=== PATIENT | female | born 1935 | race Caucasian/White ===

== ENCOUNTER 2020-09-24 10:02 | Outpatient (REF) | payer MEDICARE, SELFPAY ==
[2020-09-24 11:24] LABS: Hematocrit 33.5 % (37-47); Hemoglobin 11.5 g/dl (12.0-16.0); Mean Corpuscular HGB Conc 34.3 g/dl (31.0-35.0); Mean Corpuscular Volume 96.3 fL (80-98); Mean Platelet Volume 8.5 fL (9.4-12.3); Platelet Count 190 X10*3/uL (160-400); Red Blood Count 3.48 X10*6/uL (4.20-5.50); Red Cell Distribution Width 12.3 % (11.0-16.0); White Blood Count 7.8 X10*3/uL (4.8-10.8)
[2020-09-24 11:44] LABS: Alanine Aminotransferase 12 U/L (0-31); Albumin Level 4.5 g/dL (3.5-5.0); Alkaline Phosphatase 36 U/L (39-117); Anion Gap 14 (12-20); Aspartate Amino Transferase 18 U/L (5-31); Bilirubin Total 0.5 mg/dL (0.0-1.0); Blood Urea Nitrogen 32 mg/dL (9-16); Calcium 9.2 mg/dL (8.4-10.2); Carbon Dioxide 25 mmol/L (22-29); Chloride 98 mmol/L (96-108); Estimated Glomerular Filt Rate 53; Glucose Random 85 mg/dL (60-115); Iron 112 mcg/dL (30-160); Percent Iron Saturation 46 % (15-50); Potassium 3.7 mmol/L (3.3-5.1); Sodium 133 mmol/L (135-145); Total Iron Binding Capacity 245 mcg/dL (228-428); Total Protein 7.1 g/dL (6.5-8.0); Unsaturated Iron Binding 133 ug/dL
== END 2020-09-24 10:03 | disposition home or self-care (01) ==
LOC: HO.HMGCLDS 10:02
PROVIDERS: PCP Internal Medicine; Visit Provider Internal Medicine
DX: D64.9 Anemia, unspecified (principal); I10 Essential (primary) hypertension; M81.0 Age-related osteoporosis without current pathological fracture; Z86.39 Personal history of other endocrine, nutritional and metabolic disease
CPT/HCPCS: 36415; 80053; 83540; 85027

== ENCOUNTER 2020-12-14 09:10 | Outpatient (REF) | payer MEDICARE, SELFPAY ==
--- NOTE | ~2020-12-14 | MM_ITS ---
EXAMINATION: MM SCREENING DIGITAL BREAST TOMOSYNTHESIS, BILATERAL CLINICAL INFORMATION: Screening. Asymptomatic. Prior history benign excisional biopsies, left. Family history breast cancer, sister. The lifetime risk of breast cancer based on the Tyrer-Cuzick Model is 2%. COMPARISON: Mammography: 09/08/2016, 08/05/2015 TECHNIQUE: Digital breast tomosynthesis is performed in both the craniocaudal and mediolateral oblique views along with computer-aided detection (CAD). Synthesized 2D images are generated from the tomosynthesis. FINDINGS: There are scattered areas of fibroglandular density (ACR BI-RADS breast composition Category b). Breast tissue composition borders on heterogeneously dense. Parenchymal pattern is similar to prior studies. There is no developing density or interval mass or architectural abnormality. Bilateral vascular and punctate calcifications are again seen. There are no significant changes from prior studies. MM/MM tomosynthesis screening BI IMPRESSION: No significant changes from prior exams. ASSESSMENT: BI-RADS 2: Benign RECOMMENDATION: Routine annual mammography screening. This patient's information was entered into a reminder system with a target due date for their next mammogram.
--- NOTE | ~2020-12-14 | MM_ITS ---
EXAMINATION: BONE DENSITOMETRY CLINICAL INDICATION: Osteoporosis. COMPARISON: Previous BD dated 08/05/2015 and baseline BD dated 12/17/2007. TECHNIQUE: Using a [employer] DXA System (software version: 13.1) manufactured by [employer], dual-energy x-ray absorptiometry was performed of the lumbar spine and left hip. The images are of good technical quality. Summary results are attached. FINDINGS: AP SPINE L1-L4: Current: BMD 0.680 g/cm2, Z-score -1.5, T-score -4.2, osteoporosis, 10.7% increase from previous, 11.6% decrease from baseline (<5% change is not significant). Prior: BMD 0.614 g/cm2. Baseline: BMD 0.769 g/cm2. LEFT FEMUR, NECK: Current: BMD 0.663 g/cm2, Z-score 0.1, T-score -2.7, osteoporosis. Prior: BMD 0.687 g/cm2. Baseline: BMD 0.750 g/cm2. LEFT FEMUR, TOTAL: Current: BMD 0.618 g/cm2, Z-score -0.3, T-score -3.1, osteoporosis, 7.8% decrease from previous, 15.1% decrease from baseline (<5% change is not significant). Prior: BMD 0.670 g/cm2. Baseline: BMD 0.728 g/cm2. IDENTIFIED RISK FACTORS: Early menopause, height loss, history of fracture (adult), hysterectomy, bilateral oophorectomy, low calcium intake, osteoporosis, secondary osteoporosis. HISTORY OF FRACTURE: Femur/hip, humerus/shoulder, pelvis. MEDICATIONS: Calcium, vitamin D, Prolia. MM/XR DEXA axial skeleton IMPRESSION: 1. DIAGNOSIS: Severe osteoporosis based on the lowest T-score value of -4.2 in the lumbar spine and history of fractures of the femur/hip, pelvis, humerus/shoulder applying World Health Organization criteria. 2. 10-YEAR FRACTURE RISK PREDICTION, FRAX: Major osteoporotic fracture (clinical spine, forearm, hip or shoulder) 23.2%. Hip fracture 8.7%. 3. Treatment Recommendations: NOF guidelines recommend consideration for treatment in postmenopausal women and men age 50 and older presenting with the following: -A hip or vertebral (clinical or morphometric) fracture. -T-score less than or equal to -2.5 at the femoral neck or spine after appropriate evaluation to exclude secondary causes. -Low bone mass at the hip or spine and a 10-year fracture probability by FRAX of greater than or equal to 3% for hip fracture or greater than or equal to 20% for major osteoporotic fracture based on the [place] adapted WHO algorithm. 4. Other Recommendations: All treatment decisions require clinical judgment and consideration of individual patient factors, including patient preferences, comorbidities, previous drug use, risk factors not captured in the FRAX model (e.g. frailty, falls, vitamin D deficiency, increased bone turnover, interval significant decline in bone density) and possible under or overestimation of fracture risk by FRAX. Additional medical evaluation for secondary cause of low bone mineral density may be appropriate. FUTURE SCAN RECOMMENDATION: People with diagnosed cases of osteoporosis or at high risk for fracture should have regular bone mineral density tests. For patients eligible for Medicare, routine testing is allowed once every 2 years. The testing frequency can be increased to one year for patients who have rapidly progressing disease, those who are receiving or discontinuing medical therapy to restore bone mass, or have additional risk factors.
== END 2020-12-14 09:11 | disposition home or self-care (01) ==
LOC: HO.MAMMO 09:10
PROVIDERS: PCP Internal Medicine; Visit Provider Internal Medicine
DX: Z12.31 Encounter for screening mammogram for malignant neoplasm of breast (principal); M81.0 Age-related osteoporosis without current pathological fracture; E58 Dietary calcium deficiency; Z78.0 Asymptomatic menopausal state; Z90.710 Acquired absence of both cervix and uterus; Z90.722 Acquired absence of ovaries, bilateral
CPT/HCPCS: 77063; 77067; 77080

== ENCOUNTER 2021-01-15 13:28 | Emergency (ER) | payer MEDICARE, SELFPAY ==
--- NOTE | ~2021-01-15 | XR_ITS ---
EXAMINATION: XR HIP, LEFT CLINICAL INFORMATION: Left hip pain status post trauma. COMPARISON: None TECHNIQUE: Two views of the left hip. FINDINGS: Mild left hip degenerative joint changes are seen. There is no acute fracture or dislocation. Enthesopathy is noted as well. The soft tissues are unremarkable. XR/XR hip LT w PEL1V IMPRESSION: Mild degenerative changes. No acute fracture.
--- NOTE | ~2021-01-15 | XR_ITS ---
EXAMINATION: XR SHOULDER, LEFT CLINICAL INFORMATION: Left shoulder pain status post trauma. COMPARISON: 05/25/2017 left shoulder arthrogram images. Chest radiographs dated 12/11/2014. TECHNIQUE: AP external rotation, Grashey, scapular Y, and axillary views of the left shoulder. FINDINGS: The patient is status post left shoulder arthroplasty showing good anatomic alignment with no evidence for hardware malfunction. There is no acute fracture or dislocation. The soft tissues are unremarkable. Incidental coarse calcifications overlying the right hilum likely secondary to old granulomatous disease without significant change. XR/XR shoulder LT min 2V IMPRESSION: No hardware abnormality. No acute fracture.
--- NOTE | 2021-01-15 13:46 | ED_ITS ---
HPI - Fall General Chief Complaint: Fall Stated Complaint: FALL ON STEP, R HIP PAIN Time Seen by Provider: 01/15/21 13:35 Source: patient and EMS Mode of arrival: EMS Limitations: no limitations History of Present Illness HPI Narrative: 85-year-old female with a past medical history of hypertension, SIADH, anemia, osteoporosus here with complaints of left buttocks/hip pain status post fall. Patient tells me she was on a 2nd step when she lost her balance landing on her left hip. Denies hitting her head or loss of consciousness. She also struck her left shoulder. complaint: fall Related Data Home Medications Medication Instructions Recorded Confirmed atenolol 25 mg tablet 25 mg PO DAILY 09/24/20 12/24/20 cholecalciferol (vitamin D3) 50 50 mcg PO DAILY 09/24/20 12/24/20 mcg (2,000 unit) capsule clindamycin HCl 300 mg capsule 300 mg PO TID 09/24/20 12/24/20 flu vac qv 2019(18yr up)rc(PF) ml IM 09/24/20 12/24/20 potassium chloride 20 mEq/15 mL 20 meq PO DAILY 11/23/20 12/24/20 oral liquid Previous Rx's Medication Instructions Recorded denosumab 60 mg/mL subcutaneous 60 mg SUBCUT [id number] #1 ml 12/24/20 syringe lorazepam 0.5 mg tablet 0.5 mg PO DAILY PRN #8 tab 12/24/20 nitrofurantoin 100 mg PO Q12H 7 Days #14 cap 12/24/20 monohydrate/macrocrystals 100 mg capsule ascorbic acid (vitamin C) 500 mg 500 mg PO BID #180 tab 01/14/21 tablet ferrous sulfate 325 mg (65 mg 325 mg PO BID #180 tab 01/14/21 iron) tablet acetaminophen 1,000 mg PO Q6H PRN #20 cap 01/15/21 diazepam [Valium] 2 mg PO BID PRN #5 tab 01/15/21 lidocaine [Lidoderm] 1 patch TOPICAL DAILY #15 ea 01/15/21 Allergies Allergy/AdvReac Type Severity Reaction Status Date / Time meperidine [From Demerol] Allergy Severe ANAPHYLAXIS Verified 12/24/20 09:11 Penicillins Allergy Severe HIVES Verified 12/24/20 09:11 Sulfa (Sulfonamide Allergy Mild HIVES Verified 12/24/20 09:11 Antibiotics) [Sulfa (Sulfonamides)] amoxicillin Allergy Unknown hives Verified 12/24/20 09:11 CHOCOLATE Allergy Unknown HIVES Verified 12/24/20 09:11 peanut [PEANUT] Allergy Unknown HIVES Verified 12/24/20 09:11 penicillin G Allergy Unknown Unknown Verified 12/24/20 09:11 penicillin V Allergy Unknown Unknown Verified 12/24/20 09:11 codeine [Codeine] AdvReac Mild NAUSEA/VOMI Verified 12/24/20 09:11 TING pravastatin AdvReac Unknown body aches Verified 12/24/20 09:11 Review of Systems Review of Systems: Yes all other systems are reviewed and are negative Constitutional: Constitutional: Reports no additional constitutional complaints, Denies body ache(s), Denies chills, Denies fever(s), Denies headache(s) and Denies weakness Eyes: Eyes: Reports no additional eye complaints and Denies change in vision ENT: Reports system reviewed and no additional complaints, except as documented, Denies dizziness, Denies headache(s), Denies nasal congestion, Denies nasal discharge and Denies neck pain Cardiovascular: Cardiovascular: Reports no additional cardiovascular c omplaints, Denies chest pain, Denies leg edema and Denies dyspnea Respiratory: Respiratory: Reports no additional respiratory complaints, Denies cough and Denies dyspnea Gastrointestinal: Gastrointestinal: Reports no additional gastrointestinal complaints, Denies abdominal pain, Denies diarrhea, Denies nausea and Denies vomiting Genitourinary: Genitourinary: Reports no additional female genitourinary complaints and Denies urinary incontinence Musculoskeletal: Musculoskeletal: Reports no additional musculoskeletal complaints, Denies back pain, Reports arthralgias, Denies joint swelling, Reports limited range of motion, Denies neck pain, Denies numbness and Denies tingling Integumentary/Breasts: Skin/Breast: Reports system reviewed and no additional complaints, except as docu and Denies rash Neurologic: Reports system reviewed and no additional complaints, except as documented, Denies Abnormal speech present, Denies dizziness, Denies headac he(s), Denies numbness, Denies tingling and Denies weakness PMFSH Past Medical History Attestation statement: The following information was validated with the patient. Source: old records reviewed and nursing notes reviewed Medical History Chronic anemia History of SIADH HTN (hypertension) Osteoporosis Surgical History History of appendectomy History of cataract History of colonoscopy History of fundoplication History of hysterectomy History of left shoulder replacement History of open reduction and internal fixation (ORIF) procedure Family History Family History Father History of CVA (cerebrovascular accident) Stroke Mother CVD (cardiovascular disease) History of heart attack Son No problems noted. Social History Social History Alcohol intake: never Smoking Status: Never smoker Advance Directives: No Advance Directives Information Provided: Yes Physical Exam Vital Signs: Vital Signs: Last Vital Signs Temp 98.1 F 01/15/21 13:53 Pulse 64 01/15/21 13:53 Resp 18 01/15/21 13:53 BP 142/68 H 01/15/21 13:53 Pulse Ox 98 01/15/21 13:53 Body Mass Index 18.5 Const: General: cooperative, healthy appearing, comfortable and no acute distress Orientation/consciousness: patient oriented x3 Limitations: no limitations HENMT: Head: Yes normal to inspection Ears: hearing grossly normal bilaterally General nose exam: Normal external nose present Face and sinus: Yes normal facial exam Mouth: Normal oral and palatal mucosa present Throat: Yes posterior oropharynx normal Eyes: General: appearance normal, both eyes and all related structures Pupils: Equal, round and reactive pupils present Neck: Neck: Yes normal visual inspection Chest: Chest palpation & inspection: normal inspection of the chest Resp: Effort & Inspection: normal respiratory effort Auscultation: clear to auscultation bilaterally Cardio: Rate: regular rate Rhythm: regular rhythm Peripheral pulses: Peripheral pulses 2+ throughout GI: Inspection: Yes normal to inspection Palpation (GI): Soft to palpation and nontender Auscultation: normal bowel sounds Back/Spine/Pelvis: Thoracic/Lumbar Spine: thoracic and lumbar spine normal to inspection Skin: General skin exam: no rashes or lesions noted Neuro: General: patient oriented x3, no focal motor deficits and normal sensation to monofilament Cranial nerves: Yes Equal, round and reactive pupils present Cognition (Neuro): normal cognition Speech: No Abnormal speech present Gait exam (Neuro): Normal gait present Motor exam (neuro): 5/5 motor strength present throughout Extrem: Other: Left buttocks and left lateral hip pain. Pain with abduction and adduction. No obvious shortening or deformity or rotation Pain to the posterior left shoulder with pain with abduction. No obvious deformity. General: Yes normal to inspection Course Course Course Narrative: 85 yo female here with left hip/buttocks pain/left shoulder pain s/p mechanical fall. No head injury or LOC. Will need x-rays, labs. 1520-X-rays are negative. Patient able to walk around the room although with some discomfort. She is here with her they tell me that they are comfortable going home. She does not feel like she needs any services or placement in a short-term rehab. She was given Tylenol, Lidoderm patch and a dose of Valium here with improvement of pain. Likely contusion. Reviewed worrisome signs and symptoms and when to return to the emergency department. Comfortable discharge home. MDM - Fall Differential Diagnosis Differential diagnosis: Likely dislocation and fracture Medical Records Attestation: I reviewed the patient's medical records. Lab Data Attestation: I reviewed the patient's lab results. Result diagrams: 01/15/21 14:04 01/15/21 14:04 Labs: Lab Results 01/15/21 01/15/21 01/15/21 Range/Units 14:04 14:04 14:04 WBC 6.8 (4.8-10.8) X10*3/uL RBC 3.21 L (4.20-5.50) X10*6/uL Hgb 10.6 L (12.0-16.0) g/dl Hct 30.2 L (37-47) % MCV 94.1 (80-98) fL MCH 33.0 (27.0-33.0) pg MCHC 35.1 H (31.0-35.0) g/dl RDW 12.3 (11.0-16.0) % Plt Count 154 L (160-400) X10*3/uL MPV 8.3 L (9.4-12.3) fL Immature Gran % (Auto) 0.4 (0.0-0.4) % Neut % (Auto) 77.7 H (45-73) % Lymph % (Auto) 13.2 L (20-40) % [place] % (Auto) 7.7 (2-11) % Eos % (Auto) 0.6 (0-4) % Baso % (Auto) 0.4 (0-2) % Lymph # (Auto) 0.9 L (1.2-4.9) X10*3/uL [place] # (Auto) 0.5 (0.1-1.2) X10*3/uL Eos # (Auto) 0.0 (0.0-0.4) X10*3/uL Baso # (Auto) 0.0 (0.0-0.2) X10*3/uL Abs Immat Gran (auto) 0.03 (0.00-0.03) X10*3/uL Absolute Neuts (auto) 5.2 (2.0-8.3) X10*3/uL Absolute Nucleated RBC 0.000 (0.0-0.012) X10*3/uL Nucleated RBC % (auto) 0.0 (0.0-0.2) /100WBC Hold Blue Top SEE NOTE Sodium 132 L (135-145) mmol/L Potassium 4.1 (3.3-5.1) mmol/L Chloride 100 (96-108) mmol/L Carbon Dioxide 22 (22-29) mmol/L Anion Gap 14 (12-20) BUN 30 H (9-16) mg/dL Creatinine 0.91 (0.5-1.4) mg/dL Estim Creat Clear Calc 31.3 Estimated GFR 59 Random Glucose 106 (60-115) mg/dL Calcium 9.3 (8.4-10.2) mg/dL Imaging Data left hip/pelvis fracture: Attestation: I personally reviewed and interpreted this imaging study as follows: Radiologist's impression: EXAMINATION: XR HIP, LEFT CLINICAL INFORMATION: Left hip pain status post trauma. COMPARISON: None TECHNIQUE: Two views of the left hip. FINDINGS: Mild left hip degenerative joint changes are seen. There is no acute fracture or dislocation. Enthesopathy is noted as well. The soft tissues are unremarkable. XR/XR hip LT w PEL1V IMPRESSION: Mild degenerative changes. No acute fracture. shoulder xray: Attestation: I personally reviewed and interpreted this imaging study as follows: Radiologist's impression: EXAMINATION: XR SHOULDER, LEFT CLINICAL INFORMATION: Left shoulder pain status post trauma. COMPARISON: 05/25/2017 left shoulder arthrogram images. Chest radiographs dated 12/11/2014. TECHNIQUE: AP external rotation, Grashey, scapular Y, and axillary views of the left shoulder. FINDINGS: The patient is status post left shoulder arthroplasty showing good anatomic alignment with no evidence for hardware malfunction. There is no acute fracture or dislocation. The soft tissues are unremarkable. Incidental coarse calcifications overlying the right hilum likely secondary to old granulomatous disease without significant change. XR/XR shoulder LT min 2V IMPRESSION: No hardware abnormality. No acute fracture. Discharge Plan Discharge Clinical Impression: Contusion of hip, left Qualifiers: Encounter type: initial encounter Qualified Code(s): S70.02XA - Contusion of left hip, initial encounter Contusion of left shoulder Qualifiers: Encounter type: initial encounter Qualified Code(s): S40.012A - Contusion of left shoulder, initial encounter Patient Disposition: Home, Self-Care Instructions: Contusion in Adults (ED) Additional Instructions: Ice, elevation, rest Prescriptions: New diazepam [Valium] 2 mg tablet 2 mg PO BID PRN (Reason: muscle spasm) Qty: 5 RF: 0 lidocaine [Lidoderm] 5 % adhesive patch,medicated 1 patch topical DAILY Qty: 15 RF: 0 acetaminophen 500 mg capsule 1,000 mg PO Q6H PRN (Reason: pain) Qty: 20 RF: 0 No Action ascorbic acid (vitamin C) 500 mg tablet 500 mg PO BID Qty: 180 RF: 3 ferrous sulfate 325 mg (65 mg iron) tablet 325 mg PO BID Qty: 180 RF: 3 potassium chloride 20 mEq/15 mL liquid 20 meq PO DAILY RF: 0 clindamycin HCl 300 mg capsule 300 mg PO TID RF: 0 atenolol 25 mg tablet 25 mg PO DAILY RF: 0 Flublok Quad 1182-1799 (PF) 180 mcg (45 mcg x 4)/0.5 mL syringe IM RF: 0 cholecalciferol (vitamin D3) 50 mcg (2,000 unit) capsule 50 mcg PO DAILY RF: 0 Prolia 60 mg/mL syringe 60 mg subcut [id number] Qty: 1 RF: 1 nitrofurantoin monohyd/m-cryst [Macrobid] 100 mg capsule 100 mg PO Q12H 7 Days Qty: 14 RF: 0 lorazepam 0.5 mg tablet 0.5 mg PO DAILY PRN (Reason: anxiety) Qty: 8 RF: 0 Referrals: Clarice Ziegler MD [Primary Care Provider] - 2 days
[2021-01-15 13:51] VITALS: BP 135/72
[2021-01-15 13:53] VITALS: BP 142/68; PULSE 64; RESP 18; TEMP 36.7; O2SAT 98; BMI 18.5
[2021-01-15 14:13] LABS: MANUAL DIFF FLAG NO
[2021-01-15 14:15] LABS: Basophils Percent Auto 0.4 % (0-2); Eosinophils Percent Auto 0.6 % (0-4); Hematocrit 30.2 % (37-47); Hemoglobin 10.6 g/dl (12.0-16.0); Imm Gran Abs Auto 0.03 X10*3/uL (0.00-0.03); Imm Gran Pct Auto 0.4 % (0.0-0.4); Lymphocytes Absolute Auto 0.9 X10*3/uL (1.2-4.9); Lymphocytes Percent Auto 13.2 % (20-40); Mean Corpuscular HGB Conc 35.1 g/dl (31.0-35.0); Mean Corpuscular Volume 94.1 fL (80-98); Mean Platelet Volume 8.3 fL (9.4-12.3); Monocytes Absolute Auto 0.5 X10*3/uL (0.1-1.2); Monocytes Percent Auto 7.7 % (2-11); Neutrophils Absolute Auto 5.2 X10*3/uL (2.0-8.3); Neutrophils Percent Auto 77.7 % (45-73); Platelet Count 154 X10*3/uL (160-400); Red Blood Count 3.21 X10*6/uL (4.20-5.50); Red Cell Distribution Width 12.3 % (11.0-16.0); White Blood Count 6.8 X10*3/uL (4.8-10.8)
[2021-01-15 14:34] LABS: Anion Gap 14 (12-20); Blood Urea Nitrogen 30 mg/dL (9-16); Calcium 9.3 mg/dL (8.4-10.2); Carbon Dioxide 22 mmol/L (22-29); Chloride 100 mmol/L (96-108); Creatinine Clr Calc Pharmacy 31.3; Estimated Glomerular Filt Rate 59; Glucose Random 106 mg/dL (60-115); Potassium 4.1 mmol/L (3.3-5.1); Sodium 132 mmol/L (135-145)
[2021-01-15] MEDS: diazePAM 2 MG TABLET PO (15:57)
[2021-01-15] MEDS: Acetaminophen 325 MG TABLET 975 MG PO (15:57)
[2021-01-15] MEDS: Lidocaine 4 % Patch ADH..PATCH 1 PATCH TRANSDERMA (15:58)
--- NOTE | 2021-01-15 16:10 | PC.NURSE ---
Pt medicated for pain and given prescriptions for home. She is able to ambulate with steady gait.
== END 2021-01-15 16:10 | disposition home or self-care (01) ==
PROVIDERS: Nurse Practitioner Family; Emergency Provider Emergency Medicine; PCP Internal Medicine
DX: S40.012A Contusion of left shoulder, initial encounter (principal); S70.02XA Contusion of left hip, initial encounter; W10.8XXA Fall (on) (from) other stairs and steps, initial encounter; Y93.89 Activity, other specified; Y92.22 Religious institution as the place of occurrence of the external cause; Y99.9 Unspecified external cause status; I10 Essential (primary) hypertension
CPT/HCPCS: 36415; 73030; 73502; 80048; 85025; 99283; 99284

== ENCOUNTER 2021-06-16 11:05 | Outpatient (REF) | payer MEDICARE, SELFPAY ==
[2021-06-16 14:03] LABS: Hematocrit 33.1 % (37-47); Hemoglobin 11.3 g/dl (12.0-16.0); Mean Corpuscular HGB Conc 34.1 g/dl (31.0-35.0); Mean Corpuscular Hemoglobin 32.8 pg (27.0-33.0); Mean Corpuscular Volume 95.9 fL (80-98); Mean Platelet Volume 8.5 fL (9.4-12.3); Platelet Count 178 X10*3/uL (160-400); Red Blood Count 3.45 X10*6/uL (4.20-5.50); Red Cell Distribution Width 13.2 % (11.0-16.0); White Blood Count 6.4 X10*3/uL (4.8-10.8)
[2021-06-16 14:26] LABS: Alanine Aminotransferase 11 U/L (0-31); Albumin Level 4.3 g/dL (3.5-5.0); Alkaline Phosphatase 34 U/L (39-117); Anion Gap 12 (12-20); Aspartate Amino Transferase 19 U/L (5-31); Bilirubin Total 0.4 mg/dL (0.0-1.0); Blood Urea Nitrogen 24 mg/dL (9-16); Calcium 9.2 mg/dL (8.4-10.2); Carbon Dioxide 25 mmol/L (22-29); Chloride 101 mmol/L (96-108); Estimated Glomerular Filt Rate 45; Glucose Fasting 92 mg/dL (60-99); Iron 72 mcg/dL (30-160); Percent Iron Saturation 31 % (15-50); Potassium 4.2 mmol/L (3.3-5.1); Sodium 134 mmol/L (135-145); Total Iron Binding Capacity 235 mcg/dL (228-428); Total Protein 6.9 g/dL (6.5-8.0); Unsaturated Iron Binding 163 ug/dL
[2021-06-16 14:40] LABS: TSH reflex Free T4 1.55 uIU/mL (0.32-4.0); Vitamin D 25-OH Total 58.7 ng/mL (>30)
== END 2021-06-16 11:06 | disposition home or self-care (01) ==
LOC: HO.HMGCLDS 11:05
PROVIDERS: PCP Internal Medicine; Visit Provider Internal Medicine
DX: I10 Essential (primary) hypertension (principal); M81.0 Age-related osteoporosis without current pathological fracture; D64.9 Anemia, unspecified; Z68.39 Body mass index [BMI] 39.0-39.9, adult
CPT/HCPCS: 36415; 80053; 82306; 83540; 84443; 85027

== ENCOUNTER 2021-12-15 13:20 | Outpatient (REF) | payer MEDICARE, SELFPAY ==
[2021-12-15 14:08] LABS: COVID-19 Test Positive (Negative)
== END 2021-12-15 13:21 | disposition home or self-care (01) ==
LOC: HO.LAB 13:20
PROVIDERS: Visit Provider Internal Medicine
DX: Z20.822 Contact with and (suspected) exposure to COVID-19 (principal)
CPT/HCPCS: 87635; C9803

== ENCOUNTER 2022-01-11 10:51 | Outpatient (REF) | payer MEDICARE, SELFPAY ==
[2022-01-11 13:56] LABS: Hematocrit 34.8 % (37.0-47.0); Hemoglobin 11.8 g/dl (12.0-16.0); Mean Corpuscular HGB Conc 33.9 g/dl (31.0-35.0); Mean Corpuscular Hemoglobin 32.5 pg (27.0-33.0); Mean Corpuscular Volume 95.9 fL (80.0-98.0); Mean Platelet Volume 9.1 fL (9.4-12.3); Platelet Count 191 X10*3/uL (160-400); Red Blood Count 3.63 X10*6/uL (4.20-5.50); Red Cell Distribution Width 13.2 % (11.0-16.0); White Blood Count 7.7 X10*3/uL (4.8-10.8)
[2022-01-11 14:04] LABS: Alanine Aminotransferase 17 U/L (0-31); Albumin Level 4.2 g/dL (3.5-5.0); Alkaline Phosphatase 34 U/L (39-117); Anion Gap 12 (12-20); Aspartate Amino Transferase 19 U/L (5-31); Bilirubin Total 0.4 mg/dL (0.0-1.0); Blood Urea Nitrogen 25 mg/dL (9-16); Calcium 9.4 mg/dL (8.4-10.2); Carbon Dioxide 24 mmol/L (22-29); Chloride 106 mmol/L (96-108); Cholesterol 174 mg/dL; Estimated Glomerular Filt Rate 51; Glucose Fasting 86 mg/dL (60-99); HDL Cholesterol 61 mg/dL; LDL Cholesterol Calculated 101 mg/dl; Potassium 3.9 mmol/L (3.3-5.1); Sodium 138 mmol/L (135-145); Total Protein 6.9 g/dL (6.5-8.0); Triglycerides 64 mg/dL
[2022-01-11 14:29] LABS: Vitamin D 25-OH Total 53.2 ng/mL (>30)
== END 2022-01-11 10:52 | disposition home or self-care (01) ==
LOC: HO.HMGCLDS 10:51
PROVIDERS: Visit Provider Internal Medicine
DX: D64.9 Anemia, unspecified (principal); E55.9 Vitamin D deficiency, unspecified; I10 Essential (primary) hypertension; Z86.39 Personal history of other endocrine, nutritional and metabolic disease
CPT/HCPCS: 36415; 80053; 80061; 82306; 85027

== ENCOUNTER 2022-06-27 10:30 | Outpatient (REF) | payer MEDICARE, SELFPAY ==
[2022-06-27 12:22] LABS: Alanine Aminotransferase 12 U/L (0-31); Albumin Level 4.6 g/dL (3.5-5.0); Alkaline Phosphatase 37 U/L (39-117); Anion Gap 16 (12-20); Aspartate Amino Transferase 20 U/L (5-31); Bilirubin Total 0.3 mg/dL (0.0-1.0); Blood Urea Nitrogen 31 mg/dL (9-16); Calcium 9.5 mg/dL (8.4-10.2); Carbon Dioxide 24 mmol/L (22-29); Chloride 100 mmol/L (96-108); Estimated Glomerular Filt Rate 44; Glucose Fasting 86 mg/dL (60-99); Potassium 4.2 mmol/L (3.3-5.1); Sodium 136 mmol/L (135-145); Total Protein 7.2 g/dL (6.5-8.0)
== END 2022-06-27 10:31 | disposition home or self-care (01) ==
LOC: HO.HMGCLDS 10:30
PROVIDERS: PCP Internal Medicine; Visit Provider Internal Medicine
DX: D64.9 Anemia, unspecified (principal); I10 Essential (primary) hypertension
CPT/HCPCS: 36415; 80053

== ENCOUNTER 2022-12-19 08:19 | Outpatient (REF) | payer MEDICARE, SELFPAY ==
--- NOTE | ~2022-12-19 | MM_ITS ---
EXAMINATION: BONE DENSITOMETRY CLINICAL INDICATION: Age-related osteoporosis without current pathological fracture. COMPARISON: Previous BD dated 12/14/2020 and baseline BD dated 12/17/2007. TECHNIQUE: Using a [employer] DXA System (software version: 13.1) manufactured by [employer], dual-energy x-ray absorptiometry was performed of the lumbar spine and left hip. The images are of good technical quality. Summary results are attached. FINDINGS: AP SPINE L1-L4: Current: BMD 0.740 g/cm2, Z-score -1.0, T-score -3.7, osteoporosis, 8.8% increase from previous, 3.8% decrease from baseline (<5% change is not significant). Prior: BMD 0.680 g/cm2. Baseline: BMD 0.769 g/cm2. LEFT FEMUR, NECK: Current: BMD 0.578 g/cm2, Z-score -0.4, T-score -3.3, osteoporosis. Prior: BMD 0.663 g/cm2. Baseline: BMD 0.750 g/cm2. LEFT FEMUR, TOTAL: Current: BMD 0.506 g/cm2, Z-score -1.1, T-score -4.0, osteoporosis, 18.1% decrease from previous, 30.5% decrease from baseline (<5% change is not significant). Prior: BMD 0.618 g/cm2. Baseline: BMD 0.728 g/cm2. IDENTIFIED RISK FACTORS: History of adult fracture. Osteoporosis. Menopause. Left oophorectomy. Hysterectomy. HISTORY OF FRACTURE: Femur/hip. MEDICATIONS: Calcium supplement and/or multivitamin. Vitamin D. Prolia. MM/XR DEXA axial skeleton IMPRESSION: 1. DIAGNOSIS: Osteoporosis based on the lowest T-score value of -4.0 in the total femur applying World Health Organization criteria. 2. 10-YEAR FRACTURE RISK PREDICTION, FRAX: According to the guidelines, FRAX calculation should only be performed on patients in the osteopenia bone density category.?Therefore, FRAX was not performed on this patient.? 3. Treatment Recommendations: NOF guidelines recommend consideration for treatment in postmenopausal women and men age 50 and older presenting with the following: -A hip or vertebral (clinical or morphometric) fracture. -T-score less than or equal to -2.5 at the femoral neck or spine after appropriate evaluation to exclude secondary causes. -Low bone mass at the hip or spine and a 10-year fracture probability by FRAX of greater than or equal to 3% for hip fracture or greater than or equal to 20% for major osteoporotic fracture based on the [place] adapted WHO algorithm. 4. Other Recommendations: All treatment decisions require clinical judgment and consideration of individual patient factors, including patient preferences, comorbidities, previous drug use, risk factors not captured in the FRAX model (e.g. frailty, falls, vitamin D deficiency, increased bone turnover, interval significant decline in bone density) and possible under or overestimation of fracture risk by FRAX. Additional medical evaluation for secondary cause of low bone mineral density may be appropriate. FUTURE SCAN RECOMMENDATION: People with diagnosed cases of osteoporosis or at high risk for fracture should have regular bone mineral density tests. For patients eligible for Medicare, routine testing is allowed once every 2 years. The testing frequency can be increased to one year for patients who have rapidly progressing disease, those who are receiving or discontinuing medical therapy to restore bone mass, or have additional risk factors.
== END 2022-12-19 08:20 | disposition home or self-care (01) ==
LOC: HO.MAMMO 08:19
PROVIDERS: PCP Internal Medicine; Visit Provider Internal Medicine
DX: Z13.820 Encounter for screening for osteoporosis (principal); M81.0 Age-related osteoporosis without current pathological fracture; Z78.0 Asymptomatic menopausal state
CPT/HCPCS: 77080

== ENCOUNTER 2022-12-28 11:33 | Outpatient (REF) | payer MEDICARE, SELFPAY ==
[2022-12-28 14:10] LABS: MANUAL DIFF FLAG NO
[2022-12-28 14:23] LABS: Basophils Absolute Auto 0.1 X10*3/uL (0.0-0.2); Basophils Percent Auto 0.8 % (0-2); Eosinophils Absolute Auto 0.3 X10*3/uL (0.0-0.4); Eosinophils Percent Auto 4.3 % (0-4); Hematocrit 35.1 % (37.0-47.0); Hemoglobin 11.6 g/dl (12.0-16.0); Imm Gran Abs Auto 0.01 X10*3/uL (0.00-0.03); Imm Gran Pct Auto 0.2 % (0.0-0.4); Lymphocytes Absolute Auto 1.8 X10*3/uL (1.2-4.9); Lymphocytes Percent Auto 30.6 % (20-40); Mean Platelet Volume 8.8 fL (9.4-12.3); Monocytes Absolute Auto 0.6 X10*3/uL (0.1-1.2); Monocytes Percent Auto 10.6 % (2-11); Neutrophils Absolute Auto 3.2 x10*3/uL (2.0-8.3); Neutrophils Percent Auto 53.5 % (45-73); Platelet Count 194 X10*3/uL (160-400); Red Blood Count 3.62 X10*6/uL (4.20-5.50); Red Cell Distribution Width 12.8 % (11.0-16.0)
[2022-12-28 15:34] LABS: Alanine Aminotransferase 13 U/L (0-31); Albumin Level 4.4 g/dL (3.5-5.0); Alkaline Phosphatase 37 U/L (39-117); Anion Gap 12 (12-20); Aspartate Amino Transferase 19 U/L (5-31); Bilirubin Total 0.5 mg/dL (0.0-1.0); Blood Urea Nitrogen 34 mg/dL (9-16); Calcium 9.6 mg/dL (8.4-10.2); Carbon Dioxide 24 mmol/L (22-29); Chloride 107 mmol/L (96-108); Estimated Glomerular Filt Rate 49; Glucose Fasting 82 mg/dL (60-99); Iron 133 mcg/dL (30-160); Percent Iron Saturation 60 % (15-50); Potassium 4.7 mmol/L (3.3-5.1); Sodium 138 mmol/L (135-145); Total Iron Binding Capacity 221 mcg/dL (228-428); Unsaturated Iron Binding 88 ug/dL
[2022-12-28 15:38] LABS: TSH reflex Free T4 2.44 uIU/mL (0.32-4.0); Vitamin D 25-OH Total 59.7 ng/mL (>30)
== END 2022-12-28 11:34 | disposition home or self-care (01) ==
LOC: HO.HMGCLDS 11:33
PROVIDERS: PCP Internal Medicine; Visit Provider Internal Medicine
DX: I12.9 Hypertensive chronic kidney disease with stage 1 through stage 4 chronic kidney disease, or unspecified chronic kidney disease (principal); N18.30 Chronic kidney disease, stage 3 unspecified; D64.9 Anemia, unspecified; E55.9 Vitamin D deficiency, unspecified
CPT/HCPCS: 36415; 80053; 82306; 83540; 84443; 85025

== ENCOUNTER 2023-05-03 11:42 | Outpatient (AMB) | payer MEDICARE, SELFPAY ==
[2023-05-03 11:44] VITALS: BP 118/66; PULSE 58; O2SAT 97; BMI 18.0
--- NOTE | 2023-05-03 11:44 | MHC.PC.OV ---
Vital Signs 05/03/23 11:44 Height 5 ft Weight 92 lb BMI 18.0 BP 118/66 Blood Pressure Location Lt brachial Position Sitting Pulse 58 Pulse Source Pulse Oximeter Pulse Oximetry (%) 97 Oxygen Delivery Method Room Air Intake Visit Reasons: 4m follow up Intake Note: Pt is here today for 4 months follow up visit. Allergies meperidine [From Demerol] Allergy (Severe, Verified 05/03/23 11:51) ANAPHYLAXIS Penicillins Allergy (Severe, Verified 05/03/23 11:51) HIVES Sulfa (Sulfonamide Antibiotics) [Sulfa (Sulfonamides)] Allergy (Mild, Verified 05/03/23 11:51) HIVES amoxicillin Allergy (Unknown, Verified 05/03/23 11:51) hives CHOCOLATE Allergy (Unknown, Verified 05/03/23 11:51) HIVES peanut [PEANUT] Allergy (Unknown, Verified 05/03/23 11:51) HIVES penicillin G Allergy (Unknown, Verified 05/03/23 11:51) trouble breathing rash penicillin V Allergy (Unknown, Verified 05/03/23 11:51) trouble breathing rash codeine [Codeine] Adverse Reaction (Mild, Verified 05/03/23 11:51) NAUSEA/VOMITING pravastatin Adverse Reaction (Unknown, Verified 05/03/23 11:51) body aches Medication List - Last Reconciled 05/03/23 by Clarice Ziegler MD acetaminophen 1,000 mg (2 x 500 mg) PO Q6H PRN alendronate 70 mg PO QWEEK ascorbic acid (vitamin C) 500 mg PO BID atenolol 25 mg PO DAILY cholecalciferol (vitamin D3) 50 mcg PO DAILY clindamycin HCl 300 mg PO TID denosumab (Prolia) 60 mg subcut [id number] ferrous sulfate 325 mg PO BID flu vac qv 2019(18yr up)rc(PF) mL IM lidocaine 5% (Lidoderm) 1 patch topical DAILY lidocaine 5% 1 patch topical DAILY lorazepam 0.5 mg PO DAILY PRN Tobacco use date assessed: 01/01/23 Fall risk assessment: No Falls in past year Last assessed Fall Risk: 01/01/23 Dental Screening Dental Screen Date: 05/03/23 Did you have a dental visit in the last 12 months?: Yes Did you have a dental problem in the last 6 months where you did not have access to dental care?: No Was dental information given to patient?: Patient has dentist HPI 4m follow up HPI Details Patient presents for the follow-up. Her was diagnosed with pancreatic cancer and undergoing chemotherapy. Patient has been upset and concerned. Patient reports having episodes of palpitations and squeezing sensation on the left chest lasting a few minutes at the time not related to physical activity. Patient denies shortness of breath or pleurisy. She denies change in appetite or sleep pattern. [facility] Medical History (Updated 05/03/23 @ 13:31 by Clarice Ziegler MD) CKD (chronic kidney disease) stage 3, GFR 30-59 ml/min Vitamin D deficiency Chronic anemia History of SIADH Osteoporosis HTN (hypertension) Surgical History History of left shoulder replacement History of hysterectomy History of fundoplication History of cataract History of colonoscopy History of open reduction and internal fixation (ORIF) procedure History of appendectomy Family History Father History of CVA (cerebrovascular accident) Stroke Mother CVD (cardiovascular disease) History of heart attack Son No problems noted. Sister Substance use disorder Social History Housing: House Alcohol intake: never Patient Tobacco Use Status: Never used Tobacco e-Cigarette/Vaping Use: Never Used Current occupational status: retired Cognitive needs: No Hearing needs: No Vision needs: Yes Questionnaire Thrive Questionnaire Date Thrive assessed: 01/01/23 VÍCTOR-7 AMB Questionnaire VÍCTOR-7 Date VÍCTOR - 7 assessed: 01/01/23 Source: Developed by Drs. Jamari Villagran, Iraida Slade, Raul Montesinos and colleagues, with an educational benedicto from [employer]. Review of Systems Const All systems reviewed & are unremarkable except as noted in HPI and below Reports no additional complaints Eyes Reports no additional complaints ENT Reports no additional complaints Card Reports no additional complaints Resp Reports no additional complaints GI Reports no additional complaints Reports no additional complaints Physical exam (Primary Care) Vital Signs: Last Vital Signs Pulse 58 05/03/23 11:44 BP 118/66 05/03/23 11:44 Pulse Ox 97 05/03/23 11:44 Oxygen Delivery Method Room Air 05/03/23 11:44 BMI result Body Mass Index 18.0 Tobacco/Smoking Status: Tobacco use Status Tobacco use date assessed 01/01/23 05/03/23 11:44 Patient Tobacco Use Status Never used Tobacco 05/03/23 11:44 e-Cigarette/Vaping Use Never Used 05/03/23 11:44 Thrive Assessment: Date of Thrive Assessment Date Thrive assessed 01/01/23 05/03/23 11:44 Const General: no acute distress HENMT Mouth: Normal oral and palatal mucosa present Neck Neck: Yes supple Resp Effort & Inspection: normal respiratory effort Auscultation: clear to auscultation bilaterally Cardio Rhythm: regular rhythm Heart sounds: S1 normal heart sound present and S2 normal heart sound present GI Inspection: Yes normal to inspection Palpation (GI): Soft to palpation Assessment and Plan Assessment & Plan (1) Palpitations: Code(s): R00.2 - Palpitations Plan: EKG showed normal sinus rhythm LVH, obtain 3 day Holter (2) Osteoporosis: Comment: Prolia since 2017, DEXA 11/2020 T score L spine -4.2, L femur -3.1, DEXA 11/16 L femur -4.0, Fosamax started 12/2022 Code(s): M81.0 - Age-related osteoporosis without current pathological fracture Plan: Continue Fosamax and vitamin-D (3) CKD (chronic kidney disease) stage 3, GFR 30-59 ml/min: Code(s): N18.30 - Chronic kidney disease, stage 3 unspecified Plan: Monitor renal function avoid NSAIDs (4) Chronic anemia: Comment: Normal iron studies Code(s): D64.9 - Anemia, unspecified Plan: Monitor CBC decreased iron supplement to every other day (5) HTN (hypertension): Code(s): I10 - Essential (primary) hypertension Plan: Continue atenolol (6) Anxiety: Code(s): F41.9 - Anxiety disorder, unspecified Plan: Start 12.5 mg of sertraline, follow-up in 3 months with a fasting labs before Orders: Orders ECG 3 day holter monitor Today R00.2 - Palpitations Comprehensive [place]. Panel Fast 3 Months D64.9 - Anemia, unspecified, I10 - Essential (primary) hypertension, M81.0 - Age-related osteoporosis without current pathological fracture, N18.30 - Chronic kidney disease, stage 3 unspecified Complete Blood Count Auto Diff 3 Months D64.9 - Anemia, unspecified, I10 - Essential (primary) hypertension, M81.0 - Age-related osteoporosis without current pathological fracture, N18.30 - Chronic kidney disease, stage 3 unspecified Vitamin D 25-OH Total 3 Months D64.9 - Anemia, unspecified, I10 - Essential (primary) hypertension, M81.0 - Age-related osteoporosis without current pathological fracture, N18.30 - Chronic kidney disease, stage 3 unspecified IRON PROFILE 3 Months D64.9 - Anemia, unspecified, I10 - Essential (primary) hypertension, M81.0 - Age-related osteoporosis without current pathological fracture, N18.30 - Chronic kidney disease, stage 3 unspecified TSH reflex Free T4 3 Months D64.9 - Anemia, unspecified, I10 - Essential (primary) hypertension, M81.0 - Age-related osteoporosis without current pathological fracture, N18.30 - Chronic kidney disease, stage 3 unspecified Medications: New sertraline (Zoloft) 12.5 mg (1/2 x 25 mg) PO DAILY 90 tabs 0RF Changed From ferrous sulfate 325 mg PO BID 180 tabs 3RF D64.9 - Anemia, unspecified To ferrous sulfate 325 mg PO Q OTHER DAY 45 tabs 3RF D64.9 - Anemia, unspecified Discontinued denosumab (Prolia) Discontinued Reason: Doctor's Order 60 mg subcut [id number] 1 mL 1RF Coding Level of Care Code Est Pt Level 4 (51871) Diagnoses Palpitations R00.2 Osteoporosis M81.0 CKD (chronic kidney disease) stage 3, GFR 30-59 ml/min N18.30 Chronic anemia D64.9 HTN (hypertension) I10 Anxiety F41.9
== END 2023-05-03 13:32 | disposition home or self-care (01) ==
PROVIDERS: Visit Provider Internal Medicine
DX: R00.2 Palpitations (principal); I12.9 Hypertensive chronic kidney disease with stage 1 through stage 4 chronic kidney disease, or unspecified chronic kidney disease; N18.30 Chronic kidney disease, stage 3 unspecified; F41.9 Anxiety disorder, unspecified; M81.0 Age-related osteoporosis without current pathological fracture; D64.9 Anemia, unspecified
CPT/HCPCS: 99214

== ENCOUNTER → 2023-05-10 13:08 | Outpatient (REF) | payer MEDICARE, SELFPAY ==
--- NOTE | 2023-05-10 13:27 | HM_ITS ---
* Total monitoring time 3 days. * Underlying rhythm is sinus. Average ventricular rate 60/Min. Range 49 to 83/Min. About 53% the time, rate less than 60/Min. * Occasional supraventricular ectopy. Low burden. * Rare ventricular ectopy. * No significant pauses or AV blocks. * No relevant events in patient diary. MTDD
== END ==
LOC: HO.CARD 13:08
PROVIDERS: PCP Internal Medicine; Visit Provider Internal Medicine
DX: R00.2 Palpitations (principal)
CPT/HCPCS: 93242

== ENCOUNTER → 2023-05-10 13:27 | Outpatient (BNV) | payer MEDICARE, SELFPAY | PROVIDERS: PCP Internal Medicine; Visit Provider Internal Medicine | DX: I47.1 Supraventricular tachycardia (principal) | CPT/HCPCS: 93244 ==

== ENCOUNTER 2023-08-07 10:28 | Outpatient (REF) | payer MEDICARE, SELFPAY ==
[2023-08-07 13:44] LABS: MANUAL DIFF FLAG NO
[2023-08-07 13:52] LABS: Basophils Absolute Auto 0.1 X10*3/uL (0.0-0.2); Basophils Percent Auto 0.9 % (0-2); Eosinophils Absolute Auto 0.3 X10*3/uL (0.0-0.4); Eosinophils Percent Auto 4.8 % (0-4); Hematocrit 33.4 % (37.0-47.0); Hemoglobin 10.9 g/dl (12.0-16.0); Imm Gran Abs Auto 0.02 X10*3/uL (0.00-0.03); Imm Gran Pct Auto 0.3 % (0.0-0.4); Lymphocytes Absolute Auto 2.2 X10*3/uL (1.2-4.9); Lymphocytes Percent Auto 31.7 % (20-40); Mean Corpuscular HGB Conc 32.6 g/dl (31.0-35.0); Mean Corpuscular Hemoglobin 31.5 pg (27.0-33.0); Mean Corpuscular Volume 96.5 fL (80.0-98.0); Mean Platelet Volume 9.2 fL (9.4-12.3); Monocytes Absolute Auto 0.9 X10*3/uL (0.1-1.2); Monocytes Percent Auto 13.2 % (2-11); Neutrophils Absolute Auto 3.4 x10*3/uL (2.0-8.3); Neutrophils Percent Auto 49.1 % (45-73); Platelet Count 218 X10*3/uL (160-400); Red Blood Count 3.46 X10*6/uL (4.20-5.50); Red Cell Distribution Width 13.5 % (11.0-16.0); White Blood Count 6.8 X10*3/uL (4.8-10.8)
[2023-08-07 14:27] LABS: Alanine Aminotransferase 11 U/L (0-31); Albumin Level 4.5 g/dL (3.5-5.0); Alkaline Phosphatase 65 U/L (39-117); Anion Gap 14 (12-20); Aspartate Amino Transferase 20 U/L (5-31); Bilirubin Total 0.4 mg/dL (0.0-1.0); Blood Urea Nitrogen 37 mg/dL (9-16); Calcium 10.4 mg/dL (8.4-10.2); Carbon Dioxide 23 mmol/L (22-29); Chloride 106 mmol/L (96-108); Estimated Glomerular Filt Rate 55; Glucose Fasting 90 mg/dL (60-99); Iron 123 mcg/dL (30-160); Percent Iron Saturation 57 % (15-50); Potassium 3.9 mmol/L (3.3-5.1); Sodium 139 mmol/L (135-145); Total Iron Binding Capacity 217 mcg/dL (228-428); Total Protein 7.7 g/dL (6.5-8.0); Unsaturated Iron Binding 94 ug/dL
[2023-08-07 14:45] LABS: TSH reflex Free T4 1.78 uIU/mL (0.32-4.0); Vitamin D 25-OH Total 86.5 ng/mL (>30)
== END 2023-08-07 10:29 | disposition home or self-care (01) ==
LOC: HO.HMGCLDS 10:28
PROVIDERS: PCP Internal Medicine; Visit Provider Internal Medicine
DX: I12.9 Hypertensive chronic kidney disease with stage 1 through stage 4 chronic kidney disease, or unspecified chronic kidney disease (principal); N18.30 Chronic kidney disease, stage 3 unspecified; D64.9 Anemia, unspecified; M81.0 Age-related osteoporosis without current pathological fracture
CPT/HCPCS: 36415; 80053; 82306; 83540; 84443; 85025

== ENCOUNTER 2023-08-07 12:30 | Outpatient (AMB) | payer MEDICARE, SELFPAY ==
[2023-08-07 12:39] VITALS: BP 118/68; PULSE 65; O2SAT 96; BMI 18.2
--- NOTE | 2023-08-07 12:39 | A.OFFPC_ITS ---
Vital Signs 08/07/23 12:39 Height 5 ft Weight 93 lb BMI 18.2 BP 118/68 Blood Pressure Location Rt brachial Position Sitting Pulse 65 Pulse Source Pulse Oximeter Pulse Oximetry (%) 96 Oxygen Delivery Method Room Air Intake Visit Reasons: 3 month fu Allergies meperidine [From Demerol] Allergy (Severe, Verified 08/07/23 12:39) ANAPHYLAXIS Penicillins Allergy (Severe, Verified 08/07/23 12:39) HIVES Sulfa (Sulfonamide Antibiotics) [Sulfa (Sulfonamides)] Allergy (Mild, Verified 08/07/23 12:39) HIVES amoxicillin Allergy (Unknown, Verified 08/07/23 12:39) hives CHOCOLATE Allergy (Unknown, Verified 08/07/23 12:39) HIVES peanut [PEANUT] Allergy (Unknown, Verified 08/07/23 12:39) HIVES penicillin G Allergy (Unknown, Verified 08/07/23 12:39) trouble breathing rash penicillin V Allergy (Unknown, Verified 08/07/23 12:39) trouble breathing rash codeine [Codeine] Adverse Reaction (Mild, Verified 08/07/23 12:39) NAUSEA/VOMITING pravastatin Adverse Reaction (Unknown, Verified 08/07/23 12:39) body aches Medication List - Last Reconciled 08/07/23 by Clarice Ziegler MD acetaminophen 1,000 mg (2 x 500 mg) PO Q6H PRN alendronate 70 mg PO QWEEK ascorbic acid (vitamin C) 500 mg PO BID atenolol 25 mg PO DAILY cholecalciferol (vitamin D3) 50 mcg PO DAILY clindamycin HCl 300 mg PO TID ferrous sulfate 325 mg PO Q OTHER DAY flu vac qv 2019(18yr up)rc(PF) mL IM lidocaine 5% (Lidoderm) 1 patch topical DAILY lidocaine 5% 1 patch topical DAILY lorazepam 0.5 mg PO DAILY PRN sertraline (Zoloft) 25 mg PO DAILY Tobacco use date assessed: 01/01/23 HPI 3 month fu HPI Details Pt presents for f/u HTN, anemia, osteoporosis. Pt has been under lot of stress feeling anxious and upset about patient's progression of metastatic pancreatic cancer. She denies suicidal ideation or change in the appetite. [facility] Medical History (Updated 05/03/23 @ 13:31 by Clarice Ziegler MD) CKD (chronic kidney disease) stage 3, GFR 30-59 ml/min Vitamin D deficiency Chronic anemia History of SIADH Osteoporosis HTN (hypertension) Surgical History History of left shoulder replacement History of hysterectomy History of fundoplication History of cataract History of colonoscopy History of open reduction and internal fixation (ORIF) procedure History of appendectomy Family History Father History of CVA (cerebrovascular accident) Stroke Mother CVD (cardiovascular disease) History of heart attack Son No problems noted. Sister Substance use disorder Social History Housing: House Alcohol intake: never Patient Tobacco Use Status: Never used Tobacco e-Cigarette/Vaping Use: Never Used Current occupational status: retired Cognitive needs: No Hearing needs: No Vision needs: Yes Questionnaire Thrive Questionnaire Date Thrive assessed: 01/01/23 VÍCTOR-7 AMB Questionnaire VÍCTOR-7 Date VÍCTOR - 7 assessed: 01/01/23 Source: Developed by Drs. Jamari Villagran, Iraida Slade, Raul Montesinos and colleagues, with an educational benedicto from [employer] Review of Systems Const All systems reviewed & are unremarkable except as noted in HPI and below Reports no additional complaints Eyes Reports no additional complaints ENT Reports no additional complaints Card Reports no additional complaints Resp Reports no additional complaints GI Reports no additional complaints Reports no additional complaints Physical exam (Primary Care) Vital Signs: Last Vital Signs Pulse 65 08/07/23 12:39 BP 118/68 08/07/23 12:39 Pulse Ox 96 08/07/23 12:39 Oxygen Delivery Method Room Air 08/07/23 12:39 BMI result Body Mass Index 18.2 Tobacco/Smoking Status: Tobacco use Status Tobacco use date assessed 01/01/23 08/07/23 12:41 Patient Tobacco Use Status Never used Tobacco 08/07/23 12:41 e-Cigarette/Vaping Use Never Used 08/07/23 12:41 Thrive Assessment: Date of Thrive Assessment Date Thrive assessed 01/01/23 08/07/23 12:41 Const General: no acute distress HENMT Head: Yes normal to inspection Eyes General: appearance normal, both eyes and all related structures Resp Effort & Inspection: normal respiratory effort Auscultation: clear to auscultation bilaterally Cardio Rhythm: regular rhythm Heart sounds: S1 normal heart sound present and S2 normal heart sound present GI Palpation (GI): Soft to palpation Percussion: Yes normal to percussion Auscultation: normal bowel sounds Assessment and Plan Assessment & Plan (1) Anxiety: Code(s): F41.9 - Anxiety disorder, unspecified Plan: INCREASE ZOLOFT TO 25 MG (2) CKD (chronic kidney disease) stage 3, GFR 30-59 ml/min: Code(s): N18.30 - Chronic kidney disease, stage 3 unspecified Plan: Monitor renal function (3) HTN (hypertension): Code(s): I10 - Essential (primary) hypertension Plan: Continue atenolol (4) Chronic anemia: Comment: Normal iron studies Code(s): D64.9 - Anemia, unspecified Plan: Monitor CBC follow-up in 1 month Medications: Changed From sertraline (Zoloft) 12.5 mg (1/2 x 25 mg) PO DAILY 90 tabs 0RF To sertraline (Zoloft) 25 mg PO DAILY 90 tabs 0RF Coding Level of Care Code Est Pt Level 4 (41819) Diagnoses Anxiety F41.9 CKD (chronic kidney disease) stage 3, GFR 30-59 ml/min N18.30 HTN (hypertension) I10 Chronic anemia D64.9
== END 2023-08-07 14:00 | disposition home or self-care (01) ==
PROVIDERS: PCP Internal Medicine; Visit Provider Internal Medicine
DX: I12.9 Hypertensive chronic kidney disease with stage 1 through stage 4 chronic kidney disease, or unspecified chronic kidney disease (principal); F41.9 Anxiety disorder, unspecified; N18.30 Chronic kidney disease, stage 3 unspecified; D64.9 Anemia, unspecified
CPT/HCPCS: 99214

== ENCOUNTER 2023-09-12 12:38 | Outpatient (AMB) | payer MEDICARE, SELFPAY ==
[2023-09-12 12:41] VITALS: BP 122/68; PULSE 61; O2SAT 99; BMI 18.6
--- NOTE | 2023-09-12 12:41 | A.OFFPC_ITS ---
Vital Signs 09/12/23 12:41 Height 5 ft Weight 95 lb BMI 18.6 BP 122/68 Blood Pressure Location Lt brachial Position Sitting Pulse 61 Pulse Source Pulse Oximeter Pulse Oximetry (%) 99 Oxygen Delivery Method Room Air Intake Visit Reasons: one month fu Intake Note: Pt is here today for a 1 month follow up visit. Pt would like to discuss her depression medication. Allergies meperidine [From Demerol] Allergy (Severe, Verified 09/12/23 12:48) ANAPHYLAXIS Penicillins Allergy (Severe, Verified 09/12/23 12:48) HIVES Sulfa (Sulfonamide Antibiotics) [Sulfa (Sulfonamides)] Allergy (Mild, Verified 09/12/23 12:48) HIVES amoxicillin Allergy (Unknown, Verified 09/12/23 12:48) hives CHOCOLATE Allergy (Unknown, Verified 09/12/23 12:48) HIVES peanut [PEANUT] Allergy (Unknown, Verified 09/12/23 12:48) HIVES penicillin G Allergy (Unknown, Verified 09/12/23 12:48) trouble breathing rash penicillin V Allergy (Unknown, Verified 09/12/23 12:48) trouble breathing rash codeine [Codeine] Adverse Reaction (Mild, Verified 09/12/23 12:48) NAUSEA/VOMITING pravastatin Adverse Reaction (Unknown, Verified 09/12/23 12:48) body aches Medication List - Last Reconciled 09/12/23 by Clarice Ziegler MD acetaminophen 1,000 mg (2 x 500 mg) PO Q6H PRN alendronate 70 mg PO QWEEK ascorbic acid (vitamin C) 500 mg PO BID atenolol 25 mg PO DAILY cholecalciferol (vitamin D3) 50 mcg PO DAILY clindamycin HCl 300 mg PO TID ferrous sulfate 325 mg PO Q OTHER DAY flu vac qv 2019(18yr up)rc(PF) mL IM lidocaine 5% (Lidoderm) 1 patch topical DAILY lidocaine 5% 1 patch topical DAILY lorazepam 0.5 mg PO DAILY PRN sertraline (Zoloft) 25 mg PO DAILY Tobacco use date assessed: 01/01/23 HPI one month fu HPI Details Patient presents for the follow-up. Patient feels better on 25 mg of sertraline. She has been taking lorazepam occasionally for insomnia. Hyper tension is stable on atenolol [facility] Medical History (Updated 05/03/23 @ 13:31 by Clarice Ziegler MD) CKD (chronic kidney disease) stage 3, GFR 30-59 ml/min Vitamin D deficiency Chronic anemia History of SIADH Osteoporosis HTN (hypertension) Surgical History History of left shoulder replacement History of hysterectomy History of fundoplication History of cataract History of colonoscopy History of open reduction and internal fixation (ORIF) procedure History of appendectomy Family History Father History of CVA (cerebrovascular accident) Stroke Mother CVD (cardiovascular disease) History of heart attack Son No problems noted. Sister Substance use disorder Social History Housing: House Alcohol intake: never Patient Tobacco Use Status: Never used Tobacco e-Cigarette/Vaping Use: Never Used Current occupational status: retired Cognitive needs: No Hearing needs: No Vision needs: Yes Questionnaire PHQ-9 Over the last 2 weeks, how often have you been bothered by any of the following problems? 1. Little interest or pleasure in doing things: several days 2. Feeling down, depressed, or hopeless: several days 3. Trouble falling or staying asleep, or sleeping too much: several days 4. Feeling tired or having little energy: several days 5. Poor appetite or overeating: not at all 6. Feeling bad about yourself - or that you are a failure or have let yourself or your family down: not at all 7. Trouble concentrating on things, such as reading the newspaper or watching television: not at all 8. Moving or speaking so slowly that other people could have noticed. Or the opposite - being so fidgety or restless that you have been moving around a lot more than usual: not at all 9. Thoughts that you would be better off or of hurting yourself in some way: not at all Total score: 4 Depression Screening Interpretation: Negative Depression Screening Done: Yes Source: Developed by Drs. Jamari Villagran, Iraida Slade, Raul Montesinos and colleagues, with an educational benedicto from [employer]. Thrive Questionnaire Date Thrive assessed: 09/12/23 I am a: Patient What is your living situation today?: I have a steady place to live Within the past 12 months, did the food you bought not last and you didn't have the money to get more?: Never true Within the past 12 months, did you worry whether your food would run out before you got money to buy more?: Never true Do you have trouble paying for medicines?: No Do you have trouble getting transportation to medical appointments?: No Do you have trouble paying your heating and electricity bill?: No Do you have trouble taking care of your child, family member or friend?: No Do you have trouble with day-to-day activities such as bathing, preparing meals, shopping, managing finances, etc.?: No Are you currently unemployed and looking for a job?: No Are you interested in more education?: No Please select the resources that you would like help with: None VÍCTOR-7 AMB Questionnaire VÍCTOR-7 Date VÍCTOR - 7 assessed: 09/12/23 Feeling nervous, anxious, or on edge: 0 = Not at all Not being able to stop or control worryin = Not at all Worrying too much about different things: 1 = Several days Trouble relaxin = Not at all Being so restless that it is hard to sit still: 0 = Not at all Becoming easily annoyed or irritable: 0 = Not at all Feeling afraid as if something awful might happen: 0 = Not at all Total VÍCTOR-7 score (0-4 normal; 5-9 mild; 10-14 moderate; 15-21 severe): 1 Source: Developed by Drs. Jamari Villagran, Iraida Slade, Raul Montesinos and colleagues, with an educational benedicto from [employer]. Review of Systems Const All systems reviewed & are unremarkable except as noted in HPI and below Reports no additional complaints Eyes Reports no additional complaints ENT Reports no additional complaints Card Reports no additional complaints GI Reports no additional complaints Reports no additional complaints Physical exam (Primary Care) Vital Signs: Last Vital Signs Pulse 61 09/12/23 12:41 BP 122/68 09/12/23 12:41 Pulse Ox 99 09/12/23 12:41 Oxygen Delivery Method Room Air 09/12/23 12:41 BMI result Body Mass Index 18.6 Tobacco/Smoking Status: Tobacco use Status Tobacco use date assessed 01/01/23 09/12/23 12:43 Patient Tobacco Use Status Never used Tobacco 09/12/23 12:43 e-Cigarette/Vaping Use Never Used 09/12/23 12:43 PHQ-9: PHQ-9 Score PHQ-9: Total score 4 09/12/23 13:07 Depression Screening Interpretation: Negative Thrive Assessment: Date of Thrive Assessment Date Thrive assessed 09/12/23 09/12/23 13:07 Const General: no acute distress Eyes General: appearance normal, both eyes and all related structures Resp Effort & Inspection: normal respiratory effort Auscultation: clear to auscultation bilaterally Cardio Rhythm: regular rhythm Heart sounds: S1 normal heart sound present and S2 normal heart sound present Assessment and Plan Assessment & Plan (1) Anxiety: Code(s): F41.9 - Anxiety disorder, unspecified Plan: Continue Zoloft and lorazepam as needed (2) CKD (chronic kidney disease) stage 3, GFR 30-59 ml/min: Code(s): N18.30 - Chronic kidney disease, stage 3 unspecified (3) HTN (hypertension): Code(s): I10 - Essential (primary) hypertension Plan: Continue atenolol Medications: New miscellaneous medical supply lifeline 1 ea miscellaneous .qd 1 ea 0RF Refilled sertraline (Zoloft) 25 mg PO DAILY 90 tabs 0RF lorazepam 0.5 mg PO DAILY PRN 30 tabs 1RF anxiety Coding Level of Care Code Est Pt Level 3 (71770) Diagnoses Anxiety F41.9 CKD (chronic kidney disease) stage 3, GFR 30-59 ml/min N18.30 HTN (hypertension) I10
== END 2023-09-12 13:45 | disposition home or self-care (01) ==
LOC: HO.HMGC 12:38
PROVIDERS: PCP Internal Medicine; Visit Provider Internal Medicine
DX: I12.9 Hypertensive chronic kidney disease with stage 1 through stage 4 chronic kidney disease, or unspecified chronic kidney disease (principal); F41.9 Anxiety disorder, unspecified; N18.30 Chronic kidney disease, stage 3 unspecified
CPT/HCPCS: 99213

== ENCOUNTER 2023-10-05 12:01 | Outpatient (AMB) | payer MEDICARE, SELFPAY ==
[2023-10-05 12:02] VITALS: BP 116/60; PULSE 65; O2SAT 99; BMI 18.0
--- NOTE | 2023-10-05 12:02 | A.OFFPC_ITS ---
Vital Signs 10/05/23 12:02 Height 5 ft Weight 92 lb 6 oz BMI 18.0 BP 116/60 Blood Pressure Location Lt brachial Position Sitting Pulse 65 Pulse Source Pulse Oximeter Pulse Oximetry (%) 99 Oxygen Delivery Method Room Air Intake Visit Reasons: swelling in her feet and ankles Intake Note: Pt is here today for a sick visit. Pt c/o swelling in her Allergies meperidine [From Demerol] Allergy (Severe, Verified 10/05/23 12:09) ANAPHYLAXIS Penicillins Allergy (Severe, Verified 10/05/23 12:09) HIVES Sulfa (Sulfonamide Antibiotics) [Sulfa (Sulfonamides)] Allergy (Mild, Verified 10/05/23 12:09) HIVES amoxicillin Allergy (Unknown, Verified 10/05/23 12:09) hives CHOCOLATE Allergy (Unknown, Verified 10/05/23 12:09) HIVES peanut [PEANUT] Allergy (Unknown, Verified 10/05/23 12:09) HIVES penicillin G Allergy (Unknown, Verified 10/05/23 12:09) trouble breathing rash penicillin V Allergy (Unknown, Verified 10/05/23 12:09) trouble breathing rash codeine [Codeine] Adverse Reaction (Mild, Verified 10/05/23 12:09) NAUSEA/VOMITING pravastatin Adverse Reaction (Unknown, Verified 10/05/23 12:09) body aches Medication List - Last Reconciled 10/05/23 by Clarice Ziegler MD acetaminophen 1,000 mg (2 x 500 mg) PO Q6H PRN alendronate 70 mg PO QWEEK ascorbic acid (vitamin C) 500 mg PO BID atenolol 25 mg PO DAILY cholecalciferol (vitamin D3) 50 mcg PO DAILY clindamycin HCl 300 mg PO TID ferrous sulfate 325 mg PO Q OTHER DAY flu vac qv 2019(18yr up)rc(PF) mL IM furosemide (Lasix) 20 mg PO DAILY lidocaine 5% (Lidoderm) 1 patch topical DAILY lidocaine 5% 1 patch topical DAILY lorazepam 0.5 mg PO DAILY PRN miscellaneous medical supply 1 ea miscellaneous .qd sertraline (Zoloft) 25 mg PO DAILY Tobacco use date assessed: 10/05/23 Fall risk assessment: 1 Fall in past year Last assessed Fall Risk: 10/05/23 Dental Screening Dental Screen Date: 10/05/23 Did you have a dental visit in the last 12 months?: Yes Did you have a dental problem in the last 6 months where you did not have access to dental care?: No Was dental information given to patient?: Patient has dentist HPI swelling in her feet and ankles HPI Details Patient complains of bilateral ankle swelling left more than right for the last few weeks. Patient recently. She dropped a bag of frozen vegetables on the left ankle last month and developed some pain and swelling since then. Patient is able to walk without difficulty. She denies chest pain shortness for breath PND or orthopnea.Sheb Has been taking atenolol for hypertension PFS Medical History CKD (chronic kidney disease) stage 3, GFR 30-59 ml/min Vitamin D deficiency Chronic anemia History of SIADH Osteoporosis HTN (hypertension) Surgical History History of left shoulder replacement History of hysterectomy History of fundoplication History of cataract History of colonoscopy History of open reduction and internal fixation (ORIF) procedure History of appendectomy Family History Father History of CVA (cerebrovascular accident) Stroke Mother CVD (cardiovascular disease) History of heart attack Son No problems noted. Sister Substance use disorder Social History Housing: House Alcohol intake: never Patient Tobacco Use Status: Never used Tobacco e-Cigarette/Vaping Use: Never Used Current occupational status: retired Cognitive needs: No Hearing needs: No Vision needs: Yes Questionnaire Thrive Questionnaire Date Thrive assessed: 09/12/23 AUDIT C Alcohol Use Questionnaire (AUDIT-C) 1. How often do you have a drink containing alcohol?: Never 3. How often do you have six or more drinks on one occasion?: Never Total Score: 0 VÍCTOR-7 AMB Questionnaire VÍCTOR-7 Date VÍCTOR - 7 assessed: 09/12/23 Source: Developed by Drs. Jamari Villagran, Iraida Slade, Raul Montesinos and colleagues, with an educational benedicto from [employer]. Review of Systems Const All systems reviewed & are unremarkable except as noted in HPI and below Reports no additional complaints Eyes Reports no additional complaints ENT Reports no additional complaints Card Reports no additional complaints Resp Reports no additional complaints GI Reports no additional complaints Reports no additional complaints Physical exam (Primary Care) Vital Signs: Last Vital Signs Pulse 65 10/05/23 12:02 BP 116/60 10/05/23 12:02 Pulse Ox 99 10/05/23 12:02 Oxygen Delivery Method Room Air 10/05/23 12:02 BMI result Body Mass Index 18.0 Tobacco/Smoking Status: Tobacco use Status Tobacco use date assessed 10/05/23 10/05/23 12:11 Patient Tobacco Use Status Never used Tobacco 10/05/23 12:11 e-Cigarette/Vaping Use Never Used 10/05/23 12:02 Thrive Assessment: Date of Thrive Assessment Date Thrive assessed 09/12/23 10/05/23 12:02 Const General: no acute distress Neck Neck: Yes supple Resp Effort & Inspection: normal respiratory effort Auscultation: clear to auscultation bilaterally Cardio Rhythm: regular rhythm Heart sounds: S1 normal heart sound present and S2 normal heart sound present GI Inspection: Yes normal to inspection Palpation (GI): Soft to palpation Extrem Other: There is 3+ pitting edema in left ankle 2+ right ankle, there is a slightly decreased range of motion of both ankles, there is no warmth but there is slight tenderness in the left ankle Assessment and Plan Assessment & Plan (1) HTN (hypertension): Code(s): I10 - Essential (primary) hypertension Plan: Continue atenolol (2) Anxiety: Code(s): F41.9 - Anxiety disorder, unspecified Plan: Continue sertraline (3) CKD (chronic kidney disease) stage 3, GFR 30-59 ml/min: Code(s): N18.30 - Chronic kidney disease, stage 3 unspecified (4) Edema: Code(s): R60.9 - Edema, unspecified Plan: Obtain an x-ray of the left ankle ,basic labs including renal function and BNP, furosemide 20 mg daily for 1 week and compression knee highs are recommended. Patient was advised to elevate lower extremities when sitting for prolonged time Orders: Orders XR ankle LT 2V Today F41.9 - Anxiety disorder, unspecified, I10 - Essential (primary) hypertension, N18.30 - Chronic kidney disease, stage 3 unspecified Comprehensive Met. Panel Today I10 - Essential (primary) hypertension, N18.30 - Chronic kidney disease, stage 3 unspecified B Type Natriuretic Peptide Today I10 - Essential (primary) hypertension, N18.30 - Chronic kidney disease, stage 3 unspecified Complete Blood Count Auto Diff Today I10 - Essential (primary) hypertension, N18.30 - Chronic kidney disease, stage 3 unspecified Medications: New furosemide (Lasix) 20 mg PO DAILY 20 tabs 0RF Coding Level of Care Code Est Pt Level 4 (36452) Diagnoses HTN (hypertension) I10 Anxiety F41.9 CKD (chronic kidney disease) stage 3, GFR 30-59 ml/min N18.30 Edema R60.9
== END 2023-10-05 13:21 | disposition home or self-care (01) ==
LOC: HO.HMGC 12:01
PROVIDERS: PCP Internal Medicine; Visit Provider Internal Medicine
DX: I12.9 Hypertensive chronic kidney disease with stage 1 through stage 4 chronic kidney disease, or unspecified chronic kidney disease (principal); F41.9 Anxiety disorder, unspecified; N18.30 Chronic kidney disease, stage 3 unspecified; R60.9 Edema, unspecified
CPT/HCPCS: 99214

== ENCOUNTER 2023-10-05 13:02 | Outpatient (REF) | payer MEDICARE, SELFPAY ==
--- NOTE | ~2023-10-05 | XR_ITS ---
EXAMINATION: XR ANKLE, LEFT CLINICAL INFORMATION: Pain in left ankle COMPARISON: 05/15/2016 TECHNIQUE: AP, lateral, and mortise views of the left ankle. FINDINGS: There is diffuse osteopenia of. Particular bones of left ankle with significant soft tissue edema but no evidence of fractures. Ankle mortise is maintained. Vascular calcifications present in the soft tissues. XR/XR ankle LT 2V IMPRESSION: No fracture seen. Osteopenia and edema
[2023-10-05 16:09] LABS: MANUAL DIFF FLAG NO
[2023-10-05 16:14] LABS: Basophils Absolute Auto 0.1 X10*3/uL (0.0-0.2); Basophils Percent Auto 0.9 % (0-2); Eosinophils Absolute Auto 0.2 X10*3/uL (0.0-0.4); Eosinophils Percent Auto 2.8 % (0-4); Hematocrit 30.9 % (37.0-47.0); Hemoglobin 10.7 g/dl (12.0-16.0); Imm Gran Abs Auto 0.02 X10*3/uL (0.00-0.03); Imm Gran Pct Auto 0.3 % (0.0-0.4); Lymphocytes Absolute Auto 1.8 X10*3/uL (1.2-4.9); Lymphocytes Percent Auto 27.9 % (20-40); Mean Corpuscular HGB Conc 34.6 g/dl (31.0-35.0); Mean Corpuscular Hemoglobin 31.6 pg (27.0-33.0); Mean Corpuscular Volume 91.2 fL (80.0-98.0); Mean Platelet Volume 8.9 fL (9.4-12.3); Monocytes Absolute Auto 0.9 X10*3/uL (0.1-1.2); Monocytes Percent Auto 13.4 % (2-11); Neutrophils Absolute Auto 3.6 x10*3/uL (2.0-8.3); Neutrophils Percent Auto 54.7 % (45-73); Platelet Count 238 X10*3/uL (160-400); Red Blood Count 3.39 X10*6/uL (4.20-5.50); Red Cell Distribution Width 12.9 % (11.0-16.0); White Blood Count 6.5 X10*3/uL (4.8-10.8)
[2023-10-05 16:33] LABS: Alanine Aminotransferase 15 U/L (0-31); Albumin Level 4.2 g/dL (3.5-5.0); Alkaline Phosphatase 65 U/L (39-117); Anion Gap 13 (12-20); Aspartate Amino Transferase 20 U/L (5-31); Bilirubin Total 0.3 mg/dL (0.0-1.0); Blood Urea Nitrogen 20 mg/dL (9-16); Calcium 9.5 mg/dL (8.4-10.2); Carbon Dioxide 25 mmol/L (22-29); Chloride 92 mmol/L (96-108); Estimated Glomerular Filt Rate > 60; Glucose Random 86 mg/dL (60-115); Potassium 3.8 mmol/L (3.3-5.1); Sodium 126 mmol/L (135-145); Total Protein 7.1 g/dL (6.5-8.0)
[2023-10-05 17:23] LABS: B Type Natriuretic Peptide 408 pg/mL (<100)
== END 2023-10-05 13:03 | disposition home or self-care (01) ==
LOC: HO.HMGCX 13:02
PROVIDERS: PCP Internal Medicine; Visit Provider Internal Medicine
DX: I12.9 Hypertensive chronic kidney disease with stage 1 through stage 4 chronic kidney disease, or unspecified chronic kidney disease (principal); F41.9 Anxiety disorder, unspecified; N18.30 Chronic kidney disease, stage 3 unspecified; M25.572 Pain in left ankle and joints of left foot
CPT/HCPCS: 36415; 73600; 80053; 83880; 85025

== ENCOUNTER 2023-10-10 10:48 | Outpatient (REF) | payer MEDICARE, SELFPAY ==
[2023-10-10 13:40] LABS: Anion Gap 13 (12-20); Blood Urea Nitrogen 27 mg/dL (9-16); Carbon Dioxide 26 mmol/L (22-29); Chloride 95 mmol/L (96-108); Estimated Glomerular Filt Rate 49; Glucose Random 81 mg/dL (60-115); Sodium 131 mmol/L (135-145)
== END 2023-10-10 10:49 | disposition home or self-care (01) ==
LOC: HO.HMGCLDS 10:48
PROVIDERS: PCP Internal Medicine; Visit Provider Internal Medicine
DX: E87.1 Hypo-osmolality and hyponatremia (principal)
CPT/HCPCS: 36415; 80048

== ENCOUNTER 2023-10-15 12:21 | Outpatient (REF) | payer MEDICARE, SELFPAY ==
[2023-10-15 14:25] LABS: Anion Gap 11 (12-20); Blood Urea Nitrogen 30 mg/dL (9-16); Calcium 9.5 mg/dL (8.4-10.2); Carbon Dioxide 25 mmol/L (22-29); Chloride 97 mmol/L (96-108); Estimated Glomerular Filt Rate 51; Glucose Random 82 mg/dL (60-115); Potassium 4.2 mmol/L (3.3-5.1); Sodium 129 mmol/L (135-145)
== END 2023-10-15 12:22 | disposition home or self-care (01) ==
LOC: HO.HMGCLDS 12:21
PROVIDERS: PCP Internal Medicine; Visit Provider Internal Medicine
DX: E87.1 Hypo-osmolality and hyponatremia (principal)
CPT/HCPCS: 36415; 80048

== ENCOUNTER 2023-10-17 12:40 | Outpatient (AMB) | payer MEDICARE, SELFPAY ==
--- NOTE | 2023-10-17 12:30 | A.OFFPC_ITS ---
Vital Signs 10/17/23 12:45 Height 5 ft Weight 93 lb 2 oz BMI 18.2 BP 126/64 Blood Pressure Location Rt brachial Position Sitting Pulse 65 Pulse Source Pulse Oximeter Pulse Oximetry (%) 97 Oxygen Delivery Method Room Air Intake Visit Reasons: Follow up on labs Intake Note: Pt is here today for a follow up visit after labs. Allergies meperidine [From Demerol] Allergy (Severe, Verified 10/17/23 12:31) ANAPHYLAXIS Penicillins Allergy (Severe, Verified 10/17/23 12:31) HIVES Sulfa (Sulfonamide Antibiotics) [Sulfa (Sulfonamides)] Allergy (Mild, Verified 10/17/23 12:31) HIVES amoxicillin Allergy (Unknown, Verified 10/17/23 12:31) hives CHOCOLATE Allergy (Unknown, Verified 10/17/23 12:31) HIVES peanut [PEANUT] Allergy (Unknown, Verified 10/17/23 12:31) HIVES penicillin G Allergy (Unknown, Verified 10/17/23 12:31) trouble breathing rash penicillin V Allergy (Unknown, Verified 10/17/23 12:31) trouble breathing rash codeine [Codeine] Adverse Reaction (Mild, Verified 10/17/23 12:31) NAUSEA/VOMITING pravastatin Adverse Reaction (Unknown, Verified 10/17/23 12:31) body aches Medication List - Last Reconciled 10/17/23 by Clarice Ziegler MD acetaminophen 1,000 mg (2 x 500 mg) PO Q6H PRN alendronate 70 mg PO QWEEK ascorbic acid (vitamin C) 500 mg PO BID atenolol 25 mg PO DAILY cholecalciferol (vitamin D3) 50 mcg PO DAILY bruce.stocking,knee,reg,smal 10-20 mmHg, with zippers ferrous sulfate 325 mg PO Q OTHER DAY flu vac qv 2019(18yr up)rc(PF) mL IM furosemide (Lasix) 20 mg PO DAILY lidocaine 5% (Lidoderm) 1 patch topical DAILY lidocaine 5% 1 patch topical DAILY lorazepam 0.5 mg PO DAILY PRN miscellaneous medical supply 1 ea miscellaneous .qd nitrofurantoin monohyd/m-cryst 100 mg (Macrobid) 100 mg PO Q12H 7 days potassium chloride ER 20 mEq PO DAILY sertraline (Zoloft) 25 mg PO DAILY Tobacco use date assessed: 10/05/23 HPI Follow up on labs HPI Details Pt presents for f/u HTN, chronic anemia, stable on Iron, lower extremities improved with the Lasix and elevation. Patient has been restricting fluid intake for hyponatremia. She denies chest pain shortness for breath palpitations. She is living to [facility] next week to stay with her son for 1 month. [facility] Medical History CKD (chronic kidney disease) stage 3, GFR 30-59 ml/min Vitamin D deficiency Chronic anemia History of SIADH Osteoporosis HTN (hypertension) Surgical History History of left shoulder replacement History of hysterectomy History of fundoplication History of cataract History of colonoscopy History of open reduction and internal fixation (ORIF) procedure History of appendectomy Family History Father History of CVA (cerebrovascular accident) Stroke Mother CVD (cardiovascular disease) History of heart attack Son No problems noted. Sister Substance use disorder Social History Housing: House Alcohol intake: never Patient Tobacco Use Status: Never used Tobacco e-Cigarette/Vaping Use: Never Used Current occupational status: retired Cognitive needs: No Hearing needs: No Vision needs: Yes Questionnaire Thrive Questionnaire Date Thrive assessed: 09/12/23 VÍCTOR-7 AMB Questionnaire VÍCTOR-7 Date VÍCTOR - 7 assessed: 09/12/23 Source: Developed by Drs. Jamari Villagran, Iraida Slade, Raul Montesinos and colleagues, with an educational benedicto from [employer]. Review of Systems Const All systems reviewed & are unremarkable except as noted in HPI and below Reports no additional complaints Eyes Reports no additional complaints ENT Reports no additional complaints Card Reports no additional complaints Resp Reports no additional complaints GI Reports no additional complaints Reports no additional complaints Physical exam (Primary Care) Vital Signs: Last Vital Signs Pulse 65 10/17/23 12:45 BP 126/64 10/17/23 12:45 Pulse Ox 97 10/17/23 12:45 Oxygen Delivery Method Room Air 10/17/23 12:45 BMI result Body Mass Index 18.2 Tobacco/Smoking Status: Tobacco use Status Tobacco use date assessed 10/05/23 10/17/23 12:32 Patient Tobacco Use Status Never used Tobacco 10/17/23 12:32 e-Cigarette/Vaping Use Never Used 10/17/23 12:32 Thrive Assessment: Date of Thrive Assessment Date Thrive assessed 09/12/23 10/17/23 12:32 Const General: no acute distress HENMT Head: Yes normal to inspection Face and sinus: Yes normal facial exam Neck Neck: Yes no lymphadenopathy and Yes supple Resp Effort & Inspection: normal respiratory effort Auscultation: clear to auscultation bilaterally Cardio Rhythm: regular rhythm Heart sounds: S1 normal heart sound present and S2 normal heart sound present GI Inspection: Yes normal to inspection Palpation (GI): Soft to palpation Percussion: Yes normal to percussion Auscultation: normal bowel sounds Extrem Other: 1+ pitting edema of lower extremities left more than right Assessment and Plan Assessment & Plan (1) Hyponatremia: Comment: SIADH Code(s): E87.1 - Hypo-osmolality and hyponatremia Plan: Continue fluid restriction and patient was advised to decrease Zoloft to 12.5 mg. she used to take it before her illness without effect on sodium level. she is leaving next week for [facility] and will have basic metabolic panel checked in 2 weeks to monitor sodium level (2) Edema: Code(s): R60.9 - Edema, unspecified Plan: Patient was advised to wear compression knee-highs, she will change furosemide to every other day with potassium supplement when in [facility] (3) CKD (chronic kidney disease) stage 3, GFR 30-59 ml/min: Code(s): N18.30 - Chronic kidney disease, stage 3 unspecified Plan: Monitor renal function avoid nephrotoxins (4) HTN (hypertension): Code(s): I10 - Essential (primary) hypertension Plan: Continue atenolol (5) Chronic anemia: Comment: Normal iron studies Code(s): D64.9 - Anemia, unspecified Plan: Monitor CBC and iron Orders: Orders PT Evaluation and Treatment Today R29.898 - Other symptoms and signs involving the musculoskeletal system Basic Metabolic Panel 10/25/23 E87.1 - Hypo-osmolality and hyponatremia Medications: New nitrofurantoin monohyd/m-cryst 100 mg (Macrobid) must administer with a meal/food 100 mg PO Q12H 7 days 14 caps 0RF bruce.stocking,knee,reg,smal 10-20 mmHg, with zippers 2 ea 0RF Refilled furosemide (Lasix) 20 mg PO DAILY 90 tabs 0RF potassium chloride ER take with Lasix 20 mEq PO DAILY 90 tabs 0RF Coding Level of Care Code Est Pt Level 4 (07193) Diagnoses Hyponatremia E87.1 Edema R60.9 CKD (chronic kidney disease) stage 3, GFR 30-59 ml/min N18.30 HTN (hypertension) I10 Chronic anemia D64.9
[2023-10-17 12:45] VITALS: BP 126/64; PULSE 65; O2SAT 97; BMI 18.2
== END 2023-10-17 14:16 | disposition home or self-care (01) ==
PROVIDERS: PCP Internal Medicine; Visit Provider Internal Medicine
DX: I12.9 Hypertensive chronic kidney disease with stage 1 through stage 4 chronic kidney disease, or unspecified chronic kidney disease (principal); N18.30 Chronic kidney disease, stage 3 unspecified; E87.1 Hypo-osmolality and hyponatremia; R60.9 Edema, unspecified; D64.9 Anemia, unspecified
CPT/HCPCS: 99214

== ENCOUNTER 2024-02-25 10:55 | Outpatient (REF) | payer MEDICARE, SELFPAY ==
[2024-02-25 13:42] LABS: MANUAL DIFF FLAG NO
[2024-02-25 13:50] LABS: Basophils Absolute Auto 0.1 X10*3/uL (0.0-0.2); Basophils Percent Auto 1.3 % (0-2); Eosinophils Absolute Auto 0.2 X10*3/uL (0.0-0.4); Eosinophils Percent Auto 2.6 % (0-4); Hematocrit 32.3 % (37.0-47.0); Hemoglobin 10.8 g/dl (12.0-16.0); Imm Gran Abs Auto 0.02 X10*3/uL (0.00-0.03); Imm Gran Pct Auto 0.3 % (0.0-0.4); Lymphocytes Absolute Auto 1.9 X10*3/uL (1.2-4.9); Lymphocytes Percent Auto 30.8 % (20-40); Mean Corpuscular HGB Conc 33.4 g/dl (31.0-35.0); Mean Corpuscular Hemoglobin 32.1 pg (27.0-33.0); Mean Corpuscular Volume 96.1 fL (80.0-98.0); Mean Platelet Volume 8.8 fL (9.4-12.3); Monocytes Absolute Auto 0.8 X10*3/uL (0.1-1.2); Monocytes Percent Auto 12.4 % (2-11); Neutrophils Absolute Auto 3.3 x10*3/uL (2.0-8.3); Neutrophils Percent Auto 52.6 % (45-73); Platelet Count 231 X10*3/uL (160-400); Red Blood Count 3.36 X10*6/uL (4.20-5.50); Red Cell Distribution Width 12.9 % (11.0-16.0); White Blood Count 6.2 X10*3/uL (4.8-10.8)
[2024-02-25 14:22] LABS: Anion Gap 14 (12-20); Blood Urea Nitrogen 38 mg/dL (9-16); Calcium 10.8 mg/dL (8.4-10.2); Carbon Dioxide 24 mmol/L (22-29); Chloride 101 mmol/L (96-108); Estimated Glomerular Filt Rate 46; Glucose Random 88 mg/dL (60-115); Potassium 4.2 mmol/L (3.3-5.1); Sodium 135 mmol/L (135-145)
== END 2024-02-25 10:56 | disposition home or self-care (01) ==
LOC: HO.HMGCLDS 10:55
PROVIDERS: PCP Internal Medicine; Visit Provider Internal Medicine
DX: E87.1 Hypo-osmolality and hyponatremia (principal); D64.9 Anemia, unspecified
CPT/HCPCS: 36415; 80048; 85025

== ENCOUNTER 2024-02-26 13:07 | Outpatient (AMB) | payer MEDICARE, SELFPAY ==
[2024-02-26 13:08] VITALS: BP 116/68; PULSE 66; O2SAT 98; BMI 18.2
--- NOTE | 2024-02-26 13:09 | AM.OFFVISMDC ---
Intake Vital Signs 02/26/24 13:08 Height 5 ft Intake Visit Reasons: AWV Allergies meperidine [From Demerol] Allergy (Severe, Verified 02/26/24 13:14) ANAPHYLAXIS Penicillins Allergy (Severe, Verified 02/26/24 13:14) HIVES Sulfa (Sulfonamide Antibiotics) [Sulfa (Sulfonamides)] Allergy (Mild, Verified 02/26/24 13:14) HIVES amoxicillin Allergy (Unknown, Verified 02/26/24 13:14) hives CHOCOLATE Allergy (Unknown, Verified 02/26/24 13:14) HIVES peanut [PEANUT] Allergy (Unknown, Verified 02/26/24 13:14) HIVES penicillin G Allergy (Unknown, Verified 02/26/24 13:14) trouble breathing rash penicillin V Allergy (Unknown, Verified 02/26/24 13:14) trouble breathing rash codeine [Codeine] Adverse Reaction (Mild, Verified 02/26/24 13:14) NAUSEA/VOMITING pravastatin Adverse Reaction (Unknown, Verified 02/26/24 13:14) body aches PFSH Medical History CKD (chronic kidney disease) stage 3, GFR 30-59 ml/min Vitamin D deficiency Chronic anemia History of SIADH Osteoporosis HTN (hypertension) Surgical History History of left shoulder replacement History of hysterectomy History of fundoplication History of cataract History of colonoscopy History of open reduction and internal fixation (ORIF) procedure History of appendectomy Family History Father History of CVA (cerebrovascular accident) Stroke Mother CVD (cardiovascular disease) History of heart attack Son No problems noted. Sister Substance use disorder Social History Housing: House Alcohol intake: never Patient Tobacco Use Status: Never used Tobacco e-Cigarette/Vaping Use: Never Used Current occupational status: retired Cognitive needs: No Hearing needs: No Vision needs: Yes Coding
--- NOTE | 2024-02-26 13:17 | A.OFFPC_ITS ---
Vital Signs 02/26/24 13:08 Height 5 ft Weight 93 lb BMI 18.2 BP 116/68 Blood Pressure Location Rt brachial Position Sitting Pulse 66 Pulse Source Pulse Oximeter Pulse Oximetry (%) 98 Oxygen Delivery Method Room Air Intake Visit Reasons: Follow up Intake Note: Pt is here today for a follow up visit on HTN. Allergies meperidine [From Demerol] Allergy (Severe, Verified 02/26/24 13:14) ANAPHYLAXIS Penicillins Allergy (Severe, Verified 02/26/24 13:14) HIVES Sulfa (Sulfonamide Antibiotics) [Sulfa (Sulfonamides)] Allergy (Mild, Verified 02/26/24 13:14) HIVES amoxicillin Allergy (Unknown, Verified 02/26/24 13:14) hives CHOCOLATE Allergy (Unknown, Verified 02/26/24 13:14) HIVES peanut [PEANUT] Allergy (Unknown, Verified 02/26/24 13:14) HIVES penicillin G Allergy (Unknown, Verified 02/26/24 13:14) trouble breathing rash penicillin V Allergy (Unknown, Verified 02/26/24 13:14) trouble breathing rash codeine [Codeine] Adverse Reaction (Mild, Verified 02/26/24 13:14) NAUSEA/VOMITING pravastatin Adverse Reaction (Unknown, Verified 02/26/24 13:14) body aches Medication List - Last Reconciled 02/26/24 by Clarice Ziegler MD acetaminophen 1,000 mg (2 x 500 mg) PO Q6H PRN alendronate 70 mg PO QWEEK ascorbic acid (vitamin C) 500 mg PO BID atenolol 25 mg PO DAILY cholecalciferol (vitamin D3) 50 mcg PO DAILY bruce.stocking,knee,reg,smal 10-20 mmHg, with zippers ferrous sulfate 325 mg PO Q OTHER DAY flu vac qv 2019(18yr up)rc(PF) mL IM furosemide (Lasix) 20 mg PO Q OTHER DAY lorazepam 0.5 mg PO DAILY PRN miscellaneous medical supply 1 ea miscellaneous .qd potassium chloride ER 20 mEq PO DAILY Tobacco use date assessed: 02/26/24 Fall risk assessment: No Falls in past year Last assessed Fall Risk: 02/26/24 Dental Screening Dental Screen Date: 10/05/23 HPI Follow up HPI Details Pt presents for HTN, hyponatremia, chronic lower extremities edema controlled with Lasix QOD. Pt returned from [facility]. She c/o grieving her who last year. Characteristics of symptom or complaint , [facility] Medical History CKD (chronic kidney disease) stage 3, GFR 30-59 ml/min Vitamin D deficiency Chronic anemia History of SIADH Osteoporosis HTN (hypertension) Surgical History History of left shoulder replacement History of hysterectomy History of fundoplication History of cataract History of colonoscopy History of open reduction and internal fixation (ORIF) procedure History of appendectomy Family History Father History of CVA (cerebrovascular accident) Stroke Mother CVD (cardiovascular disease) History of heart attack Son No problems noted. Sister Substance use disorder Social History Housing: House Alcohol intake: never Patient Tobacco Use Status: Never used Tobacco e-Cigarette/Vaping Use: Never Used service: No Current occupational status: retired Cognitive needs: No Hearing needs: No Vision needs: Yes Questionnaire Thrive Questionnaire Date Thrive assessed: 09/12/23 VÍCTOR-7 AMB Questionnaire VÍCTOR-7 Date VÍCTOR - 7 assessed: 09/12/23 Source: Developed by Drs. Jamari Villagran, Iraida Slade, Raul Montesinos and colleagues, with an educational benedicto from [employer]. Review of Systems Const All systems reviewed & are unremarkable except as noted in HPI and below ENT Reports no additional complaints Card Reports no additional complaints Resp Reports no additional complaints GI Reports no additional complaints Reports no additional complaints Physical exam (Primary Care) Vital Signs: Last Vital Signs Pulse 66 02/26/24 13:08 BP 116/68 02/26/24 13:08 Pulse Ox 98 02/26/24 13:08 Oxygen Delivery Method Room Air 02/26/24 13:08 BMI result Body Mass Index 18.2 Tobacco/Smoking Status: Tobacco use Status Tobacco use date assessed 02/26/24 02/26/24 13:23 Patient Tobacco Use Status Never used Tobacco 02/26/24 13:23 e-Cigarette/Vaping Use Never Used 02/26/24 13:17 Thrive Assessment: Date of Thrive Assessment Date Thrive assessed 09/12/23 02/26/24 13:17 Const General: no acute distress HENMT Head: Yes normal to inspection Eyes General: appearance normal, both eyes and all related structures Neck Neck: Yes supple Resp Effort & Inspection: normal respiratory effort Auscultation: clear to auscultation bilaterally Cardio Rhythm: regular rhythm Heart sounds: S1 normal heart sound present and S2 normal heart sound present GI Inspection: Yes normal to inspection Palpation (GI): Soft to palpation Assessment and Plan Assessment & Plan (1) Balance disorder: Code(s): R26.89 - Other abnormalities of gait and mobility Plan: refer for PT (2) CKD (chronic kidney disease) stage 3, GFR 30-59 ml/min: Code(s): N18.30 - Chronic kidney disease, stage 3 unspecified Plan: monitor renal function and avoid nephrotoxins (3) Vitamin D deficiency: Code(s): E55.9 - Vitamin D deficiency, unspecified Plan: cont vit D (4) HTN (hypertension): Code(s): I10 - Essential (primary) hypertension Plan: cont Atenolol (5) Osteoporosis: Comment: Prolia since 2017, DEXA 11/2020 T score L spine -4.2, L femur -3.1, DEXA 11/16 L femur -4.0, Fosamax started 12/2022 Code(s): M81.0 - Age-related osteoporosis without current pathological fracture Plan: cont Fosamax and vit D Orders: Orders PT Evaluation and Treatment Today R26.89 - Other abnormalities of gait and mobility, R29.898 - Other symptoms and signs involving the musculoskeletal system Comprehensive Met. Panel 3 Months E55.9 - Vitamin D deficiency, unspecified, E87.1 - Hypo-osmolality and hyponatremia, I10 - Essential (primary) hypertension, M81.0 - Age-related osteoporosis without current pathological fracture, N18.30 - Chronic kidney disease, stage 3 unspecified IRON PROFILE 3 Months E55.9 - Vitamin D deficiency, unspecified, E87.1 - Hypo- osmolality and hyponatremia, I10 - Essential (primary) hypertension, M81.0 - Age-related osteoporosis without current pathological fracture, N18.30 - Chronic kidney disease, stage 3 unspecified Complete Blood Count Auto Diff 3 Months E55.9 - Vitamin D deficiency, unspecified, E87.1 - Hypo-osmolality and hyponatremia, I10 - Essential (primary) hypertension, M81.0 - Age-related osteoporosis without current pathological fracture, N18.30 - Chronic kidney disease, stage 3 unspecified Vitamin B12 and Folate 3 Months E55.9 - Vitamin D deficiency, unspecified, E87.1 - Hypo-osmolality and hyponatremia, I10 - Essential (primary) hypertension, M81.0 - Age-related osteoporosis without current pathological fracture, N18.30 - Chronic kidney disease, stage 3 unspecified Vitamin D 25-OH Total 3 Months E55.9 - Vitamin D deficiency, unspecified, E87.1 - Hypo-osmolality and hyponatremia, I10 - Essential (primary) hypertension, M81.0 - Age-related osteoporosis without current pathological fracture, N18.30 - Chronic kidney disease, stage 3 unspecified Medications: New Myrbetriq ER (mirabegron) 25 mg PO DAILY 30 tabs 1RF NS furosemide (Lasix) 20 mg PO Q OTHER DAY 45 tabs 3RF estradiol 0.01%(0.1mg/gram) 0.25 appful vaginal 3XW 42.5 grams 2RF Changed From ascorbic acid (vitamin C) 500 mg PO BID 180 tabs 3RF M81.0 - Age-related osteoporosis without current pathological fracture To ascorbic acid (vitamin C) every other day 500 mg PO BID M81.0 - Age-related osteoporosis without current pathological fracture Refilled atenolol 25 mg PO DAILY 90 tabs 3RF potassium chloride ER take with Lasix 20 mEq PO DAILY 45 tabs 3RF ferrous sulfate 325 mg PO Q OTHER DAY 45 tabs 3RF D64.9 - Anemia, unspecified alendronate 70 mg PO QWEEK 12 tabs 3RF Coding Level of Care Code Est Pt Level 4 (69777) Diagnoses Balance disorder R26.89 CKD (chronic kidney disease) stage 3, GFR 30-59 ml/min N18.30 Vitamin D deficiency E55.9 HTN (hypertension) I10 Osteoporosis M81.0
== END 2024-02-26 14:35 | disposition home or self-care (01) ==
PROVIDERS: PCP Internal Medicine; Visit Provider Internal Medicine
DX: I12.9 Hypertensive chronic kidney disease with stage 1 through stage 4 chronic kidney disease, or unspecified chronic kidney disease (principal); N18.30 Chronic kidney disease, stage 3 unspecified; R26.89 Other abnormalities of gait and mobility; E55.9 Vitamin D deficiency, unspecified; M81.0 Age-related osteoporosis without current pathological fracture
CPT/HCPCS: 99214

== ENCOUNTER 2024-02-27 18:31 | Emergency (ER) | payer MEDICARE, SELFPAY ==
--- NOTE | ~2024-02-27 | CT_ITS ---
EXAMINATION: CT HEAD WITHOUT CONTRAST CLINICAL INFORMATION: Dizziness. Headache. COMPARISON: CT head from 02/09/2019. TECHNIQUE: Contiguous axial imaging was performed from the skull base to vertex without intravenous administration of contrast. This CT examination was performed using dose optimization techniques as appropriate, variously including the following: *Automated exposure control. *Adjustment of mA and/or kV according to patient size (this includes techniques or standardized protocols for targeted exams where dose is matched to indication/reason for exam; i.e. extremities or head). *Use of iterative reconstruction technique. DLP: 634 mGy-cm FINDINGS: There is no evidence of acute intracranial hemorrhage or edematous territorial infarction. Roach-white matter differentiation is preserved. Scattered and partially confluent hypoattenuation in the periventricular and deep white matter are consistent with moderate microangiopathy. Proportional prominence of the ventricles and sulcal spaces without evidence of obstructive hydrocephalus. No abnormal mass effect or midline shift. No extra-axial fluid collections. Calcific atherosclerotic disease of the intracranial internal carotid and vertebral arteries. No hyperdense vessel sign. No acute soft tissue or osseous abnormalities. Mild mucosal thickening of the paranasal sinuses. The mastoid air cells and middle ear cavities are clear. Advanced degenerative arthropathy of the temporomandibular joints. Bilateral lens extractions. CT/CT head/brain wo IV con IMPRESSION: 1. No evidence of acute intracranial hemorrhage or edematous territorial infarction. 2. Moderate underlying microangiopathy and generalized cerebral volume loss.
--- NOTE | ~2024-02-27 | CT_ITS ---
EXAMINATION: CT ANGIOGRAM HEAD CT ANGIOGRAM NECK CLINICAL INFORMATION: dizziness COMPARISON: CT head 02/27/2024 TECHNIQUE: Test bolus sequences followed by intravenous administration 85 mL of Omnipaque 350. Helical imaging was performed in the axial plane from the aortic arch to the skull vertex. Delayed postcontrast imaging of the head was also performed. The data was processed at the ultrasound technologist's workstation for generation of MIP sequences. Angled MIPs and volume rendered reformatted images were also generated at an offline 3D workstation. Stenoses are assessed in accordance with Chu et al. Quantification of Carotid Stenosis on CT Angiography. AJR 2006. 27(1):13-19. [address] CT examination was performed using dose optimization techniques as appropriate, variously including the following: *Automated exposure control *Adjustment of mA and/or kV according to patient size (this includes techniques or standardized protocols for targeted exams where dose is matched to indication/reason for exam; i.e. extremities or head) *Use of iterative reconstruction technique DLP: 1388.93 mGy-cm FINDINGS: CT HEAD: Mild generalized parenchymal volume loss. Patchy periventricular and deep white matter hypoattenuation is nonspecific but most suggestive of mild chronic microangiopathy. No territorial loss of garvey-white differentiation. As on recent head CT, previously visualized hyperdensity in the anterior left frontal lobe with surrounding vasogenic edema has since resolved. Enhancing extra-axial lesion along the left petrous face measuring 11 mm appears stable to slightly increased in size since 02/09/2019, when it measured 9 mm. No significant mass effect along the subjacent cerebellum. No acute intracranial hemorrhage or extra-axial fluid collection. The orbits are grossly normal. Mild mucosal disease with aerated debris in the sphenoid sinuses. No mastoid effusion. Severe bilateral TMJ osteoarthrosis with chronic osseous remodeling and flattening of the articular surfaces and intra-articular ossified loose bodies. CTA HEAD: No hemodynamically significant stenosis or occlusion in the anterior or posterior circulation. There are mild stenoses along the bilateral M1 MCAs and right P2 KILN TESTER. Calcific plaque along the bilateral carotid siphons without associated luminal narrowing. No aneurysms and no high flow vascular malformations. Timing of the contrast bolus allows assessment of the major dural venous sinuses, which all opacify normally CTA NECK: Classic 3 vessel branching pattern of the aortic arch. Mild partially calcified atherosclerotic disease of the aortic arch and great vessel origins. Origins of the great vessels are widely patent. The common carotid arteries are widely patent. Moderate calcific plaque at the carotid bifurcations without associated stenosis. Beaded luminal irregularity of the mid to distal cervical internal carotid arteries compatible with fibromuscular dysplasia. 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 The right vertebral artery is dominant. The vertebral artery ostia are widely patent. Both vertebral arteries are widely patent throughout their extracranial cervical course. CT NECK: Partially herniated sublingual glands and the submandibular spaces via mylohyoid boutonniere defects. Right thyroid nodules measuring up to 8 mm, below size criteria for imaging follow-up. Streak artifact from versus left shoulder arthroplasty. Advanced right glenohumeral joint osteoarthrosis with bone on bone and joint space narrowing and extensive chondrocalcinosis about the right glenohumeral and acromioclavicular joints. Decompressed joint fluid and ossified loose body into the right bicipital tendon sheath. High riding right humeral head abutting the undersurface of the right acromium related to full-thickness superior rotator cuff tear with related fatty atrophy of the right supraspinatus and infraspinatus musculature. Diffuse osseous demineralization. Cervical spondylosis. CT/CT angio head neck IMPRESSION: 1. No acute intracranial findings. 2. 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 No significant mass effect along the subjacent cerebellum. 3. Severe bilateral TMJ osteoarthrosis 4. No acute arterial occlusion or hemodynamically significant stenosis within the head or neck. 5. 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 6. Advanced right glenohumeral joint osteoarthrosis with associated chondrocalcinosis, full-thickness superior rotator cuff tear, and fatty atrophy of the right supraspinatus and infraspinatus muscles. Impression [address] Mullins at 12:55 AM on 02/28/2024 and it was ascertained that the content and urgency of the report was understood at the time of direct communication.
[2024-02-27 18:35] VITALS: BP 184/76; PULSE 65; RESP 16; TEMP 36.2; O2SAT 97; BMI 17.5
--- NOTE | 2024-02-27 18:37 | ECG_ITS ---
Test Reason : DIZZINESS Blood Pressure : / mmHG Vent. Rate : 060 BPM Atrial Rate : 060 BPM P-R Int : 162 ms QRS Dur : 090 ms QT Int : 430 ms P-R-T Axes : 049 037 053 degrees QTc Int : 430 ms Normal sinus rhythm Minimal voltage criteria for LVH, may be normal variant ( Sokolow-Mcgee ) Abnormal ECG When compared with ECG of 04-SEP-2017 15:41, No significant changes seen Referred By: Bryon Gutierrez Electronically Signed By:JIA CHEN
--- NOTE | 2024-02-27 18:44 | ED.DIZZY ---
HPI - Dizziness General Chief Complaint: Dizziness Stated Complaint: dizziness,headache, blurred vision Time Seen by Provider: 02/27/24 22:13 Source: patient Mode of arrival: ambulatory Limitations: no limitations History of Present Illness ED Provider: Dr. Savanna Mullins HPI Narrative: Patient comes to the emergency room complaining of dizziness. Patient describes it as room spinning. Patient states that she noticed that she had a sensation of the room spinning before she went to bed. Patient went to sleep hoping that she would wake up asymptomatic. However, patient had the sensation of room spinning the whole day. Patient states that she almost fell but did not fall, did not lose consciousness. Patient states that this has happened before when she went to [id number]. Patient was diagnosed with vertigo, patient was given a prescription of meclizine but she never picked it up because she thought that this would never reoccurred. Related Data Home Medications ?Medication ?Instructions ?Recorded ?Confirmed cholecalciferol (vitamin D3) 50 50 mcg PO DAILY 09/24/20 02/26/24 mcg (2,000 unit) capsule flu vac qv 2019(18yr up)rc(PF) 180 ml IM 09/24/20 02/26/24 mcg(45 mcgx4)/0.5 mL IM syringe ascorbic acid (vitamin C) 500 mg 500 mg PO BID 02/26/24 02/26/24 tablet Previous Rx's ?Medication ?Instructions ?Recorded acetaminophen 500 mg capsule 1,000 mg (2 x 500 mg) PO Q6H PRN 01/15/21 pain #20 caps lorazepam 0.5 mg tablet 0.5 mg PO DAILY PRN anxiety #30 09/12/23 tabs miscellaneous medical supply 1 ea miscellaneous .qd #1 ea 09/12/23 bruce.stocking,knee,reg,smal #2 ea 10/17/23 Myrbetriq 25 mg tablet,extended 25 mg PO DAILY #30 tabs 02/26/24 release (mirabegron) alendronate 70 mg tablet 70 mg PO QWEEK #12 tabs 02/26/24 atenolol 25 mg tablet 25 mg PO DAILY #90 tabs 02/26/24 estradiol 0.01% (0.1 mg/gram) 0.25 appful vaginal 3XW #42.5 grams 02/26/24 vaginal cream ferrous sulfate 325 mg (65 mg 325 mg PO Q OTHER DAY #45 tabs 02/26/24 iron) tablet furosemide 20 mg tablet (Lasix) 20 mg PO Q OTHER DAY #45 tabs 02/26/24 potassium chloride 20 mEq 20 meq PO DAILY #45 tabs 02/26/24 tablet,extended release(part/cryst) aspirin 325 mg tablet 325 mg PO DAILY #90 tabs 02/28/24 diazepam 2 mg tablet 1 mg (1/2 x 2 mg) PO BID PRN 02/28/24 dizziness or vertigo #5 tabs meclizine 25 mg tablet 25 mg PO QID PRN dizziness #20 tabs 02/28/24 Allergies Allergy/AdvReac Type Severity Reaction Status Date / Time meperidine [From Demerol] Allergy Severe ANAPHYLAXIS Verified 02/27/24 18:38 Penicillins Allergy Severe HIVES Verified 02/27/24 18:38 Sulfa (Sulfonamide Allergy Mild HIVES Verified 02/27/24 18:38 Antibiotics) [Sulfa (Sulfonamides)] amoxicillin Allergy Unknown hives Verified 02/27/24 18:38 CHOCOLATE Allergy Unknown HIVES Verified 02/27/24 18:38 peanut [PEANUT] Allergy Unknown HIVES Verified 02/27/24 18:38 penicillin G Allergy Unknown trouble Verified 02/27/24 18:38 breathing rash penicillin V Allergy Unknown trouble Verified 02/27/24 18:38 breathing rash codeine [Codeine] AdvReac Mild NAUSEA/VOMI Verified 02/27/24 18:38 TING pravastatin AdvReac Unknown body aches Verified 02/27/24 18:38 Review of Systems Review of Systems: Constitutional : No Weight loss, No Fever, No Chills, No Night Sweats, No Fatigue, No Malaise ENT/Mouth : No Hearing loss, No Ear Pain, No Nasal Congestion, No Sinus Pain, No Hoarseness, No sore throat, No Rhinorrhea, No Swallowing Difficulty Eyes: No Eye Pain, No Swelling, No Redness, No Foreign Body, No Discharge, No Vision Changes Cardiovascular : No Chest Pain, No SOB, No Dyspnea on Exertion, No Orthopnea, No Edema, No Palpitations Respiratory : No Cough, No Sputum, No Wheezing, No Smoke Exposure, No Dyspnea Gastrointestinal : No Nausea, No Vomiting, No Diarrhea, No Constipation, No abdominal Pain, No Hematochezia, No Melena Genitourinary : no irregular bleeding, No Dysuria, No Urinary Frequency, No Hematuria, No Urinary Incontinence, No Urgency, No Flank Pain, No Urinary Flow Changes, No Hesitancy Musculoskeletal : No joint pain, No Myalgias, No Joint Swelling Skin : No Skin Lesions, No rash Neuro : No Weakness, No Numbness, No Paresthesias, No Loss of Consciousness, complaining of dizziness described as room spinning, no headache Psych : No Anxiety/Panic, No Depression, No SI/HI/AH/VH, No Social Issues, Heme/Lymph: No Bruising, No Bleeding,No Lymphadenopathy Endocrine : No Polyuria, No Polydipsia, No Temperature Intolerance [facility] Past Medical History Medical History CKD (chronic kidney disease) stage 3, GFR 30-59 ml/min Vitamin D deficiency Chronic anemia History of SIADH Osteoporosis HTN (hypertension) Surgical History History of left shoulder replacement History of hysterectomy History of fundoplication History of cataract History of colonoscopy History of open reduction and internal fixation (ORIF) procedure History of appendectomy Family History Family History Father History of CVA (cerebrovascular accident) Stroke Mother CVD (cardiovascular disease) History of heart attack Son No problems noted. Sister Substance use disorder Social History Social History Housing: House Alcohol intake: never Patient Tobacco Use Status: Never used Tobacco Smoked in Last 30 Days: No e-Cigarette/Vaping Use: Never Used Use of substances other than those prescribed or required for medical reasons: No Advance Directives: Yes Advance Directives on File: Yes Advance Directives Date on File: 03/28/23 service: No Current occupational status: retired Cognitive needs: No Hearing needs: No Vision needs: Yes Physical Exam Vital Signs: Vital Signs: Last Vital Signs Temp 97.8 F 02/28/24 00:23 Pulse 60 02/28/24 00:23 Resp 13 02/28/24 00:23 BP 150/73 H 02/28/24 00:23 Pulse Ox 99 02/28/24 00:23 O2 Del Method Room Air 02/28/24 00:23 BMI result Body Mass Index 17.5 Const: Other: Appearance: Alert. Oriented X3. No acute distress. Eyes: Pupils equal, round and reactive to light. ENT: Pharynx normal. Neck: Normal inspection. Neck supple. No lymph nodes noted. No crepitus CVS: Normal heart rate and rhythm. Pulses normal. Normal S1 and S2 Respiratory: No respiratory distress. Breath sounds normal. No Wheezing. No rales Abdomen: Soft and nontender. No rigidity. No distention. Skin: Skin warm and dry. Normal skin color. Normal skin turgor. Patient has an old ecchymosis in the forehead Extremities: No lower extremity edema. No Lacerations. No Rash Neuro: Oriented X 3. No motor deficit. No sensory deficit. Moving all extremities. No slurred speech. CN 2 through 12 grossly intact Psych: calm, cooperative, normal affect Course Course Course Narrative: This is an RME done by LIZBETH Gutierrez: Additional HPI, ROS, PE not included below will be deferred to primary provider. 88 yo f presents w/ head fullness, dizziness, blurred vision Medications Administered Discontinued Medications Generic Name Dose Route Start Last Admin Trade Name Freq PRN Reason Stop Dose Admin Diazepam 1 mg 02/27/24 22:29 02/27/24 23:20 Diazepam 2 Mg Tablet PO 02/27/24 22:30 1 mg ONCE ONE Administration Iohexol 80 ml 02/27/24 23:57 02/27/24 23:57 Iohexol 350 Mg/Ml 100 Ml Infus..Btl IV 02/27/24 23:58 80 ml ONCE ONE Administration Meclizine HCl 50 mg 02/27/24 22:29 02/27/24 23:20 Meclizine Hcl 25 Mg Tablet PO 02/27/24 22:30 50 mg ONCE ONE Administration Medical Decision Making Medical Decision Making [facility] Narrative: -my interpretation of labs: Hematology and chemistry at baseline, no acute abnormality, urine analysis negative for UTI -my interpretation of CT scan: No intracranial bleed. -I discussed the CTA with Dr. 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 Calderon. This is likely an incidental finding, unlikely to be the source of patient's dizziness. At this time, no further intervention other than aspirin daily. Patient will follow-up with her primary care physician and we will give her the phone number of Dr. Calderon for outpatient follow-up -patient was ambulated around the emergency room with her cane. Patient states that she feels completely back to baseline, has no dizziness at all. Denies any headache or any symptoms. Patient states that she feels well to go back home. -patient instructed to start taking aspirin daily, agrees with plan. Differential Diagnosis Differential Diagnoses: The differential diagnosis associated with the presentation includes (Vertigo, BPPV, CVA, intracranial bleed) Admission/Observation Consideration of admission/observation: Escalation of care including admission/observation considered (Given patient's symptoms and history of fall, observation was considered) Lab Data MDM Lab Attestation statement: I reviewed the patient's lab results. 02/27/24 18:54 02/27/24 18:54 Labs: Lab Results 02/27/24 02/27/24 Range/Units 18:54 20:16 WBC 7.1 (4.8-10.8) X10*3/uL RBC 3.45 L (4.20-5.50) X10*6/uL Hgb 11.3 L (12.0-16.0) g/dl Hct 33.2 L (37.0-47.0) % MCV 96.2 (80.0-98.0) fL MCH 32.8 (27.0-33.0) pg MCHC 34.0 (31.0-35.0) g/dl RDW 12.9 (11.0-16.0) % Plt Count 212 (160-400) X10*3/uL MPV 8.4 L (9.4-12.3) fL Immature Gran % (Auto) 0.3 (0.0-0.4) % Neut % (Auto) 53.7 (45-73) % Lymph % (Auto) 32.7 (20-40) % Page % (Auto) 9.7 (2-11) % Eos % (Auto) 2.5 (0-4) % Baso % (Auto) 1.1 (0-2) % Lymph # (Auto) 2.3 (1.2-4.9) X10*3/uL Page # (Auto) 0.7 (0.1-1.2) X10*3/uL Eos # (Auto) 0.2 (0.0-0.4) X10*3/uL Baso # (Auto) 0.1 (0.0-0.2) X10*3/uL Abs Immat Gran (auto) 0.02 (0.00-0.03) X10*3/uL Absolute Neuts (auto) 3.8 (2.0-8.3) x10*3/uL Absolute Nucleated RBC 0.000 (0.0-0.012) X10*3/uL Nucleated RBC % (auto) 0.0 (0.0-0.2) /100WBC PT 11.8 (11.1-13.3) SEC INR 1.0 (0.9-1.1) Sodium 135 (135-145) mmol/L Potassium 4.1 (3.3-5.1) mmol/L Chloride 102 (96-108) mmol/L Carbon Dioxide 24 (22-29) mmol/L Anion Gap 13 (12-20) BUN 44 H (9-16) mg/dL Creatinine 0.94 (0.5-1.4) mg/dL Estim Creat Clear Calc 28.0 Estimated GFR 56 Random Glucose 93 (60-115) mg/dL Calcium 10.1 D (8.4-10.2) mg/dL Magnesium 1.8 (1.6-2.6) mg/dL Total Bilirubin 0.4 (0.0-1.0) mg/dL AST 19 (5-31) U/L ALT 14 (0-31) U/L Alkaline Phosphatase 59 (39-117) U/L Troponin I High Sens 4.6 (<3.5-17.0) ng/L Total Protein 7.3 (6.5-8.0) g/dL Albumin 4.3 (3.5-5.0) g/dL Urine Color Yellow Urine Appearance Clear Urine pH 7.0 (5.0-9.0) Ur Specific [place] 1.010 (1.005-1.025) Urine Protein Trace (Neg-Trace) mg/dL Urine Glucose (UA) Negative (Negative) mg/dL Urine Ketones Negative (Negative) mg/dL Urine Blood Negative (Negative) Urine Nitrite Negative (Negative) Ur Leukocyte Esterase Trace H (Negative) Urine RBC 0-2 (0-2) /HPF Urine WBC 0-5 (0-5) /HPF Ur Squamous Epith Cells 0-2 (0-2) /HPF Urine Bacteria None Seen (None Seen) Hyaline Casts 0-2 (0-2) /LPF Independent Interpretation I performed an independent interpretation of an: CT Scan Radiology Impression Discussion of test interpretation with radiology: I have reviewed the radiologist's reading. Radiologist Impression: CT HEAD: Mild generalized parenchymal volume loss. Patchy periventricular and deep white matter hypoattenuation is nonspecific but most suggestive of mild chronic microangiopathy. No territorial loss of garvey-white differentiation. As on recent head CT, previously visualized hyperdensity in the anterior left frontal lobe with surrounding vasogenic edema has since resolved. Enhancing extra-axial lesion along the left petrous face measuring 11 mm appears stable to slightly increased in size since 02/09/2019, when it measured 9 mm. No significant mass effect along the subjacent cerebellum. No acute intracranial hemorrhage or extra-axial fluid collection. The orbits are grossly normal. Mild mucosal disease with aerated debris in the sphenoid sinuses. No mastoid effusion. Severe bilateral TMJ osteoarthrosis with chronic osseous remodeling and flattening of the articular surfaces and intra-articular ossified loose bodies. CTA HEAD: No hemodynamically significant stenosis or occlusion in the anterior or posterior circulation. There are mild stenoses along the bilateral M1 MCAs and right P2 [employer] FELLOW. Calcific plaque along the bilateral carotid siphons without associated luminal narrowing. No aneurysms and no high flow vascular malformations. Timing of the contrast bolus allows assessment of the major dural venous sinuses, which all opacify normally CTA NECK: Classic 3 vessel branching pattern of the aortic arch. Mild partially calcified atherosclerotic disease of the aortic arch and great vessel origins. Origins of the great vessels are widely patent. The common carotid arteries are widely patent. Moderate calcific plaque at the carotid bifurcations without associated stenosis. Beaded luminal irregularity of the mid to distal cervical internal carotid arteries compatible with fibromuscular dysplasia. 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 The right vertebral artery is dominant. The vertebral artery ostia are widely patent. Both vertebral arteries are widely patent throughout their extracranial cervical course. CT NECK: Partially herniated sublingual glands and the submandibular spaces via mylohyoid boutonniere defects. Right thyroid nodules measuring up to 8 mm, below size criteria for imaging follow-up. Streak artifact from versus left shoulder arthroplasty. Advanced right glenohumeral joint osteoarthrosis with bone on bone and joint space narrowing and extensive chondrocalcinosis about the right glenohumeral and acromioclavicular joints. Decompressed joint fluid and ossified loose body into the right bicipital tendon sheath. High riding right humeral head abutting the undersurface of the right acromium related to full-thickness superior rotator cuff tear with related fatty atrophy of the right supraspinatus and infraspinatus musculature. Diffuse osseous demineralization. Cervical spondylosis. CT/CT angio head neck IMPRESSION: 1. No acute intracranial findings. 2. 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 No significant mass effect along the subjacent cerebellum. 3. Severe bilateral TMJ osteoarthrosis 4. No acute arterial occlusion or hemodynamically significant stenosis within the head or neck. 5. 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 6. Advanced right glenohumeral joint osteoarthrosis with associated chondrocalcinosis, full-thickness superior rotator cuff tear, and fatty atrophy of the right supraspinatus and infraspinatus muscles. Independent Historian Clinical information obtained from an independent historian. History obtained from or confirmed by: Other (Done) Critical Care Time Critical Care Time Total Critical Care Time: 35 Attestation: I have personally provided critical care time. Time includes review of lab data, radiology results, discussion with consultants, and monitoring for potential decompensation. Intervention performed as documented. Discharge Plan Discharge Clinical Impression: Benign paroxysmal positional vertigo, Pseudoaneurysm of carotid artery Patient Disposition: Home, Self-Care Instructions: Vertigo (ED) Additional Instructions: Please follow-up with your primary care physician tomorrow. If you have any worsening or new symptoms, please return to the emergency room or call 911 Prescriptions: New aspirin 325 mg tablet 325 mg PO DAILY Qty: 90 1RF meclizine 25 mg tablet 25 mg PO QID PRN (Reason: dizziness) Qty: 20 0RF diazepam 2 mg tablet 1 mg PO BID PRN (Reason: dizziness or vertigo) Qty: 5 0RF No Action acetaminophen 500 mg capsule 1,000 mg PO Q6H PRN (Reason: pain) Qty: 20 0RF Flublok Quad (PF) 180 mcg (45 mcg x 4)/0.5 mL syringe IM cholecalciferol (vitamin D3) 50 mcg (2,000 unit) capsule 50 mcg PO DAILY lorazepam 0.5 mg tablet 0.5 mg PO DAILY PRN (Reason: anxiety) Qty: 30 1RF miscellaneous medical supply Misc 1 ea miscellaneous .qd Qty: 1 0RF Rx Instructions: lifeline ascorbic acid (vitamin C) 500 mg tablet 500 mg PO BID Rx Instructions: every other day atenolol 25 mg tablet 25 mg PO DAILY Qty: 90 3RF ferrous sulfate 325 mg (65 mg iron) tablet 325 mg PO Q OTHER DAY Qty: 45 3RF furosemide [Lasix] 20 mg tablet 20 mg PO Q OTHER DAY Qty: 45 3RF potassium chloride 20 mEq tablet,ER particles/crystals 20 meq PO DAILY Qty: 45 3RF Rx Instructions: take with Lasix alendronate 70 mg tablet 70 mg PO QWEEK Qty: 12 3RF estradiol 0.01 % (0.1 mg/gram) cream 0.25 appful vaginal 3XW Qty: 42.5 2RF mirabegron [Myrbetriq] 25 mg tablet extended release 24 hr 25 mg PO DAILY Qty: 30 1RF (DME) bruce.stocking,knee,reg,smal Misc See Rx Instructions .Route Qty: 2 0RF Rx Instructions: 10-20 mmHg, with zippers Referrals: Ramez Calderon MD [Physician] - 03/10/24 Print Language: Filipino
[2024-02-27 18:59] LABS: MANUAL DIFF FLAG NO
[2024-02-27 19:15] LABS: Basophils Absolute Auto 0.1 X10*3/uL (0.0-0.2); Basophils Percent Auto 1.1 % (0-2); Eosinophils Absolute Auto 0.2 X10*3/uL (0.0-0.4); Eosinophils Percent Auto 2.5 % (0-4); Hematocrit 33.2 % (37.0-47.0); Hemoglobin 11.3 g/dl (12.0-16.0); Imm Gran Abs Auto 0.02 X10*3/uL (0.00-0.03); Imm Gran Pct Auto 0.3 % (0.0-0.4); Lymphocytes Absolute Auto 2.3 X10*3/uL (1.2-4.9); Lymphocytes Percent Auto 32.7 % (20-40); Mean Corpuscular Hemoglobin 32.8 pg (27.0-33.0); Mean Corpuscular Volume 96.2 fL (80.0-98.0); Mean Platelet Volume 8.4 fL (9.4-12.3); Monocytes Absolute Auto 0.7 X10*3/uL (0.1-1.2); Monocytes Percent Auto 9.7 % (2-11); Neutrophils Absolute Auto 3.8 x10*3/uL (2.0-8.3); Neutrophils Percent Auto 53.7 % (45-73); Platelet Count 212 X10*3/uL (160-400); Red Blood Count 3.45 X10*6/uL (4.20-5.50); Red Cell Distribution Width 12.9 % (11.0-16.0); White Blood Count 7.1 X10*3/uL (4.8-10.8)
[2024-02-27 19:17] LABS: Prothrombin Time 11.8 SEC (11.1-13.3)
[2024-02-27 20:08] LABS: Alanine Aminotransferase 14 U/L (0-31); Albumin Level 4.3 g/dL (3.5-5.0); Alkaline Phosphatase 59 U/L (39-117); Anion Gap 13 (12-20); Aspartate Amino Transferase 19 U/L (5-31); Bilirubin Total 0.4 mg/dL (0.0-1.0); Blood Urea Nitrogen 44 mg/dL (9-16); Calcium 10.1 mg/dL (8.4-10.2); Carbon Dioxide 24 mmol/L (22-29); Chloride 102 mmol/L (96-108); Estimated Glomerular Filt Rate 56; Glucose Random 93 mg/dL (60-115); Magnesium 1.8 mg/dL (1.6-2.6); Potassium 4.1 mmol/L (3.3-5.1); Sodium 135 mmol/L (135-145); Total Protein 7.3 g/dL (6.5-8.0)
[2024-02-27 20:14] VITALS: BP 186/68; PULSE 56; RESP 16; TEMP 36.7; O2SAT 100
[2024-02-27 20:15] LABS: Troponin-I High Sensitivity 4.6 ng/L (<3.5-17.0)
[2024-02-27 20:25] LABS: Appearance Urine Clear; Color Urine Yellow; Glucose Urine UA Negative (Negative); Leukocyte Esterase Urine Trace (Negative); Nitrite Urine Negative (Negative); UMIC TRIGGER UACC YES; Urine Blood Negative (Negative); Urine Ketones Negative (Negative); Urine Protein Trace mg/dL (Neg-Trace)
[2024-02-27 20:39] LABS: Bacteria Urine None Seen (None Seen); Hyaline Casts Urine 0-2 /LPF (0-2); RBC Urine 0-2 /HPF (0-2); Squamous Epithelial Cell Urine 0-2 /HPF (0-2); WBC Urine 0-5 /HPF (0-5)
[2024-02-27 21:12] VITALS: BP 154/75; PULSE 55
[2024-02-27 21:13] VITALS: BP 171/68; PULSE 58
[2024-02-27 21:14] VITALS: BP 185/74; PULSE 57
[2024-02-27 22:32] VITALS: BP 178/71; PULSE 59; RESP 14; TEMP 36.7; O2SAT 100
[2024-02-27] MEDS: diazePAM 2 MG TABLET 1 MG PO (23:20)
[2024-02-27] MEDS: Meclizine HCl 25 MG TABLET 50 MG PO (23:20)
[2024-02-27] MEDS: iohexoL 350 MG/ML 100 ML INFUS..BTL 80 ML IV (23:57)
[2024-02-28 00:23] VITALS: BP 150/73; PULSE 60; RESP 13; TEMP 36.6; O2SAT 99
[2024-02-28 02:22] VITALS: BP 150/73; PULSE 60; RESP 13; TEMP 36.6; O2SAT 99
== END 2024-02-28 02:22 | disposition home or self-care (01) ==
PROVIDERS: Physician Assistant; Emergency Provider Emergency Medicine; PCP Internal Medicine
DX: H81.10 Benign paroxysmal vertigo, unspecified ear (principal); I72.0 Aneurysm of carotid artery; I12.9 Hypertensive chronic kidney disease with stage 1 through stage 4 chronic kidney disease, or unspecified chronic kidney disease; N18.30 Chronic kidney disease, stage 3 unspecified; Z79.899 Other long term (current) drug therapy
CPT/HCPCS: 36415; 70450; 70496; 70498; 80053; 81001; 83735; 84484; 85025; 85610; 93005; 99285; Q9967

== ENCOUNTER → 2024-02-27 18:37 | Outpatient (BNV) | payer MEDICARE, SELFPAY | PROVIDERS: Emergency Provider Emergency Medicine; PCP Internal Medicine; Visit Provider Internal Medicine | DX: R94.31 Abnormal electrocardiogram [ECG] [EKG] (principal) | CPT/HCPCS: 93010 ==

== ENCOUNTER 2024-03-05 10:36 | Outpatient (AMB) | payer MEDICARE, SELFPAY ==
[2024-03-05 10:44] VITALS: BP 116/68; PULSE 58; O2SAT 100; BMI 18.0
--- NOTE | 2024-03-05 10:44 | A.OFFPC_ITS ---
Vital Signs 03/05/24 10:44 Height 5 ft Weight 92 lb 6 oz BMI 18.0 BP 116/68 Blood Pressure Location Rt brachial Position Sitting Pulse 58 Pulse Source Pulse Oximeter Pulse Oximetry (%) 100 Oxygen Delivery Method Room Air Intake Visit Reasons: ER follow up Intake Note: Pt is here today for ER follow up visit. Allergies meperidine [From Demerol] Allergy (Severe, Verified 03/05/24 10:45) ANAPHYLAXIS Penicillins Allergy (Severe, Verified 03/05/24 10:45) HIVES Sulfa (Sulfonamide Antibiotics) [Sulfa (Sulfonamides)] Allergy (Mild, Verified 03/05/24 10:45) HIVES amoxicillin Allergy (Unknown, Verified 03/05/24 10:45) hives CHOCOLATE Allergy (Unknown, Verified 03/05/24 10:45) HIVES peanut [PEANUT] Allergy (Unknown, Verified 03/05/24 10:45) HIVES penicillin G Allergy (Unknown, Verified 03/05/24 10:45) trouble breathing rash penicillin V Allergy (Unknown, Verified 03/05/24 10:45) trouble breathing rash codeine [Codeine] Adverse Reaction (Mild, Verified 03/05/24 10:45) NAUSEA/VOMITING pravastatin Adverse Reaction (Unknown, Verified 03/05/24 10:45) body aches Tobacco use date assessed: 02/26/24 Dental Screening Dental Screen Date: 10/05/23 HPI ER follow up HPI Details Pt presents for f/u ER visit for acute vertigo. The workup including brain CT cardiac workup were negative. Patient improved with meclizine. She denies any recurrent positional vertigo. She is referred to physical therapy to improve her balance. Patient has been using a cane to walk and fall proof her house. Hypertension is controlled on atenolol. [facility] Medical History CKD (chronic kidney disease) stage 3, GFR 30-59 ml/min Vitamin D deficiency Chronic anemia History of SIADH Osteoporosis HTN (hypertension) Surgical History History of left shoulder replacement History of hysterectomy History of fundoplication History of cataract History of colonoscopy History of open reduction and internal fixation (ORIF) procedure History of appendectomy Family History Father History of CVA (cerebrovascular accident) Stroke Mother CVD (cardiovascular disease) History of heart attack Son No problems noted. Sister Substance use disorder Social History Housing: House Alcohol intake: never Patient Tobacco Use Status: Never used Tobacco e-Cigarette/Vaping Use: Never Used Advance Directives Date on File: 03/28/23 service: No Current occupational status: retired Cognitive needs: No Hearing needs: No Vision needs: Yes Questionnaire Thrive Questionnaire Date Thrive assessed: 09/12/23 VÍCTOR-7 AMB Questionnaire VÍCTOR-7 Date VÍCTOR - 7 assessed: 09/12/23 Source: Developed by Drs. Jamari Villagran, Iraida lSade, Raul Montesinos and colleagues, with an educational benedicto from [employer]. Review of Systems Const All systems reviewed & are unremarkable except as noted in HPI and below Eyes Reports no additional complaints ENT Reports no additional complaints Card Reports no additional complaints Resp Reports no additional complaints GI Reports no additional complaints Reports no additional complaints Physical exam (Primary Care) Vital Signs: Last Vital Signs Pulse 58 03/05/24 10:44 BP 116/68 03/05/24 10:44 Pulse Ox 100 03/05/24 10:44 Oxygen Delivery Method Room Air 03/05/24 10:44 BMI result Body Mass Index 18.0 Tobacco/Smoking Status: Tobacco use Status Tobacco use date assessed 02/26/24 03/05/24 10:44 Patient Tobacco Use Status Never used Tobacco 03/05/24 10:44 e-Cigarette/Vaping Use Never Used 03/05/24 10:44 Thrive Assessment: Date of Thrive Assessment Date Thrive assessed 09/12/23 03/05/24 10:44 Const General: no acute distress HENMT Head: Yes normal to inspection Face and sinus: Yes normal facial exam Throat: Yes posterior oropharynx normal Neck Neck: Yes supple Resp Effort & Inspection: normal respiratory effort Auscultation: clear to auscultation bilaterally Cardio Rhythm: regular rhythm Heart sounds: S1 normal heart sound present and S2 normal heart sound present GI Inspection: Yes normal to inspection Palpation (GI): Soft to palpation Percussion: Yes normal to percussion Neuro Cranial nerves: Yes CN's II-XII intact bilaterally Gait exam (Neuro): Normal gait present Motor exam (neuro): 5/5 motor strength present throughout Romberg Test: Negative Assessment and Plan Assessment & Plan (1) Vertigo: Code(s): R42 - Dizziness and giddiness Plan: Continue meclizine p.r.n. patient will start physical therapy to improve her balance (2) CKD (chronic kidney disease) stage 3, GFR 30-59 ml/min: Code(s): N18.30 - Chronic kidney disease, stage 3 unspecified Plan: Avoid nephrotoxins monitor renal function (3) HTN (hypertension): Code(s): I10 - Essential (primary) hypertension Plan: Continue atenolol Coding Level of Care Code Est Pt Level 4 (27326) Diagnoses Vertigo R42 CKD (chronic kidney disease) stage 3, GFR 30-59 ml/min N18.30 HTN (hypertension) I10
== END 2024-03-05 13:06 | disposition home or self-care (01) ==
PROVIDERS: PCP Internal Medicine; Visit Provider Internal Medicine
DX: I12.9 Hypertensive chronic kidney disease with stage 1 through stage 4 chronic kidney disease, or unspecified chronic kidney disease (principal); R42 Dizziness and giddiness; N18.30 Chronic kidney disease, stage 3 unspecified
CPT/HCPCS: 99214

== ENCOUNTER 2024-03-12 11:19 | Outpatient (AMB) | payer MEDICARE, SELFPAY ==
[2024-03-12 11:42] VITALS: BP 118/70; PULSE 74; TEMP 36.4; O2SAT 96; BMI 18.0
--- NOTE | 2024-03-12 11:42 | MHC.OFFWIV ---
Intake Vital Signs 03/12/24 11:42 Height 5 ft Weight 92 lb BMI 18.0 BP 118/70 Blood Pressure Location Lt brachial Position Sitting Pulse 74 Pulse Source Pulse Oximeter Temp 97.6 F Temp Source Oral Pulse Oximetry (%) 96 Oxygen Delivery Method Room Air Intake Visit Reasons: EP wax removal Intake Note: pt here c/o bilateral impacted cerumen Patient Tobacco Use Status: Never used Tobacco Allergies meperidine [From Demerol] Allergy (Severe, Verified 03/12/24 11:51) ANAPHYLAXIS Penicillins Allergy (Severe, Verified 03/12/24 11:51) HIVES Sulfa (Sulfonamide Antibiotics) [Sulfa (Sulfonamides)] Allergy (Mild, Verified 03/12/24 11:51) HIVES amoxicillin Allergy (Unknown, Verified 03/12/24 11:51) hives CHOCOLATE Allergy (Unknown, Verified 03/12/24 11:51) HIVES peanut [PEANUT] Allergy (Unknown, Verified 03/12/24 11:51) HIVES penicillin G Allergy (Unknown, Verified 03/12/24 11:51) trouble breathing rash penicillin V Allergy (Unknown, Verified 03/12/24 11:51) trouble breathing rash codeine [Codeine] Adverse Reaction (Mild, Verified 03/12/24 11:51) NAUSEA/VOMITING pravastatin Adverse Reaction (Unknown, Verified 03/12/24 11:51) body aches Do you need a note to return to daycare/school/sports/work: No HPI HPI Comments History of Present Illness Details Patient is an 88-year-old female here with what she says is blocked ears with cerumen. She states she saw her PCP last week she was told that she had a wax blocking both of her ear canals which they were unable to flush at the time. She was told to go home and use Debrox drops in both ears which she has been doing twice a day each day since. She is hoping that we are able to flush them out for her today. [facility] Medical History CKD (chronic kidney disease) stage 3, GFR 30-59 ml/min Vitamin D deficiency Chronic anemia History of SIADH Osteoporosis HTN (hypertension) Surgical History History of left shoulder replacement History of hysterectomy History of fundoplication History of cataract History of colonoscopy History of open reduction and internal fixation (ORIF) procedure History of appendectomy Family History Father History of CVA (cerebrovascular accident) Stroke Mother CVD (cardiovascular disease) History of heart attack Son No problems noted. Sister Substance use disorder Social History Housing: House Alcohol intake: never Patient Tobacco Use Status: Never used Tobacco e-Cigarette/Vaping Use: Never Used Advance Directives Date on File: 03/28/23 service: No Current occupational status: retired Cognitive needs: No Hearing needs: No Vision needs: Yes Review of Systems Const All systems reviewed & are unremarkable except as noted in HPI and below Physical Exam Vital Signs: Last Vital Signs Temp 97.6 F 03/12/24 11:42 Pulse 74 03/12/24 11:42 BP 118/70 03/12/24 11:42 Pulse Ox 96 03/12/24 11:42 Oxygen Delivery Method Room Air 03/12/24 11:42 BMI result Body Mass Index 18.0 Const General: cooperative, healthy appearing, comfortable and no acute distress Orientation/consciousness: patient oriented x3 HEENT Head: Yes normal to inspection Ears: mastoids normal, Abnormal EAC present cerumen impaction and unable to visualize TM (cerumen blockage) General nose exam: Normal external nose present Face and sinus: Yes normal facial exam Resp Effort & Inspection: normal respiratory effort and able to speak in complete sentences Neuro General: patient oriented x3 Office Procedures Cerumen Removal Details: Right side was unable to irrigated, needed to be scooped out using otoscope with curette, right-sided ear canal clear, code 32805 ofr this ear From which ear canal was the cerumen removed: bilateral Removal: irrigation Notes: patient tolerated procedure well, no complications and ear canal clear 33835-[id number] Irrigation/Lavage Assessment & Plan Assessment & Plan (1) Bilateral impacted cerumen: Code(s): H61.23 - Impacted cerumen, bilateral Plan: Ear lavage on left ear and scoop out from right ear successful, ear canals clear. Plan See above Coding Level of Care Code Est Pt Level 4 (41739) Diagnoses Bilateral impacted cerumen H61.23 CPT Codes Office Procedure - CPT: 30051-Zgw Irrigation/Lavage ([id number])
== END 2024-03-12 12:51 | disposition home or self-care (01) ==
PROVIDERS: PCP Internal Medicine; Visit Provider Physician Assistant
DX: H61.23 Impacted cerumen, bilateral (principal)
CPT/HCPCS: 69210; 99212

== ENCOUNTER 2024-04-16 11:31 | Outpatient (AMB) | payer MEDICARE, SELFPAY ==
[2024-04-16 12:03] VITALS: BP 120/66; PULSE 61; O2SAT 98; BMI 18.2
--- NOTE | 2024-04-16 12:03 | A.OFFPC_ITS ---
Vital Signs 04/16/24 12:03 Height 5 ft Weight 93 lb BMI 18.2 BP 120/66 Blood Pressure Location Lt brachial Position Sitting Pulse 61 Pulse Source Pulse Oximeter Pulse Oximetry (%) 98 Oxygen Delivery Method Room Air Intake Visit Reasons: Bladder infection Intake Note: Pt is here today for a sick visit. Pt c/o frequent urination and burning and pain when urinating since yesterday afternoon. Allergies meperidine [From Demerol] Allergy (Severe, Verified 04/16/24 12:21) ANAPHYLAXIS Penicillins Allergy (Severe, Verified 04/16/24 12:21) HIVES Sulfa (Sulfonamide Antibiotics) [Sulfa (Sulfonamides)] Allergy (Mild, Verified 04/16/24 12:21) HIVES amoxicillin Allergy (Unknown, Verified 04/16/24 12:21) hives CHOCOLATE Allergy (Unknown, Verified 04/16/24 12:21) HIVES peanut [PEANUT] Allergy (Unknown, Verified 04/16/24 12:21) HIVES penicillin G Allergy (Unknown, Verified 04/16/24 12:21) trouble breathing rash penicillin V Allergy (Unknown, Verified 04/16/24 12:21) trouble breathing rash codeine [Codeine] Adverse Reaction (Mild, Verified 04/16/24 12:21) NAUSEA/VOMITING pravastatin Adverse Reaction (Unknown, Verified 04/16/24 12:21) body aches Medication List - Last Reconciled 04/16/24 by Clarice Ziegler MD acetaminophen 1,000 mg (2 x 500 mg) PO Q6H PRN alendronate 70 mg PO QWEEK ascorbic acid (vitamin C) 500 mg PO BID aspirin 325 mg PO DAILY atenolol 25 mg PO DAILY cholecalciferol (vitamin D3) 50 mcg PO DAILY clindamycin HCl 300 mg PO BID bruce.stocking,knee,reg,smal 10-20 mmHg, with zippers diazepam 2 mg PO DAILY estradiol 0.01%(0.1mg/gram) 0.25 appful vaginal 3XW ferrous sulfate 325 mg PO Q OTHER DAY flu vac qv 2019(18yr up)rc(PF) mL IM furosemide (Lasix) 20 mg PO Q OTHER DAY lorazepam 0.5 mg PO DAILY PRN meclizine 25 mg PO QID PRN miscellaneous medical supply 1 ea miscellaneous .qd Myrbetriq ER (mirabegron) 25 mg PO DAILY NS potassium chloride ER 20 mEq PO DAILY Tobacco use date assessed: 02/26/24 Dental Screening Dental Screen Date: 10/05/23 HPI Bladder infection HPI Details Patient complains of 2 days of increased urinary frequency and dysuria. She denies nausea vomiting fever chills or back pain PFSH Medical History CKD (chronic kidney disease) stage 3, GFR 30-59 ml/min Vitamin D deficiency Chronic anemia History of SIADH Osteoporosis HTN (hypertension) Surgical History History of left shoulder replacement History of hysterectomy History of fundoplication History of cataract History of colonoscopy History of open reduction and internal fixation (ORIF) procedure History of appendectomy Family History Father History of CVA (cerebrovascular accident) Stroke Mother CVD (cardiovascular disease) History of heart attack Son No problems noted. Sister Substance use disorder Social History Housing: House Alcohol intake: never Patient Tobacco Use Status: Never used Tobacco e-Cigarette/Vaping Use: Never Used Advance Directives Date on File: 03/28/23 service: No Current occupational status: retired Cognitive needs: No Hearing needs: No Vision needs: Yes Questionnaire Thrive Questionnaire Date Thrive assessed: 09/12/23 VÍCTOR-7 AMB Questionnaire VÍCTOR-7 Date VÍCTOR - 7 assessed: 09/12/23 Source: Developed by Drs. Jamari Villagran, Iraida Slade, Raul Montesinos and colleagues, with an educational benedicto from [employer]. Review of Systems Const All systems reviewed & are unremarkable except as noted in HPI and below Card Reports no additional complaints Resp Reports no additional complaints GI Reports no additional complaints Physical exam (Primary Care) Vital Signs: Last Vital Signs Pulse 61 04/16/24 12:03 BP 120/66 04/16/24 12:03 Pulse Ox 98 04/16/24 12:03 Oxygen Delivery Method Room Air 04/16/24 12:03 BMI result Body Mass Index 18.2 Tobacco/Smoking Status: Tobacco use Status Tobacco use date assessed 02/26/24 04/16/24 12:03 Patient Tobacco Use Status Never used Tobacco 04/16/24 12:03 e-Cigarette/Vaping Use Never Used 04/16/24 12:03 Thrive Assessment: Date of Thrive Assessment Date Thrive assessed 09/12/23 04/16/24 12:03 Const General: no acute distress Resp Effort & Inspection: normal respiratory effort Auscultation: clear to auscultation bilaterally Cardio Rhythm: regular rhythm Heart sounds: S1 normal heart sound present and S2 normal heart sound present GI Palpation (GI): Soft to palpation Percussion: Yes normal to percussion Auscultation: normal bowel sounds General: Yes no CVA tenderness Back/Spine/Pelvis Back: no CVA tenderness Results AMB Urinalysis, Automated UA Leukoctes 70 Patricia/uL Last Edit by RAJAN Ariza on 04/16/24 12:37 1+ Shante Johnson 04/16/24 12:37 UA Nitrite Positive Last Edit by Shante Johnson [facility] on 04/16/24 12:37 UA Urobilinogen 1 mg/dL Last Edit by DANII Ariza on 04/16/24 12:37 UA Protein 0 mg/dL Last Edit by Shante Johnson [facility] on 04/16/24 12:37 UA pH 5.5 Last Edit by Shante Johnson [facility] on 04/16/24 12:37 UA Blood 10 Jean-Claude/uL Last Edit by Shante Johnson [facility] on 04/16/24 12:37 UA Specific [place] 1.010 Last Edit by DANII Ariza on 04/16/24 12 :37 UA Ketone Negative Last Edit by DANII Ariza on 04/16/24 12:37 UA Bilirubin 0 mg/dL Last Edit by Shante Johnson Attila on 04/16/24 12:37 UA Glucose 0 mg/dL Last Edit by Shante Johnson [facility] on 04/16/24 12:37 Results Reviewed Results Reviewed: Laboratory Last Values Urine pH (Auto) 5.5 04/16/24 12:36 Specific [place] (Auto) 1.010 04/16/24 12:36 Urine Protein (Auto) 0 mg/dL 04/16/24 12:36 Glucose (UA)(Auto) 0 mg/dL 04/16/24 12:36 Urine Ketones (Auto) Negative 04/16/24 12:36 Urine Blood (Auto) 10 Jean-Claude/uL 04/16/24 12:36 Urine Nitrite (Auto) Positive 04/16/24 12:36 Urine Bilirubin (Auto) 0 mg/dL 04/16/24 12:36 Urine Urobilinogen (Auto) 1 mg/dL 04/16/24 12:36 Leukocyte Esterase (Auto) 70 Patricia/uL 04/16/24 12:36 Assessment and Plan Assessment & Plan (1) UTI (urinary tract infection): Code(s): N39.0 - Urinary tract infection, site not specified Plan: Macrobid as prescribed and supportive care discussed with the patient Orders: Orders AMB Urinalysis Automated Today Z13.9 - Encounter for screening, unspecified Medications: New nitrofurantoin monohyd/m-cryst 100 mg (Macrobid) must administer with a meal/food 100 mg PO Q12H 14 caps 0RF 7 days Refilled furosemide (Lasix) 20 mg PO Q OTHER DAY 45 tabs 3RF Coding Level of Care Code Est Pt Level 3 (48436) Diagnoses UTI (urinary tract infection) N39.0
== END 2024-04-16 13:56 | disposition home or self-care (01) ==
PROVIDERS: PCP Internal Medicine; Visit Provider Internal Medicine
DX: Z13.9 Encounter for screening, unspecified (principal); N39.0 Urinary tract infection, site not specified
CPT/HCPCS: 81003; 99213

== ENCOUNTER 2024-05-30 13:16 | Outpatient (REF) | payer MEDICARE, SELFPAY ==
[2024-05-30 15:58] LABS: MANUAL DIFF FLAG NO
[2024-05-30 16:18] LABS: Basophils Absolute Auto 0.1 X10*3/uL (0.0-0.2); Basophils Percent Auto 1.2 % (0-2); Eosinophils Absolute Auto 0.4 X10*3/uL (0.0-0.4); Eosinophils Percent Auto 5.2 % (0-4); Hematocrit 32.7 % (37.0-47.0); Hemoglobin 10.7 g/dl (12.0-16.0); Imm Gran Abs Auto 0.02 X10*3/uL (0.00-0.03); Imm Gran Pct Auto 0.3 % (0.0-0.4); Lymphocytes Absolute Auto 2.2 X10*3/uL (1.2-4.9); Lymphocytes Percent Auto 30.3 % (20-40); Mean Corpuscular HGB Conc 32.7 g/dl (31.0-35.0); Mean Corpuscular Hemoglobin 31.9 pg (27.0-33.0); Mean Corpuscular Volume 97.6 fL (80.0-98.0); Monocytes Absolute Auto 0.9 X10*3/uL (0.1-1.2); Monocytes Percent Auto 12.3 % (2-11); Neutrophils Absolute Auto 3.7 x10*3/uL (2.0-8.3); Neutrophils Percent Auto 50.7 % (45-73); Platelet Count 194 X10*3/uL (160-400); Red Blood Count 3.35 X10*6/uL (4.20-5.50); Red Cell Distribution Width 13.2 % (11.0-16.0); White Blood Count 7.3 X10*3/uL (4.8-10.8)
[2024-05-30 17:52] LABS: Alanine Aminotransferase 16 U/L (0-31); Albumin Level 4.2 g/dL (3.5-5.0); Alkaline Phosphatase 61 U/L (39-117); Anion Gap 11 (12-20); Aspartate Amino Transferase 20 U/L (5-31); Bilirubin Total 0.2 mg/dL (0.0-1.0); Blood Urea Nitrogen 46 mg/dL (9-16); Calcium 9.5 mg/dL (8.4-10.2); Carbon Dioxide 24 mmol/L (22-29); Chloride 103 mmol/L (96-108); Estimated Glomerular Filt Rate 33; Glucose Random 126 mg/dL (60-115); Iron 67 mcg/dL (30-160); Percent Iron Saturation 32 % (15-50); Potassium 4.4 mmol/L (3.3-5.1); Sodium 134 mmol/L (135-145); Total Iron Binding Capacity 207 mcg/dL (228-428); Total Protein 7.6 g/dL (6.5-8.0); Unsaturated Iron Binding 140 ug/dL
[2024-05-30 18:01] LABS: Vitamin D 25-OH Total 75.5 ng/mL (>30)
[2024-05-30 18:03] LABS: Folate > 20.0 ng/mL (> or = 4.0); Vitamin B12 1546 pg/mL (200-900)
== END 2024-05-30 13:17 | disposition home or self-care (01) ==
LOC: HO.HMGCLDS 13:16
PROVIDERS: PCP Internal Medicine; Visit Provider Internal Medicine
DX: I12.9 Hypertensive chronic kidney disease with stage 1 through stage 4 chronic kidney disease, or unspecified chronic kidney disease (principal); E87.1 Hypo-osmolality and hyponatremia; N18.30 Chronic kidney disease, stage 3 unspecified; E55.9 Vitamin D deficiency, unspecified; M81.0 Age-related osteoporosis without current pathological fracture
CPT/HCPCS: 36415; 80053; 82306; 82607; 82746; 83540; 85025

== ENCOUNTER 2024-06-03 12:08 | Outpatient (AMB) | payer MEDICARE, SELFPAY ==
[2024-06-03 12:11] VITALS: BP 102/70; PULSE 59; O2SAT 100; BMI 18.2
--- NOTE | 2024-06-03 12:11 | MHC.PC.OV ---
Vital Signs 06/03/24 12:11 Height 5 ft Weight 93 lb BMI 18.2 BP 102/70 Blood Pressure Location Lt brachial Position Sitting Pulse 59 Pulse Source Pulse Oximeter Pulse Oximetry (%) 100 Oxygen Delivery Method Room Air Intake Visit Reasons: 3 month follow up Intake Note: Pt is here today for her 3 mo. f/u Allergies meperidine [From Demerol] Allergy (Severe, Verified 06/03/24 12:12) ANAPHYLAXIS Penicillins Allergy (Severe, Verified 06/03/24 12:12) HIVES Sulfa (Sulfonamide Antibiotics) [Sulfa (Sulfonamides)] Allergy (Mild, Verified 06/03/24 12:12) HIVES amoxicillin Allergy (Unknown, Verified 06/03/24 12:12) hives CHOCOLATE Allergy (Unknown, Verified 06/03/24 12:12) HIVES peanut [PEANUT] Allergy (Unknown, Verified 06/03/24 12:12) HIVES penicillin G Allergy (Unknown, Verified 06/03/24 12:12) trouble breathing rash penicillin V Allergy (Unknown, Verified 06/03/24 12:12) trouble breathing rash codeine [Codeine] Adverse Reaction (Mild, Verified 06/03/24 12:12) NAUSEA/VOMITING pravastatin Adverse Reaction (Unknown, Verified 06/03/24 12:12) body aches Medication List - Last Reconciled 06/03/24 by Clarice Ziegler MD acetaminophen 1,000 mg (2 x 500 mg) PO Q6H PRN alendronate 70 mg PO QWEEK ascorbic acid (vitamin C) 500 mg PO BID aspirin 325 mg PO DAILY atenolol 25 mg PO DAILY cholecalciferol (vitamin D3) 50 mcg PO DAILY bruce.stocking,knee,reg,smal 10-20 mmHg, with zippers diazepam 2 mg PO DAILY estradiol 0.01%(0.1mg/gram) 0.25 appful vaginal 3XW ferrous sulfate 325 mg PO Q OTHER DAY furosemide (Lasix) 20 mg PO Q OTHER DAY lorazepam 0.5 mg PO DAILY PRN meclizine 25 mg PO QID PRN miscellaneous medical supply 1 ea miscellaneous .qd potassium chloride ER 20 mEq PO DAILY Tobacco use date assessed: 06/03/24 Fall risk assessment: No Falls in past year Last assessed Fall Risk: 06/03/24 Dental Screening Dental Screen Date: 06/03/24 Did you have a dental visit in the last 12 months?: Yes Did you have a dental problem in the last 6 months where you did not have access to dental care?: Yes Was dental information given to patient?: Patient has dentist HPI 3 month follow up HPI Details Pt presents for f/u HTN, CKD 3, osteoporosis. Patient follows up with a counselor for grieving and is doing better. She is planning to visit her son in [facility] for Thanksgiving [facility] Medical History CKD (chronic kidney disease) stage 3, GFR 30-59 ml/min Vitamin D deficiency Chronic anemia History of SIADH Osteoporosis HTN (hypertension) Surgical History History of left shoulder replacement History of hysterectomy History of fundoplication History of cataract History of colonoscopy History of open reduction and internal fixation (ORIF) procedure History of appendectomy Family History Father History of CVA (cerebrovascular accident) Stroke Mother CVD (cardiovascular disease) History of heart attack Son No problems noted. Sister Substance use disorder Social History Housing: House Alcohol intake: never Patient Tobacco Use Status: Never used Tobacco e-Cigarette/Vaping Use: Never Used Advance Directives Date on File: 03/28/23 service: No Current occupational status: retired Cognitive needs: No Hearing needs: No Vision needs: Yes Questionnaire PHQ-9 Over the last 2 weeks, how often have you been bothered by any of the following problems? 1. Little interest or pleasure in doing things: not at all 2. Feeling down, depressed, or hopeless: not at all 3. Trouble falling or staying asleep, or sleeping too much: not at all 4. Feeling tired or having little energy: not at all 5. Poor appetite or overeating: not at all 6. Feeling bad about yourself - or that you are a failure or have let yourself or your family down: not at all 7. Trouble concentrating on things, such as reading the newspaper or watching television: not at all 8. Moving or speaking so slowly that other people could have noticed. Or the opposite - being so fidgety or restless that you have been moving around a lot more than usual: not at all 9. Thoughts that you would be better off or of hurting yourself in some way: not at all Total score: 0 Depression Screening Interpretation: Negative Depression Screening Done: Yes 35404 - PHQ-9 Billing: Yes Source: Developed by Drs. Jamari Villagran, Iraida Slade, Raul Montesinos and colleagues, with an educational benedicto from [employer]. Thrive Questionnaire Date Thrive assessed: 09/12/23 I am a: Patient What is your living situation today?: I have a steady place to live Within the past 12 months, did the food you bought not last and you didn't have the money to get more?: Often true Within the past 12 months, did you worry whether your food would run out before you got money to buy more?: Never true Do you have trouble paying for medicines?: No Do you have trouble getting transportation to medical appointments?: No Do you have trouble paying your heating and electricity bill?: No Do you have trouble taking care of your child, family member or friend?: No Do you have trouble with day-to-day activities such as bathing, preparing meals, shopping, managing finances, etc.?: No Are you interested in more education?: No Please select the resources that you would like help with: Transportation Currently or been in a relationship where the following occur: No concerns reported THRIVE Score: 1 AUDIT C Alcohol Use Questionnaire (AUDIT-C) 1. How often do you have a drink containing alcohol?: Never Total Score: 0 VÍCTOR-7 AMB Questionnaire VÍCTOR-7 Date VÍCTOR - 7 assessed: 09/12/23 Feeling nervous, anxious, or on edge: 0 = Not at all Not being able to stop or control worryin = Not at all Worrying too much about different things: 1 = Several days Trouble relaxin = Not at all Being so restless that it is hard to sit still: 0 = Not at all Becoming easily annoyed or irritable: 0 = Not at all Feeling afraid as if something awful might happen: 0 = Not at all Total VÍCTOR-7 score (0-4 normal; 5-9 mild; 10-14 moderate; 15-21 severe): 1 Source: Developed by Drs. Jamari Villagran, Iraida Slade, Raul Montesinos and colleagues, with an educational benedicto from [employer]. Review of Systems Const All systems reviewed & are unremarkable except as noted in HPI and below Eyes Reports no additional complaints Card Reports no additional complaints Resp Reports no additional complaints GI Reports no additional complaints Physical exam (Primary Care) Vital Signs: Last Vital Signs Pulse 59 06/03/24 12:11 BP 102/70 06/03/24 12:11 Pulse Ox 100 06/03/24 12:11 Oxygen Delivery Method Room Air 06/03/24 12:11 BMI result Body Mass Index 18.2 Tobacco/Smoking Status: Tobacco use Status Tobacco use date assessed 06/03/24 06/03/24 12:13 Patient Tobacco Use Status Never used Tobacco 06/03/24 12:13 e-Cigarette/Vaping Use Never Used 06/03/24 12:13 PHQ-9: PHQ-9 Score PHQ-9: Total score 0 06/03/24 12:13 Depression Screening Interpretation: Negative Thrive Assessment: Date of Thrive Assessment Date Thrive assessed 09/12/23 06/03/24 12:13 Currently or been in a relationship where the following occur: No concerns reported Const General: no acute distress Resp Effort & Inspection: normal respiratory effort Auscultation: clear to auscultation bilaterally Cardio Rhythm: regular rhythm Heart sounds: S1 normal heart sound present, S2 normal heart sound present and Murmur heart sound present systolic III/ GI Inspection: Yes normal to inspection Palpation (GI): Soft to palpation Percussion: Yes normal to percussion Auscultation: normal bowel sounds Coding Level of Care Code Est Pt Level 4 (55417) Diagnoses HTN (hypertension) I10 CKD (chronic kidney disease) stage 3, GFR 30-59 ml/min N18.30 Hyponatremia E87.1 Chronic anemia D64.9 Assessment & Plan Assessment & Plan (1) HTN (hypertension): Code(s): I10 - Essential (primary) hypertension Category: Medical Plan: Continue atenolol (2) CKD (chronic kidney disease) stage 3, GFR 30-59 ml/min: Code(s): N18.30 - Chronic kidney disease, stage 3 unspecified Category: Medical Plan: Monitor renal function avoid nephrotoxins (3) Hyponatremia: Comment: SIADH Code(s): E87.1 - Hypo-osmolality and hyponatremia Category: Medical Plan: Monitor sodium level repeat in 1 month (4) Chronic anemia: Comment: Normal iron studies and vitamin B12 Code(s): D64.9 - Anemia, unspecified Category: Medical Plan: Monitor CBC Orders: Orders Hemoglobin A1c 1 Month E87.1 - Hypo-osmolality and hyponatremia, I10 - Essential (primary) hypertension, N18.30 - Chronic kidney disease, stage 3 unspecified CA echo transthoracic complete Today R01.1 - Cardiac murmur, unspecified Comprehensive Met. Panel 1 Month E87.1 - Hypo-osmolality and hyponatremia, I10 - Essential (primary) hypertension, N18.30 - Chronic kidney disease, stage 3 unspecified Comprehensive [place]. Panel Fast 3 Months D64.9 - Anemia, unspecified, I10 - Essential (primary) hypertension, N18.30 - Chronic kidney disease, stage 3 unspecified, Z86.39 - Personal history of other endocrine, nutritional and metabolic disease Complete Blood Count Auto Diff 3 Months D64.9 - Anemia, unspecified, I10 - Essential (primary) hypertension, N18.30 - Chronic kidney disease, stage 3 unspecified, Z86.39 - Personal history of other endocrine, nutritional and metabolic disease IRON PROFILE 3 Months D64.9 - Anemia, unspecified, I10 - Essential (primary) hypertension, N18.30 - Chronic kidney disease, stage 3 unspecified, Z86.39 - Personal history of other endocrine, nutritional and metabolic disease
== END 2024-06-03 13:00 | disposition home or self-care (01) ==
PROVIDERS: PCP Internal Medicine; Visit Provider Internal Medicine
DX: I10 Essential (primary) hypertension (principal); N18.30 Chronic kidney disease, stage 3 unspecified; E87.1 Hypo-osmolality and hyponatremia; D64.9 Anemia, unspecified

== ENCOUNTER → 2024-06-03 12:08 | Outpatient (BNVA) | payer MEDICARE, SELFPAY | PROVIDERS: PCP Internal Medicine; Visit Provider Internal Medicine | DX: I12.9 Hypertensive chronic kidney disease with stage 1 through stage 4 chronic kidney disease, or unspecified chronic kidney disease (principal); N18.30 Chronic kidney disease, stage 3 unspecified; E87.1 Hypo-osmolality and hyponatremia; D64.9 Anemia, unspecified | CPT/HCPCS: 96127; 99212 ==

== ENCOUNTER 2024-06-10 13:05 | Outpatient (AMB) | payer MEDICARE, SELFPAY ==
--- NOTE | 2024-06-10 13:07 | A.OFFVIS_ITS ---
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 Back in November started getting dizzy spells at bedtime. Went to ED and was given meclazine which she states helped. Patient had CT angio of the head and neck in February. Patient uses a cane to ambulate. Has not felt dizzy as of lately. Accompanied by: Self / Same As Patient Allergies meperidine [From Demerol] Allergy (Severe, Verified 06/10/24 13:14) ANAPHYLAXIS Penicillins Allergy (Severe, Verified 06/10/24 13:14) HIVES Sulfa (Sulfonamide Antibiotics) [Sulfa (Sulfonamides)] Allergy (Mild, Verified 06/10/24 13:14) HIVES amoxicillin Allergy (Unknown, Verified 06/10/24 13:14) hives CHOCOLATE Allergy (Unknown, Verified 06/10/24 13:14) HIVES peanut [PEANUT] Allergy (Unknown, Verified 06/10/24 13:14) HIVES penicillin G Allergy (Unknown, Verified 06/10/24 13:14) trouble breathing rash penicillin V Allergy (Unknown, Verified 06/10/24 13:14) trouble breathing rash codeine [Codeine] Adverse Reaction (Mild, Verified 06/10/24 13:14) NAUSEA/VOMITING pravastatin Adverse Reaction (Unknown, Verified 06/10/24 13:14) body aches HPI HPI [employer]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 She actually presented to the emergency room on February 26 with complaints of dizziness. She actually stated that she had some headaches and vertigo this starting back in November. She had been prescribed meclizine but never really used it. Since that episode in the emergency room she reports that she has been doing fairly well otherwise she has not had any other interval issues. At the time of her workup she did get a CT angio of the head and neck. 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 At the current time she is stable her only concern is her upcoming tooth extraction she reports her last episode was back in March now presents for vascular follow-up. [facility] Medical History CKD (chronic kidney disease) stage 3, GFR 30-59 ml/min Vitamin D deficiency Chronic anemia History of SIADH Osteoporosis HTN (hypertension) Surgical History History of left shoulder replacement History of hysterectomy History of fundoplication History of cataract History of colonoscopy History of open reduction and internal fixation (ORIF) procedure History of appendectomy Family History Father History of CVA (cerebrovascular accident) Stroke Mother CVD (cardiovascular disease) History of heart attack Son No problems noted. Sister Substance use disorder Social History Housing: House Alcohol intake: never Patient Tobacco Use Status: Never used Tobacco e-Cigarette/Vaping Use: Never Used Advance Directives Date on File: 03/28/23 service: No Current occupational status: retired Cognitive needs: No Hearing needs: No Vision needs: Yes Review of Systems Const All systems reviewed & are unremarkable except as noted in HPI and below Reports no additional complaints ENT Reports Normal hearing present Card Denies chest pain, Denies chest pain at rest, Denies chest pain with activity and Denies pedal edema Resp Denies cough GI Denies abdominal pain Musc Denies abnormal gait, Denies muscle cramps and Denies radiating pain into limb Skin/Breast Denies skin ulcer and Denies wounds Neuro Reports Normal hearing present and Denies abnormal gait Psych Reports no additional complaints Physical Exam Const General: cooperative, healthy appearing and comfortable Orientation/consciousness: oriented to person, oriented to place and oriented to time HEENT Head: Yes normal to inspection Neck Neck: Yes normal visual inspection Carotids: no bruits Chest Chest palpation & inspection: normal inspection of the chest Resp Effort & Inspection: normal respiratory effort and able to speak in complete sentences Auscultation: clear to auscultation bilaterally, no crackles, no rales, no rhonchi and no wheezes Cardio Rate: regular rate Rhythm: regular rhythm Heart sounds: S1 normal heart sound present and S2 normal heart sound present Bruits: no carotid bruits Peripheral pulses: Peripheral pulses 2+ throughout GI Inspection: Yes normal to inspection Skin Wounds: no wounds Hair: normal Neuro General: oriented to person, oriented to place and oriented to time Cranial nerves: Yes CN's II-XII intact bilaterally and Yes Normal hearing present Cognition (Neuro): normal cognition Motor exam (neuro): 5/5 motor strength present throughout Extrem Other: venous exam: No significant superficial varicosities or spider telangiectasias, minimal edema General: No clubbing, No cyanosis and No edema Psych Appearance: grossly normal Mental Status: mental status grossly normal Speech and movement: Normal speech and movement present Results Reviewed Results Reviewed: CT angiogram dated 02/27/2024 demonstrates 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 Assessment & Plan Assessment & Plan (1) Carotid stenosis, bilateral: Code(s): I65.23 - Occlusion and stenosis of bilateral carotid arteries Category: Medical Plan: In short there is a questionable finding of fibromuscular dysplasia of this patient. It is quite unusual that it has not been discovered until now that she is 88. At the current time she is asymptomatic. I would recommend as conservative management as possible. No intervention at the current time required. I did take the liberty of ordering a surveillance CT angiogram to see the current status of that. In addition from my perspective she is stable for any tooth extraction as required. She will follow up with us after her CT angiogram. Thank you for allowing us to assist in her care. If there are any questions or concerns please do not hesitate to contact Please note a longitudinal relationship has been created with the patient and we have been following and surveillance this chronic condition. Orders: Orders Creatinine Today I65.23 - Occlusion and stenosis of bilateral carotid arteries Blood Urea Nitrogen Today I65.23 - Occlusion and stenosis of bilateral carotid arteries CT angio neck 1 Week I65.23 - Occlusion and stenosis of bilateral carotid arteries Coding Level of Care Code New Pt Level 4 (43083) Complex EM visit Add On G2211 Diagnoses Carotid stenosis, bilateral I65.23
== END 2024-06-10 13:55 | disposition home or self-care (01) ==
PROVIDERS: PCP Internal Medicine; Visit Provider Surgery Vascular Surgery
DX: I65.23 Occlusion and stenosis of bilateral carotid arteries (principal)
CPT/HCPCS: 99204; G2211

== ENCOUNTER → 2024-06-10 13:05 | Outpatient (BNVA) | payer MEDICARE, SELFPAY | PROVIDERS: PCP Internal Medicine; Visit Provider Surgery Vascular Surgery | DX: I65.23 Occlusion and stenosis of bilateral carotid arteries (principal) | CPT/HCPCS: 99202 ==

== ENCOUNTER 2024-06-27 12:50 | Outpatient (REF) | payer MEDICARE, SELFPAY ==
[2024-06-27 16:56] LABS: Estimated Average Glucose 111 mg/dL; Hemoglobin A1C 108.7096 umol/L; Hemoglobin A1c % 5.5 % (<6.0); Total Hemoglobin (HGBA1C) 2971.6596 umol/L
[2024-06-27 17:01] LABS: Alanine Aminotransferase 16 U/L (0-31); Albumin Level 4.3 g/dL (3.5-5.0); Alkaline Phosphatase 51 U/L (39-117); Anion Gap 14 (12-20); Aspartate Amino Transferase 24 U/L (5-31); Bilirubin Total 0.3 mg/dL (0.0-1.0); Blood Urea Nitrogen 34 mg/dL (9-16); Calcium 10.8 mg/dL (8.4-10.2); Carbon Dioxide 22 mmol/L (22-29); Chloride 100 mmol/L (96-108); Estimated Glomerular Filt Rate 45; Glucose Random 106 mg/dL (60-115); Potassium 4.3 mmol/L (3.3-5.1); Sodium 132 mmol/L (135-145); Total Protein 7.4 g/dL (6.5-8.0)
== END 2024-06-27 12:51 | disposition home or self-care (01) ==
LOC: HO.HMGCLDS 12:50
PROVIDERS: PCP Internal Medicine; Visit Provider Internal Medicine
DX: E87.1 Hypo-osmolality and hyponatremia (principal); I10 Essential (primary) hypertension; N18.30 Chronic kidney disease, stage 3 unspecified; Z13.1 Encounter for screening for diabetes mellitus
CPT/HCPCS: 36415; 80053; 83036

== ENCOUNTER 2024-06-30 11:00 | Outpatient (RCR) | payer MEDICARE, SELFPAY ==
--- NOTE | 2024-04-21 12:47 | MHC.PT.EP ---
[facility] [place] Office [place] Office [place] Office [address] Marianna Felder [address] [phone] F: [phone] F: [phone] F: [phone] F: [phone] Physical Therapy Plan of Care Date of Evaluation: 04/21/24 Date of Surgery: Diagnosis: This is an 88 yo female presenting to skilled PT with a script for B leg weakness. Assessment: This is an 88 yo female presenting to skilled PT with a script for B leg weakness. Patient reporting that her passed this past September 2023 ( over 60 years). She reports that she has been in a bit of a shock since then. She moved to [facility] with her son after she lost her and had PT there which was very helpful (for UB and LB). Since then she has moved back to the area and would like to continue her PT now. She is here today with goals/hoping to work on balance, UB strength/ROM. She walks with a walking cane for balance, lives by herself, has 1 flight of stairs to laundry downstairs, gets assist with driving, trash removal and groceries. She takes daily walks and works on her shoulder ROM with her pulleys at home. Of note a few additional challenges have started that impact her balance including the great toe adducting and second toe having a hammer toe (wears a lamp developer). She additionally has also recently been getting dizzy and is going to the neurologist for assessment (I did talk to her about vestibular PT as well). Assessment reveals pain that ranges from up to a 1/10 at the worst. Patient demos decreased UBE ROM, strength of B UE and B LE, impaired posture with forward head and rounded shoulders as well as noted scoliosis and decreased balance as evidenced by DGI and Madalyn SOPT. Based on functional limitations, impaired QOL and pain tolerance patient is a good candidate for skilled PT 2x/wk for 4wks. Frequency and Duration: The patient will be seen 2x/wk for 4wks Short Term Goals: Patient will demo good understanding of safe balance activities at home Halfway Goals: I in HEP Patient feels stronger and more subjectively safe at home Patient will improve DGI by at least 5 points Patient will improve LE strength by 1 MMT grade Treatment Plan: Modalities to reduce pain, spasms and effusion. Manual therapy to restore motion and function. Therapeutic exercise to improve strength and flexibility. Neuromuscular re-education for posture and balance. Therapeutic activities to return to functional activities of daily living. Electronically signed by: Eliza Valles PT Please sign and return to therapist. Thank you for your referral.
--- NOTE | 2024-07-30 09:41 | MHC.PT.DC ---
[facility] [place] Office [place] Office [place] Office [address] Marianna Felder [address] [phone] F: [phone] F: [phone] F: [phone] F: [phone] Physical Therapy Discharge Report Diagnosis: This is an 88 yo female presenting to skilled PT with a script for B leg weakness. Date of Surgery: Date of Evaluation: 04/21/24 Date of Discharge: 07/30/24 Treatments to Date: 10 Cancellations to Date: 0 No Shows to Date: 0 Discharge Status: Achieved Goals Improved Function Independent with HEP Discharge Summary: 06/30: Patient has come to 10 visits of PT, she has improved her strength, balance and confidence. She will be going away for the holidays. We talked about her continuing on her own with her HEP and use of senior center. She no longer requires skilled PT. She has met her goals and is appropriate for DC. Electronically signed by: Eliza Valles, PT Please sign and return to therapist. Thank you for your referral.
== END 2024-07-30 09:41 | disposition home or self-care (01) ==
LOC: HO.PTCHIC 11:00
PROVIDERS: PCP Internal Medicine; Visit Provider Internal Medicine
DX: R29.898 Other symptoms and signs involving the musculoskeletal system (principal); R26.89 Other abnormalities of gait and mobility
CPT/HCPCS: 97110; 97112; 97162

== ENCOUNTER → 2024-07-03 08:52 | Outpatient (REF) | payer MEDICARE, SELFPAY ==
--- NOTE | 2024-07-03 08:54 | CA_ITS ---
Transthoracic Echocardiogram Patient (Last, First, Middle): Iraida Cantor L Gender: Female Date of : 1935 Age: 88 Procedure Date: 07/03/2024 Procedure Type: Transthoracic Echocardiogram Location: OP Height: 154.94 cm Weight: 42.18 kg BSA: 1.36 m2 Heart Rate: bpm BP: 150 / 82 mmHg Entry Level Sales Associate: TO Referring MD: Clarice Ziegler MD Manager Of Drilling: Malachi Raines MD Symptoms: R01.1 - Cardiac murmur, unspecified Study Quality: Adequate ECG Rhythm: Sinus Conclusions: - 1. Normal LV ejection fraction 55-60% with pseudonormal filling pattern 2. Severely dilated left atrium 3. Rykw-nz-pbaobzhy aortic stenosis 4. Calcific mitral valve disease with moderate mitral regurgitation uzyy-ec-mepydaes mitral stenosis 5. Normal RV systolic pressure with mildly elevated right atrial pressures 6. No gross pericardial effusion Findings Left Ventricle Normal left ventricular size, thickness, and systolic function. The visually estimated ejection fraction is between 55-60%. Spectral Doppler is indicative of a pseudonormal filling pattern. Right Ventricle Normal right ventricular cavity size and systolic function. Atria The left atrium is severely dilated. There is no evidence of interatrial shunt. The right atrium is moderately dilated. Aortic Valve There is moderate calcification of the aortic valve. There is mild thickening of the aortic valve. There is mild to moderate aortic valve stenosis. The mean gradient is 12 mmHg. The aortic valve area is 1.41 cm2. There is trace (trivial) aortic valve regurgitation. Mitral Valve There is moderate anterior and severe posterior mitral leaflet thickening. The posterior mitral leaflet has restricted mobility. There is severe posterior mitral annular calcification. There is severe mitral annular calcification. There is moderate mitral valve regurgitation. There is mild to moderate mitral valve stenosis. Pulmonic Valve The pulmonic valve is likely normal. Tricuspid Valve There is mild tricuspid valve regurgitation. Mildly elevated right atrial pressure. There is no evidence of pulmonary hypertension. Great Vessels The pulmonary artery was not well visualized. There is no dilatation of the ascending aorta measuring 2.90 cm. Moderate plaque is seen in the sino tubular ridge. Venous The inferior vena cava is mildly dilated. The hepatic vein collapses less than 50% with inspiration. Pericardium/Pleural There is no evidence of pericardial effusion. Prior Study Comparison Changes noted compared to prior study dated: 06/21/2017. aortic stenosis is present Measurements 2D Linear Measurements IVSd: 1.31 0.6-0.9/0.6-1.0 cm LVIDd: 3.54 3.9-5.3/4.2-5.9 cm LVIDd Index: 2.60 2.4-3.2/2.2-3.1 cm/m2 LVIDs: 2.55 2.0-3.6 cm LVPWd: 0.62 0.7-1.1 cm LA Diam: 3.60 2.7-3.8/3.0-4.0 cm LAIDs Index: 2.65 1.5-2.3 cm/m2 LV Mass: 123.89 67-162/88-224 g LV Mass Index: 91.10 43-95/49-115 g/m2 LVOT Diam: 2.00 3.0+(-)1.3 cm 2D Systolic Function EF 4C: 58.90 >55% EF 2C: 57.20 >55% EF BiP: 57.90 >55% Mitral Valve MV VTI: 0.62 MV Pk Douglas: 1.54 MV Mn Douglas: 0.88 MV Pk Grad: 9.00 MV Mn Grad: 4.00 MV Pk E: 1.27 MV PK A: 1.15 MV Decel Time: 477.00 E/A: 1.10 E'Lateral: 4.90 E'Medial: 4.35 E/E' Med: 29.20 E/E' Lat: 25.90 PHT: 140.00 MVA PHT: 1.57 MVA Continuity: 1.39 Decel Casey: 2.66 MR Vol - PW Dopp: 57.20 MR VTI: 2.20 MR ERO: 26.00 MR Alias Douglas: 0.37 MR RAD: 0.80 Aortic Valve AoV Pk Douglas: 2.17 AoV Mn Douglas: 1.64 AoV VTI: 0.61 AoV Pk Grad: 19.00 Aov Mn Grad: 12.00 FABIANO Cont.VTI: 1.41 LVOT LVOT Pk Douglas: 0.92 LVOT Mn Douglas: 0.61 LVOT VTI: 0.28 LVOT Pk Grad: 3.00 LVOT Mn Grad: 2.00 LVOT Diam: 2.00 LVOT Area: 3.14 Diastolic Function MV Pk E: 1.27 MV Pk A: 1.15 E/A: 1.10 E'Medial: 4.35 E/E' Med: 29.20 E' Laterial: 4.90 E/E' Lat: 25.90 Right Ventricle TAPSE (mm): 27.60 TVS' Douglas: 10.90 Tricuspid Valve TR Pk Douglas: 2.63 TR Pk Grad: 28.00 RA Press: 8.00 RVSP: 36.00 Great Vessels Aorta Sinus of Valsalva: 2.99 2.0-3.5 cm Ao Asc: 2.90 2.1-3.4 cm Updated in Other Vendor System with Status of Final Malachi Raines MD electronically signed on 07/04/2024 12:33:28 PM with status of Final
== END ==
LOC: HO.CARD 08:52
PROVIDERS: PCP Internal Medicine; Visit Provider Internal Medicine
DX: R01.1 Cardiac murmur, unspecified (principal)
CPT/HCPCS: 93306

== ENCOUNTER → 2024-07-03 08:54 | Outpatient (BNV) | payer MEDICARE, SELFPAY | PROVIDERS: PCP Internal Medicine; Visit Provider Internal Medicine Cardiovascular Disease | DX: R01.1 Cardiac murmur, unspecified (principal) | CPT/HCPCS: 93306 ==

== ENCOUNTER 2024-08-18 12:07 | Outpatient (REF) | payer MEDICARE, SELFPAY ==
--- OUTSIDE RECORDS SUMMARY | 2024-08-18 12:09 | XMS_ITS | Encounter Summary ---
Author Name [facility] Organization [facility] Address [address] [place] [id number] Care Team Providers [facility] Rental Clerk Name Role Phone ZENOBIA VALDIVIA Primary Care Provider Unavailtanya e Insurance Providers: All historical and current Section Date Range: From patient's date of to the date document was created. This section includes the names of all active insurance providers for the patient. Insurance Provider Type of Coverage Plan Name Start of Policy Coverage End of Policy Coverage Group Number Member ID Insurance Provider's Telephone Number Policy Kang's Name Patient's Relationship to Policy Kang [place] SUPPLE[place] J[place]NA MEDEX 2 Feb 24, 2015 [id number] TIANA SHEEHAN NET PATIENT [place]NA [facility] Feb 24, 2015 [id number] [phone] TIANA SHEEHAN NET PATIENT [place] MEDEX 2 Feb 24, 2015 [id number] TIANA SHEEHAN NET PATIENT MEDICARE (WNR) MEDICARE (M) PART B May 27, 2005 PART B [id number] SISSY,TIANA NET PATIENT MEDICARE (WNR) MEDICARE (M) PART B May 27, 2005 PART B [id number] [phone] SISSY,TIANA NET PATIENT MEDICARE (WNR) MEDICARE (M) PART A Oct 25, 2004 PART A [id number] SISSY,TIANA NET PATIENT MEDICARE (WNR) MEDICARE (M) PART A Oct 25, 2004 PART A [id number] [facility] NET PATIENT Selected Encounter This section includes the information on record at [facility] for the Encounter. Date/Time Encounter Type Encounter Description Reason Pro vider Source IHE Encounter Template Text not used by VA
--- OUTSIDE RECORDS SUMMARY | 2024-08-18 12:09 | XMS_ITS | Encounter Summary ---
Author Name [facility] [place] Organization [facility] [place] Address [address] [place] [id number] Care Team Providers Care Creative Arts Therapist Name Role Phone SHEAZENOBIA Primary Care Provider Unavailabl e Insurance Providers: All historical and current [...] Name Patient's Relationship to Policy Kang [place] MED[place] SUPPLEMEN JOVANA MEDEX 2 Feb 24, 2015 [id number] SISSY,TIANA NET PATIENT [place] SUPPLEMEN JOVANA MEDEX 2 Feb 24, 2015 [id number] [phone] SISSY,JA NET PATIENT [place] MED[place] SUPPLEMEN JOVANA [facility] Feb 24, 2015 [id number] [phone] SISSY,TIANA NET PATIENT MEDICARE (WNR) MEDICARE (M) PART B May 27, 2005 PART B [id number] SISSY,TIANA NET PATIENT MEDICARE (WNR) MEDICARE (M) PART B May 27, 2005 PART B [id number] SISSY,TIANA NET PATIENT MEDICARE (WNR) MEDICARE (M) PART A Oct 25, 2004 PART A [id number] [facility] PATIENT MEDICARE (WNR) MEDICARE (M) PART A Oct 25, 2004 PART A [id number] [phone] [place] [address] PATIENT Selected Encounter This section includes the information on record at [place] for the Encounter. Date/Time Encounter Type Encounter Description Reason Pro vider Source Sep 17, 2023 09:01 AM Outpatient Encounter PRIMARY CARE/MEDICINE IHE Encounter Template Text not used by [place] Plan of Treatment: Future Appointments (+ 6 months) and Future Tests (+/- 45 days) The Plan of Treatment section includes future care activities for the patient from all [place] treatmentfacilities. This section includes future appointments and future orders which are active, pending or scheduled. Future Appointments This section includes appointments that were scheduled to occur 6 months from the date of the Encounter, up to a maximum of 20 appointments. The data comes from all [place] treatment facilities. Appointment Date/Time Appointment Type Appointme nt Facility Name Oct 12, 2023 10:00 AM AMBULATORY - MEDICINE [facility] Active, Pending, and Scheduled Orders This section includes a listing of several types of active, pending, and scheduled orders, including clinic medications orders, diagnostic test orders, procedure orders and consult orders; where the start date of the order is 45 days before the date of the Encounter or 45 days after the date of theEncounter. The data comes from all [place] treatment facilities. Test Date/Time Test Type Test Details Facility Name Oct 10, 2023 12:00 AM Laboratory - Chemi stry Order BASIC METABOLIC PANEL (non-fasting) BLOOD (SST-SERUM) SP [facility] Lab Results: +/- 30 days of the encounter This section includes the Chemistry and Hematology Lab Results on record with [place] for the patient. Radiology Reports and Pathology Reports are provided separately, in subsequent sections. Lab Results This section contains the Chemistry/Hematology Results that were resulted 30 days before or 30 daysafter the date of the Encounter. Date/Time Source Result Type Result - Unit Interpretation Reference Range Comment Oct 05, 2023 02:52 PM [facility] FOLATE Specimen Type: SERUM No comment entered. Ordering Provider: ZENOBIA VALDIVIA Report Released Date/Time: Oct 03, 2023 03:06 PM Reporting Lab: [facility] [place] [facility] [address] [facility] [address] Performing Lab: [place] [facility] [place] [facility] [address] [facility] [address] FOLATE 18.02 ng/mL >5.2 Oct 05, 2023 02:52 PM [facility] IRON & TIBC PANEL Specimen Type: SERUM No comment entered. Ordering Provider: ZENOBIA VALDIVIA Report Released Date/Time: Oct 03, 2023 03:06 PM Reporting Lab: [facility] [address] [facility] [address] Performing Lab: [facility]ITALREASTPOIN[facility]ITALTR[facility] [address] [facility] [address] TIBC 236 ug/dL 204-475 IRON 55 ug/dL 40-160 Transferrin Saturation 23.3 20.0-50.0 Oct 05, 2023 02:52 PM [facility] VITAMIN B12 Specimen Type: SERUM No comment entered. Ordering Provider: ZENOBIA VALDIVIA Report Released Date/Time: Oct 03, 2023 03:06 PM Reporting Lab: [facility] [address] [address] Performing Lab: [facility] [address] [address] VITAMIN B12 >2000 pg/mL H 200-900 Oct 05, 2023 02:52 PM [facility] CBC Specimen Type: BLOOD No comment entered. Ordering Provider: ZENOBIA VALDIVIA Report Released Date/Time: Oct 03, 2023 03:06 PM Reporting Lab: [facility] [address] [facility] [address] Performing Lab: [facility]ITALREASTPOINTE HOSPITALTRN [facility] [address] [address] WBC 6.27 10*3/uL 4.50-11.00 RBC 3.37 10*6/uL L 3.93-5.16 HGB 10.5 g/dL L 12-15.2 HCT 30.2 L 36.6-45.6 MCV 89.6 fL 82-99 MCHC 34.8 g/dL 30.8-35.1 PLT 228 10*3/uL 140-360 RDW-CV 12.7 12.0-16.0 MCH 31.2 pg 26.2-32.6 Oct 05, 2023 02:52 PM [facility] VITAMIN D (25-OH) Specimen Type: SERUM No comment entered. Ordering Provider: ZENOBIA VALDIVIA Report Released Date/Time: Oct 03, 2023 03:06 PM Reporting Lab: [facility] [address] [facility] [address] Performing Lab: [address] [address] VITAMIN D (25-OH) 75 ng/mL H 20-50 Oct 05, 2023 02:52 PM [facility] FERRITIN Specimen Type: SERUM No comment entered. Ordering Provider: ZENOBIA VALDIVIA Report Released Date/Time: Oct 03, 2023 03:06 PM Reporting Lab: [facility] [address] [facility] [address] Performing Lab: [facility] [address] FERRITIN 616 ng/mL H 10-200 Oct 05, 2023 02:52 PM [facility] MAGNESIUM Specimen Type: SERUM No comment entered. Ordering Provider: ZENOBIA VALDIVIA Report Released Date/Time: Oct 03, 2023 03:06 PM Reporting Lab: [address] [address] Performing Lab: [facility] [address] MAGNESIUM 1.7 mg/dL 1.6-2.6 Oct 05, 2023 02:52 PM [facility] HEMOGLOBIN A1C PANEL Specimen Type: BLOOD Comment: Values obtained from A1C measurements can vary. For atypical A1C assays, a reported value of 7.0 could actually be between 6.72 and 7.28 if measured by a reference method. A reported value of 9.0 could actually be between 8.73 and 9.27. Ref: http://www.ngs p.org/CAPdata. asp Ordering Provider: ZENOBIA VALDIVIA Report Released Date/Time: Oct 03, 2023 03:06 PM Reporting Lab: [address] [address] Performing Lab: [address] [address] HEMOGLOBIN A1C 5.4 4.0-5.6 Oct 05, 2023 02:52 PM [facility] TSH Specimen Type: SERUM No comment entered. Ordering Provider: ZENOBIA VALDIVIA Report Released Date/Time: Oct 03, 2023 03:06 PM Reporting Lab: [address] [address] Performing Lab: [address] [address] TSH 1.90 u[IU]/mL 0.35-5.00 Oct 05, 2023 02:52 PM [facility] BASIC METABOLIC PANEL (non-fasting) Specimen Type: SERUM No comment entered. Ordering Provider: ZENOBIA VALDIVIA Report Released Date/Time: Oct 03, 2023 03:06 PM Reporting Lab: [address] [address] Performing Lab: [address] [address] UREA NITROGEN 22 mg/dL 7-25 GLUCOSE 97 mg/dL 65-100 SODIUM 125 mmol/L L 135-145 POTASSIUM 4.1 mmol/L 3.5-5.0 CHLORIDE 93 mmol/L L 100-110 CO2 23 meq/L 20-30 CREATININE, Serum 0.86 mg/dL 0.50-1.40 eGFR(CKD-EPI 2020) 65 mL/min >60 Oct 05, 2023 02:52 PM [facility] LIVER FUNCTION Specimen Type: SERUM No comment entered. Ordering Provider: ZENOBIA VALDIVIA Report Released Date/Time: Oct 03, 2023 03:06 PM Reporting Lab: [facility] [address] [facility] [address] Performing Lab: [address] [address] PROTEIN,TOTAL 6.7 g/dL 6.0-8.3 ALBUMIN 4.0 g/dL 3.5-5.0 ALKALINE PHOSPHATASE 61 U/L 40-150 AST 20 U/L 5-34 ALT 14 U/L BILIRUBIN, TOTAL 0.4 mg/dL 0.2-1.2 Oct 05, 2023 02:52 PM [facility] LIPID PANEL, NON FASTING Specimen Type: SERUM No comment entered. Ordering Provider: ZENOBIA VALDIVIA Report Released Date/Time: Oct 03, 2023 03:06 PM Reporting Lab: [address] [address] Performing Lab: [address] [address] CHOLESTEROL 176 mg/dL TRIGLYCERIDE 44 mg/dL 0-150 LDL calculated 104 mg/dL 0-129 CHOL/HDL 2.8 HDL CHOLESTEROL 63 mg/dL H 40-60 Social History: Smoking Status (Most current) and Tobacco Use (All prior to encounter date) This section includes the most current, and the historical, smoking and tobacco- related health factors from the [place] facility where the Encounter took place. Current Smoking Status This section includes the most current smoking, or tobacco-related health factor, from the [place] facility where the Encounter took place. Date/Time Current Smoking Status Comment Velma garza Sep 17, 2023 08:37 AM VA-TOBACCO NEVER USED [facility] Tobacco Use History This section includes a history of the smoking, or tobacco-related health factors, that were collected on or before the date of the Encounter. The data comes from the [place] facility where the Encounter took place. Date/Time Smoking Status/Tobacco Use Comment Amarilys acjamee Sep 05, 2022 01:30 PM VA-TOBACCO NEVER USED [facility] Sep 07, 2021 10:00 AM VA-TOBACCO NEVER USED [facility] [place] [facility] Jun 29, 2020 03:00 PM VA-TOBACCO NEVER USED [facility] [place] [facility] Apr 24, 2018 11:08 AM LIFETIME NON-TOBACCO USER [facility] [place] [facility] January 19, 2017 03:53 PM LIFETIME NON-TOBACCO USER [facility] [place] [facility] Apr 01, 2012 10:20 AM LIFETIME NON-TOBACCO USER [facility] [place] [facility] Encounter Notes: All associated encounter notes This section contains the clinical notes associated to the Encounter. Date/Time Encounter Note(s) Provider Source Sep 17, 2023 09:01 AM LETTERS: LOCAL TITLE: PATIENT LETTER (B) STANDARD TITLE: LETTERS DATE OF NOTE: SEP 17, 2023@09:01 ENTRY DATE: SEP 17, 2023@09:01:50 AUTHOR: MICHAEL GARCIA COSIGNER: URGENCY: STATUS: COMPLETED == [facility] [place] [address] [phone] * [phone] * == Date: 09/17/23 Dear [place]: Iraida Thank you [facility] choosing [facility] [place]. The [facility] Program aims to support you in pursuing what matters most to you, and includes services that support your values and overall wellness. This includes the following offerings: * Yoga * Acupuncture * [place] Acupuncture for Acute Pain (offered weekly; drop-in or scheduled) * Individual health coaching * Redrawer * Biofeedback for Hypertension and Anxiety * Guided Imagery Group * Meditation Group * Cancer Support Group * Stress Management Group ( Stress Less ) The following require no referral from a provider, and can be initiated by you at any time: * Yoga * Meditation * [place] Acupuncture * Cancer Support Group * Individual Health Coaching * Stress Management Group ( Stress Less ) If interested in any of the above offerings, please reach out to the Whole Health Team at [phone]. [phone]. To schedule consult-required services, or if you would like more information regarding [place] health care benefits, please call toll free at [phone]), visit the VA website at www.va.gov/healthbenefit s, or contact your local [place] Medical Center. If you have any questions, please do not hesitate to contact the [facility] [place] call center. Sincerely. Dr. Mary Skaggs [facility] Integrated [employer] [facility] Direct MICHAEL GARCIA [facility]
--- OUTSIDE RECORDS SUMMARY | 2024-08-18 12:09 | XMS_ITS ---
Author Name [facility] [place] [facility] [place] [facility] [place] Address [address] [place] [id number] Care Team Providers Care Auto Driver Name Role Phone SHEAZENOBIA Primary Care Provider [...] Name Patient's Relationship to Policy Kang [place] SU[place] JOVANA MEDEX 2 Feb 24, 2015 [id number] TIANA SHEEHAN NET PATIENT [place] [facility] [facility] Feb 24, 2015 [id number] SISSY,TIANA NET PATIENT [place] SU[place] JOVANA MEDEX 2 Feb 24, 2015 [id number] SISSY,TIANA NET PATIENT MEDICARE (WNR) MEDICARE (M) PART B May 27, 2005 PART B [id number] SISSY,TIANA NET PATIENT MEDICARE (WNR) MEDICARE (M) PART B May 27, 2005 PART B [id number] [phone] SISSY,TIANA NET PATIENT MEDICARE (WNR) MEDICARE (M) PART A Oct 25, 2004 PART A [id number] [facility] PATIENT MEDICARE (WNR) MEDICARE (M) PART A Oct 25, 2004 PART A [id number] [phone] [place] [address] PATIENT Selected Encounter This section includes the information on record at [place] for the Encounter. Date/Time Encounter Type Encounter Description Reason Pro vider Source Sep 17, 2023 08:37 AM Outpatient Encounter PRIMARY CARE/MEDICINE IHE Encounter Template Text not used by [place] Plan of Treatment: Future Appointments (+ 6 months) and Future Tests (+/- 45 days) The Plan of Treatment section includes future care activities for the patient from all [place] treatmentfacilities. This section includes future appointments and future orders which are active, pending or scheduled. Future Appointments This section includes appointments that were scheduled to occur 6 months from the date of the Encounter, up to a maximum of 20 appointments. The data comes from all [place] treatment facilities. Appointment Date/Time Appointment Type Appointme nt Facility Name Oct 12, 2023 10:00 AM [facility] Active, Pending, and Scheduled Orders This section includes a listing of several types of active, pending, and scheduled orders, including clinic medications orders, diagnostic test orders, procedure orders and consult orders; where the start date of the order is 45 days before the date of the Encounter or 45 days after the date of theEncounter. The data comes from all [place] treatment facilities. Test Date/Time Test Type Test Details Facility Name Oct 10, 2023 12:00 AM Laboratory - Chemi stry Order BASIC METABOLIC PANEL (non-fasting) BLOOD (SST-SERUM) SP [facility] Lab Results: +/- 30 days of the encounter This section includes the Chemistry and Hematology Lab Results on record with [place] for the patient. Radiology Reports and Pathology Reports are provided separately, in subsequent sections. Lab Results This section contains the Chemistry/Hematology Results that were resulted 30 days before or 30 daysafter the date of the Encounter. Date/Time Source Result Type Result - Unit Interpretation Reference Range Comment Oct 05, 2023 02:[address] [facility] AuthorityLabsNOR-LEA GENERAL HOSPITALCodeNxt [employer] [facility] FOLATE Specimen Type: SERUM No comment entered. Ordering Provider: ZENOBIA VALDIVIA Report Released Date/Time: Oct 03, 2023 03:06 PM Reporting Lab: [facility] [place] [facility] [address] [facility] [address] Performing Lab: [place] [facility] [place] [facility] [address] [facility] [address] FOLATE 18.02 ng/mL >5.2 Oct 05, 2023 02:52 PM [facility]N [facility] IRON & TIBC PANEL Specimen Type: SERUM No comment entered. Ordering Provider: ZENOBIA VALDIVIA Report Released Date/Time: Oct 03, 2023 03:06 PM Reporting Lab: [facility] [address] [facility] [address] Performing Lab: [facility]ITALRUNITED STATES MARINE HOSPITALTRN [facility]ENTERUSETS [facility] [address] [facility] [address] TIBC 236 ug/dL 204-475 IRON 55 ug/dL 40-160 Transferrin Saturation 23.3 20.0-50.0 Oct 05, 2023 02:52 PM [facility] VITAMIN B12 Specimen Type: SERUM No comment entered. Ordering Provider: ZENOBIA VALDIVIA Report Released Date/Time: Oct 03, 2023 03:06 PM Reporting Lab: [facility]ENTERUSETS [address] [address] Performing Lab: [facility]ENTERUSETS [address] [address] VITAMIN B12 >2000 pg/mL H 200-900 Oct 05, 2023 02:52 PM [facility] CBC Specimen Type: BLOOD No comment entered. Ordering Provider: ZENOBIA VALDIVIA Report Released Date/Time: Oct 03, 2023 03:06 PM Reporting Lab: [facility] TRN [facility]ENTER[facility] [address] [facility] [address] Performing Lab: [facility]ITALRUNITED STATES MARINE HOSPITALTRN [facility]ENTERUSETS [address] [address] WBC 6.27 10*3/uL 4.50-11.00 RBC 3.37 10*6/uL L 3.93-5.16 HGB 10.5 g/dL L 12-15.2 HCT 30.2 L 36.6-45.6 MCV 89.6 fL 82-99 MCHC 34.8 g/dL 30.8-35.1 PLT 228 10*3/uL 140-360 RDW-CV 12.7 12.0-16.0 MCH 31.2 pg 26.2-32.6 Oct 05, 2023 02:52 PM [facility] VITAMIN D (25-OH) Specimen Type: SERUM No comment entered. Ordering Provider: ZENOBIA VALDIVIA Report Released Date/Time: Oct 03, 2023 03:06 PM Reporting Lab: [facility] [address] [facility] [address] Performing Lab: [facility] [address] VITAMIN D (25-OH) 75 ng/mL H 20-50 Oct 05, 2023 02:52 PM [facility] MAGNESIUM Specimen Type: SERUM No comment entered. Ordering Provider: ZENOBIA VALDIVIA Report Released Date/Time: Oct 03, 2023 03:06 PM Reporting Lab: [facility] [address] [facility] [address] Performing Lab: [facility] [address] MAGNESIUM 1.7 mg/dL 1.6-2.6 Oct 05, 2023 02:52 PM [facility] FERRITIN Specimen Type: SERUM No comment entered. Ordering Provider: ZENOBIA VALDIVIA Report Released Date/Time: Oct 03, 2023 03:06 PM Reporting Lab: [facility] [address] [facility] [address] Performing Lab: [facility] [address] [address] FERRITIN 616 ng/mL H 10-200 Oct 05, 2023 02:52 PM [facility] HEMOGLOBIN A1C PANEL Specimen Type: BLOOD [...] Oct 03, 2023 03:06 PM Reporting Lab: [address] [address] Performing Lab: [address] [address] HEMOGLOBIN A1C 5.4 4.0-5.6 Oct 05, 2023 02:52 PM [facility] TSH Specimen Type: SERUM No comment entered. Ordering Provider: ZENOBIA VALDIVIA Report Released Date/Time: Oct 03, 2023 03:06 PM Reporting Lab: [address] [address] Performing Lab: [address] [address] TSH 1.90 u[IU]/mL 0.35-5.00 Oct 05, 2023 02:52 PM [facility] BASIC METABOLIC PANEL (non-fasting) Specimen Type: SERUM No comment entered. Ordering Provider: ZENOBIA VALDIVIA Report Released Date/Time: Oct 03, 2023 03:06 PM Reporting Lab: [address] [address] Performing Lab: [address] [address] UREA NITROGEN 22 mg/dL 7-25 GLUCOSE 97 mg/dL 65-100 SODIUM 125 mmol/L L 135-145 POTASSIUM 4.1 mmol/L 3.5-5.0 CHLORIDE 93 mmol/L L 100-110 CO2 23 meq/L 20-30 CREATININE, Serum 0.86 mg/dL 0.50-1.40 eGFR(CKD-EPI 2020) 65 mL/min >60 Oct 05, 2023 02:52 PM [facility] LIVER FUNCTION Specimen Type: SERUM No comment entered. Ordering Provider: ZENOBIA VALDIVIA Report Released Date/Time: Oct 03, 2023 03:06 PM Reporting Lab: [facility] [address] [facility] [address] Performing Lab: [address] [address] PROTEIN,TOTAL 6.7 g/dL 6.0-8.3 ALBUMIN 4.0 g/dL 3.5-5.0 ALKALINE PHOSPHATASE 61 U/L 40-150 AST 20 U/L 5-34 ALT 14 U/L BILIRUBIN, TOTAL 0.4 mg/dL 0.2-1.2 Oct 05, 2023 02:52 PM [facility] LIPID PANEL, NON FASTING Specimen Type: SERUM No comment entered. Ordering Provider: ZENOBIA VALDIVIA Report Released Date/Time: Oct 03, 2023 03:06 PM Reporting Lab: [address] [address] Performing Lab: [address] [address] CHOLESTEROL 176 mg/dL TRIGLYCERIDE 44 mg/dL 0-150 LDL calculated 104 mg/dL 0-129 CHOL/HDL 2.8 HDL CHOLESTEROL 63 mg/dL H 40-60 Social History: Smoking Status (Most current) and Tobacco Use (All prior to encounter date) This section includes the most current, and the historical, smoking and tobacco- related health factors from the [place] facility where the Encounter took place. Current Smoking Status This section includes the most current smoking, or tobacco-related health factor, from the [place] facility where the Encounter took place. Date/Time Current Smoking Status Comment Velma garza Sep 17, 2023 08:37 AM VA-TOBACCO NEVER USED [facility] Tobacco Use History This section includes a history of the smoking, or tobacco-related health factors, that were collected on or before the date of the Encounter. The data comes from the [place] facility where the Encounter took place. Date/Time Smoking Status/Tobacco Use Comment Amarilys acjamee Sep 05, 2022 01:30 PM VA-TOBACCO NEVER USED [facility] Sep 07, 2021 10:00 AM VA-TOBACCO NEVER USED [facility] [place] [facility] Jun 29, 2020 03:00 PM VA-TOBACCO NEVER USED [facility] [place] [facility] Apr 24, 2018 11:08 AM LIFETIME NON-TOBACCO USER [facility] [place] [facility] January 19, 2017 03:53 PM LIFETIME NON-TOBACCO USER [facility] [place] [facility] Apr 01, 2012 10:20 AM LIFETIME NON-TOBACCO USER [facility] [place] [facility] Encounter Notes: All associated encounter notes This section contains the clinical notes associated to the Encounter. Date/Time Encounter Note(s) Provider Source Sep 17, 2023 09:56 AM ADDENDUM: LOCAL TITLE: Addendum STANDARD TITLE: ADDENDUM DATE OF NOTE: SEP 17, 2023@09:56:40 ENTRY DATE: SEP 17, 2023@09:56:41 AUTHOR: ZENOBIA VALDIVIA COSIGNER: URGENCY: STATUS: COMPLETED fasting labs are already ordered (from Dr. Salgado)- ok for to do. /es/ ZENOBIA VALDIVIA D.O. PHYSICIAN Signed: 09/17/2023 09:57 Receipt Acknowledged By: 10/05/2023 18:33 /es/ MICHAEL GARCIA MSN Ed., BSN CATEGORY PLANNER NURSE --- Original Document --- 09/17/23 NURSING/OUTPATIENT TELEPHONE FOLLOW UP: F: Telephone call D: Vet requested that a Life alert be ordered- a [employer] consult was ordered. Vet would like to know if fasting labs are needed, He was given an appt for 10/18/23@1000. Depression Screening: Perform PHQ-2 A PHQ-2 screen was performed. The score was 0 which is a negative screen for depression. Over the past two weeks, how often have you been bothered by the following problems? 1. Little interest or pleasure in doing things Not at all 2. Feeling down, depressed, or hopeless Not at all Suicide Screen: C-SSRS Screening [place] Suicide Severity Rating Scale (C-SSRS) screener 1. Over the past month, have you wished you were or wished you could go to sleep and not wake up? No 2. Over the past month, have you had any actual thoughts of killing yourself? No 3. Over the past month, have you been thinking about how you might do this? Response not required due to responses to other questions. 4. Over the past month, have you had these thoughts and had some intention of acting on them? Response not required due to responses to other questions. 5. Over the past month, have you started to work out or worked out the details of how to kill yourself? Response not required due to responses to other questions. 6. If yes, at any time in the past month did you intend to carry out this plan? Response not required due to responses to other questions. 7. In your lifetime, have you ever done anything, started to do anything, or prepared to do anything to end your life (for example, collected pills, obtained a gun, gave away valuables, went to the roof but didn't jump)? No 8. If YES, was this within the past 3 months? Response not required due to responses to other questions. Falls & Incontinence Screen: Falls Screen: During the past 12 months, did the patient report any falls? 1. One fall with no injury. Incontinence Screen: During the past 12 months, has the patient has any characteristics of incontinence (ability, voiding, leakage, etc.)? No incontinence. Homelessness/Food Insecurity Screen: In the past 2 months, have you been living in stable housing that you own, rent, or stay in as part of a household? Yes - Living in stable housing. Are you worried or concerned that in the next 2 months you may NOT have stable housing that you own, rent, or stay in as part of a household? No - Not worried about housing near future [facility] [place] reports the following: Within the past 12 months, you worried whether your food would run out before you got money to buy more. Never true Within the past 12 months, the food you bought just didn't last and you didn't have money to get more. Never true Tobacco Use Screening: The patient has never used tobacco. Influenza Immunization: The patient has received the seasonal influenza vaccine for the current season at another location. Documented: INFLUENZA, UNSPECIFIED FORMULATION Historical Date Administered: Apr 2023 Exact date unknown Outside Location: Outside Healthcare Provider Information Source: FROM OTHER REGISTRY Comment: [facility] Alcohol Use Screen (AUDIT-C): Alcohol Screen: SCREEN FOR ALCOHOL (AUDIT-C) An alcohol screening test (AUDIT-C) was negative (score=0). 1. How often did you have a drink containing alcohol in the past year? Consider a drink to be a 12 ounce can or bottle of regular beer, 8 ounces of malt liquor, a 5 ounce glass of table wine, or a 1.5 ounce shot of liquor (like scotch, gin, or vodka). Never 2. How many drinks containing alcohol did you have on a typical day when you were drinking in the past year? Response not required due to responses to other questions. 3. How often did you have 4 or more drinks on one occasion in the past year? Response not required due to responses to other questions. Advance Directive Screen MH AD: Patient does not have an Advance Directive completed and is requesting more information. The patient received education about Advance Directives and written notification of his/her rights. Vet was sent an advanced directive and was asked to fill out and bring in for PCP appt. /josie/ MICHAEL GARCIA MSN Ed., BSN CATEGORY PLANNER NURSE Signed: 09/17/2023 09:14 Receipt Acknowledged By: 09/17/2023 10:18 /es/ BALBINA ALEXANDRE LPN License Practical Nurse for JORGE ORDOÑEZ 09/17/2023 09:56 /es/ ZENOBIA VALDIVIA D.O. PHYSICIAN ZENOBIA VALDIVIA [place] [facility] [place] [facility] Sep 17, 2023 08:37 AM NURSING TELEPHONE ENCOUNTER NOTE: LOCAL TITLE: NURSING/OUTPATIENT TELEPHONE FOLLOW UP STANDARD TITLE: NURSING TELEPHONE ENCOUNTER NOTE DATE OF NOTE: SEP 17, 2023@08:37 ENTRY DATE: SEP 17, 2023@08:37:31 AUTHOR: MICHAEL GARCIA COSIGNER: URGENCY: STATUS: COMPLETED NURSING/OUTPATIENT TELEPHONE FOLLOW UP Has ADDENDA F: Telephone call D: Vet requested that a Life alert be ordered- a [employer] consult was ordered. Veniranjan would like to know if fasting labs are needed, He was given an appt for 10/18/23@1000. Depression Screening: Perform PHQ-2 A PHQ-2 screen was performed. The score was 0 which is a negative screen for depression. Over the past two weeks, how often have you been bothered by the following problems? 1. Little interest or pleasure in doing things Not at all 2. Feeling down, depressed, or hopeless Not at all Suicide Screen: C-SSRS Screening [place] Suicide Severity Rating Scale (C-SSRS) screener 1. Over the past month, have you wished you were or wished you could go to sleep and not wake up? No 2. Over the past month, have you had any actual thoughts of killing yourself? No 3. Over the past month, have you been thinking about how you might do this? Response not required due to responses to other questions. 4. Over the past month, have you had these thoughts and had some intention of acting on them? Response not required due to responses to other questions. 5. Over the past month, have you started to work out or worked out the details of how to kill yourself? Response not required due to responses to other questions. 6. If yes, at any time in the past month did you intend to carry out this plan? Response not required due to responses to other questions. 7. In your lifetime, have you ever done anything, started to do anything, or prepared to do anything to end your life (for example, collected pills, obtained a gun, gave away valuables, went to the roof but didn't jump)? No 8. If YES, was this within the past 3 months? Response not required due to responses to other questions. Falls & Incontinence Screen: Falls Screen: During the past 12 months, did the patient report any falls? 1. One fall with no injury. Incontinence Screen: During the past 12 months, has the patient has any characteristics of incontinence (ability, voiding, leakage, etc.)? No incontinence. Homelessness/Food Insecurity Screen: In the past 2 months, have you been living in stable housing that you own, rent, or stay in as part of a household? Yes - Living in stable housing. Are you worried or concerned that in the next 2 months you may NOT have stable housing that you own, rent, or stay in as part of a household? No - Not worried about housing near future [facility] [place] reports the following: Within the past 12 months, you worried whether your food would run out before you got money to buy more. Never true Within the past 12 months, the food you bought just didn't last and you didn't have money to get more. Never true Tobacco Use Screening: The patient has never used tobacco. Influenza Immunization: The patient has received the seasonal influenza vaccine for the current season at another location. Documented: INFLUENZA, UNSPECIFIED FORMULATION Historical Date Administered: Apr 2023 Exact date unknown Outside Location: Outside Healthcare Provider Information Source: FROM OTHER REGISTRY Comment: [facility] Alcohol Use Screen (AUDIT-C): Alcohol Screen: SCREEN FOR ALCOHOL (AUDIT-C) An alcohol screening test (AUDIT-C) was negative (score=0). 1. How often did you have a drink containing alcohol in the past year? Consider a drink to be a 12 ounce can or bottle of regular beer, 8 ounces of malt liquor, a 5 ounce glass of table wine, or a 1.5 ounce shot of liquor (like scotch, gin, or vodka). Never 2. How many drinks containing alcohol did you have on a typical day when you were drinking in the past year? Response not required due to responses to other questions. 3. How often did you have 4 or more drinks on one occasion in the past year? Response not required due to responses to other questions. Advance Directive Screen MH AD: Patient does not have an Advance Directive completed and is requesting more information. The patient received education about Advance Directives and written notification of his/her rights. Vet was sent an advanced directive and was asked to fill out and bring in for PCP appt. /josie/ MICHAEL GARCIA MSN Ed., BSN CATEGORY PLANNER NURSE Signed: 09/17/2023 09:14 Receipt Acknowledged By: 09/17/2023 10:18 /josie/ BALBINA ALEXANDRE LPN License Practical Nurse for JORGE ORDOÑEZ 09/17/2023 09:56 /es/ ZENOBIA VALDIVIA D.O. PHYSICIAN 09/17/2023 ADDENDUM STATUS: COMPLETED fasting labs are already ordered (from Dr. Salgado)- ok for to do. /josie/ ZENOBIA VALDIVIA D.O. PHYSICIAN Signed: 09/17/2023 09:57 Receipt Acknowledged By: * AWAITING SIGNATURE * MICHAEL GARCIA TIMOTHY E [facility]
--- OUTSIDE RECORDS SUMMARY | 2024-08-18 12:09 | XMS_ITS ---
Author Organization [facility] Address [address] [place] [address] Care Team Providers Care Interpreter Name Role Phone Clarice Ziegler MD Primary Care Provider Daisy Perry Unavailable [phone] REASON FOR VISIT BUY 3 lg Toe Buddies / Lg Left Crest Pad Encounters Encounter Location Date Provider Diagnosis [facility] [address] [place] [address] 05/28/2024 Daisy Villarreal Plan Of Treatment Next Appt Details Provider Name:Daisy marcial, 09/16/2024 01:30:00 PM, [address] [place], [address], Progress Notes * Iraida SHEEHANDOB:1935 (88 yo F)Acc No.[id number]:05/28/2024 Patient:?Iraida Sheehan :1935???Age:88 Y???Sex:Female Address:[address] [place] [address] * true * Date:? Generated for Printi ng/Faxing/eTransmitting on:?08/18/2024 12:09 PM EST
--- OUTSIDE RECORDS SUMMARY | 2024-08-18 12:09 | XMS_ITS | Encounter Summary ---
Author Name [facility] [place] Organization [facility] [place] Address [address] [place] [address] Care Team Providers Care Embroidery Patternmaker Name Role Phone ZENOBIA VALDIVIA Primary Care [...] Name Patient's Relationship to Policy [place] SU[place] JOVANA MEDEX 2 Feb 24, 2015 [id number] [phone] SISSY,JA NET PATIENT [place] SUPPLE[place] JOVANA MEDEX 2 Feb 24, 2015 [id number] SISSY,[place] JOVANA [facility] Feb 24, 2015 [id number] SISSY,TIANA NET PATIENT MEDICARE (WNR) MEDICARE (M) PART B May 27, 2005 PART B [id number] SISSY,TIANA NET PATIENT MEDICARE (WNR) MEDICARE (M) PART B May 27, 2005 PART B [id number] SISSY,TIANA NET PATIENT MEDICARE (WNR) MEDICARE (M) PART A Oct 25, 2004 PART A [id number] [facility] PATIENT MEDICARE (WNR) MEDICARE (M) PART A Oct 25, 2004 PART A [id number] [phone] [facility] PATIENT Selected Encounter This section includes the information on record at [place] for the Encounter. Date/Time Encounter Type Encounter Description Reason Pro vider Source Oct 02, 2023 01:01 PM Outpatient Encounter ADMIN PAT ACTIVTIES (MASNONCT) IHE Encounter Template Text not used by [place] Plan of Treatment: Future Appointments (+ 6 months) and Future Tests (+/- 45 days) The Plan of Treatment section includes future care activities for the patient from all [place] treatmentfacilities. This section includes future appointments and future orders which are active, pending or scheduled. Future Appointments This section includes appointments that were scheduled to occur 6 months from the date of the Encounter, up to a maximum of 20 appointments. The data comes from all [place] treatment facilities. Appointment Date/Time Appointment Type Appointme nt Facility Name Oct 12, 2023 10:00 AM AMBULATORY - MEDICINE [facility] Active, Pending, and Scheduled Orders This section includes a listing of several types of active, pending, and scheduled orders, including clinic medications orders, diagnostic test orders, procedure orders and consult orders; where the start date of the order is 45 days before the date of the Encounter or 45 days after the date of theEncounter. The data comes from all [place] treatment facilities. Test Date/Time Test Type Test Details Facility Name Oct 10, 2023 12:00 AM Laboratory - Chemi stry Order BASIC METABOLIC PANEL (non-fasting) BLOOD (SST-SERUM) [facility] Lab Results: +/- 30 days of the encounter This section includes the Chemistry and Hematology Lab Results on record with [place] for the patient. Radiology Reports and Pathology Reports are provided separately, in subsequent sections. Lab Results This section contains the Chemistry/Hematology Results that were resulted 30 days before or 30 daysafter the date of the Encounter. Date/Time Source Result Type Result - Unit Interpretation Reference Range Comment Oct 05, 2023 02:52 PM [facility] FOLATE Specimen Type: SERUM No comment entered. Ordering Provider: ZENOBIA VALDIVIA Report Released Date/Time: Oct 03, 2023 03:06 PM Reporting [facility] [address] [address] Performing Lab: [place] [facility] [place] [facility] [address] [facility] [address] FOLATE 18.02 ng/mL >5.2 Oct 05, 2023 02:52 PM [facility] IRON & TIBC PANEL Specimen Type: SERUM No comment entered. Ordering Provider: ZENOBIA VALDIVIA Report Released Date/Time: Oct 03, 2023 03:06 PM Reporting Lab: [facility] [address] [address] Performing Lab: [facility] [address] [address] TIBC 236 ug/dL 204-475 IRON 55 ug/dL 40-160 Transferrin Saturation 23.3 20.0-50.0 Oct 05, 2023 02:52 PM [facility] VITAMIN B12 Specimen Type: SERUM No comment entered. Ordering Provider: ZENOBIA VALDIVIA Report Released Date/Time: Oct 03, 2023 03:06 PM Reporting Lab: [facility] [address] [address] Performing Lab: [facility] [address] [address] VITAMIN B12 >2000 pg/mL H 200-900 Oct 05, 2023 02:52 PM [facility] CBC Specimen Type: BLOOD No comment entered. Ordering Provider: ZENOBIA VALDIVIA Report Released Date/Time: Oct 03, 2023 03:06 PM Reporting Lab: [facility] [address] [address] Performing Lab: [facility] [address] [address] WBC 6.27 10*3/uL 4.50-11.00 RBC 3.37 10*6/uL L 3.93-5.16 HGB 10.5 g/dL L 12-15.2 HCT 30.2 L 36.6-45.6 MCV 89.6 fL 82-99 MCHC 34.8 g/dL 30.8-35.1 PLT 228 10*3/uL 140-360 RDW-CV 12.7 12.0-16.0 MCH 31.2 pg 26.2-32.6 Oct 05, 2023 02:52 PM [facility] VITAMIN D (25-OH) Specimen Type: SERUM No comment entered. Ordering Provider: ZENOBIA VALDIVIA Report Released Date/Time: Oct 03, 2023 03:06 PM Reporting Lab: [address] [address] Performing Lab: [address] [address] VITAMIN D (25-OH) 75 ng/mL H 20-50 Oct 05, 2023 02:52 PM [facility] FERRITIN Specimen Type: SERUM No comment entered. Ordering Provider: ZENOBIA VALDIVIA Report Released Date/Time: Oct 03, 2023 03:06 PM Reporting Lab: [address] [address] Performing Lab: [address] [address] FERRITIN 616 ng/mL H 10-200 Oct 05, 2023 02:52 PM [facility] MAGNESIUM Specimen Type: SERUM No comment entered. Ordering Provider: ZENOBIA VALDIVIA Report Released Date/Time: Oct 03, 2023 03:06 PM Reporting Lab: [address] [address] Performing Lab: [address] [address] MAGNESIUM 1.7 mg/dL 1.6-2.6 Oct 05, 2023 02:52 PM [facility] HEMOGLOBIN A1C PANEL Specimen Type: BLOOD Comment: [...] Oct 03, 2023 03:06 PM Reporting Lab: [address] [address] Performing Lab: [address] [address] HEMOGLOBIN A1C 5.4 4.0-5.6 Oct 05, 2023 02:52 PM [facility] TSH Specimen Type: SERUM No comment entered. Ordering Provider: ZENOBIA VALDIVIA Report Released Date/Time: Oct 03, 2023 03:06 PM Reporting Lab: [address] [address] Performing Lab: [address] [address] TSH 1.90 u[IU]/mL 0.35-5.00 Oct 05, 2023 02:52 PM [facility] BASIC METABOLIC PANEL (non-fasting) Specimen Type: SERUM No comment entered. Ordering Provider: ZENOBIA VALDIVIA Report Released Date/Time: Oct 03, 2023 03:06 PM Reporting Lab: [address] [address] Performing Lab: [address] [address] UREA NITROGEN 22 mg/dL 7-25 GLUCOSE 97 mg/dL 65-100 SODIUM 125 mmol/L L 135-145 POTASSIUM 4.1 mmol/L 3.5-5.0 CHLORIDE 93 mmol/L L 100-110 CO2 23 meq/L 20-30 CREATININE, Serum 0.86 mg/dL 0.50-1.40 eGFR(CKD-EPI 2020) 65 mL/min >60 Oct 05, 2023 02:52 PM [facility] LIVER FUNCTION Specimen Type: SERUM No comment entered. Ordering Provider: ZENOBIA VALDIVIA Report Released Date/Time: Oct 03, 2023 03:06 PM Reporting Lab: [facility] [address] [address] Performing Lab: [address] [address] PROTEIN,TOTAL 6.7 g/dL 6.0-8.3 ALBUMIN 4.0 g/dL 3.5-5.0 ALKALINE PHOSPHATASE 61 U/L 40-150 AST 20 U/L 5-34 ALT 14 U/L BILIRUBIN, TOTAL 0.4 mg/dL 0.2-1.2 Oct 05, 2023 02:52 PM [facility] LIPID PANEL, NON FASTING Specimen Type: SERUM No comment entered. Ordering Provider: ZENOBIA VALDIVIA Report Released Date/Time: Oct 03, 2023 03:06 PM Reporting Lab: [facility] [address] [address] Performing Lab: [address] [address] CHOLESTEROL 176 mg/dL TRIGLYCERIDE 44 mg/dL 0-150 LDL calculated 104 mg/dL 0-129 CHOL/HDL 2.8 HDL CHOLESTEROL 63 mg/dL H 40-60 Social History: Smoking Status (Most current) and Tobacco Use (All prior to encounter date) This section includes the most current, and the historical, smoking and tobacco- related health factors from the [place] facility where the Encounter took place. Current Smoking Status This section includes the most current smoking, or tobacco-related health factor, from the [place] facility where the Encounter took place. Date/Time Current Smoking Status Comment Velma hurtadoy Sep 17, 2023 08:37 AM VA-TOBACCO NEVER USED [facility] Tobacco Use History This section includes a history of the smoking, or tobacco-related health factors, that were collected on or before the date of the Encounter. The data comes from the [place] facility where the Encounter took place. Date/Time Smoking Status/Tobacco Use Comment Amarilys acility Sep 05, 2022 01:30 PM VA-TOBACCO NEVER USED [facility] Sep 07, 2021 10:00 AM VA-TOBACCO NEVER USED [facility] [place] [facility] Jun 29, 2020 03:00 PM VA-TOBACCO NEVER USED [facility] [place] [facility] Apr 24, 2018 11:08 AM LIFETIME NON-TOBACCO USER [facility] January 19, 2017 03:53 PM LIFETIME NON-TOBACCO USER [facility] Apr 01, 2012 10:20 AM LIFETIME NON-TOBACCO USER [facility] [place] [facility] Encounter Notes: All associated encounter notes This section contains the clinical notes associated to the Encounter. Date/Time Encounter Note(s) Provider Source Oct 02, 2023 01:01 PM ADMINISTRATIVE NOT E: LOCAL TITLE: CCC: SCHEDULING ADMINISTRATION STANDARD TITLE: ADMINISTRATIVE NOTE DATE OF NOTE: OCT 02, 2023@13:01:13 ENTRY DATE: OCT 02, 2023@13:01:13 AUTHOR: DEMETRIUS ARREGUIN EXP COSIGNER: URGENCY: STATUS: COMPLETED CCC: SCHEDULING ADMINISTRATION Has ADDENDA Patient Demographics Patient Name: ELIDA SHEEHAN Patient Primary Phone: [phone] Patient Primary Address: [address] [place] [address] Patient : 1935 Patient Age: 88 Call Back Number: [phone] Caller/Recipient Relation to Patient: Self Administrative Administrative Note Reason: Other Administrative Note Comments: requesting to schedule PACT appointment, states recently and looking to maintain VA benefits and requesting to schedule with provider, t/w does not have access to new providers schedule. [phone] /es/ DEMETRIUS ARREGUIN Signed: 10/02/2023 13:01 Receipt Acknowledged By: 10/02/2023 13:57 /josie/ ABBY GRIGGS 10/02/2023 14:02 /josie/ BALBINA ALEXANDRE LPN License Practical Nurse for JORGE ORDOÑEZ 10/02/2023 ADDENDUM STATUS: COMPLETED ANSON CALLED AND SCHEDULED AN ANNUAL/TRANSFER VISIT WITH ON OCTOBER 12 2023 @ 10AM. /josie/ ABBY GRIGGS Signed: 10/02/2023 14:00 10/03/2023 ADDENDUM STATUS: COMPLETED F: Telephone call D: Vet was called and was given an an appt for 10/12/23@1000. She was called and asked to come in this week for non-fasting labs /es/ MICHAEL GARCIA MSN Ed., BSN BELT OPERATOR NURSE Signed: 10/03/2023 15:17 DEMETRIUS ARREGUINRL [facility]
--- OUTSIDE RECORDS SUMMARY | 2024-08-18 12:09 | XMS_ITS ---
Author Organization [facility] Address [address] [place] [address] Care Team Providers Care Music Composition Teacher Name Role Phone Clarice Ziegler MD Primary Care Provider Daisy Perry Unavailable [phone] REASON FOR VISIT rs 08/12 appt to 09/16 Encounters Encounter Location Date Provider Diagnosis [facility] [address] 06/27/2024 Daisy Villarreal Plan Of Treatment Next Appt Details Provider Name:Daisy marcial, 09/16/2024 01:30:00 PM, [address] [place], [address], Progress Notes * Iraida SHEEHANDOB:1935 (88 yo F)Acc No.[id number]:06/27/2024 Patient:?Iraida Sheehan :1935???Age:88 Y???Sex:Female Address:[address] [facility] [place] [address] * true * Date:? Generated for Printi ng/Faxing/eTransmitting on:?08/18/2024 12:09 PM EST
--- OUTSIDE RECORDS SUMMARY | 2024-08-18 12:09 | XMS_ITS | Encounter Summary ---
Author Name [facility] [place] Organization [facility] [place] Address [address] [place] [address] Care Team Providers Care Agricultural Research Engineer Name Role Phone SHEAMELYSSA Primary Care Provider Unavailabl e Insurance Providers: [...] Name Patient's Relationship to Policy [place] JOVANA MEDEX 2 Feb 24, 2015 [id number] [phone] SISSY,[place]IA[place] MED[place] 2 Feb 24, 2015 [id number] SISSY,JA [place] JOVANA [facility] Feb 24, 2015 [id number] SISSY,TIANA NET PATIENT MEDICARE (WNR) MEDICARE (M) PART B May 27, 2005 PART B [id number] SISSY,TIANA NET PATIENT MEDICARE (WNR) MEDICARE (M) PART B May 27, 2005 PART B [id number] [phone] SISSY,TIANA NET PATIENT MEDICARE (WNR) MEDICARE (M) PART A Oct 25, 2004 PART A [id number] [facility] PATIENT MEDICARE (WNR) MEDICARE (M) PART A Oct 25, 2004 PART A [id number] [id number] [place] [address] PATIENT Selected Encounter This section includes the information on record at [place] for the Encounter. Date/Time Encounter Type Encounter Description Reason Pro vider Source Oct 08, 2023 02:35 PM Outpatient Encounter PRIMARY CARE/MEDICINE IHE Encounter Template Text not used by [place] Plan of Treatment: Future Appointments (+ 6 months) and Future Tests (+/- 45 days) The Plan of Treatment section includes future care activities for the patient from all [place] treatmentfacilities. This section includes future appointments and future orders which are active, pending or scheduled. Future Appointments This section includes appointments that were scheduled to occur 6 months from the date of the Encounter, up to a maximum of 20 appointments. The data comes from all [place] treatment facilities. Appointment Date/Time Appointment Type Appointme nt Facility Name Oct 12, 2023 10:00 AM AMBULATORY - MEDICINE [facility] Active, Pending, and Scheduled Orders This section includes a listing of several types of active, pending, and scheduled orders, including clinic medications orders, diagnostic test orders, procedure orders and consult orders; where the start date of the order is 45 days before the date of the Encounter or 45 days after the date of theEncounter. The data comes from all [place] treatment facilities. Test Date/Time Test Type Test Details Facility Name Oct 10, 2023 12:00 AM Laboratory - Chemi stry Order BASIC METABOLIC PANEL (non-fasting) BLOOD (SST-SERUM) [facility] Lab Results: +/- 30 days of the encounter This section includes the Chemistry and Hematology Lab Results on record with [place] for the patient. Radiology Reports and Pathology Reports are provided separately, in subsequent sections. Lab Results This section contains the Chemistry/Hematology Results that were resulted 30 days before or 30 daysafter the date of the Encounter. Date/Time Source Result Type Result - Unit Interpretation Reference Range Comment Oct 05, 2023 02:52 PM [facility] FOLATE Specimen Type: SERUM No comment entered. Ordering Provider: MELYSSA CALDERÓN Report Released Date/Time: Oct 03, 2023 03:06 PM Reporting Lab[facility] [place] [facility] [address] [facility] [address] Performing Lab: [place] [facility] [address] [facility] [address] FOLATE 18.02 ng/mL >5.2 Oct 05, 2023 02:52 PM [facility] IRON & TIBC PANEL Specimen Type: SERUM No comment entered. Ordering Provider: MELYSSA CALDERÓN Report Released Date/Time: Oct 03, 2023 03:06 PM Reporting Lab: [facility] [address] [address] Performing Lab: [facility] [address] [address] TIBC 236 ug/dL 204-475 IRON 55 ug/dL 40-160 Transferrin Saturation 23.3 20.0-50.0 Oct 05, 2023 02:52 PM [facility] VITAMIN B12 Specimen Type: SERUM No comment entered. Ordering Provider: MELYSSA CALDERÓN Report Released Date/Time: Oct 03, 2023 03:06 PM Reporting Lab: [facility] [address] [address] Performing Lab: [facility]ITAL[facility] [address] [address] VITAMIN B12 >2000 pg/mL H 200-900 Oct 05, 2023 02:52 PM [facility] CBC Specimen Type: BLOOD No comment entered. Ordering Provider: MELYSSA CALDERÓN Report Released Date/Time: Oct 03, 2023 03:06 PM Reporting Lab: [facility] [address] [address] Performing Lab: [facility] [address] [address] WBC 6.27 10*3/uL 4.50-11.00 RBC 3.37 10*6/uL L 3.93-5.16 HGB 10.5 g/dL L 12-15.2 HCT 30.2 L 36.6-45.6 MCV 89.6 fL 82-99 MCHC 34.8 g/dL 30.8-35.1 PLT 228 10*3/uL 140-360 RDW-CV 12.7 12.0-16.0 MCH 31.2 pg 26.2-32.6 Oct 05, 2023 02:52 PM [facility] VITAMIN D (25-OH) Specimen Type: SERUM No comment entered. Ordering Provider: MELYSSA CALDERÓN Report Released Date/Time: Oct 03, 2023 03:06 PM Reporting Lab: [facility] [address] [address] Performing Lab: [facility] [address] VITAMIN D (25-OH) 75 ng/mL H 20-50 Oct 05, 2023 02:52 PM [facility] FERRITIN Specimen Type: SERUM No comment entered. Ordering Provider: MELYSSA CALDERÓN Report Released Date/Time: Oct 03, 2023 03:06 PM Reporting Lab: [facility] [address] [address] Performing Lab: [facility] [address] FERRITIN 616 ng/mL H 10-200 Oct 05, 2023 02:52 PM [facility] MAGNESIUM Specimen Type: SERUM No comment entered. Ordering Provider: MELYSSA CALDERÓN Report Released Date/Time: Oct 03, 2023 03:06 PM Reporting Lab: [facility] [address] Performing Lab: [facility] [address] [address] MAGNESIUM 1.7 mg/dL 1.6-2.6 Oct 05, 2023 02:52 PM [facility] HEMOGLOBIN A1C PANEL Specimen Type: BLOOD Comment: Values obtained from A1C measurements can vary. For atypical A1C assays, a reported value of 7.0 could actually be between 6.72 and 7.28 if measured by a reference method. A reported value of 9.0 could actually be between 8.73 and 9.27. Ref: http://www.ngs p.org/CAPdata. asp Ordering Provider: MELYSSA CALDERÓN Report Released Date/Time: Oct 03, 2023 03:06 PM Reporting Lab: [address] [address] Performing Lab: [address] [address] HEMOGLOBIN A1C 5.4 4.0-5.6 Oct 05, 2023 02:52 PM [facility] TSH Specimen Type: SERUM No comment entered. Ordering Provider: MELYSSA CALDERÓN Report Released Date/Time: Oct 03, 2023 03:06 PM Reporting Lab: [address] [address] Performing Lab: [address] [address] TSH 1.90 u[IU]/mL 0.35-5.00 Oct 05, 2023 02:52 PM [facility] BASIC METABOLIC PANEL (non-fasting) Specimen Type: SERUM No comment entered. Ordering Provider: MELYSSA CALDERÓN Report Released Date/Time: Oct 03, 2023 03:06 PM Reporting Lab: [address] [address] Performing Lab: [address] [address] UREA NITROGEN 22 mg/dL 7-25 GLUCOSE 97 mg/dL 65-100 SODIUM 125 mmol/L L 135-145 POTASSIUM 4.1 mmol/L 3.5-5.0 CHLORIDE 93 mmol/L L 100-110 CO2 23 meq/L 20-30 CREATININE, Serum 0.86 mg/dL 0.50-1.40 eGFR(CKD-EPI 2020) 65 mL/min >60 Oct 05, 2023 02:52 PM [facility] LIVER FUNCTION Specimen Type: SERUM No comment entered. Ordering Provider: MELYSSA CALDERÓN Report Released Date/Time: Oct 03, 2023 03:06 PM Reporting Lab: [facility] [address] [address] Performing Lab: [address] [address] PROTEIN,TOTAL 6.7 g/dL 6.0-8.3 ALBUMIN 4.0 g/dL 3.5-5.0 ALKALINE PHOSPHATASE 61 U/L 40-150 AST 20 U/L 5-34 ALT 14 U/L BILIRUBIN, TOTAL 0.4 mg/dL 0.2-1.2 Oct 05, 2023 02:52 PM [facility] LIPID PANEL, NON FASTING Specimen Type: SERUM No comment entered. Ordering Provider: MELYSSA CALDERÓN Report Released Date/Time: Oct 03, 2023 03:06 PM Reporting Lab: [address] [address] Performing Lab: [address] [address] CHOLESTEROL 176 mg/dL TRIGLYCERIDE 44 mg/dL 0-150 LDL calculated 104 mg/dL 0-129 CHOL/HDL 2.8 HDL CHOLESTEROL 63 mg/dL H 40-60 Social History: Smoking Status (Most current) and Tobacco Use (All prior to encounter date) This section includes the most current, and the historical, smoking and tobacco- related health factors from the [place] facility where the Encounter took place. Current Smoking Status This section includes the most current smoking, or tobacco-related health factor, from the [place] facility where the Encounter took place. Date/Time Current Smoking Status Comment Velma garza Sep 17, 2023 08:37 AM VA-TOBACCO NEVER USED [facility] Tobacco Use History This section includes a history of the smoking, or tobacco-related health factors, that were collected on or before the date of the Encounter. The data comes from the [place] facility where the Encounter took place. Date/Time Smoking Status/Tobacco Use Comment Amarilys treviño Sep 05, 2022 01:30 PM VA-TOBACCO NEVER USED [facility] Sep 07, 2021 10:00 AM VA-TOBACCO NEVER USED [facility] [place] [facility] Jun 29, 2020 03:00 PM VA-TOBACCO NEVER USED [facility] [place] [facility] Apr 24, 2018 11:08 AM LIFETIME NON-TOBACCO USER [facility] [place] [facility] January 19, 2017 03:53 PM LIFETIME NON-TOBACCO USER [facility] [place] [facility] Apr 01, 2012 10:20 AM LIFETIME NON-TOBACCO USER [facility] [place] [facility] Encounter Notes: All associated encounter notes This section contains the clinical notes associated to the Encounter. Date/Time Encounter Note(s) Provider Source Oct 08, 2023 02:35 PM LETTERS: LOCAL TITLE: PATIENT LETTER (T) STANDARD TITLE: LETTERS DATE OF NOTE: OCT 08, 2023@14:35 ENTRY DATE: OCT 08, 2023@14:35:06 AUTHOR: MELYSSA CALDERÓN COSIGNER: URGENCY: STATUS: COMPLETED DEPARTMENT OF [facility] Toll Free Number Primary Care Telephone Assistance can be reached at extension [phone] [facility] scheduling can be reached at extension [phone] [facility] scheduling can be reached at ext [phone], [address] Dear , As discussed on the phone with my nurse Omar, you have seen your community PCP about the low sodium level and were given furosemide and will be getting repeat lab drawn prior to our upcoming apt. please bring the repeat lab result with you to your apt. Normal thyroid function. Stable anemia. Slightly elevated vitamin D levels- likely can cut back on vitamin D supplements. Normal cholesterol. Normal liver and kidney function. Thanks, Dr. Melyssa Calderón Your recent test results are as follows: LAB CHEMISTRY & HEMATOLOGY Collection DT Specimen Test Name Result Units Ref Range 10/05/2023 14:52 BLOOD !! HEMOGLOBIN A1C 5.4 % 4.0 - 5.6 10/05/2023 14:52 BLOOD WBC 6.27 K/cmm 4.50 - 11.00 RBC 3.37 L M/cmm 3.93 - 5.16 HGB 10.5 L g/dL 12 - 15.2 HCT 30.2 L % 36.6 - 45.6 MCV 89.6 fl 82 - 99 MCH 31.2 pg 26.2 - 32.6 MCHC 34.8 g/dL 30.8 - 35.1 RDW-CV 12.7 % 12.0 - 16.0 PLT 228 K/cmm 140 - 360 10/05/2023 14:52 SERUM FOLATE 18.02 ng/mL Ref: >=5.2 10/05/2023 14:52 SERUM TIBC 236 ug/dL 204 - 475 IRON 55 ug/dL 40 - 160 VITAMIN B12 >2000 H pg/mL 200 - 900 FERRITIN 616 H ng/mL 10 - 200 TSH 1.90 uIU/mL 0.35 - 5.00 CREATININE, Serum 0.86 mg/dL 0.50 - 1.40 TranSat 23.3 % 20.0 - 50.0 VITAMIN D (25-OH) 75 H ng/mL 20 - 50 eGFR(CKD-EPI 2020 65 mL/min Ref: >=60 SODIUM 125 L mmol/L 135 - 145 POTASSIUM 4.1 mmol/L 3.5 - 5.0 CHLORIDE 93 L mmol/L 100 - 110 CO2 23 mEq/L 20 - 30 UREA NITROGEN 22 mg/dL 7 - 25 GLUCOSE 97 mg/dL 65 - 100 PROTEIN,TOTAL 6.7 g/dL 6.0 - 8.3 ALBUMIN 4.0 g/dL 3.5 - 5.0 ALK BRAYDON 61 U/L 40 - 150 AST 20 U/L 5 - 34 BILIRUBIN, TOTAL 0.4 mg/dL 0.2 - 1.2 CHOLESTEROL 176 mg/dL <7 - 199 TRIGLYCERIDE 44 mg/dL 0 - 150 LDL calculated 104 mg/dL 0 - 129 CHOL/HDL 2.8 ALT 14 U/L <6 - 55 MAGNESIUM 1.7 mg/dL 1.6 - 2.6 HDL CHOLESTEROL 63 H mg/dL 40 - 60 Sincerely, Your Primary Care Team [facility] [address] [facility] [address] [place] [address] [place], [place] [id number] [place] [facility] [address] [place] [address] [place], [place] [id number] [facility] [address] [facility] [place] [address] [place] [address] [phone] MELYSSA CALDERÓN [facility]
--- OUTSIDE RECORDS SUMMARY | 2024-08-18 12:09 | XMS_ITS | Patient Health Record ---
Author Organization [facility] [place] Address [address] [facility] [place] [address] Care Team Providers Care Research Animal Facility Supervisor Name Role Phone Clarice Ziegler MD Primary Care Provider Daisy Perry Unavailable [phone] Allergies Allergen (clinical drug ingredient) Drug/Non Drug Allergy documented on EMR Reaction Allergy Type Onset Date Status Dyspnea (uncoded) welts Allergy Ac tive amoxicillin Amoxicillin severe urticaria dyspnea Drug Allergy Active Penicillin Unknown Drug Allergy Active Reason For Referral No Information Medications Medication SIG (Take, Route, Frequency, Duration) Notes Start Date End Date Status LORazepam 0.5 MG 1 tablet as needed Orally every 6 hrs PRN for flying Active Multivitamin Active MiraLax PRN Active Calcium + D 600 Orally Acti ve Ferrous Sulfate-Vitamin C Active Vitamin B 12 1000 1 tablet Orally Once a day Active Magnesium 500 MG 1 tablet with a meal Orally Once a day for 30 day(s) Active Zoloft Active Ibuprofen PRN Active Potassium Active Tylenol PRN Active Atenolol 25 MG Oral for 90 Act herbert Meclizine HCl 25 MG TAKE 1 TABLET BY MOUTH FOUR TIMES A DAY NEEDED FOR DIZZINESS Oral for 5 Days PRN Active Fosamax Active PreserVision AREDS 2 Active aspirin Active Social History Tobacco Use: Social History Observation Description Date Details (start date - stop date) Never Smoker NA - NA Tobacco Use/Smoking Question Answer Notes Are you a: nonsmoker Additional Findings: Tobacco Non-User Current no n-smoker Alcohol Screen Question Answer Notes Did you have a drink containing alcohol in the p ast year? No Points 0 Interpretation Negative Tobacco use other than smoking: Question Answer Notes Are you an other tobacco user? 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) Active confirmed Vital Signs Blood pressure diastolic 60 mm Hg 03/11/2024 Height 5 ft 1 in in 05/28/2024 Blood pressure systolic 115 mm Hg 03/11/2024 Weight 93 lbs 05/28/2024 BMI 17.57 kg/m2 05/28/2024 Encounters Encounter Location Date Provider Diagnosis [address] [address] 10/03/2023 Daisy Perica Hallux valgus (acquired), left foot M20.12 ; Atherosclerosis of artery of both lower extremities I70.203 ; Hammer toe of left foot M20.42 ; Hammertoe of right foot M20.41 ; Tinea unguium B35.1 ; Pain in left toe(s) M79.675 and Pain in right toe(s) M79.[address] [address] 03/11/2024 Daisy Perica Hallux valgus (acquired), left foot M20.12 ; Hammer toe of left foot M20.42 ; Atherosclerosis of artery of both lower extremities I70.203 ; Hammertoe of right foot M20.41 ; Tinea unguium B35.1 ; Pain in left toe(s) M79.675 and Pain in right toe(s) M79.[address] [address] 05/28/2024 Daisy Perica Hallux valgus (acquired), left foot M20.12 ; Hammer toe of left foot M20.42 ; Atherosclerosis of artery of both lower extremities I70.203 ; Hammertoe of right foot M20.41 ; Tinea unguium B35.1 ; Pain in left toe(s) M79.675 and Pain in right toe(s) M79.674 [facility] [address] [place] [address] 12/17/2023 Daisy Perica [facility] [address] [address] 03/11/2024 Daisy Perica [facility] [address] [address] 04/01/2024 Daisy Perica [facility] [address] [address] 05/06/2024 Daisy Perica [facility] [address] [address] 05/28/2024 Daisy Perica [address] [address] 06/27/2024 Daisy Villarreal Assessments Encounter Date Diagnosis (ICD Code) Assessment Notes Treatment Notes Treatment Clinical Notes Section Notes 10/03/2023 Hallux valgus (acquired), left foot (ICD-10 - M20.12) 10/03/2023 Atherosclerosis of artery of both lower extremities (ICD-10 - I70.203) 03/11/2024 Hallux valgus (acquired), left foot (ICD-10 - M20.12) 03/11/2024 Hammer toe of left foot (ICD-10 - M20.42) 05/28/2024 Hallux valgus (acquired), left foot (ICD-10 - M20.12) 03/11/2024 Atherosclerosis of artery of both lower extremities (ICD-10 - I70.203) 05/28/2024 Hammer toe of left foot (ICD-10 - M20.42) 10/03/2023 Hammer toe of left foot (ICD-10 - M20.42) 10/03/2023 Hammertoe of right foot (ICD-10 - M20.41) 03/11/2024 Hammertoe of right foot (ICD-10 - M20.41) 05/28/2024 Atherosclerosis of artery of both lower extremities (ICD-10 - I70.203) 05/28/2024 Hammertoe of right foot (ICD-10 - M20.41) 10/03/2023 Tinea unguium (ICD-10 - B35.1) 03/11/2024 Tinea unguium (ICD-10 - B35.1) 03/11/2024 Pain in left toe(s) (ICD-10 - M79.675) 10/03/2023 Pain in left toe(s) (ICD-10 - M79.675) 05/28/2024 Tinea unguium (ICD-10 - B35.1) 05/28/2024 Pain in left toe(s) (ICD-10 - M79.675) 10/03/2023 Pain in right toe(s) (ICD-10 - M79.674) 03/11/2024 Pain in right toe(s) (ICD-10 - M79.674) 05/28/2024 Pain in right toe(s) (ICD-10 - M79.674) Plan Of Treatment Pending Test Test Name Order Date X ray : Foot, left 3V 10/01/2019 Next Appt Details Provider Name:Daisy marcial, 09/16/2024 01:30:00 PM, [address] [place], [address], Insurance Providers Payer Name Payer Address Payer Phone Subscriber Number Group Number Insured Name Patient Relationship to Insured Coverage Start Date Coverage End Date Medicare National [employer] [address] [place] [address] [id number] Iraida Cantor Self - patient is the insured Medex [employer] [facility] [address] [place] [address] [id number] Iraida Cantor Self - patient is the insured Medical (General) History Medical History History ICD Code Anemia Anxiety Broken bones Cancer Cataracts High blood pressure Macular degeneration Osteoporosis Scarlet fever Measles Mumps Chicken pox Joint implants/screws covid-19 Depression Transfusions aneurysm BPV Aneurysm Hypertension, benign Surgical History Surgery Date(Month/Year) left shoulder surgery - athroplasty 08/28 left eye lascerations 02/09/2019 broken femur and hip shoulder surgery- total 2016 fx right femur 2015 aneurysm Hospitalization History Reason Date(Month/Year) [facility]- dizzy , high blood pressure 11/17
--- OUTSIDE RECORDS SUMMARY | 2024-08-18 12:09 | XMS_ITS | Encounter Summary ---
Author Name [facility] [place] [facility] [place] [facility] [place] Address [address] [place] [address] Care Team Providers Care Heel Curver Name Role Phone ZENOBIA VALDIVIA Primary Care [...] Name Patient's Relationship to Policy Kang BCBS MD MEDICARE SUPPLEMEN JOVANA MEDEX 2 Feb 24, 2015 [id number] [phone] SISSY,JA NET PATIENT [place]BS [place] MEDICARE SUPPLEMEN JOVANA MEDEX 2 Feb 24, 2015 [id number] SISSY,TIANA NET PATIENT BCBS MD MEDICARE SUPPLEMEN JOVANA [facility] Feb 24, 2015 [id number] SISSY,TIANA NET PATIENT MEDICARE (WNR) MEDICARE (M) PART B May 27, 2005 PART B [id number] SISSY,TIANA NET PATIENT MEDICARE (WNR) MEDICARE (M) PART B May 27, 2005 PART B [id number] SISSY,TIANA NET PATIENT MEDICARE (WNR) MEDICARE (M) PART A Oct 25, 2004 PART A [id number] [facility] PATIENT MEDICARE (WNR) MEDICARE (M) PART A Oct 25, 2004 PART A [id number] [facility] PATIENT Selected Encounter This section includes the information on record at [place] for the Encounter. Date/Time Encounter Type Encounter Description Reason Pro vider Source Sep 14, 2023 09:50 AM Outpatient Encounter ADMIN PAT ACTIVTIES (MASNONCT) IHE Encounter Template Text not used by [place] Plan of Treatment: Future Appointments (+ 6 months) and Future Tests (+/- 45 days) The Plan of Treatment section includes future care activities for the patient from all [place] treatmentfacilities. This section includes future appointments and future orders which are active, pending or scheduled. Future Appointments This section includes appointments that were scheduled to occur 6 months from the date of the Encounter, up to a maximum of 20 appointments. The data comes from all [place] treatment facilities. Appointment Date/Time Appointment Type Appointme nt Facility Name Oct 12, 2023 10:00 AM AMBULATORY - MEDICINE [facility] Active, Pending, and Scheduled Orders This section includes a listing of several types of active, pending, and scheduled orders, including clinic medications orders, diagnostic test orders, procedure orders and consult orders; where the start date of the order is 45 days before the date of the Encounter or 45 days after the date of theEncounter. The data comes from all [place] treatment facilities. Test Date/Time Test Type Test Details Facility Name Oct 10, 2023 12:00 AM Laboratory - Chemi stry Order BASIC METABOLIC PANEL (non-fasting) BLOOD (SST-SERUM) [email or web address] Lab Results: +/- 30 days of the encounter This section includes the Chemistry and Hematology Lab Results on record with [place] for the patient. Radiology Reports and Pathology Reports are provided separately, in subsequent sections. Lab Results This section contains the Chemistry/Hematology Results that were resulted 30 days before or 30 daysafter the date of the Encounter. Date/Time Source Result Type Result - Unit Interpretation Reference Range Comment Oct 05, 2023 02:52 PM [email or web address] FOLATE Specimen Type: SERUM No comment entered. Ordering Provider: ZENOBIA VALDIVIA Report Released Date/Time: Oct 03, 2023 03:06 PM Reporting Lab: [facility] [address] [facility] [address] Performing Lab: [facility] [place] [facility] [address] [facility] [address] FOLATE 18.02 ng/mL >5.2 Oct 05, 2023 02:52 PM [facility] IRON & TIBC PANEL Specimen Type: SERUM No comment entered. Ordering Provider: ZENOBIA VALDIVIA Report Released Date/Time: Oct 03, 2023 03:06 PM Reporting Lab: [facility]RM[facility] NORTHN [facility]ITALUS[facility] [address] [facility] [address] Performing Lab: [facility] NORTHN [facility]ITALUSETS [address] [address] TIBC 236 ug/dL 204-475 IRON 55 ug/dL 40-160 Transferrin Saturation 23.3 20.0-50.0 Oct 05, 2023 02:52 PM [facility] VITAMIN B12 Specimen Type: SERUM No comment entered. Ordering Provider: ZENOBIA VALDIVIA Report Released Date/Time: Oct 03, 2023 03:06 PM Reporting Lab: [facility] NORTHN [facility]ITALUS[facility] [address] [facility] [address] Performing Lab: [facility]ITAL[facility] [address] [facility] [address] VITAMIN B12 >2000 pg/mL H 200-900 Oct 05, 2023 02:52 PM [facility] CBC Specimen Type: BLOOD No comment entered. Ordering Provider: ZENOBIA VALDIVIA Report Released Date/Time: Oct 03, 2023 03:06 PM Reporting Lab: [facility]ITALR[facility]ITALTRN [facility]ITALUSETS [facility] [address] [facility] [address] Performing Lab: [facility] NORTHN [facility]ITALUSETS [address] [address] WBC 6.27 10*3/uL 4.50-11.00 RBC 3.37 10*6/uL L 3.93-5.16 HGB 10.5 g/dL L 12-15.2 HCT 30.2 L 36.6-45.6 MCV 89.6 fL 82-99 MCHC 34.8 g/dL 30.8-35.1 PLT 228 10*3/uL 140-360 RDW-CV 12.7 12.0-16.0 MCH 31.2 pg 26.2-32.6 Oct 05, 2023 02:52 PM [facility] VITAMIN D (25-OH) Specimen Type: SERUM No comment entered. Ordering Provider: ZENOBIA VALDIVIA Report Released Date/Time: Oct 03, 2023 03:06 PM Reporting Lab: [address] [address] Performing Lab: [address] [address] VITAMIN D (25-OH) 75 ng/mL H 20-50 Oct 05, 2023 02:52 PM [facility] FERRITIN Specimen Type: SERUM No comment entered. Ordering Provider: ZENOBIA VALDIVIA Report Released Date/Time: Oct 03, 2023 03:06 PM Reporting Lab: [address] [address] Performing Lab: [address] [address] FERRITIN 616 ng/mL H 10-200 Oct 05, 2023 02:52 PM [facility] MAGNESIUM Specimen Type: SERUM No comment entered. Ordering Provider: ZENOBIA VALDIVIA Report Released Date/Time: Oct 03, 2023 03:06 PM Reporting Lab: [address] [address] Performing Lab: [address] [address] MAGNESIUM 1.7 mg/dL 1.6-2.6 Oct 05, 2023 02:52 PM [facility] HEMOGLOBIN A1C PANEL Specimen Type: BLOOD [...] Oct 03, 2023 03:06 PM Reporting Lab: [address] [address] Performing Lab: [address] [address] HEMOGLOBIN A1C 5.4 4.0-5.6 Oct 05, 2023 02:52 PM [facility] TSH Specimen Type: SERUM No comment entered. Ordering Provider: ZENOBIA VALDIVIA Report Released Date/Time: Oct 03, 2023 03:06 PM Reporting Lab: [address] [address] Performing Lab: [address] [address] TSH 1.90 u[IU]/mL 0.35-5.00 Oct 05, 2023 02:52 PM [facility] BASIC METABOLIC PANEL (non-fasting) Specimen Type: SERUM No comment entered. Ordering Provider: ZENOBIA VALDIVIA Report Released Date/Time: Oct 03, 2023 03:06 PM Reporting Lab: [address] [address] Performing Lab: [address] [address] UREA NITROGEN 22 mg/dL 7-25 GLUCOSE 97 mg/dL 65-100 SODIUM 125 mmol/L L 135-145 POTASSIUM 4.1 mmol/L 3.5-5.0 CHLORIDE 93 mmol/L L 100-110 CO2 23 meq/L 20-30 CREATININE, Serum 0.86 mg/dL 0.50-1.40 eGFR(CKD-EPI 2020) 65 mL/min >60 Oct 05, 2023 02:52 PM [facility] LIVER FUNCTION Specimen Type: SERUM No comment entered. Ordering Provider: ZENOBIA VALDIVIA Report Released Date/Time: Oct 03, 2023 03:06 PM Reporting Lab: [facility] [address] [facility] [address] Performing Lab: [facility] [address] [facility] [address] PROTEIN,TOTAL 6.7 g/dL 6.0-8.3 ALBUMIN 4.0 g/dL 3.5-5.0 ALKALINE PHOSPHATASE 61 U/L 40-150 AST 20 U/L 5-34 ALT 14 U/L BILIRUBIN, TOTAL 0.4 mg/dL 0.2-1.2 Oct 05, 2023 02:52 PM [facility] LIPID PANEL, NON FASTING Specimen Type: SERUM No comment entered. Ordering Provider: ZENOBIA VALDIVIA Report Released Date/Time: Oct 03, 2023 03:06 PM Reporting Lab: [facility] [address] [facility] [address] Performing Lab: [address] [address] CHOLESTEROL 176 mg/dL TRIGLYCERIDE 44 mg/dL 0-150 LDL calculated 104 mg/dL 0-129 CHOL/HDL 2.8 HDL CHOLESTEROL 63 mg/dL H 40-60 Social History: Smoking Status (Most current) and Tobacco Use (All prior to encounter date) This section includes the most current, and the historical, smoking and tobacco- related health factors from the [place] facility where the Encounter took place. Current Smoking Status This section includes the most current smoking, or tobacco-related health factor, from the [place] facility where the Encounter took place. Date/Time Current Smoking Status Comment Velma ity Sep 05, 2022 01:30 PM VA-TOBACCO NEVER USED [facility] Tobacco Use History This section includes a history of the smoking, or tobacco-related health factors, that were collected on or before the date of the Encounter. The data comes from the [place] facility where the Encounter took place. Date/Time Smoking Status/Tobacco Use Comment Amarilys [email or web address] Sep 07, 2021 10:00 AM VA-TOBACCO NEVER USED [facility] Jun 29, 2020 03:00 PM VA-TOBACCO NEVER USED [facility] [place] [facility] Apr 24, 2018 11:08 AM LIFETIME NON-TOBACCO USER [facility] [place] [facility] January 19, 2017 03:53 PM LIFETIME NON-TOBACCO USER [facility] [place] [facility] Apr 01, 2012 10:20 AM LIFETIME NON-TOBACCO USER [facility] [place] [facility] Encounter Notes: All associated encounter notes This section contains the clinical notes associated to the Encounter. Date/Time Encounter Note(s) Provider Source Sep 14, 2023 11:20 AM ADDENDUM: LOCAL TITLE: Addendum STANDARD TITLE: ADDENDUM DATE OF NOTE: SEP 14, 2023@11:20:31 ENTRY DATE: SEP 14, 2023@11:20:31 AUTHOR: ZENOBIA VALDIVIA COSIGNER: URGENCY: STATUS: COMPLETED Omar- please order for - thanks. /josie/ ZENOBIA VALDIVIA D.O. PHYSICIAN Signed: 09/14/2023 11:20 Receipt Acknowledged By: 09/17/2023 08:50 /josie/ MICHAEL GARCIA MSN Ed., BSN WRAPPING MACHINE HELPER NURSE === --- Original Document --- 09/14/23 CCC: SCHEDULING ADMINISTRATION: Rose[facility]ie [facility] [phone] reported pt needs personal emergency response for pt and , and is a , notified pact team /es/ ABBY SANCHEZ 1 [facility] AMSA Signed: 09/14/2023 09:51 Receipt Acknowledged By: 09/14/2023 11:20 /josie/ ZENOBIA VALDIVIA D.O. PHYSICIAN * AWAITING SIGNATURE * MICHAEL GARCIA TINA [facility] [place] [facility] Sep 14, 2023 09:50 AM ADMINISTRATIVE NOTE: LOCAL TITLE: CCC: SCHEDULING ADMINISTRATION STANDARD TITLE: ADMINISTRATIVE NOTE DATE OF NOTE: SEP 14, 2023@09:50 ENTRY DATE: SEP 14, 2023@09:50:44 AUTHOR: ABBY GILBERT EXP COSIGNER: URGENCY: STATUS: COMPLETED CCC: SCHEDULING ADMINISTRATION Has ADDENDA Rosemarie vna [phone] reported pt needs personal emergency response for pt and , and is a , notified pact team /josie/ ABBY GILBERT VISN 1 [facility] AMSA Signed: 09/14/2023 09:51 Receipt Acknowledged By: 09/14/2023 11:20 /es/ ZENOBIA VALDIVIA D.O. PHYSICIAN 10/01/2023 15:24 /josie/ MICHAEL GARCIA MSN Ed., BSN WRAPPING MACHINE HELPER NURSE 09/14/2023 ADDENDUM STATUS: COMPLETED Omar- please order for - thanks. /josie/ ZENOBIA VALDIVIA D.O. PHYSICIAN Signed: 09/14/2023 11:20 Receipt Acknowledged By: 09/17/2023 08:50 /josie/ MICHAEL GARCIA MSN Ed., BSN WRAPPING MACHINE HELPER NURSE [facility]
--- OUTSIDE RECORDS SUMMARY | 2024-08-18 12:09 | XMS_ITS | Continuity of Care Document ---
Author Name [facility] Organization [facility] Care Team Providers Care Tool Checker Name Role Phone [facility] Unavailable Unavailable Problems Combined list of problems from Department of Defense and Veterans Affairs facilities. It does not include entries that were removed or entered in error. Problem Status Onset Date Problem Type Date of Resolution Comments Source Gastric Ulcer Active 1 Condition May 06, 2015 Entered By: ANNA DUGAN Comment: GI bleed 06/2001 [facility] [place] Anemia Active Condition [facility] GERD Active Condition [facility] Hypertension (SNOMED CT 11832026) Active Condition [facility] Hypokalemia Active Condition [facility] Hyponatremia Active Condition [facility] Osteoporosis Active Condition January 19, 2017 Entered By: ANNA DUGAN Comment: right hip fracture, ORIF 05/2015 [facility] Diagnosis: ICD-10-CM E87.6 Hypokalemia Active Diagnosis [facility] [place] Medications Combined list of outpatient medications from Department of Defense and Veterans Affairs facilities.Medications provided include 1) outpatient medications from the last 15 months, and 2) patient-reported medications. Medication Details Route Status Patient Instructions Prescription Expires Prescription Number Last Dispense Date Ordering Provider Order Date Order Qty Source ALENDRONATE 70MG TAB TAKE ONE TABLET BY MOUTH ONCE A WEEK ORAL ACTIVE FURCOLO,T MIAN 2023 [facility] ASCORBIC ACID 500MG TAB TAKE ONE TABLET BY MOUTH ONCE DAILY ORAL ACTIVE Ian DUGAN ICOLE 2019 [facility] ATENOLOL 25MG TAB TAKE ONE TABLET BY MOUTH ONCE DAILY ORAL ACTIVE Ian DUGAN ICOLE 2018 [facility] CALCIUM 250MG/VITAM IN D 125UNIT TAB TAKE BY MOUTH ORAL ACTIVE ZASHIN,LY NN S [facility] FERROUS SO4 325MG TAB TAKE ONE TABLET BY MOUTH ONCE DAILY ORAL ACTIVE KIRCHEN,N ICOLE 2019 [facility] FUROSEMIDE 20MG TAB TAKE ONE TABLET BY MOUTH ONCE DAILY ORAL ACTIVE FURCOLO,T MIAN 2023 [facility] MAGNESIUM GLUCONATE TAB TAKE BY MOUTH ORAL ACTIVE ZASHIN,LY NN S [facility] MULTIVITAMI NS W/MINERALS TAB TAKE ONE TABLET BY MOUTH ORAL ACTIVE ZASHIN,LY NN S 2011 [facility] POLYETHYLEN E GLYCOL 3350 POWDER,ORAL TAKE BY MOUTH PRN ORAL ACTIVE ZASHIN,LY NN S 2013 [facility] POTASSIUM CHLORIDE 20MEQ TAB,SA (DISPERSIBL E) TAKE ONE TABLET BY MOUTH ONCE DAILY ORAL ACTIVE FURCOLO,T MIAN 2023 [facility] SERTRALINE HCL 50MG TAB TAKE ONE-HALF TABLET BY MOUTH ONCE DAILY ORAL ACTIVE FURCOLO,T MIAN 2023 [facility] VITAMIN B COMPLEX CAP TAKE 1 CAPSULE BY MOUTH ONCE DAILY ORAL ACTIVE KIRSERGIO,N ICOLE 2022 [facility] Allergies, Adverse Reactions, Alerts Combined list of allergies from Department of Defense and Veterans Affairs facilities. It does not include entries that were removed or entered in error. Substance Category Reaction Severity Reaction type Status Date Reported Comments Source CODEINE Propensity to adverse reactions to drug (finding) Nausea and vomiting active 2 [facility] DEMEROL Propensity to adverse reactions to drug (finding) active 4 [facility] [place] PENICILLIN Propensity to adverse reactions to drug (finding) Anaphylaxis active 2 [facility] SULFA DRUGS Propensity to adverse reactions to drug (finding) Anaphylaxis active 2 [facility] Immunizations Combined list of available immunizations from the Department of Defense and Veterans Affairs facilities. Immunization Series Date Given Administered By Site Reaction Lot Number CVX Code Drug Hurl Shaker Status Comments Source INFLUENZA, UNSPECIFIED FORMULATION 2022 88 complet ed [facility] COVID-19 (PFIZER), MRNA, LNP-S, BIVALENT BOOSTER, PF, 30 MCG/0.3 ML DOSE 2021 300 complet ed [facility] INFLUENZA, UNSPECIFIED FORMULATION 2021 88 complet ed [facility] COVID-19 (PFIZER), MRNA, LNP-S, PF, 30 MCG/0.3 ML DOSE 3 2020 208 complet ed [facility] INFLUENZA, UNSPECIFIED FORMULATION 2020 88 complet ed [facility] COVID-19 (PFIZER), MRNA, LNP-S, PF, 30 MCG/0.3 ML DOSE 2 2020 208 complet ed [facility] COVID-19 (PFIZER), MRNA, LNP-S, PF, 30 MCG/0.3 ML DOSE 1 2020 208 complet ed [facility] INFLUENZA, UNSPECIFIED FORMULATION 2019 88 complet ed [facility] INFLUENZA, SEASONAL, INJECTABLE 2018 141 complet ed [facility] INFLUENZA, SEASONAL, INJECTABLE 2016 141 complet ed [facility] PNEUMOCOCCAL CONJUGATE PCV 13 2014 133 complet ed [facility] DTAP, UNSPECIFIED FORMULATION 2013 107 complet ed Site: Left Deltoid [facility] FLU,3 YRS (HISTORICAL) 2012 88 complet ed [facility] FLU,3 YRS (HISTORICAL) 2010 88 complet ed [facility] ZOSTER (HISTORICAL) 2009 121 complet ed patinet report [facility] PNEUMOCOCCAL, UNSPECIFIED FORMULATION 2007 109 complet ed [facility] TD(ADULT) UNSPECIFIED FORMULATION 2006 139 complet ed [facility] Results Combined list of recent chemistry, hematology and other laboratory results from Department of Defense and Veterans Affairs, ranging from 15 months to all on record, depending upon the facility. Order Name Results Value Reference Range Date Interpretation Specimen Comments Source FOLATE FOLATE [MASS/VOLUM E] IN SERUM OR PLASMA 18.02 ng/mL 5.2 10/05 Specimen Type: SERUM No comment entered. Ordering Provider: FREYA VALDIVIA Report Released Date/Time: Oct 03, 2023 03:06 PM Reporting Lab: [facility] [place] [facility] [address] [facility] [address] Performing Lab: [facility] [place] [facility] [address] [facility] [address] [facility] [place] [facility] IRON & TIBC PANEL IRON BINDING CAPACITY [MASS/VOLUM E] IN SERUM OR PLASMA 236 ug/dL 204 - 475 10/05 Specimen Type: SERUM No comment entered. Ordering Provider: FREYA VALDIVIA Report Released Date/Time: Oct 03, 2023 03:06 PM Reporting Lab: [facility] [place] [facility] [address] [facility] [address] Performing Lab: [facility] [place] [facility] [address] [facility] [address] [facility] [place] [facility] IRON & TIBC PANEL IRON [MASS/VOLUM E] IN SERUM OR PLASMA 55 ug/dL 40 - 160 10/05 Specimen Type: SERUM No comment entered. Ordering Provider: FREYA VALDIVIA Report Released Date/Time: Oct 03, 2023 03:06 PM Reporting Lab: [facility] [place] [facility] [address] [facility] [address] Performing Lab: [facility] [place] [facility] [address] [facility] [address] [facility] IRON & TIBC PANEL IRON/IRON BINDING CAPACITY.TO JOVANA [MASS RATIO] IN SERUM OR PLASMA 23.3 20.0 - 50.0 10/05 Specimen Type: SERUM No comment entered. Ordering Provider: FREYA VALDIVIA Report Released Date/Time: Oct 03, 2023 03:06 PM Reporting Lab: [facility] [address] Performing Lab: [facility] [address] [facility] VITAMIN B12 COBALAMIN (VITAMIN B12) [MASS/VOLUM E] IN SERUM OR PLASMA >2000p g/mL 200 - 900 10/05 H Specimen Type: SERUM No comment entered. Ordering Provider: FREYA VALDIVIA Report Released Date/Time: Oct 03, 2023 03:06 PM Reporting Lab: [facility] [address] Performing Lab: [address] [address] [facility] CBC LEUKOCYTES [#/VOLUME] IN BLOOD BY AUTOMATED COUNT 6.27 10*3/u L 4.50 - 11.00 10/05 Specimen Type: BLOOD No comment entered. Ordering Provider: FREYA VALDIVIA Report Released Date/Time: Oct 03, 2023 03:06 PM Reporting Lab: [facility] [address] Performing Lab: [facility] [address] [facility] CBC ERYTHROCYTE S [#/VOLUME] IN BLOOD BY AUTOMATED COUNT 3.37 10*6/u L 3.93 - 5.16 10/05 L Specimen Type: BLOOD No comment entered. Ordering Provider: FREYA VALDIVIA Report Released Date/Time: Oct 03, 2023 03:06 PM Reporting Lab: [facility] [place] [facility] [address] [facility] [address] Performing Lab: [facility] [place] [facility] [address] [facility] [address] [facility] [place] [facility] CBC HEMOGLOBIN [MASS/VOLUM E] IN BLOOD 10.5 g/dL 12 - 15.2 10/05 L Specimen Type: BLOOD No comment entered. Ordering Provider: FREYA VALDIVIA Report Released Date/Time: Oct 03, 2023 03:06 PM Reporting Lab: [facility] [place] [facility] [address] [facility] [address] Performing Lab: [facility] [place] [facility] [address] [facility] [address] [facility] [place] [facility] CBC HEMATOCRIT [VOLUME FRACTION] OF BLOOD BY AUTOMATED COUNT 30.2 36.6 - 45.6 10/05 L Specimen Type: BLOOD No comment entered. Ordering Provider: FREYA VALDIVIA Report Released Date/Time: Oct 03, 2023 03:06 PM Reporting Lab: [facility] [place] [facility] [address] [facility] [facility] [address] Performing Lab: [facility] [place] [facility] [address] [facility] [address] [facility] [place] [facility] CBC MCV [ENTITIC VOLUME] BY AUTOMATED COUNT 89.6 fL 82 - 99 10/05 Specimen Type: BLOOD No comment entered. Ordering Provider: FREYA VALDIVIA Report Released Date/Time: Oct 03, 2023 03:06 PM Reporting Lab: [facility] [place] [facility] [address] [facility] [facility] [address] Performing Lab: [facility] [place] [facility] [address] [facility] [address] [facility] [place] [facility] CBC MCHC [MASS/VOLUM E] BY AUTOMATED COUNT 34.8 g/dL 30.8 - 35.1 10/05 Specimen Type: BLOOD No comment entered. Ordering Provider: FREYA VALDIVIA Report Released Date/Time: Oct 03, 2023 03:06 PM Reporting Lab: [facility] [place] [facility] [address] [facility] [facility] [address] Performing Lab: [facility] [place] [facility] [address] [facility] [address] [facility] [place] [facility] CBC PLATELETS [#/VOLUME] IN BLOOD BY AUTOMATED COUNT 228 10*3/u L 140 - 360 10/05 Specimen Type: BLOOD No comment entered. Ordering Provider: FREYA VALDIVIA Report Released Date/Time: Oct 03, 2023 03:06 PM Reporting Lab: [facility] [place] [facility] [address] [facility] [facility] [address] Performing Lab: [facility] [place] [facility] [address] [facility] [address] [facility] [place] [facility] CBC ERYTHROCYTE DISTRIBUTIO N WIDTH [RATIO] BY AUTOMATED COUNT 12.7 12.0 - 16.0 10/05 Specimen Type: BLOOD No comment entered. Ordering Provider: FREYA VALDIVIA Report Released Date/Time: Oct 03, 2023 03:06 PM Reporting Lab: [facility] [place] [facility] [address] [facility] [facility] [address] Performing Lab: [facility] [place] [facility] [address] [facility] [address] [facility] [place] [facility] CBC MCH [ENTITIC MASS] BY AUTOMATED COUNT 31.2 pg 26.2 - 32.6 10/05 Specimen Type: BLOOD No comment entered. Ordering Provider: FREYA VALDIVIA Report Released Date/Time: Oct 03, 2023 03:06 PM Reporting Lab: [facility] [place] [facility] [address] [facility] [facility] [address] Performing Lab: [facility] [place] [address] [address] [facility] [place] [facility] VITAMIN D (25-OH) 25-HYDROXYV ITAMIN D3 [MASS/VOLUM E] IN SERUM OR PLASMA 75 ng/mL 20 - 50 10/05 H Specimen Type: SERUM No comment entered. Ordering Provider: FREYA VALDIVIA Report Released Date/Time: Oct 03, 2023 03:06 PM Reporting Lab: [address] [address] Performing Lab: [facility]ITALRE[facility]ITALUSE[address] [address] [facility] FERRITIN FERRITIN [MASS/VOLUM E] IN SERUM OR PLASMA 616 ng/mL 10 - 200 10/05 H Specimen Type: SERUM No comment entered. Ordering Provider: FREYA VALDIVIA Report Released Date/Time: Oct 03, 2023 03:06 PM Reporting Lab: [address] [address] Performing Lab: [facility] [address] [address] [facility] MAGNESIUM MAGNESIUM [MASS/VOLUM E] IN SERUM OR PLASMA 1.7 mg/dL 1.6 - 2.6 10/05 Specimen Type: SERUM No comment entered. Ordering Provider: FREYA VALDIVIA Report Released Date/Time: Oct 03, 2023 03:06 PM Reporting Lab: [facility] [address] [address] Performing Lab: [facility] [address] [address] [facility] HEMOGLOBI N A1C PANEL HEMOGLOBIN A1C/HEMOGLO BIN.TOTAL IN BLOOD BY HPLC 5.4 4.0 - 5.6 10/05 Specimen Type: BLOOD Comment: Values obtained from A1C measurement s can vary. For atypical A1C assays, a reported value of 7.0 could actually be between 6.72 and 7.28 if measured by a reference method. A reported value of 9.0 could actually be between 8.73 and 9.27. Ref: http://www. ngsp.org/[place] Pdata.asp Ordering Provider: FREYA VALDIVIA Report Released Date/Time: Oct 03, 2023 03:06 PM Reporting Lab: [address] [place] [address] Performing Lab: [facility] [address] [facility] [address] [facility] TSH THYROTROPIN [UNITS/VOLU ME] IN SERUM OR PLASMA 1.90 u[IU]/ mL 0.35 - 5.00 10/05 Specimen Type: SERUM No comment entered. Ordering Provider: FREYA VALDIVIA Report Released Date/Time: Oct 03, 2023 03:06 PM Reporting Lab: [facility] [address] [facility] [facility] [address] Performing Lab: [facility] [address] [facility] [address] [facility] BASIC METABOLIC PANEL (non-fast ing) UREA NITROGEN [MASS/VOLUM E] IN SERUM OR PLASMA 22 mg/dL 7 - 25 10/05 Specimen Type: SERUM No comment entered. Ordering Provider: FREYA VALDIVIA Report Released Date/Time: Oct 03, 2023 03:06 PM Reporting Lab: [facility] [address] [facility] [address] Performing Lab: [facility] [address] [address] [facility] BASIC METABOLIC PANEL (non-fast ing) GLUCOSE [MASS/VOLUM E] IN SERUM OR PLASMA 97 mg/dL 65 - 100 10/05 Specimen Type: SERUM No comment entered. Ordering Provider: FREYA VALDIVIA Report Released Date/Time: Oct 03, 2023 03:06 PM Reporting Lab: [facility] [address] [facility] [facility] [address] Performing Lab: [facility] [address] [address] [facility] BASIC METABOLIC PANEL (non-fast ing) SODIUM [MOLES/VOLU ME] IN SERUM OR PLASMA 125 mmol/L 135 - 145 10/05 L Specimen Type: SERUM No comment entered. Ordering Provider: FREYA VALDIVIA Report Released Date/Time: Oct 03, 2023 03:06 PM Reporting Lab: [facility] [place] [facility] [address] [facility] [facility] [address] Performing Lab: [facility] [place] [facility] [address] [facility] [facility] [address] [facility] [place] [facility] BASIC METABOLIC PANEL (non-fast ing) POTASSIUM [MOLES/VOLU ME] IN SERUM OR PLASMA 4.1 mmol/L 3.5 - 5.0 10/05 Specimen Type: SERUM No comment entered. Ordering Provider: FREYA VALDIVIA Report Released Date/Time: Oct 03, 2023 03:06 PM Reporting Lab: [facility] [place] [address] [address] Performing Lab: [facility] [place] [address] [address] [facility] BASIC METABOLIC PANEL (non-fast ing) CHLORIDE [MOLES/VOLU ME] IN SERUM OR PLASMA 93 mmol/L 100 - 110 10/05 L Specimen Type: SERUM No comment entered. Ordering Provider: FREYA VALDIVIA Report Released Date/Time: Oct 03, 2023 03:06 PM Reporting Lab: [facility] [place] [facility] [address] [facility] [address] Performing Lab: [facility] [place] [address] [address] [facility] [place] [facility] BASIC METABOLIC PANEL (non-fast ing) CARBON DIOXIDE, TOTAL [MOLES/VOLU ME] IN SERUM OR PLASMA 23 meq/L 20 - 30 10/05 Specimen Type: SERUM No comment entered. Ordering Provider: FREYA VALDIVIA Report Released Date/Time: Oct 03, 2023 03:06 PM Reporting Lab: [facility] [place] [facility] [address] [facility] [address] Performing Lab: [facility] [place] [address] [address] [facility] [place] [facility] BASIC METABOLIC PANEL (non-fast ing) CREATININE [MASS/VOLUM E] IN SERUM OR PLASMA 0.86 mg/dL 0.50 - 1.40 10/05 Specimen Type: SERUM No comment entered. Ordering Provider: FREYA VALDIVIA Report Released Date/Time: Oct 03, 2023 03:06 PM Reporting Lab: [facility] [place] [facility] [address] [facility] [address] Performing Lab: [facility] [place] [facility] [address] [facility] [facility] [address] [facility] [place] [facility] BASIC METABOLIC PANEL (non-fast ing) GLOMERULAR FILTRATION RATE/1.73 SQ M.PREDICTED [VOLUME RATE/AREA] IN SERUM, PLASMA OR BLOOD BY CREATININE- BASED FORMULA (CKD-EPI 2020) 65 mL/min 60 10/05 Specimen Type: SERUM No comment entered. Ordering Provider: FREYA VALDIVIA Report Released Date/Time: Oct 03, 2023 03:06 PM Reporting Lab: [facility] [place] [facility] [address] [facility] [address] Performing Lab: [facility] [place] [facility] [address] [facility] [address] [facility]N [place] [facility] Vital Signs Combined list of inpatient and outpatient Vital Signs from Department of Defense and Veterans Affairs, ranging from 12 months to all on record, depending upon the facility. Vital Sign Value Date Comments Source SYSTOLIC BLOOD PRESSURE 150 10/12/19 24 10:19:48 [facility] [place] [facility] DIASTOLIC BLOOD PRESSURE 72 2 024 10:19:48 [facility] [place] [facility] WEIGHT 93 10/12/2023 10:19:48 [facility] [place] [facility] BMI 18kg/m2 10/12/2023 10:19:48 [facility] [place] [facility] PAIN 1 10/12/2023 10:19:48 [facility] [place] [facility] HEIGHT 61.024 10/12/2023 10:19:48 [facility] [place] [facility] PULSE 59 10/12/2023 10:19:48 [facility] [place] [facility] RESPIRATION 16 10/12/2023 10:19:48 [facility] [place] [facility] Encounters Combined list of: 1) Encounters from Department of Veterans Affairs facilities going back up to thelast 18 months. 2) Encounters from the Department of Defense facilities going back up to 280 months. Location Location Details Encounter Type Encounter Number Reason For Visit Attending Provider ADM Date DC Date Status Disposition Source [facility] En[facility] [id number] 04[facility]27 [facility] [id number] 08/30 [facility] [id number] 09/14 [facility] En[facility] [id number] 09/17 [facility] [id number] 09/17 [facility] En[facility] [id number] 10/02 [facility] En[facility] [id number] 10/08 [facility] OFF[facility] [place]/P EST HI 40 MIN [id number] Diagnos is: ICD-10- CM E87.6 Hypokal emia
FURCOLO,TI NA 10/12 [facility] Social History Combined list of available smoking, tobacco, and other social history from Department of Defense and Veterans Affairs facilities. Social History Type Response Date Comment Sour e Tobacco smoking status NHIS [facility]-TOBACCO NEVER USED 09/17/2023 [facility] [place] [facility] History of tobacco use IA-TOBACCO NEVER USED 09/05/2022 [facility] [facility] History of tobacco use IA-TOBACCO NEVER USED 09/07/2021 [facility] [place] [facility] History of tobacco use IA-TOBACCO NEVER USED 06/29/2020 [facility] [place] [facility] History of tobacco use LIFETIME NON-TOBACCO USER 04/24/2018 [facility] [place] [facility] History of tobacco use LIFETIME NON-TOBACCO USER 01/19/2017 [facility] [place] [facility] History of tobacco use LIFETIME NON-TOBACCO USER 04/01/2012 [facility] [place] [facility]
--- OUTSIDE RECORDS SUMMARY | 2024-08-18 12:09 | XMS_ITS | Encounter Summary ---
Author Name [facility] [place] Address [address] [place] [address] Care Team Providers Care Wet Process Operator Name Role Phone ZENOBIA VALDIVIA Primary Care [...] Name Patient's Relationship to Policy Kang [place] JOVANA MEDEX 2 Feb 24, 2015 [id number] [phone] SISSY,TIANA NET PATIENT [place] [facility]UL [facility] Feb 24, 2015 [id number] [phone] SISSY,[place] NET PAT[place] MED[place] 2 Feb 24, 2015 [id number] SISSY,TIANA NET PATIENT MEDICARE (WNR) MEDICARE (M) PART B May 27, 2005 PART B [id number] [phone] SISSY,TIANA NET PATIENT MEDICARE (WNR) MEDICARE (M) PART B May 27, 2005 PART B [id number] SISSY,TIANA NET PATIENT MEDICARE (WNR) MEDICARE (M) PART A Oct 25, 2004 PART A [id number] [facility] PATIENT MEDICARE (WNR) MEDICARE (M) PART A Oct 25, 2004 PART A [id number] [facility] PATIENT Selected Encounter This section includes the information on record at [place] for the Encounter. Date/Time Encounter Type Encounter Description Reason Pro vider Source Aug 30, 2023 09:58 AM Outpatient Encounter ADMIN PAT ACTIVTIES (MASNONCT) IHE Encounter Template Text not used by [place] Plan of Treatment: Future Appointments (+ 6 months) and Future Tests (+/- 45 days) The Plan of Treatment section includes future care activities for the patient from all [place] treatmentfacilities. This section includes future appointments and future orders which are active, pending or scheduled. Future Appointments This section includes appointments that were scheduled to occur 6 months from the date of the Encounter, up to a maximum of 20 appointments. The data comes from all [place] treatment facilities. Appointment Date/Time Appointment Type Appointme nt Facility Name Oct 12, 2023 10:00 AM AMBULATORY - MEDICINE [facility] Active, Pending, and Scheduled Orders This section includes a listing of several types of active, pending, and scheduled orders, including clinic medications orders, diagnostic test orders, procedure orders and consult orders; where the start date of the order is 45 days before the date of the Encounter or 45 days after the date of theEncounter. The data comes from all [place] treatment facilities. Test Date/Time Test Type Test Details Facility Name Oct 10, 2023 12:00 AM Laboratory - Chemi stry Order BASIC METABOLIC PANEL (non-fasting) BLOOD (SST-SERUM) SP [facility] Social History: Smoking Status (Most current) and Tobacco Use (All prior to encounter date) This section includes the most current, and the historical, smoking and tobacco- related health factors from the [place] facility where the Encounter took place. Current Smoking Status This section includes the most current smoking, or tobacco-related health factor, from the [place] facility where the Encounter took place. Date/Time Current Smoking Status Comment Velma garza Sep 05, 2022 01:30 PM VA-TOBACCO NEVER USED [facility] Tobacco Use History This section includes a history of the smoking, or tobacco-related health factors, that were collected on or before the date of the Encounter. The data comes from the [place] facility where the Encounter took place. Date/Time Smoking Status/Tobacco Use Comment F acjamee Sep 07, 2021 10:00 AM VA-TOBACCO [facility] USED [facility] [place] [facility] Jun 29, 2020 03:00 PM VA-TOBACCO NEVER USED [facility] [place] [facility] Apr 24, 2018 11:08 AM LIFETIME NON-TOBACCO USER [facility] [place] [facility] January 19, 2017 03:53 PM LIFETIME NON-TOBACCO USER [facility] [place] [facility] Apr 01, 2012 10:20 AM LIFETIME NON-TOBACCO USER [facility] [place] [facility] Encounter Notes: All associated encounter notes This section contains the clinical notes associated to the Encounter. Date/Time Encounter Note(s) Provider Source Aug 30, 2023 09:58 AM ADMINISTRATIVE NOT E: LOCAL TITLE: CCC: SCHEDULING ADMINISTRATION STANDARD TITLE: ADMINISTRATIVE NOTE DATE OF NOTE: AUG 30, 2023@09:58 ENTRY DATE: AUG 30, 2023@09:58:37 AUTHOR: SOFY PANTOJA COSIGNER: URGENCY: STATUS: COMPLETED CCC: SCHEDULING ADMINISTRATION Has ADDENDA Vet calling to reschedule Pact appointment on 09/03/23. Vet would like to schedule for 10/10/23 at 1330. Community Relations Specialist has no access to schedule an appointment into Pact clinic. 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 AGREED TO TAKE THE 10AM SLOT INSTEAD,BUT ADMITS THAT TRANSPORTATION IS DIFFICULT TO COME BY HER IS ILL AND SHE DOES NOT DRIVE VERY OFTEN. /josie/ ABBY GRIGGS Signed: 08/30/2023 10:57 SOFY PANTOJA [facility]
--- OUTSIDE RECORDS SUMMARY | 2024-08-18 12:10 | XMS_ITS | Encounter Summary ---
Author Name [facility] [place] [facility] [place] [facility] [place] Address [address] [place] [address] Care Team Providers Care Exhaust Tender Name Role Phone ZENOBIA VALDIVIA Primary Care Provider Unavailabl e Insurance Providers: [...] Name Patient's Relationship to Policy Kang [place] MEDEX 2 Feb 24, 2015 [id number] SISSY,JA NET PATIENT [place] MEDEX 2 Feb 24, 2015 [id number] SISSY,[place] NET PAT[place] [facility] Feb 24, 2015 [id number] SISSY,TIANA NET PATIENT MEDICARE (WNR) MEDICARE (M) PART B May 27, 2005 PART B [id number] [phone] SISSY,TIANA NET PATIENT MEDICARE (WNR) MEDICARE (M) PART B May 27, 2005 PART B [id number] SISSY,TIANA NET PATIENT MEDICARE (WNR) MEDICARE (M) PART A Oct 25, 2004 PART A [id number] [facility] PATIENT MEDICARE (WNR) MEDICARE (M) PART A Oct 25, 2004 PART A [id number] [phone] [facility] PATIENT Selected Encounter This section includes the information on record at [place] for the Encounter. Date/Time Encounter Type Encounter Description Reason Provider Source Oct 12, 2023 10:00 AM OFFICE O/P EST HI 40 MIN PRIMARY CARE/MEDICINE ICD-10-CM E87.6 Hypokalemia ZENOBIA VALDIVIA E Encounter Template Text not used by [place] Assessments - Encounter Diagnoses This section includes the primary and secondary diagnoses documented for the Encounter. Date/Time Primary/Secondary Diagnosis Diagnosis Name Provider Source Oct 12, 2023 01:07 PM PRIMARY Hypokalemia ZENOBIA VALDIVIA [place] [facility] [place] [facility] Oct 12, 2023 01:07 PM SECONDARY Age-related osteoporosis w/o current pathological fracture [facility] [place] [facility] Oct 12, 2023 01:07 PM SECONDARY Essential (primary) hypertension [facility] [place] [facility] Oct 12, 2023 01:07 PM SECONDARY Hypo-osmolality and [facility]onatremia [facility] [place] [facility] Plan of Treatment: Future Appointments (+ 6 months) and Future Tests (+/- 45 days) The Plan of Treatment section includes future care activities for the patient from all [place] treatmentfacilities. This section includes future appointments and future orders which are active, pending or scheduled. Active, Pending, and Scheduled Orders This section includes a listing of several types of active, pending, and scheduled orders, including clinic medications orders, diagnostic test orders, procedure orders and consult orders; where the start date of the order is 45 days before the date of the Encounter or 45 days after the date of theEncounter. The data comes from all [place] treatment facilities. Test Date/Time Test Type Test Details Facility Name Oct 10, 2023 12:00 AM Laboratory - Chemi stry Order BASIC METABOLIC PANEL (non-fasting) BLOOD ([facility]UM[facility] Lab Results: +/- 30 days of the encounter This section includes the Chemistry and Hematology Lab Results on record with [place] for the patient. Radiology Reports and Pathology Reports are provided separately, in subsequent sections. Lab Results This section contains the Chemistry/Hematology Results that were resulted 30 days before or 30 daysafter the date of the Encounter. Date/Time Source Result Type Result - Unit Interpretation Reference Range Comment Oct 05, 2023 02:52 PM [facility] FOLATE Specimen Type: SERUM No comment entered. Ordering Provider: ZENOBIA VALDIVIA Report Released Date/Time: Oct 03, 2023 03:06 PM Reporting Lab: [facility] [address] [facility] [address] Performing Lab: [facility] [address] [facility] [facility] [address] FOLATE 18.02 ng/mL >5.2 Oct 05, 2023 02:52 PM [facility] IRON & TIBC PANEL Specimen Type: SERUM No comment entered. Ordering Provider: ZENOBIA VALDIVIA Report Released Date/Time: Oct 03, 2023 03:06 PM Reporting Lab: [facility] [address] Performing Lab: [facility] [address] [address] TIBC 236 ug/dL 204-475 IRON 55 ug/dL 40-160 Transferrin Saturation 23.3 20.0-50.0 Oct 05, 2023 02:52 PM [facility] VITAMIN B12 Specimen Type: SERUM No comment entered. Ordering Provider: ZENOBIA VALDIIVA Report Released Date/Time: Oct 03, 2023 03:06 PM Reporting Lab: [facility] [address] [address] Performing Lab: [facility] [address] [address] VITAMIN B12 >2000 pg/mL H 200-900 Oct 05, 2023 02:52 PM [facility] CBC Specimen Type: BLOOD No comment entered. Ordering Provider: FURCOLO,ZENOBIA Report Released Date/Time: Oct 03, 2023 03:06 PM Reporting Lab: [facility] [place] [facility] [address] [facility] [address] Performing Lab: [place] [facility] [facility] [address] [facility] [address] WBC 6.27 10*3/uL 4.50-11.00 RBC 3.37 10*6/uL L 3.93-5.16 HGB 10.5 g/dL L 12-15.2 HCT 30.2 L 36.6-45.6 MCV 89.6 fL 82-99 MCHC 34.8 g/dL 30.8-35.1 PLT 228 10*3/uL 140-360 RDW-CV 12.7 12.0-16.0 MCH 31.2 pg 26.2-32.6 Oct 05, 2023 02:52 PM [facility] VITAMIN D (25-OH) Specimen Type: SERUM No comment entered. Ordering Provider: ZENOBIA VALDIVIA Report Released Date/Time: Oct 03, 2023 03:06 PM Reporting Lab: [facility] [place] [facility] [address] [facility] [address] Performing Lab: [facility] [address] [facility] [address] VITAMIN D (25-OH) 75 ng/mL H 20-50 Oct 05, 2023 02:52 PM [facility] FERRITIN Specimen Type: SERUM No comment entered. Ordering Provider: ZENOBIA VALDIVIA Report Released Date/Time: Oct 03, 2023 03:06 PM Reporting Lab: [facility] [place] [facility] [address] [facility] [address] Performing Lab: [facility] [place] [address] [address] FERRITIN 616 ng/mL H 10-200 Oct 05, 2023 02:52 PM [facility] MAGNESIUM Specimen Type: SERUM No comment entered. Ordering Provider: ZENOBIA VALDIVIA Report Released Date/Time: Oct 03, 2023 03:06 PM Reporting Lab: [facility] [place] [facility] [address] [facility] [address] Performing Lab: [facility] [address] [facility] [address] MAGNESIUM 1.7 mg/dL 1.6-2.6 Oct 05, 2023 02:52 PM [facility] HEMOGLOBIN A1C PANEL Specimen Type: BLOOD [...] Oct 03, 2023 03:06 PM Reporting Lab: [address] [address] Performing Lab: [address] [address] HEMOGLOBIN A1C 5.4 4.0-5.6 Oct 05, 2023 02:52 PM [facility] TSH Specimen Type: SERUM No comment entered. Ordering Provider: ZENOBIA VALDIVIA Report Released Date/Time: Oct 03, 2023 03:06 PM Reporting Lab: [address] [address] Performing Lab: [address] [address] TSH 1.90 u[IU]/mL 0.35-5.00 Oct 05, 2023 02:52 PM [facility] BASIC METABOLIC PANEL (non-fasting) Specimen Type: SERUM No comment entered. Ordering Provider: ZENOBIA VALDIVIA Report Released Date/Time: Oct 03, 2023 03:06 PM Reporting Lab: [address] [address] Performing Lab: [address] [address] UREA NITROGEN 22 mg/dL 7-25 GLUCOSE 97 mg/dL 65-100 SODIUM 125 mmol/L L 135-145 POTASSIUM 4.1 mmol/L 3.5-5.0 CHLORIDE 93 mmol/L L 100-110 CO2 23 meq/L 20-30 CREATININE, Serum 0.86 mg/dL 0.50-1.40 eGFR(CKD-EPI 2020) 65 mL/min >60 Oct 05, 2023 02:52 PM [facility] LIVER FUNCTION Specimen Type: SERUM No comment entered. Ordering Provider: ZENOBIA VALDIVIA Report Released Date/Time: Oct 03, 2023 03:06 PM Reporting Lab: [address] [address] Performing Lab: [address] [address] PROTEIN,TOTAL 6.7 g/dL 6.0-8.3 ALBUMIN 4.0 g/dL 3.5-5.0 ALKALINE PHOSPHATASE 61 U/L 40-150 AST 20 U/L 5-34 ALT 14 U/L BILIRUBIN, TOTAL 0.4 mg/dL 0.2-1.2 Oct 05, 2023 02:52 PM [facility] LIPID PANEL, NON FASTING Specimen Type: SERUM No comment entered. Ordering Provider: ZENOBIA VALDIVIA Report Released Date/Time: Oct 03, 2023 03:06 PM Reporting Lab: [address] [address] Performing Lab: [address] [address] CHOLESTEROL 176 mg/dL TRIGLYCERIDE 44 mg/dL 0-150 LDL calculated 104 mg/dL 0-129 CHOL/HDL 2.8 HDL CHOLESTEROL 63 mg/dL H 40-60 Vital Signs: All taken on the encounter date This section contains inpatient and outpatient Vital Signs collected on the date of the Encounter. Date/Time Temperature Pulse Blood Pressure Respiratory Rate SP02 Pain Height Weight Body Mass Index Source Oct 12, 2023 11:17 AM 118/70 [facility] Oct 12, 2023 10:19 AM 59 150/72 16 1 61.024 93 18 [place] [facility] [facility] Social History: Smoking Status (Most current) and Tobacco Use (All prior to encounter date) This section includes the most current, and the historical, smoking and tobacco- related health factors from the [place] facility where the Encounter took place. Current Smoking Status This section includes the most current smoking, or tobacco-related health factor, from the [place] facility where the Encounter took place. Date/Time Current Smoking Status Comment Velma hurtadoy Sep 17, 2023 08:37 AM VA-TOBACCO NEVER USED [place] [facility] Tobacco Use History This section includes a history of the smoking, or tobacco-related health factors, that were collected on or before the date of the Encounter. The data comes from the [place] facility where the Encounter took place. Date/Time Smoking Status/Tobacco Use Comment F hudson Sep 05, 2022 01:30 PM VA-TOBACCO NEVER USED [place] [facility] [place] [facility] Sep 07, 2021 10:00 AM VA-TOBACCO NEVER USED [place] [facility] [place] [facility] Jun 29, 2020 03:00 PM VA-TOBACCO NEVER USED [place] [facility] [place] [facility] Apr 24, 2018 11:08 AM LIFETIME NON-TOBACCO USER [place] [facility] [place] [facility] January 19, 2017 03:53 PM LIFETIME NON-TOBACCO USER [place] [facility] [place] [facility] Apr 01, 2012 10:20 AM LIFETIME NON-TOBACCO USER [place] [facility] [place] [facility] Encounter Notes: All associated encounter notes This section contains the clinical notes associated to the Encounter. Date/Time Encounter Note(s) Provider Source Oct 12, 2023 10:41 AM PHYSICIAN NOTE: LOCAL TITLE: MD NOTE STANDARD TITLE: PHYSICIAN NOTE DATE OF NOTE: OCT 12, 2023@10:41 ENTRY DATE: OCT 12, 2023@10:41:36 AUTHOR: ZENOBIA VALDIVIA COSIGNER: URGENCY: STATUS: COMPLETED ELIDA SHEEHAN is a 88 year old WHITE FEMALE who is being seen today in primary care to establish care with new PACT team. Previous DR. Salgado patient. 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 Previous DR. Salgado patient. of 62 years just . was having some swelling of LE for the past few months- started her on furosemide. Na went went from 125 to 131. BP at her office wa s115/76, home BP have been 114/70 ==== RELEVANT PAST MEDICAL HISTORY ==== Active problems - Computerized Problem List is the source for the followin. Anemia 2. Hypokalemia 3. Osteoporosis right hip fracture, ORIF 05/2015 4. Hyponatremia 5. Hypertension (SNOMED CT [id number]) 6. GERD 7. 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 does all her own ADLs, does enjoy walking ==== ALLERGIES ==== PENICILLIN, SULFA DRUGS, CODEINE, DEMEROL ==== MEDICATIONS ==== VA and Non VA meds were reconciled with the patient who left with a corrected copy. Active and Recently Outpatient Medications (excluding Supplies): Active Non-VA Medications Status 1) Non-VA ASCORBIC ACID 500MG TAB 500MG BY MOUTH ONCE ACTIVE DAILY 2) Non-VA ATENOLOL 25MG TAB 25MG BY MOUTH ONCE DAILY ACTIVE 3) Non-VA CALCIUM 250MG/VITAMIN D 125UNIT TAB BY MOUTH ACTIVE 4) Non-VA DENOSUMAB 60MG/ML INJ SYRINGE 1ML 60MG/1ML ACTIVE SUBCUTANEOUSLY [id number] 5) Non-VA FERROUS SULFATE 325MG TAB 325MG BY MOUTH ONCE ACTIVE DAILY 6) Non-VA MAGNESIUM GLUCONATE TAB BY MOUTH ACTIVE 7) Non-VA MULTIVITAMIN/MINERALS CAP/TAB 1 TABLET BY ACTIVE MOUTH 8) Non-VA POLYETHYLENE GLYCOL 3350 POWDER,ORAL BY MOUTH ACTIVE NEEDED 9) Non-VA VITAMIN B COMPLEX CAP 1 CAPSULE BY MOUTH ONCE ACTIVE DAILY ==== REVIEW OF SYMPTOMS ==== POSITIVE FOR: grief NEGATIVE FOR: CONSTITUTION: no weight loss/gain, fatigue, fevers, night sweats HEENT: no vision problems, hearing loss,swallowing difficulties, sinus pain CV: no chest pain, palpitations, dyspnea on exertion, orthopnea RESP: no cough, shortness of breath, wheezing BREAST: no breast pain, nipple discharge GI: no abdominal pain, N/V/D, constipation, blood in stool, normal appetite : no urinary frequency, nocturia, hematuria, vaginal discharge or bleeding MUSC: no joint pain, joint swelling, muscle aches NEURO: no headaches, dizziness, memory loss, tremor, weakness PSYCH: no depression, anxiety, suicidal or homicidal thoughts SKIN: no rash, new skin lesions ==== PHYSICAL EXAM ==== Vitals: - - - - - - - B/P: 150/72 (10/12/2023 10:19) BP 118/70 pulse: 59 (10/12/2023 10:19) resp: 16 (10/12/2023 10:19) temp: 97.6 F [36.4 C] (09/05/2022 13:53) Ht: 61.024 in [155.0 cm] (10/12/2023 10:19) Wgt: 93 lb [42.18 kg] (10/12/2023 10:19) BMI: BMI: 17.6 Exam: - - - - - - - General: A&O x 3, no acute distress, normal affect and mood Neck: normal thyroid, normal carotids- no bruits CV: RRR S1S2, no murmur Resp: LCTA bilat, no wheezing, rales or rhonchi Neuro: grossly intact, no visible tremor, normal memory and speech Extremities: normal movement of extremities, normal gait, normal strength minimal LE edema L>R ==== RECENT LABS ==== CHEM 7 Results Collection DT Spec Sodium K+/Pot CL CO2 GLUCOSE BUN 10/05/2023 14:52 SERUM 125 L 4.1 93 L 23 97 22 09/01/2022 11:02 SERUM 137 4.3 107 21 89 32 H 09/01/2021 10:19 SERUM 140 4.1 107 24 87 40 H LIVER PANEL TREND Collection DT Spec AST ALT T BILI ALK BRAYDON T. PROT ALBUMIN 10/05/2023 14:52 SERUM 20 14 0.4 61 6.7 4.0 09/01/2022 11:02 SERUM 18 14 0.4 33 L 6.8 4.1 09/01/2021 10:19 SERUM 16 12 0.3 33 L 7.2 4.0 LIPID PANEL TREND Collection DT Spec CHOL HDL CHO/HDL LDL-c TRIG 10/05/2023 14:52 SERUM 176 63 H 2.8 104 44 09/01/2022 11:02 SERUM 179 64 H 2.8 104 54 09/01/2021 10:19 SERUM 185 63 H 2.9 112 48 CBC TREND Collection DT Spec WBC RBC HGB HCT MCV MCH PLT 10/05/2023 14:52 BLOOD 6.27 3.37 L 10.5 L 30.2 L 89.6 31.2 228 09/01/2022 11:02 BLOOD 6.71 3.45 L 11.0 L 33.1 L 95.9 31.9 206 09/01/2021 10:19 BLOOD 7.75 3.59 L 11.6 L 35.3 L 98.3 32.3 226 HEMOGLOBIN A1C TREND Collection DT Spec HGBA1c 10/05/2023 14:52 BLOOD 5.4 09/01/2022 11:02 BLOOD 5.3 09/01/2021 10:19 BLOOD 5.4 06/22/2020 09:06 BLOOD 5.5 ==== ASSESSMENT AND PLAN ==== Active problems - Computerized Problem List is the source for the followin. Anemia 2. Hypokalemia- on relacement 3. Osteoporosis right hip fracture, ORIF 05/2015. previously on forteo. now on fosamax and vitamin D 4. Hyponatremia - recent Na was 125. had not been eating or drinking well. some signs of CHF with LE edmea. here PCP placed her on furosemide and repeat Na improved to 131. only has 1 week of furosemide. she hopes that with better eating, drinking she will nto need furosemide 5. Hypertension (SNOMED CT [id number])- imroved with repeat 6. GERD 7. Gastric Ulcer GI bleed 06/2001 8. bereavement- of 62 years of pancreatic cancer after 1 year of decline. Had hospice involvement. Here community PCP has gotten her in touch with a therapist ==== FOLLOW UP ==== f/u in 6 months VISIT TYPE: a HIGH complexity visit where over 60 minutes was spent in direct patient care, review of records and documentation. Upcoming Appointments: No future appointments /josie/ Harleen BALDWINOMeet PHYSICIAN Signed: 10/12/2023 13:07 ZENOBIA VALDIVIA [facility]
[2024-08-18 14:03] LABS: MANUAL DIFF FLAG NO
[2024-08-18 14:07] LABS: Basophils Absolute Auto 0.1 X10*3/uL (0.0-0.2); Basophils Percent Auto 0.8 % (0-2); Eosinophils Absolute Auto 0.4 X10*3/uL (0.0-0.4); Eosinophils Percent Auto 4.4 % (0-4); Hematocrit 33.2 % (37.0-47.0); Hemoglobin 10.9 g/dl (12.0-16.0); Imm Gran Abs Auto 0.02 X10*3/uL (0.00-0.03); Imm Gran Pct Auto 0.2 % (0.0-0.4); Lymphocytes Absolute Auto 2.3 X10*3/uL (1.2-4.9); Lymphocytes Percent Auto 26.7 % (20-40); Mean Corpuscular HGB Conc 32.8 g/dl (31.0-35.0); Mean Corpuscular Hemoglobin 31.9 pg (27.0-33.0); Mean Corpuscular Volume 97.1 fL (80.0-98.0); Mean Platelet Volume 9.2 fL (9.4-12.3); Neutrophils Absolute Auto 4.9 x10*3/uL (2.0-8.3); Neutrophils Percent Auto 56.9 % (45-73); Platelet Count 207 X10*3/uL (160-400); Red Blood Count 3.42 X10*6/uL (4.20-5.50); Red Cell Distribution Width 13.3 % (11.0-16.0); White Blood Count 8.6 X10*3/uL (4.8-10.8)
[2024-08-18 14:36] LABS: Anion Gap 15 (12-20)
[2024-08-18 14:49] LABS: Alanine Aminotransferase 20 U/L (0-31); Albumin Level 4.4 g/dL (3.5-5.0); Alkaline Phosphatase 58 U/L (39-117); Aspartate Amino Transferase 29 U/L (5-31); Bilirubin Total 0.3 mg/dL (0.0-1.0); Blood Urea Nitrogen 51 mg/dL (9-16); Calcium 9.8 mg/dL (8.4-10.2); Carbon Dioxide 24 mmol/L (22-29); Chloride 106 mmol/L (96-108); Estimated Glomerular Filt Rate 38; Glucose Fasting 87 mg/dL (60-99); Iron 74 mcg/dL (30-160); Percent Iron Saturation 38 % (15-50); Potassium 4.1 mmol/L (3.3-5.1); Sodium 141 mmol/L (135-145); Total Iron Binding Capacity 197 mcg/dL (228-428); Total Protein 7.8 g/dL (6.5-8.0); Unsaturated Iron Binding 123 ug/dL
== END 2024-08-18 12:08 | disposition home or self-care (01) ==
LOC: HO.HMGCLDS 12:07
PROVIDERS: PCP Internal Medicine; Visit Provider Surgery Vascular Surgery
DX: N18.30 Chronic kidney disease, stage 3 unspecified (principal); D64.9 Anemia, unspecified; I10 Essential (primary) hypertension; Z86.39 Personal history of other endocrine, nutritional and metabolic disease
CPT/HCPCS: 36415; 80053; 83540; 85025

== ENCOUNTER 2024-08-22 08:26 | Outpatient (REF) | payer MEDICARE, SELFPAY ==
--- NOTE | ~2024-08-22 | CT_ITS ---
CLINICAL HISTORY: I65.23 - Occlusion and stenosis of bilateral carotid arteries CT angiography neck with contrast. 3D Postprocessing. Comparison: CT/SR - CT ANGIO HEAD NECK - 02/27/24 23:30 EDT Findings: Aortic arch and cervical great vessels are patent. Atherosclerosis calcification of the bilateral carotid bulbs of the cavernous segment of the internal carotid arteries. There is less than 50% stenoses of the bilateral proximal internal carotid artery above the bifurcation. 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 Visualized intracranial arteries are patent. No aneurysm, dissection, or occlusion. The visualized thyroid gland is unremarkable. No cervical mass or fluid collection. Lung apices clear. No acute fracture. IMPRESSION: Patent neck CTA. Less than 50% stenosis of the bilateral proximal internal carotid artery. 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 This document has been electronically signed by: Mirela Fraser MD on 08/25/2024 20:55:43
--- OUTSIDE RECORDS SUMMARY | 2024-08-22 08:41 | XMS_ITS ---
Author Organization [facility] Address [address] [place] [address] Care Team Providers Care Urgent Care Name Role Phone Clarice Ziegler MD Primary Care Provider Daisy Perry [phone] Encounters Encounter Location Date Provider Diagnosis [address] [address] 08/12/2024 Daisy Villarreal Plan Of Treatment Next Appt Details Provider Name:Daisy marcial, 09/16/2024 01:30:00 PM, [address] [place], [address], Progress Notes * Iraida SHEEHANDOB:1935 (89 yo F)Acc No.[id number]:08/12/2024 Progress Note Patient:?Iraida SHEEHAN Provider:?Daisy Villarreal DPM :1935???Age:89 Y???Sex:Female D ate:08/12/2024 Address:[address] [place] [address] [id number] Pcp:Clarice Ziegler MD Subjective: * Chief Complaints: * ??? * Medical History:? Objective: * Vitals:? Assessment: Plan: * Treatment: * Images: * The named appointment provid er may or may not be the originator of this progress note, and it is not deemed complete until electronically signed by the appointment provider. Sign off status: Pending * Provider:?Daisy Villarreal DPM Date:? Generated for Karli vargas/Yarelis/Neetu on:?08/22/2024 08:41 AM EST
--- OUTSIDE RECORDS SUMMARY | 2024-08-22 08:42 | XMS_ITS ---
Author Organization [facility] Address [address] [place] [address] Care Team Providers Care Behavioral Health Care Manager Name Role Phone Clarice Ziegler MD Primary Care Provider Daisy Perry Unavailable [phone] REASON FOR VISIT rs 08/12 appt to 09/16 Encounters Encounter Location Date Provider Diagnosis [facility] [address] 06/27/2024 Daisy Villarreal Plan Of Treatment Next Appt Details Provider Name:Daisy marcial, 09/16/2024 01:30:00 PM, [address] [place], [address], Progress Notes * Iraida SHEEHANDOB:1935 (88 yo F)Acc No.[id number]:06/27/2024 Patient:?Iraida Sheehan :1935???Age:88 Y???Sex:Female Address:[address] [facility] [place] [address] * true * Date:? Generated for Printi ng/Faxing/eTransmitting on:?08/22/2024 08:41 AM EST
--- OUTSIDE RECORDS SUMMARY | 2024-08-22 08:42 | XMS_ITS | Continuity of Care Document ---
Author Name [facility] Organization [facility] Care Team Providers Care Chief Security And Safety Officer Name Role Phone [facility] Unavailable Unavailable Problems Combined list of problems [...] [facility] Hypertension (SNOMED CT [id number]) [facility] [...] A WEEK ORAL ACTIVE FURCOLO,T MIAN 2023 [facility] ASCORBIC ACID 500MG TAB TAKE ONE TABLET BY MOUTH ONCE DAILY ORAL ACTIVE Ian DUGAN ICOLE 2019 [facility] ATENOLOL 25MG TAB TAKE ONE TABLET BY MOUTH ONCE DAILY ORAL ACTIVE Ian DUGAN ICOLE 2018 [facility] CALCIUM 250MG/VITAM IN D 125UNIT TAB TAKE BY MOUTH ORAL ACTIVE ZASHIN,LY NN S [facility] FERROUS SO4 325MG TAB TAKE ONE TABLET BY MOUTH ONCE DAILY ORAL ACTIVE KIRCHEN,N ICOLE 2019 [facility] FUROSEMIDE 20MG TAB TAKE ONE TABLET BY MOUTH ONCE DAILY ORAL ACTIVE FURCOLO,T MIAN 2023 [facility] MAGNESIUM GLUCONATE TAB TAKE BY MOUTH ORAL ACTIVE ZASHIN,LY NN S 2011 [facility] MULTIVITAMI NS W/MINERALS TAB TAKE ONE TABLET BY MOUTH ORAL ACTIVE ZASHIN,LY NN S 2011 [facility] POLYETHYLEN E GLYCOL 3350 POWDER,ORAL TAKE BY MOUTH PRN ORAL ACTIVE ZASHIN,LY NN S 2013 [facility] POTASSIUM CHLORIDE 20MEQ TAB,SA (DISPERSIBL E) TAKE ONE TABLET BY MOUTH ONCE DAILY ORAL ACTIVE FURCOLO,T MIAN 2023 [facility] SERTRALINE HCL 50MG TAB TAKE ONE-HALF TABLET BY MOUTH ONCE DAILY ORAL ACTIVE FURCOLO,T MIAN 2023 [facility] VITAMIN B COMPLEX CAP TAKE 1 CAPSULE BY MOUTH ONCE DAILY ORAL ACTIVE KIRSERGIO,N ICOLE 2022 [facility] Allergies, Adverse Reactions, Alerts Combined list of allergies from Department of Defense and Veterans Affairs facilities. It does not include entries that were removed or entered in error. Substance Category Reaction Severity Reaction type Status Date Reported Comments Source CODEINE Propensity to adverse reactions to drug (finding) Nausea and vomiting active 2 [facility] DEMEROL Propensity to adverse reactions to drug (finding) active 4 [facility] PENICILLIN Propensity to adverse reactions to drug (finding) Anaphylaxis active 2 [facility] SULFA DRUGS Propensity to adverse reactions to drug (finding) Anaphylaxis active 2 [facility] Immunizations Combined list of available immunizations from the Department of Defense and Veterans Affairs facilities. 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 Ordering Provider: FREYA VALDIVIA Report Released Date/Time: Oct 03, 2023 03:06 PM Reporting Lab: [facility] [place] [facility] [address] [facility] [address] Performing Lab: [facility] [place] [facility] [address] [facility] [address] [facility] [place] [facility] IRON & TIBC PANEL IRON [MASS/VOLUM E] IN SERUM OR PLASMA 55 ug/dL 40 - 160 10/05 Specimen Type: SERUM No comment entered. Ordering Provider: FREYA VALDIVIA Report Released Date/Time: Oct 03, 2023 03:06 PM Reporting Lab: [facility] [place] [facility] [address] [facility] [facility] [address] Performing Lab: [facility] [place] [facility] [address] [facility] [address] [facility] IRON & TIBC PANEL IRON/IRON BINDING CAPACITY.TO JOVANA [MASS RATIO] IN SERUM OR PLASMA 23.3 20.0 - 50.0 10/05 Specimen Type: SERUM No comment entered. Ordering Provider: FREYA VALDIVIA Report Released Date/Time: Oct 03, 2023 03:06 PM Reporting Lab: [facility] [address] Performing Lab: [facility] [address] [facility] VITAMIN B12 COBALAMIN (VITAMIN B12) [MASS/VOLUM E] IN SERUM OR PLASMA >2000p g/mL 200 - 900 10/05 H Specimen Type: SERUM No comment entered. Ordering Provider: FREYA VALDIVIA Report Released Date/Time: Oct 03, 2023 03:06 PM Reporting Lab: [facility] [address] Performing Lab: [address] [address] [facility] CBC LEUKOCYTES [#/VOLUME] IN BLOOD BY AUTOMATED COUNT 6.27 10*3/u L 4.50 - 11.00 10/05 Specimen Type: BLOOD No comment entered. Ordering Provider: FREYA VALDIVIA Report Released Date/Time: Oct 03, 2023 03:06 PM Reporting Lab: [facility] [address] Performing Lab: [facility] [address] [facility] CBC ERYTHROCYTE S [#/VOLUME] IN BLOOD BY AUTOMATED COUNT 3.37 10*6/u L 3.93 - 5.16 10/05 L Specimen Type: BLOOD No comment entered. Ordering Provider: FREYA VALDIVIA Report Released Date/Time: Oct 03, 2023 03:06 PM Reporting Lab: [facility] [place] [facility] [address] [facility] [address] Performing Lab: [facility] [place] [facility] [address] [facility] [address] [facility] [place] [facility] CBC HEMOGLOBIN [MASS/VOLUM E] IN BLOOD 10.5 g/dL 12 - 15.2 10/05 L Specimen Type: BLOOD No comment entered. Ordering Provider: FREYA VALDIVIA Report Released Date/Time: Oct 03, 2023 03:06 PM Reporting Lab: [facility] [place] [facility] [address] [facility] [address] Performing Lab: [facility] [place] [facility] [address] [facility] [address] [facility] [place] [facility] CBC HEMATOCRIT [VOLUME FRACTION] OF BLOOD BY AUTOMATED COUNT 30.2 36.6 - 45.6 10/05 L Specimen Type: BLOOD No comment entered. Ordering Provider: FREYA VALDIVIA Report Released Date/Time: Oct 03, 2023 03:06 PM Reporting Lab: [facility] [place] [facility] [address] [facility] [address] Performing Lab: [facility] [place] [facility] [address] [facility] [address] [facility] [place] [facility] CBC MCV [ENTITIC VOLUME] BY AUTOMATED COUNT 89.6 fL 82 - 99 10/05 Specimen Type: BLOOD No comment entered. Ordering Provider: FREYA VALDIVIA Report Released Date/Time: Oct 03, 2023 03:06 PM Reporting Lab: [facility] [place] [facility] [address] [facility] [address] Performing Lab: [facility] [place] [facility] [address] [facility] [address] [facility] [place] [facility] CBC MCHC [MASS/VOLUM E] BY AUTOMATED COUNT 34.8 g/dL 30.8 - 35.1 10/05 Specimen Type: BLOOD No comment entered. Ordering Provider: FREYA VALDIVIA Report Released Date/Time: Oct 03, 2023 03:06 PM Reporting Lab: [facility] [place] [facility] [address] [facility] [address] Performing Lab: [facility] [place] [facility] [address] [facility] [address] [facility] [place] [facility] CBC PLATELETS [#/VOLUME] IN BLOOD BY AUTOMATED COUNT 228 10*3/u L 140 - 360 10/05 Specimen Type: BLOOD No comment entered. Ordering Provider: FREYA VALDIVIA Report Released Date/Time: Oct 03, 2023 03:06 PM Reporting Lab: [facility] [place] [facility] [address] [facility] [address] Performing Lab: [facility] [place] [facility] [address] [facility] [address] [facility] [place] [facility] CBC ERYTHROCYTE DISTRIBUTIO N WIDTH [RATIO] BY AUTOMATED COUNT 12.7 12.0 - 16.0 10/05 Specimen Type: BLOOD No comment entered. Ordering Provider: FREYA VALDIVIA Report Released Date/Time: Oct 03, 2023 03:06 PM Reporting Lab: [facility] [place] [facility] [address] [facility] [address] Performing Lab: [facility] [place] [facility] [address] [facility] [address] [facility] [place] [facility] CBC MCH [ENTITIC MASS] BY AUTOMATED COUNT 31.2 pg 26.2 - 32.6 10/05 Specimen Type: BLOOD No comment entered. Ordering Provider: FREYA VALDIVIA Report Released Date/Time: Oct 03, 2023 03:06 PM Reporting Lab: [facility] [place] [facility] [address] [facility] [address] Performing Lab: [facility] [place] [address] [address] [facility] [place] [facility] VITAMIN D (25-OH) 25-HYDROXYV ITAMIN D3 [MASS/VOLUM E] IN SERUM OR PLASMA 75 ng/mL 20 - 50 10/05 H Specimen Type: SERUM No comment entered. Ordering Provider: FREYA VALDIVIA Report Released Date/Time: Oct 03, 2023 03:06 PM Reporting Lab: [address] [address] Performing Lab: [facility]OSPITALRCITIZENS BAPTISTN [facility]USE[address] [address] [facility] FERRITIN FERRITIN [MASS/VOLUM E] IN SERUM OR PLASMA 616 ng/mL 10 - 200 10/05 H Specimen Type: SERUM No comment entered. Ordering Provider: FREYA VALDIVIA Report Released Date/Time: Oct 03, 2023 03:06 PM Reporting Lab: [address] [address] Performing Lab: [facility] [address] [address] [facility] MAGNESIUM MAGNESIUM [MASS/VOLUM E] IN SERUM OR PLASMA 1.7 mg/dL 1.6 - 2.6 10/05 Specimen Type: SERUM No comment entered. Ordering Provider: FREYA VALDIVIA Report Released Date/Time: Oct 03, 2023 03:06 PM Reporting Lab: [facility] [address] [address] Performing Lab: [facility] [address] [address] [facility] HEMOGLOBI N A1C PANEL HEMOGLOBIN A1C/HEMOGLO [...] Oct 03, 2023 03:06 PM Reporting Lab: [address] [place] [address] Performing Lab: [facility]ITALUSE[facility] [address] [facility] [address] [facility] TSH THYROTROPIN [UNITS/VOLU ME] IN SERUM OR PLASMA 1.90 u[IU]/ mL 0.35 - 5.00 10/05 Specimen Type: SERUM No comment entered. Ordering Provider: FREYA VALDIVIA Report Released Date/Time: Oct 03, 2023 03:06 PM Reporting Lab: [facility] [address] [facility] [address] Performing Lab: [facility] [address] [facility] [address] [facility] BASIC METABOLIC PANEL (non-fast ing) UREA NITROGEN [MASS/VOLUM E] IN SERUM OR PLASMA 22 mg/dL 7 - 25 10/05 Specimen Type: SERUM No comment entered. Ordering Provider: FREYA VALDIVIA Report Released Date/Time: Oct 03, 2023 03:06 PM Reporting Lab: [facility] [address] [facility] [address] Performing Lab: [facility] [address] [address] [facility] BASIC METABOLIC PANEL (non-fast ing) GLUCOSE [MASS/VOLUM E] IN SERUM OR PLASMA 97 mg/dL 65 - 100 10/05 Specimen Type: SERUM No comment entered. Ordering Provider: FREYA VALDIVIA Report Released Date/Time: Oct 03, 2023 03:06 PM Reporting Lab: [facility] [address] [facility] [address] Performing Lab: [facility] [address] [address] [facility] BASIC METABOLIC PANEL (non-fast ing) SODIUM [MOLES/VOLU ME] IN SERUM OR PLASMA 125 mmol/L 135 - 145 10/05 L Specimen Type: SERUM No comment entered. Ordering Provider: FREYA VALDIVIA Report Released Date/Time: Oct 03, 2023 03:06 PM Reporting Lab: [facility] [place] [facility] [address] [facility] [address] Performing Lab: [facility] [place] [facility] [address] [facility] [address] [facility] [place] [facility] BASIC METABOLIC PANEL (non-fast ing) POTASSIUM [MOLES/VOLU ME] IN SERUM OR PLASMA 4.1 mmol/L 3.5 - 5.0 10/05 Specimen Type: SERUM No comment entered. Ordering Provider: FREYA VALDIVIA Report Released Date/Time: Oct 03, 2023 03:06 PM Reporting Lab: [facility] [place] [address] [address] Performing Lab: [facility] [place] [address] [address] [facility]ITALUSE [facility] BASIC METABOLIC PANEL (non-fast ing) CHLORIDE [MOLES/VOLU ME] IN SERUM OR PLASMA 93 mmol/L 100 - 110 10/05 L Specimen Type: SERUM No comment entered. Ordering Provider: FREYA VALDIVIA Report Released Date/Time: Oct 03, 2023 03:06 PM Reporting Lab: [facility] [place] [facility] [address] [facility] [address] Performing Lab: [facility] [place] [address] [address] [facility] [place] [facility] BASIC METABOLIC PANEL (non-fast ing) CARBON DIOXIDE, TOTAL [MOLES/VOLU ME] IN SERUM OR PLASMA 23 meq/L 20 - 30 10/05 Specimen Type: SERUM No comment entered. Ordering Provider: FREYA VALDIVIA Report Released Date/Time: Oct 03, 2023 03:06 PM Reporting Lab: [facility] [place] [facility] [address] [facility] [address] Performing Lab: [facility] [place] [address] [address] [facility] [place] [facility] BASIC METABOLIC PANEL (non-fast ing) CREATININE [MASS/VOLUM E] IN SERUM OR PLASMA 0.86 mg/dL 0.50 - 1.40 10/05 Specimen Type: SERUM No comment entered. Ordering Provider: FREYA VALDIVIA Report Released Date/Time: Oct 03, 2023 03:06 PM Reporting Lab: [facility] [place] [facility] [address] [facility] [address] Performing Lab: [facility] [place] [facility] [address] [facility] [address] [facility] [place] [facility] BASIC METABOLIC PANEL (non-fast ing) GLOMERULAR FILTRATION RATE/1.73 SQ M.PREDICTED [VOLUME RATE/AREA] IN SERUM, PLASMA OR BLOOD BY CREATININE- BASED FORMULA (CKD-EPI 2020) 65 mL/min 60 10/05 Specimen Type: SERUM No comment entered. Ordering Provider: FREYA VALDIVIA Report Released Date/Time: Oct 03, 2023 03:06 PM Reporting Lab: [facility] [place] [facility] [address] [facility] [address] Performing Lab: [facility] [place] [facility] [address] [facility] [address] [facility] [place] [facility] Vital Signs Combined list of inpatient and outpatient Vital Signs from Department of Defense and Veterans Affairs, ranging from 12 months to all on record, depending upon the facility. Vital Sign Value Date Comments Source SYSTOLIC BLOOD PRESSURE 150 10/12/19 24 10:19:48 [facility] [place] [facility] DIASTOLIC BLOOD PRESSURE 72 2 024 10:19:48 [facility] [place] [facility] WEIGHT 93 10/12/2023 10:19:48 [facility] [place] [facility] BMI 18kg/m2 10/12/2023 10:19:48 [facility] [place] [facility] PAIN 1 10/12/2023 10:19:48 [facility] [place] [facility] HEIGHT 61.024 10/12/2023 10:19:48 [facility] [place] [facility] PULSE 59 10/12/2023 10:19:48 [facility] [id number] 04/27 [facility] En[facility] [id number] 08/30 [facility] En[facility] [id number] 09/14 [facility] En[facility] [id number] 09/17 [facility] En[facility] [id number] 09/17 [facility] En[facility] [id number] 10/02 [facility] En[facility] [id number] 10/08 [facility] OFFICE O/P EST HI 40 MIN [id number] Diagnos is: ICD-10- CM E87.6 Hypokal emia
FURCOLO,TI NA 10/12 [facility] Social History Combined list of available smoking, tobacco, and other social history from Department of Defense and Veterans Affairs facilities. Social History Type Response Date Comment Sour e Tobacco smoking status NHIS VA-TOBACCO NEVER USED 09/17/2023 [facility] [place] [facility] History of tobacco use AL-TOBACCO NEVER USED 09/05/2022 [facility] [place] [facility] History of tobacco use AL-TOBACCO NEVER USED 09/07/20[facility] [place] [facility] History of tobacco use AL-TOBACCO NEVER USED 06/29/2020 [facility] [place] [facility] History of tobacco use LIFETIME NON-TOBACCO USER 04/24/2018 [facility] [facility] History of tobacco use LIFETIME NON-TOBACCO USER 01/19/2017 [facility] [place] [facility] History of tobacco use LIFETIME NON-TOBACCO USER 04/01/2012 [facility] [place] [facility]
--- OUTSIDE RECORDS SUMMARY | 2024-08-22 08:42 | XMS_ITS ---
Author Organization [facility] Address [address] [place] [address] Care Team Providers Care Customer Operations Intern Name Role Phone Clarice Ziegler MD Primary Care Provider Daisy Perry Unavailable [phone] REASON FOR VISIT BUY 3 lg Toe Buddies / Lg Left Crest Pad Encounters Encounter Location Date Provider Diagnosis [facility] [address] [place] [address] 05/28/2024 Daisy Villrareal Plan Of Treatment Next Appt Details Provider Name:Daisy marcial, 09/16/2024 01:30:00 PM, [address] [place], [address], Progress Notes * Iraida SHEEHANDOB:1935 (88 yo F)Acc No.[id number]:05/28/2024 Patient:?Iraida Sheehan :1935???Age:88 Y???Sex:Female Address:[address] [facility] [address] * true * Date:? Generated for Printi ng/Fadelmarg/eTransmitting on:?08/22/2024 08:41 AM EST
--- OUTSIDE RECORDS SUMMARY | 2024-08-22 08:42 | XMS_ITS | Patient Health Record ---
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) Active confirmed Problem 619692682 Hammertoe of right foot (M20.41) Active confirmed Problem 654473904533723 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 Problem 10539677241057648 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) Active confirmed Vital Signs Blood pressure diastolic 60 mm Hg 03/11/2024 Height 5 ft 1 in in 05/28/2024 Blood pressure systolic 115 mm Hg 03/11/2024 Weight 93 lbs 05/28/2024 BMI 17.57 kg/m2 05/28/2024 Encounters Encounter Location Date Provider Diagnosis [address] [address] 10/03/2023 Daisy Perica Hallux valgus (acquired), left foot M20.12 ; Atherosclerosis of artery of both lower extremities I70.203 ; Hammer toe of left foot M20.42 ; Hammertoe of right foot M20.41 ; Tinea unguium B35.1 ; Pain in left toe(s) M79.675 and Pain in right toe(s) M79.[address] [address] 03/11/2024 Daisy Perica Hallux valgus (acquired), left foot M20.12 ; Hammer toe of left foot M20.42 ; Atherosclerosis of artery of both lower extremities I70.203 ; Hammertoe of right foot M20.41 ; Tinea unguium B35.1 ; Pain in left toe(s) M79.675 and Pain in right toe(s) M79.[address] [address] 05/28/2024 Daisy Perica Hallux valgus (acquired), left foot M20.12 ; Hammer toe of left foot M20.42 ; Atherosclerosis of artery of both lower extremities I70.203 ; Hammertoe of right foot M20.41 ; Tinea unguium B35.1 ; Pain in left toe(s) M79.675 and Pain in right toe(s) M79.674 [facility] [place] [address] [place] [address] 12/17/2023 Daisy Perica [facility] [address] [address] 03/11/2024 Daisy Perica [facility] [address] [address] 04/01/2024 Daisy Perica [facility] [address] [address] 05/06/2024 Daisy Perica [facility] [address] [address] 05/28/2024 Daisy Perica [address] [address] 06/27/2024 Daisy Villarreal Assessments Encounter Date Diagnosis [...] Provider Name:Daisy marcial, 09/16/2024 01:30:00 PM, [address] [place], [address], Insurance Providers Payer Name Payer Address Payer Phone Subscriber Number Group Number Insured Name Patient Relationship to Insured Coverage Start Date Coverage End Date Medicare National Govt Sv[employer] [address] [place] [address] [id number] Iraida Cantor Self - patient is the insured [employer] [facility] [address] [place] [address] [phone] [id number] Iraida Cantor Self - patient is the [...] aneurysm Hospitalization History Reason Date(Month/Year) fall at [employer] went to ER ER C- dizzy , high blood pressure 11/17
[2024-08-22] MEDS: iohexoL 350 MG/ML 100 ML INFUS..BTL IV (09:44)
[2024-08-25 07:45] LABS: Creatinine POC 1.1 mg/dL (0.5-1.4); GFR POC 52
== END 2024-08-22 08:27 | disposition home or self-care (01) ==
LOC: HO.CT 08:26
PROVIDERS: PCP Internal Medicine; Visit Provider Surgery Vascular Surgery
DX: I65.23 Occlusion and stenosis of bilateral carotid arteries (principal)
CPT/HCPCS: 70498; 82565; Q9967

== ENCOUNTER → 2024-08-22 08:28 | Outpatient (BNV) | payer MEDICARE, SELFPAY | PROVIDERS: PCP Internal Medicine; Visit Provider Nuclear Medicine | DX: I65.23 Occlusion and stenosis of bilateral carotid arteries (principal) | CPT/HCPCS: 70498 ==

== ENCOUNTER 2024-09-09 10:24 | Outpatient (AMB) | payer MEDICARE, SELFPAY ==
[2024-09-09 10:26] VITALS: BMI 18.2
--- NOTE | 2024-09-09 10:26 | MHC.OFFVIS ---
Vital Signs 09/09/24 10:26 Height 5 ft Weight 93 lb BMI 18.2 Intake Visit Reasons: follow up s/p Neck CTA 08/25/24 Intake Note: follow up CTA Neck 08/22/24. Pt states she has not had any dizzy spells since February 2024 and is not taking any medication for it. No complaints Accompanied by: Self / Same As Patient Allergies meperidine [From Demerol] Allergy (Severe, Verified 09/09/24 10:31) ANAPHYLAXIS Penicillins Allergy (Severe, Verified 09/09/24 10:31) HIVES Sulfa (Sulfonamide Antibiotics) [Sulfa (Sulfonamides)] Allergy (Mild, Verified 09/09/24 10:31) HIVES amoxicillin Allergy (Unknown, Verified 09/09/24 10:) hives CHOCOLATE Allergy (Unknown, Verified 09/09/24 10:) HIVES peanut [PEANUT] Allergy (Unknown, Verified 09/09/24 10:) HIVES penicillin G Allergy (Unknown, Verified 09/09/24 10:31) trouble breathing rash penicillin V Allergy (Unknown, Verified 09/09/24 10:31) trouble breathing rash codeine [Codeine] Adverse Reaction (Mild, Verified 09/09/24 10:31) NAUSEA/VOMITING pravastatin Adverse Reaction (Unknown, Verified 09/09/24 10:) body aches HPI HPI follow up s/p Neck CTA 08/25/24: Details: Very pleasant 89-year-old female presents for follow-up regarding a carotid pseudo aneurysm. This all began back in February of 2023 where she had some headaches and vertigo. It had started in November of last year and subsequently got to a point where she presented to the emergency room. At that point she had a workup which was concerning for FMD and intimal flap or narrowing. She has been doing relatively well since that time. She has had no other interval issues. And appears in general better spirits. Around that time last year she unfortunately had lost her . [facility] Medical History CKD (chronic kidney disease) stage 3, GFR 30-59 ml/min Vitamin D deficiency Chronic anemia History of SIADH Osteoporosis HTN (hypertension) Surgical History History of left shoulder replacement History of hysterectomy History of fundoplication History of cataract History of colonoscopy History of open reduction and internal fixation (ORIF) procedure History of appendectomy Family History Father History of CVA (cerebrovascular accident) Stroke Mother CVD (cardiovascular disease) History of heart attack Son No problems noted. Sister Substance use disorder Social History Housing: House Alcohol intake: never Patient Tobacco Use Status: Never used Tobacco e-Cigarette/Vaping Use: Never Used Advance Directives Date on File: 03/28/23 service: No Current occupational status: retired Cognitive needs: No Hearing needs: No Vision needs: Yes Review of Systems Const All systems reviewed & are unremarkable except as noted in HPI and below Reports no additional complaints ENT Reports Normal hearing present Card Denies chest pain, Denies chest pain at rest, Denies chest pain with activity and Denies pedal edema Resp Denies cough GI Denies abdominal pain Musc Denies abnormal gait, Denies muscle cramps and Denies radiating pain into limb Skin/Breast Denies skin ulcer and Denies wounds Neuro Reports Normal hearing present and Denies abnormal gait Psych Reports no additional complaints Physical Exam Vital Signs: BMI result Body Mass Index 18.2 Const General: cooperative, healthy appearing and comfortable Orientation/consciousness: oriented to person, oriented to place and oriented to time HEENT Head: Yes normal to inspection Neck Neck: Yes normal visual inspection Carotids: no bruits Chest Chest palpation & inspection: normal inspection of the chest Resp Effort & Inspection: normal respiratory effort and able to speak in complete sentences Auscultation: clear to auscultation bilaterally, no crackles, no rales, no rhonchi and no wheezes Cardio Rate: regular rate Rhythm: regular rhythm Heart sounds: S1 normal heart sound present and S2 normal heart sound present Bruits: no carotid bruits Peripheral pulses: Peripheral pulses 2+ throughout GI Inspection: Yes normal to inspection Skin Wounds: no wounds Hair: normal Neuro General: oriented to person, oriented to place and oriented to time Cranial nerves: Yes CN's II-XII intact bilaterally and Yes Normal hearing present Cognition (Neuro): normal cognition Motor exam (neuro): 5/5 motor strength present throughout Extrem Other: venous exam: No significant superficial varicosities or spider telangiectasias, minimal edema General: No clubbing, No cyanosis and No edema Psych Appearance: grossly normal Mental Status: mental status grossly normal Speech and movement: Normal speech and movement present Results Reviewed Results Reviewed: CT angiogram of the neck demonstrates bilateral less than 50% stenosis. There is in the distal right cervical internal carotid a question of a 3 mm pseudo aneurysm along the anterior wall but it appears to be stable to prior studies. Assessment & Plan Assessment & Plan (1) Carotid stenosis, bilateral: Code(s): I65.23 - Occlusion and stenosis of bilateral carotid arteries Category: Medical Plan: In short carotids appear to be stable. She has no other interval findings. Due to her overall age and status would not intervene should there be even any positive findings. She is in agreement and happy that there is no issues at the current time. She does not require any follow-up with us. Should there be any issues in the future happy to see her back. We wish her the best of luck. Thank you for allowing us to assist in her care. Coding Level of Care Code Est Pt Level 4 (52665) Diagnoses Carotid stenosis, bilateral I65.23
--- OUTSIDE RECORDS SUMMARY | 2024-09-09 12:02 | XMS_ITS ---
Author Organization [facility] Address [address] [place] [address] Care Team Providers Care Registered Radiologic Technologist Name Role Phone Clarice Ziegler MD Primary Care Provider Daisy Perry Unavailable [phone] REASON FOR VISIT rs 08/12 appt to 09/16 Encounters Encounter Location Date Provider Diagnosis [facility] [address] 06/27/2024 Daisy Villarreal Plan Of Treatment Next Appt Details Provider Name:Daisy marcial, 09/16/2024 01:30:00 PM, [address] [place], [address], Progress Notes * Iraida SHEEHANDOB:1935 (88 yo F)Acc No.[id number]:06/27/2024 Patient:?Iraida Sheehan :1935???Age:88 Y???Sex:Female Address:[address] [facility] [place] [address] * true * Date:? Generated for Printi ng/Faxing/eTransmitting on:?09/09/2024 12:02 PM EST
--- OUTSIDE RECORDS SUMMARY | 2024-09-09 12:02 | XMS_ITS ---
Author Organization [facility] Address [address] [place] [address] Care Team Providers Care Ice Guard Inspector Name Role Phone Clarice Ziegler MD Primary Care Provider Daisy Perry [phone] Encounters Encounter Location Date Provider Diagnosis [address] [address] 08/12/2024 Daisy Villarreal Plan Of Treatment Next Appt Details Provider Name:Daisy marcial, 09/16/2024 01:30:00 PM, [address] [place], [address], Progress Notes * Iraida SHEEHANDOB:1935 (89 yo F)Acc No.[id number]:08/12/2024 Progress Note Patient:?Iraida SHEEHAN Provider:?Daisy Villarreal DPM :1935???Age:89 Y???Sex:Female D ate:08/12/2024 Address:[address] [place] [address] [id number] Pcp:Clarice Ziegler MD Subjective: * Chief Complaints: [...] Villarreal DPM Date:? Generated for Karli vargas/Yarelis/Neetu on:?09/09/2024 12:02 PM EST
--- OUTSIDE RECORDS SUMMARY | 2024-09-09 12:03 | XMS_ITS ---
Author Organization [facility] Address [address] [place] [address] Care Team Providers Care Councillor [employer] Name Role Phone Clarice Ziegler MD Primary Care Provider Diasy Perry Unavailable [phone] REASON FOR VISIT BUY 3 lg Toe Buddies / Lg Left Crest Pad Encounters Encounter Location Date Provider Diagnosis [facility] [address] [place] [address] 05/28/2024 Daisy Villarreal Plan Of Treatment Next Appt Details Provider Name:Daiys marcial, 09/16/2024 01:30:00 PM, [address] [place], [address], Progress Notes * Iraida SHEEHANDOB:1935 (88 yo F)Acc No.[id number]:05/28/2024 Patient:?Iraida Sheehan :1935???Age:88 Y???Sex:Female Address:[address] [facility] [place] [address] * true * Date:? Generated for Printi ng/Fadelmarg/eTransmitting on:?09/09/2024 12:02 PM EST
--- OUTSIDE RECORDS SUMMARY | 2024-09-09 12:03 | XMS_ITS | Patient Health Record ---
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) Active confirmed Problem 622541621 Hammertoe of right foot (M20.41) Active confirmed Problem 659432176213269 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 Problem 30528747081353398 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) Active confirmed Vital Signs Blood pressure diastolic 60 mm Hg 03/11/2024 Height 5 ft 1 in in 05/28/2024 Blood pressure systolic 115 mm Hg 03/11/2024 Weight 93 lbs 05/28/2024 BMI 17.57 kg/m2 05/28/2024 Encounters Encounter Location Date Provider Diagnosis [address] [address] 10/03/2023 Daisy Perica Hallux valgus (acquired), left foot M20.12 ; Atherosclerosis of artery of both lower extremities I70.203 ; Hammer toe of left foot M20.42 ; Hammertoe of right foot M20.41 ; Tinea unguium B35.1 ; Pain in left toe(s) M79.675 and Pain in right toe(s) M79.[address] [address] 03/11/2024 Daisy Perica Hallux valgus (acquired), left foot M20.12 ; Hammer toe of left foot M20.42 ; Atherosclerosis of artery of both lower extremities I70.203 ; Hammertoe of right foot M20.41 ; Tinea unguium B35.1 ; Pain in left toe(s) M79.675 and Pain in right toe(s) M79.[address] [address] 05/28/2024 Daisy Perica Hallux valgus (acquired), left foot M20.12 ; Hammer toe of left foot M20.42 ; Atherosclerosis of artery of both lower extremities I70.203 ; Hammertoe of right foot M20.41 ; Tinea unguium B35.1 ; Pain in left toe(s) M79.675 and Pain in right toe(s) M79.674 [facility] [address] [place] [address] 12/17/2023 Daisy Perica [facility] [address] [address] 03/11/2024 Daisy Perica [facility] [address] [address] 04/01/2024 Daisy Perica [facility] [address] [address] 05/06/2024 Daisy Perica [facility] [address] [address] 05/28/2024 Daisy Perica [address] [address] 06/27/2024 Daisy Villarreal Assessments Encounter Date Diagnosis [...] Provider Name:Daisy marcial, 09/16/2024 01:30:00 PM, [address] [place], [address], Insurance Providers Payer Name Payer Address Payer Phone Subscriber Number Group Number Insured Name Patient Relationship to Insured Coverage Start Date Coverage End Date Medicare National Govt Svcs Inc [address] [place] [address] [id number] Iraida Cantor Self - patient is the insured Medex Blue [facility] [address] [place] [address] [id number] Iraida Cantor Self - patient is the [...] aneurysm Hospitalization History Reason Date(Month/Year) fall at [employer] went to ER ER C- dizzy , high blood pressure 11/17
--- OUTSIDE RECORDS SUMMARY | 2024-09-09 12:03 | XMS_ITS | Continuity of Care Document ---
Author Name [facility] Organization [facility] Care Team Providers Care Waredresser Name Role Phone [facility] Unavailable Unavailable Problems Combined list of problems [...] [facility] [place] [facility] Hypertension (SNOMED CT [id number]) [facility] [place] [facility] [...] A WEEK ORAL ACTIVE FURCOLO,T MIAN 2023 [facility] [place] ASCORBIC ACID 500MG TAB TAKE ONE TABLET BY MOUTH ONCE DAILY ORAL ACTIVE Ian DUGAN ICOLE 2019 [facility] [place] ATENOLOL 25MG TAB TAKE ONE TABLET BY MOUTH ONCE DAILY ORAL ACTIVE Ian DUGAN ICOLE 2018 [facility] [place] [facility] CALCIUM 250MG/VITAM IN D 125UNIT TAB TAKE BY MOUTH ORAL ACTIVE ZASHIN,LY NN S 2013 [facility] FERROUS SO4 325MG TAB TAKE ONE TABLET BY MOUTH ONCE DAILY ORAL ACTIVE KIRCHEN,N ICOLE 2019 [facility] FUROSEMIDE 20MG TAB TAKE ONE TABLET BY MOUTH ONCE DAILY ORAL ACTIVE FURCOLO,T MIAN 2023 [facility] MAGNESIUM GLUCONATE TAB TAKE BY MOUTH ORAL ACTIVE ZASHIN,LY NN S 2011 [facility] MULTIVITAMI NS W/MINERALS TAB TAKE ONE TABLET BY MOUTH ORAL ACTIVE ZASHIN,LY NN S 2011 [facility] POLYETHYLEN E GLYCOL 3350 POWDER,ORAL TAKE BY MOUTH PRN ORAL ACTIVE ZASHIN,LY NN S 2013 [facility] POTASSIUM CHLORIDE 20MEQ TAB,SA (DISPERSIBL E) TAKE ONE TABLET BY MOUTH ONCE DAILY ORAL ACTIVE FURCOLO,T MIAN 2023 [facility] SERTRALINE HCL 50MG TAB TAKE ONE-HALF TABLET BY MOUTH ONCE DAILY ORAL ACTIVE FURCOLO,T MIAN 2023 [facility] VITAMIN B COMPLEX CAP TAKE 1 CAPSULE BY MOUTH ONCE DAILY ORAL ACTIVE KIRSERGIO,N ICOLE 2022 [facility] Allergies, Adverse Reactions, Alerts Combined list of allergies from Department of Defense and Veterans Affairs facilities. It does not include entries that were removed or entered in error. Substance Category Reaction Severity Reaction type Status Date Reported Comments Source CODEINE Propensity to adverse reactions to drug (finding) Nausea and vomiting active 2 [facility] [place] DEMEROL Propensity to adverse reactions to drug (finding) active 4 [facility] [place] [facility] PENICILLIN Propensity to adverse reactions to drug (finding) Anaphylaxis active 2 [facility] SULFA DRUGS Propensity to adverse reactions to drug (finding) Anaphylaxis active 2 [facility] Immunizations Combined list of available immunizations from the Department of Defense and Veterans Affairs facilities. Immunization Series Date Given Administered By Site Reaction Lot Number CVX Code Drug Inside Channel Account Manager Status Comments Source INFLUENZA, UNSPECIFIED FORMULATION 2022 [...] Oct 03, 2023 03:06 PM Reporting Lab: [facility] [place] [facility] [address] [facility] [address] Per[facility]: [facility] [facility] [address] [facility] [address] [facility] IRON & TIBC PANEL IRON BINDING CAPACITY [MASS/VOLUM E] IN SERUM OR PLASMA 236 ug/dL 204 - 475 10/05 Specimen Type: SERUM No comment entered. Ordering Provider: FREYA VALDIVIA Report Released Date/Time: Oct 03, 2023 03:06 PM Reporting Lab: [facility] [place] [facility] [address] [facility] [address] Per[facility] Lab: [facility] [place] [facility] [address] [facility] [facility] [address] [facility] [place] [facility] IRON & TIBC PANEL IRON [MASS/VOLUM E] IN SERUM OR PLASMA 55 ug/dL 40 - 160 10/05 Specimen Type: SERUM No comment entered. Ordering Provider: FREYA VALDIVIA Report Released Date/Time: Oct 03, 2023 03:06 PM Reporting Lab: [facility] [place] [facility] [address] [facility] [facility] [address] Performing Lab: [facility] [place] [facility] [address] [facility] [facility] [address] [facility] IRON & TIBC PANEL IRON/IRON BINDING CAPACITY.TO JOVANA [MASS RATIO] IN SERUM OR PLASMA 23.3 20.0 - 50.0 10/05 Specimen Type: SERUM No comment entered. Ordering Provider: FREYA VALDIVIA Report Released Date/Time: Oct 03, 2023 03:06 PM Reporting Lab: [facility] [address] Performing Lab: [facility] [address] [facility] VITAMIN B12 COBALAMIN (VITAMIN B12) [MASS/VOLUM E] IN SERUM OR PLASMA >2000p g/mL 200 - 900 10/05 H Specimen Type: SERUM No comment entered. Ordering Provider: FREYA VALDIVIA Report Released Date/Time: Oct 03, 2023 03:06 PM Reporting Lab: [facility] [address] Performing Lab: [address] [address] [facility] CBC LEUKOCYTES [#/VOLUME] IN BLOOD BY AUTOMATED COUNT 6.27 10*3/u L 4.50 - 11.00 10/05 Specimen Type: BLOOD No comment entered. Ordering Provider: FREYA VALDIVIA Report Released Date/Time: Oct 03, 2023 03:06 PM Reporting Lab: [facility] [address] Performing Lab: [facility] [address] [facility] CBC ERYTHROCYTE S [#/VOLUME] IN BLOOD BY AUTOMATED COUNT 3.37 10*6/u L 3.93 - 5.16 10/05 L Specimen Type: BLOOD No comment entered. Ordering Provider: FREYA VALDIVIA Report Released Date/Time: Oct 03, 2023 03:06 PM Reporting Lab: [facility] [place] [facility] [address] [address] Performing Lab: [facility] [place] [facility] [address] [facility] [address] [facility] [place] [facility] CBC HEMOGLOBIN [MASS/VOLUM E] IN BLOOD 10.5 g/dL 12 - 15.2 10/05 L Specimen Type: BLOOD No comment entered. Ordering Provider: FREYA VALDIVIA Report Released Date/Time: Oct 03, 2023 03:06 PM Reporting Lab: [facility] [place] [facility] [address] [facility] [address] Performing Lab: [facility] [place] [facility] [address] [facility] [address] [facility] [place] [facility] CBC HEMATOCRIT [VOLUME FRACTION] OF BLOOD BY AUTOMATED COUNT 30.2 36.6 - 45.6 10/05 L Specimen Type: BLOOD No comment entered. Ordering Provider: FREYA VALDIVIA Report Released Date/Time: Oct 03, 2023 03:06 PM Reporting Lab: [facility] [place] [facility] [address] [facility] [facility] [address] Performing Lab: [facility] [place] [facility] [address] [address] [facility] [place] [facility] CBC MCV [ENTITIC VOLUME] BY AUTOMATED COUNT 89.6 fL 82 - 99 10/05 Specimen Type: BLOOD No comment entered. Ordering Provider: FREYA VALDIVIA Report Released Date/Time: Oct 03, 2023 03:06 PM Reporting Lab: [facility] [place] [facility] [address] [facility] [facility] [address] Performing Lab: [facility] [place] [facility] [address] [facility] [facility] [address] [facility] [place] [facility] CBC MCHC [MASS/VOLUM E] BY AUTOMATED COUNT 34.8 g/dL 30.8 - 35.1 10/05 Specimen Type: BLOOD No comment entered. Ordering Provider: FREYA VALDIVIA Report Released Date/Time: Oct 03, 2023 03:06 PM Reporting Lab: [facility] [place] [facility] [address] [facility] [address] Performing Lab: [facility] [place] [facility] [address] [facility] [address] [facility] [place] [facility] CBC PLATELETS [#/VOLUME] IN BLOOD BY AUTOMATED COUNT 228 10*3/u L 140 - 360 10/05 Specimen Type: BLOOD No comment entered. Ordering Provider: FREYA VALDIVIA Report Released Date/Time: Oct 03, 2023 03:06 PM Reporting Lab: [facility] [place] [facility] [address] [facility] [facility] [address] Performing Lab: [facility] [place] [facility] [address] [facility] [address] [facility] [place] [facility] CBC ERYTHROCYTE DISTRIBUTIO N WIDTH [RATIO] BY AUTOMATED COUNT 12.7 12.0 - 16.0 10/05 Specimen Type: BLOOD No comment entered. Ordering Provider: FREYA VALDIVIA Report Released Date/Time: Oct 03, 2023 03:06 PM Reporting Lab: [facility] [place] [facility] [address] [facility] [facility] [address] Performing Lab: [facility] [place] [facility] [address] [address] [facility] [place] [facility] CBC MCH [ENTITIC MASS] BY AUTOMATED COUNT 31.2 pg 26.2 - 32.6 10/05 Specimen Type: BLOOD No comment entered. Ordering Provider: FREYA VALDIVIA Report Released Date/Time: Oct 03, 2023 03:06 PM Reporting Lab: [facility] [place] [facility] [address] [facility] [facility] [address] Performing Lab: [facility] [place] [address] [address] [facility] [place] [facility] VITAMIN D (25-OH) 25-HYDROXYV ITAMIN D3 [MASS/VOLUM E] IN SERUM OR PLASMA 75 ng/mL 20 - 50 10/05 H Specimen Type: SERUM No comment entered. Ordering Provider: FREYA VADLIVIA Report Released Date/Time: Oct 03, 2023 03:06 PM Reporting Lab: [address] [address] Performing Lab: [facility]ITAL[facility] [address] [facility] FERRITIN FERRITIN [MASS/VOLUM E] IN SERUM OR PLASMA 616 ng/mL 10 - 200 10/05 H Specimen Type: SERUM No comment entered. Ordering Provider: FREYA VALDIVIA Report Released Date/Time: Oct 03, 2023 03:06 PM Reporting Lab: [address] [address] Performing Lab: [facility] [address] [address] [facility] MAGNESIUM MAGNESIUM [MASS/VOLUM E] IN SERUM OR PLASMA 1.7 mg/dL 1.6 - 2.6 10/05 Specimen Type: SERUM No comment entered. Ordering Provider: FREYA VALDIVIA Report Released Date/Time: Oct 03, 2023 03:06 PM Reporting Lab: [facility] [address] [address] Performing Lab: [facility] [address] [address] [facility] HEMOGLOBI N A1C PANEL HEMOGLOBIN A1C/HEMOGLO [...] Oct 03, 2023 03:06 PM Reporting Lab: [address] [place] [address] Performing Lab: [facility]ITALUSEN[facility] [address] [address] [facility] TSH THYROTROPIN [UNITS/VOLU ME] IN SERUM OR PLASMA 1.90 u[IU]/ mL 0.35 - 5.00 10/05 Specimen Type: SERUM No comment entered. Ordering Provider: FREYA VALDIVIA Report Released Date/Time: Oct 03, 2023 03:06 PM Reporting Lab: [facility] [address] [address] Performing Lab: [facility] [address] [facility] [address] [facility] BASIC METABOLIC PANEL (non-fast ing) UREA NITROGEN [MASS/VOLUM E] IN SERUM OR PLASMA 22 mg/dL 7 - 25 10/05 Specimen Type: SERUM No comment entered. Ordering Provider: FREYA VALDIVIA Report Released Date/Time: Oct 03, 2023 03:06 PM Reporting Lab: [facility] [address] [facility] [facility] [address] Performing Lab: [facility] [address] [address] [facility] BASIC METABOLIC PANEL (non-fast ing) GLUCOSE [MASS/VOLUM E] IN SERUM OR PLASMA 97 mg/dL 65 - 100 10/05 Specimen Type: SERUM No comment entered. Ordering Provider: FREYA VALDIVIA Report Released Date/Time: Oct 03, 2023 03:06 PM Reporting Lab: [facility] [address] [facility] [facility] [address] Performing Lab: [facility] [address] [address] [facility] BASIC METABOLIC PANEL (non-fast ing) SODIUM [MOLES/VOLU ME] IN SERUM OR PLASMA 125 mmol/L 135 - 145 10/05 L Specimen Type: SERUM No comment entered. Ordering Provider: FREYA VALDIVIA Report Released Date/Time: Oct 03, 2023 03:06 PM Reporting Lab: [facility] [place] [facility] [address] [facility] [facility] [address] Performing Lab: [facility] [place] [facility] [address] [facility] [facility] [address] [facility] [place] [facility] BASIC METABOLIC PANEL (non-fast ing) POTASSIUM [MOLES/VOLU ME] IN SERUM OR PLASMA 4.1 mmol/L 3.5 - 5.0 10/05 Specimen Type: SERUM No comment entered. Ordering Provider: FREYA VALIDVIA Report Released Date/Time: Oct 03, 2023 03:06 PM Reporting Lab: [facility] [place] [address] [address] Performing Lab: [facility] [place] [address] [address] [facility] BASIC METABOLIC PANEL (non-fast ing) CHLORIDE [MOLES/VOLU ME] IN SERUM OR PLASMA 93 mmol/L 100 - 110 10/05 L Specimen Type: SERUM No comment entered. Ordering Provider: FREYA VALDIVIA Report Released Date/Time: Oct 03, 2023 03:06 PM Reporting Lab: [facility] [place] [facility] [address] [facility] [facility] [address] Performing Lab: [facility] [place] [address] [address] [facility] [place] [facility] BASIC METABOLIC PANEL (non-fast ing) CARBON DIOXIDE, TOTAL [MOLES/VOLU ME] IN SERUM OR PLASMA 23 meq/L 20 - 30 10/05 Specimen Type: SERUM No comment entered. Ordering Provider: FREYA VALDIVIA Report Released Date/Time: Oct 03, 2023 03:06 PM Reporting Lab: [facility] [place] [facility] [address] [facility] [address] Performing Lab: [facility] [place] [address] [address] [facility] [place] [facility] BASIC METABOLIC PANEL (non-fast ing) CREATININE [MASS/VOLUM E] IN SERUM OR PLASMA 0.86 mg/dL 0.50 - 1.40 10/05 Specimen Type: SERUM No comment entered. Ordering Provider: FREYA VALDIVIA Report Released Date/Time: Oct 03, 2023 03:06 PM Reporting Lab: [facility] [place] [facility] [address] [facility] [facility] [address] Performing Lab: [facility] [place] [facility] [address] [facility] [facility] [address] [facility] [place] [facility] BASIC METABOLIC PANEL (non-fast ing) GLOMERULAR FILTRATION RATE/1.73 SQ M.PREDICTED [VOLUME RATE/AREA] IN SERUM, PLASMA OR BLOOD BY CREATININE- BASED FORMULA (CKD-EPI 2020) 65 mL/min 60 10/05 Specimen Type: SERUM No comment entered. Ordering Provider: FREYA VALDIVIA Report Released Date/Time: Oct 03, 2023 03:06 PM Reporting Lab: [facility] [place] [facility] [address] [facility] [facility] [address] Performing Lab: [facility] [place] [facility] [address] [facility] [facility] [address] [facility] [place] [facility] Vital Signs Combined list of inpatient and outpatient Vital Signs from Department of Defense and Veterans Affairs, ranging from 12 months to all on record, depending upon the facility. Vital Sign Value Date Comments Source SYSTOLIC BLOOD PRESSURE 150 10/12/19 24 10:19:48 [facility] [place] [facility] DIASTOLIC BLOOD PRESSURE 72 2 024 10:19:48 [facility] [place] [facility] WEIGHT 93 10/12/2023 10:19:48 [facility] [place] [facility] BMI 18kg/m2 10/12/2023 10:19:48 [facility] [place] [facility] PAIN 1 10/12/2023 10:19:48 [facility] [place] [facility] HEIGHT 61.024 10/12/2023 10:19:48 [facility] [place] [facility] PULSE 59 10/12/2023 10:19:48 [facility] [...] [facility] [place] [facility] [id number] 04/27 [facility] [place] En[facility] [id number] 08/30 [facility] [place] En[facility] [id number] 09/14 [facility] [place] [place] En[facility] [id number] 09/17 [facility] [place] En[facility] [id number] 09/17 [facility] [place] En[facility] [id number] 10/02 [facility] En[facility] [id number] 10/08 [facility] [place] OFF[facility] O/P EST HI 40 MIN [id number] Diagnos is: ICD-10- CM E87.6 Hypokal emia
FURCOLO,TI NA 10/12 [facility] [place] Social History Combined list of available smoking, tobacco, and other social history from Department of Defense and Veterans Affairs facilities. Social History Type Response Date Comment Sour e Tobacco smoking status NHIS VA-TOBACCO NEVER USED 09/17/2023 [facility] [place] [facility] History of tobacco use ID-TOBACCO NEVER USED 09/05/2022 [facility] [place] [facility] History of tobacco use ID-TOBACCO NEVER USED [facility] [place] [facility] History of tobacco use ID-TOBACCO NEVER USED 06/29/2020 [facility] [place] [facility] History of tobacco use LIFETIME NON-TOBACCO USER 04/24/2018 [facility] [place] [facility] History of tobacco use LIFETIME NON-TOBACCO USER 01/19/2017 [facility] [place] [facility] History of tobacco use LIFETIME NON-TOBACCO USER 04/01/2012 [facility] [place] [facility]
== END 2024-09-09 10:59 | disposition home or self-care (01) ==
PROVIDERS: PCP Internal Medicine; Visit Provider Surgery Vascular Surgery
DX: I65.23 Occlusion and stenosis of bilateral carotid arteries (principal)
CPT/HCPCS: 99214

== ENCOUNTER 2024-09-09 10:57 | Outpatient (REF) | payer MEDICARE, SELFPAY ==
[2024-09-09 12:37] LABS: Anion Gap 10 (12-20); Blood Urea Nitrogen 43 mg/dL (9-16); Calcium 9.9 mg/dL (8.4-10.2); Carbon Dioxide 27 mmol/L (22-29); Chloride 105 mmol/L (96-108); Estimated Glomerular Filt Rate 33; Glucose Random 83 mg/dL (60-115); Potassium 4.5 mmol/L (3.3-5.1); Sodium 137 mmol/L (135-145)
--- OUTSIDE RECORDS SUMMARY | 2024-09-09 13:01 | XMS_ITS | Continuity of Care Document ---
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 Name Role Phone [facility] Unavailable Unavailable Problems Combined list of problems [...] [facility] [place] [facility] Hypertension (SNOMED CT [id number]) [facility] [place] [facility] [...] A WEEK ORAL ACTIVE FURCOLO,T MIAN 2023 [facility] ASCORBIC ACID 500MG TAB TAKE ONE TABLET BY MOUTH ONCE DAILY ORAL ACTIVE Ian DUGAN ICOLE 2019 [facility] ATENOLOL 25MG TAB TAKE ONE TABLET BY MOUTH ONCE DAILY ORAL ACTIVE Ian DUGAN ICOLE 2018 [facility] [place] CALCIUM 250MG/VITAM IN D 125UNIT TAB TAKE BY MOUTH ORAL ACTIVE ZASHIN,LY NN S [facility] FERROUS SO4 325MG TAB TAKE ONE TABLET BY MOUTH ONCE DAILY ORAL ACTIVE KIRCHEN,N ICOLE 2019 [facility] FUROSEMIDE 20MG TAB TAKE ONE TABLET BY MOUTH ONCE DAILY ORAL ACTIVE FURCOLO,T MIAN 2023 [facility] MAGNESIUM GLUCONATE TAB TAKE BY MOUTH ORAL ACTIVE ZASHIN,LY NN S 2011 [facility] MULTIVITAMI NS W/MINERALS TAB TAKE ONE TABLET BY MOUTH ORAL ACTIVE ZASHIN,LY NN S 2011 [facility] POLYETHYLEN E GLYCOL 3350 POWDER,ORAL TAKE BY MOUTH PRN ORAL ACTIVE ZASHIN,LY NN S 2013 [facility] POTASSIUM CHLORIDE 20MEQ TAB,SA (DISPERSIBL E) TAKE ONE TABLET BY MOUTH ONCE DAILY ORAL ACTIVE FURCOLO,T MIAN 2023 [facility] SERTRALINE HCL 50MG TAB TAKE ONE-HALF TABLET BY MOUTH ONCE DAILY ORAL ACTIVE FURCOLO,T MIAN 2023 [facility] VITAMIN B COMPLEX CAP [...] drug (finding) Nausea and vomiting active 2 [facility] DEMEROL Propensity to adverse reactions to drug (finding) active 4 [facility] PENICILLIN Propensity to adverse reactions to drug (finding) Anaphylaxis active 2 [facility] SULFA DRUGS Propensity to adverse reactions to drug (finding) Anaphylaxis active 2 [facility] Immunizations Combined list of available immunizations from the Department of Defense and Veterans Affairs facilities. 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 Ordering Provider: FREYA VALDIVIA Report Released Date/Time: Oct 03, 2023 03:06 PM Reporting Lab: [facility] [address] [facility] [address] Performing Lab: [facility] [place] [facility] [address] [facility] [address] [facility] BASIC METABOLIC PANEL (non-fast ing) GLUCOSE [MASS/VOLUM E] IN SERUM OR PLASMA 97 mg/dL 65 - 100 10/05 Specimen Type: SERUM No comment entered. Ordering Provider: FREYA VALDIVIA Report Released Date/Time: Oct 03, 2023 03:06 PM Reporting Lab: [facility] [place] [facility] [address] [facility] [address] Performing Lab: [facility] [place] [facility] [address] [facility] [address] [facility] [place] [facility] BASIC METABOLIC PANEL (non-fast ing) SODIUM [MOLES/VOLU ME] IN SERUM OR PLASMA 125 mmol/L 135 - 145 10/05 L Specimen Type: SERUM No comment entered. Ordering Provider: FREYA VALDIVIA Report Released Date/Time: Oct 03, 2023 03:06 PM Reporting Lab: [facility] [address] [facility] [address] Performing Lab: [facility] [address] [facility] [address] [facility] BASIC METABOLIC PANEL (non-fast ing) POTASSIUM [MOLES/VOLU ME] IN SERUM OR PLASMA 4.1 mmol/L 3.5 - 5.0 10/05 Specimen Type: SERUM No comment entered. Ordering Provider: FREYA VALDIVIA Report Released Date/Time: Oct 03, 2023 03:06 PM Reporting Lab: [facility] [address] [facility] [address] Performing Lab: [facility] [address] [address] [facility] BASIC METABOLIC PANEL (non-fast ing) CHLORIDE [MOLES/VOLU ME] IN SERUM OR PLASMA 93 mmol/L 100 - 110 10/05 L Specimen Type: SERUM No comment entered. Ordering Provider: FREYA VALDIVIA Report Released Date/Time: Oct 03, 2023 03:06 PM Reporting Lab: [address] [address] Performing Lab: [facility] [address] [address] [facility] BASIC METABOLIC PANEL (non-fast ing) CARBON DIOXIDE, TOTAL [MOLES/VOLU ME] IN SERUM OR PLASMA 23 meq/L 20 - 30 10/05 Specimen Type: SERUM No comment entered. Ordering Provider: FREYA VALDIVIA Report Released Date/Time: Oct 03, 2023 03:06 PM Reporting Lab: [facility] [address] [address] Performing Lab: [facility] [address] [address] [facility] BASIC METABOLIC PANEL (non-fast ing) CREATININE [MASS/VOLUM E] IN SERUM OR PLASMA 0.86 mg/dL 0.50 - 1.40 10/05 Specimen Type: SERUM No comment entered. Ordering Provider: FREYA VALDIVIA Report Released Date/Time: Oct 03, 2023 03:06 PM Reporting Lab: [place] [facility] [place] [address] [address] Performing Lab: [place] [facility] [place] [address] [address] [place] [facility] [place] [facility] BASIC METABOLIC PANEL (non-fast ing) GLOMERULAR FILTRATION RATE/1.73 SQ M.PREDICTED [VOLUME RATE/AREA] IN SERUM, PLASMA OR BLOOD BY CREATININE- BASED FORMULA (CKD-EPI 2020) 65 mL/min 60 10/05 Specimen Type: SERUM No comment entered. Ordering Provider: FREYA VALDIVIA Report Released Date/Time: Oct 03, 2023 03:06 PM Reporting Lab: [place] [facility] [address] Performing Lab: [place] [facility] [address] [address] [facility] CBC LEUKOCYTES [#/VOLUME] IN BLOOD BY AUTOMATED COUNT 6.27 10*3/u L 4.50 - 11.00 10/05 Specimen Type: BLOOD No comment entered. Ordering Provider: FREYA VALDIVIA Report Released Date/Time: Oct 03, 2023 03:06 PM Reporting Lab: [facility] [address] [address] Performing Lab: [place] [facility] [address] [address] [facility]N [facility] CBC ERYTHROCYTE S [#/VOLUME] IN BLOOD BY AUTOMATED COUNT 3.37 10*6/u L 3.93 - 5.16 10/05 L Specimen Type: BLOOD No comment entered. Ordering Provider: FREYA VALDIVIA Report Released Date/Time: Oct 03, 2023 03:06 PM Reporting Lab: [facility] [address] [address] Performing Lab: [place] [facility] [address] [place] [facility] [place] [facility] CBC HEMOGLOBIN [MASS/VOLUM E] IN BLOOD 10.5 g/dL 12 - 15.2 10/05 L Specimen Type: BLOOD No comment entered. Ordering Provider: FREYA VALDIVIA Report Released Date/Time: Oct 03, 2023 03:06 PM Reporting Lab: [facility] [place] [facility] [address] [facility] [address] Performing Lab: [facility] [place] [facility] [address] [facility] [address] [place] [facility] [place] [facility] CBC HEMATOCRIT [VOLUME FRACTION] OF BLOOD BY AUTOMATED COUNT 30.2 36.6 - 45.6 10/05 L Specimen Type: BLOOD No comment entered. Ordering Provider: FREYA VALDIVIA Report Released Date/Time: Oct 03, 2023 03:06 PM Reporting Lab: [place] [facility] [place] [facility] [address] [facility] [address] Performing Lab: [place] [facility] [place] [facility] [address] [facility] [address] [place] [facility] [place] [facility] CBC MCV [ENTITIC VOLUME] BY AUTOMATED COUNT 89.6 fL 82 - 99 10/05 Specimen Type: BLOOD No comment entered. Ordering Provider: FERYA VALDIVIA Report Released Date/Time: Oct 03, 2023 03:06 PM Reporting Lab: [facility] [place] [address] [address] Performing Lab: [facility] [place] [facility] [address] [facility] [address] [place] [facility] [place] [facility] CBC MCHC [MASS/VOLUM E] BY AUTOMATED COUNT 34.8 g/dL 30.8 - 35.1 10/05 Specimen Type: BLOOD No comment entered. Ordering Provider: FREYA VALDIVIA Report Released Date/Time: Oct 03, 2023 03:06 PM Reporting Lab: [facility] [place] [address] [address] Performing Lab: [facility] [place] [address] [address] [place] [facility] [place] [facility] CBC PLATELETS [#/VOLUME] IN BLOOD BY AUTOMATED COUNT 228 10*3/u L 140 - 360 10/05 Specimen Type: BLOOD No comment entered. Ordering Provider: FREYA VALDIVIA Report Released Date/Time: Oct 03, 2023 03:06 PM Reporting Lab: [facility] [place] [facility] [address] [facility] [address] Performing Lab: [facility] [place] [facility] [address] [facility] [address] [place] [facility] [place] [facility] CBC ERYTHROCYTE DISTRIBUTIO N WIDTH [RATIO] BY AUTOMATED COUNT 12.7 12.0 - 16.0 10/05 Specimen Type: BLOOD No comment entered. Ordering Provider: FREYA VALDIVIA Report Released Date/Time: Oct 03, 2023 03:06 PM Reporting Lab: [place] [facility] [place] [facility] [address] [facility] [address] Performing Lab: [place] [facility] [place] [facility] [address] [facility] [address] [place] [facility] [place] [facility] CBC MCH [ENTITIC MASS] BY AUTOMATED COUNT 31.2 pg 26.2 - 32.6 10/05 Specimen Type: BLOOD No comment entered. Ordering Provider: FREYA VALDIVIA Report Released Date/Time: Oct 03, 2023 03:06 PM Reporting Lab: [facility] [place] [facility] [address] [facility] [address] Performing Lab: [facility] [place] [facility] [address] [facility] [address] [place] [facility] [place] [facility] FERRITIN FERRITIN [MASS/VOLUM E] IN SERUM OR PLASMA 616 ng/mL 10 - 200 10/05 H Specimen Type: SERUM No comment entered. Ordering Provider: FREYA VALDIVIA Report Released Date/Time: Oct 03, 2023 03:06 PM Reporting Lab: [place] [facility] [place] [address] [address] Performing Lab: [place] [facility] [place] [facility] [address] [facility] [address] [facility] FOLATE FOLATE [MASS/VOLUM E] IN SERUM OR PLASMA 18.02 ng/mL 5.2 10/05 Specimen Type: SERUM No comment entered. Ordering Provider: FREYA VALDIVIA Report Released Date/Time: Oct 03, 2023 03:06 PM Reporting Lab: [facility]N [facility] [address] [facility] [address] Performing Lab: [facility]RL [facility]N [facility]ITALUSETS [facility] [address] [facility] [address] [facility] HEMOGLOBI N A1C PANEL HEMOGLOBIN A1C/HEMOGLO [...] Oct 03, 2023 03:06 PM Reporting Lab: [facility] [address] [facility] [address] Performing Lab: [facility] [address] [facility] [address] [facility] IRON & TIBC PANEL IRON BINDING CAPACITY [MASS/VOLUM E] IN SERUM OR PLASMA 236 ug/dL 204 - 475 10/05 Specimen Type: SERUM No comment entered. Ordering Provider: FREYA VALDIVIA Report Released Date/Time: Oct 03, 2023 03:06 PM Reporting Lab: [facility]ITALUSEN[facility] [address] [facility] [address] Performing Lab: [facility]ITALUSEN[facility] [address] [facility] [address] [facility] IRON & TIBC PANEL IRON [MASS/VOLUM E] IN SERUM OR PLASMA 55 ug/dL 40 - 160 10/05 Specimen Type: SERUM No comment entered. Ordering Provider: FREYA VALDIVIA Report Released Date/Time: Oct 03, 2023 03:06 PM Reporting Lab: [facility] [address] [facility] [address] Performing Lab: [facility]ITAL[facility]EN[facility] [address] [facility] [address] [facility] IRON & TIBC PANEL IRON/IRON BINDING CAPACITY.TO JOVANA [MASS RATIO] IN SERUM OR PLASMA 23.3 20.0 - 50.0 10/05 Specimen Type: SERUM No comment entered. Ordering Provider: FREYA VALDIVIA Report Released Date/Time: Oct 03, 2023 03:06 PM Reporting Lab: [address] [address] Performing Lab: [address] [address] [facility] MAGNESIUM MAGNESIUM [MASS/VOLUM E] IN SERUM OR PLASMA 1.7 mg/dL 1.6 - 2.6 10/05 Specimen Type: SERUM No comment entered. Ordering Provider: FREYA VALDIVIA Report Released Date/Time: Oct 03, 2023 03:06 PM Reporting Lab: [address] [address] Performing Lab: [facility] [address] [facility] TSH THYROTROPIN [UNITS/VOLU ME] IN SERUM OR PLASMA 1.90 u[IU]/ mL 0.35 - 5.00 10/05 Specimen Type: SERUM No comment entered. Ordering Provider: FREYA VALDIVIA Report Released Date/Time: Oct 03, 2023 03:06 PM Reporting Lab: [address] [address] Performing Lab: [address] [place] [address] [facility] VITAMIN B12 COBALAMIN (VITAMIN B12) [MASS/VOLUM E] IN SERUM OR PLASMA >2000p g/mL 200 - 900 10/05 H Specimen Type: SERUM No comment entered. Ordering Provider: FREYA VALDIVIA Report Released Date/Time: Oct 03, 2023 03:06 PM Reporting Lab: [facility] [place] [address] [facility] [address] Performing Lab: [facility] [place] [facility] [address] [facility] [address] [facility] [place] VITAMIN D (25-OH) 25-HYDROXYV ITAMIN D3 [MASS/VOLUM E] IN SERUM OR PLASMA 75 ng/mL 20 - 50 10/05 H Specimen Type: SERUM No comment entered. Ordering Provider: FREYA VALDIVIA Report Released Date/Time: Oct 03, 2023 03:06 PM Reporting Lab: [facility] [place] [facility] [address] [facility] [address] Performing Lab: [facility] [place] [facility] [address] [facility] [address] [facility] [place] [facility] Vital Signs Combined list of inpatient and outpatient Vital Signs from Department of Defense and Veterans Affairs, ranging from 12 months to all on record, depending upon the facility. Vital Sign Value Date Comments Source SYSTOLIC BLOOD PRESSURE 150 10/12/19 24 10:19:48 [facility] [place] [facility] DIASTOLIC BLOOD PRESSURE 72 024 10:19:48 [facility] WEIGHT 93 10/12/2023 10:19:48 [facility] BMI 18kg/m2 10/12/2023 10:19:48 [facility] PAIN 1 10/12/2023 10:19:48 [facility] HEIGHT 61.024 10/12/2023 10:19:48 [facility] [place] PULSE 59 10/12/2023 10:19:48 [facility] [place] [place] [id number] 04/27 [facility] En[facility] [id number] 08/30 [facility] En[facility] [id number] 09/14 [facility] En[facility] [id number] 09/17 [facility] En[facility] [id number] 09/17 [facility] En[facility] [id number] 10/02 [facility] En[facility] [id number] 10/08 [facility] OFF[place]/P EST HI 40 MIN [id number] Diagnos is: ICD-10- CM E87.6 Hypokal emia
FURCOLO,TI NA 10/12 [facility] Social History Combined list of available smoking, tobacco, and other social history from Department of Defense and Veterans Affairs facilities. Social History Type Response Date Comment Sour e Tobacco smoking status NHIS VA-TOBACCO NEVER USED 09/17/2023 [facility] [place] [facility] History of tobacco use WI-TOBACCO NEVER USED 09/05/2022 [facility] [place] [facility] History of tobacco use WI-TOBACCO NEVER USED 09/07[facility]2021 [facility] [place] [facility] History of tobacco use WI-TOBACCO NEVER USED 06/29/2020 [facility] [place] [facility] History of tobacco use LIFETIME NON-TOBACCO USER 04/24/2018 [facility] [place] [facility] History of tobacco use LIFETIME NON-TOBACCO USER 01/19/2017 [facility] [place] [facility] History of tobacco use LIFETIME NON-TOBACCO USER 04/01/2012 [facility] [place] [facility]
== END 2024-09-09 10:58 | disposition home or self-care (01) ==
LOC: HO.LAB 10:57
PROVIDERS: PCP Internal Medicine; Visit Provider Internal Medicine
DX: E87.1 Hypo-osmolality and hyponatremia (principal); I65.23 Occlusion and stenosis of bilateral carotid arteries; Z98.62 Peripheral vascular angioplasty status
CPT/HCPCS: 36415; 80048; 99212

== ENCOUNTER 2024-09-17 09:12 | Outpatient (AMB) | payer MEDICARE, SELFPAY ==
--- NOTE | 2024-09-17 10:04 | MHC.PC.OV ---
Vital Signs 09/17/24 10:05 Height 5 ft Weight 94 lb BMI 18.4 BP 108/66 Blood Pressure Location Lt brachial Position Sitting Pulse 59 Pulse Source Pulse Oximeter Pulse Oximetry (%) 99 Oxygen Delivery Method Room Air Intake Visit Reasons: 3 months f/up Intake Note: Pt is here today for 3 months follow up visit. Pt states that she would like to have her ears checked. Pt would like to to start PT again. Allergies meperidine [From Demerol] Allergy (Severe, Verified 09/17/24 10:08) ANAPHYLAXIS Penicillins Allergy (Severe, Verified 09/17/24 10:08) HIVES Sulfa (Sulfonamide Antibiotics) [Sulfa (Sulfonamides)] Allergy (Mild, Verified 09/17/24 10:08) HIVES amoxicillin Allergy (Unknown, Verified 09/17/24 10:08) hives CHOCOLATE Allergy (Unknown, Verified 09/17/24 10:08) HIVES peanut [PEANUT] Allergy (Unknown, Verified 09/17/24 10:08) HIVES penicillin G Allergy (Unknown, Verified 09/17/24 10:08) trouble breathing rash penicillin V Allergy (Unknown, Verified 09/17/24 10:08) trouble breathing rash codeine [Codeine] Adverse Reaction (Mild, Verified 09/17/24 10:08) NAUSEA/VOMITING pravastatin Adverse Reaction (Unknown, Verified 09/17/24 10:08) body aches Medication List - Last Reconciled 09/17/24 by Clarice Ziegler MD acetaminophen 1,000 mg (2 x 500 mg) PO Q6H PRN alendronate 70 mg PO QWEEK ascorbic acid (vitamin C) 500 mg PO BID atenolol 25 mg PO DAILY cholecalciferol (vitamin D3) 50 mcg PO DAILY bruce.stocking,knee,reg,smal 10-20 mmHg, with zippers diazepam 2 mg PO DAILY estradiol 0.01%(0.1mg/gram) 0.25 appful vaginal 3XW ferrous sulfate 325 mg PO Q OTHER DAY furosemide (Lasix) 20 mg PO Q OTHER DAY lorazepam 0.5 mg PO DAILY PRN meclizine 25 mg PO QID PRN miscellaneous medical supply 1 ea miscellaneous .qd potassium chloride ER 20 mEq PO DAILY Tobacco use date assessed: 09/17/24 Fall risk assessment: No Falls in past year Last assessed Fall Risk: 09/17/24 Dental Screening Dental Screen Date: 09/17/24 Did you have a dental visit in the last 12 months?: Yes Did you have a dental problem in the last 6 months where you did not have access to dental care?: No Was dental information given to patient?: Patient has dentist HPI 3 months f/up HPI Details Patient presents for the follow-up of hypertension chronic kidney disease stage III osteoporosis chronic anemia. 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 Chronic kidney function worsened. Patient has been increasing fluid intake and avoiding nephrotoxins. She has been taking furosemide 20 mg every other day for history of lower extremity edema but has not noticed any recent edema. [facility] Medical History CKD (chronic kidney disease) stage 3, GFR 30-59 ml/min Vitamin D deficiency Chronic anemia History of SIADH Osteoporosis HTN (hypertension) Surgical History History of left shoulder replacement History of hysterectomy History of fundoplication History of cataract History of colonoscopy History of open reduction and internal fixation (ORIF) procedure History of appendectomy Family History Father History of CVA (cerebrovascular accident) Stroke Mother CVD (cardiovascular disease) History of heart attack Son No problems noted. Sister Substance use disorder Social History Housing: House Alcohol intake: never Patient Tobacco Use Status: Never used Tobacco e-Cigarette/Vaping Use: Never Used Advance Directives Date on File: 03/28/23 service: No Current occupational status: retired Cognitive needs: No Hearing needs: No Vision needs: Yes Questionnaire PHQ-9 Over the last 2 weeks, how often have you been bothered by any of the following problems? 1. Little interest or pleasure in doing things: several days 2. Feeling down, depressed, or hopeless: several days 3. Trouble falling or staying asleep, or sleeping too much: not at all 4. Feeling tired or having little energy: not at all 5. Poor appetite or overeating: not at all 6. Feeling bad about yourself - or that you are a failure or have let yourself or your family down: not at all 7. Trouble concentrating on things, such as reading the newspaper or watching television: not at all 8. Moving or speaking so slowly that other people could have noticed. Or the opposite - being so fidgety or restless that you have been moving around a lot more than usual: not at all 9. Thoughts that you would be better off or of hurting yourself in some way: not at all Total score: 2 Depression Screening Interpretation: Negative Depression Screening Done: Yes 18046 - PHQ-9 Billing: Yes Source: Developed by Drs. Jamari Villagran, Iraida Slade, Raul Montesinos and colleagues, with an educational benedicto from [employer]. Thrive Questionnaire Date Thrive assessed: 09/17/24 I am a: Patient What is your living situation today?: I have a steady place to live Within the past 12 months, did the food you bought not last and you didn't have the money to get more?: Never true Within the past 12 months, did you worry whether your food would run out before you got money to buy more?: Never true Do you have trouble paying for medicines?: No Do you have trouble getting transportation to medical appointments?: No Do you have trouble paying your heating and electricity bill?: No Do you have trouble taking care of your child, family member or friend?: No Do you have trouble with day-to-day activities such as bathing, preparing meals, shopping, managing finances, etc.?: No Are you currently unemployed and looking for a job?: No Are you interested in more education?: No Please select the resources that you would like help with: None THRIVE Score: 0 AUDIT C Alcohol Use Questionnaire (AUDIT-C) 1. How often do you have a drink containing alcohol?: Never 3. How often do you have six or more drinks on one occasion?: Never Total Score: 0 VÍCTOR-7 AMB Questionnaire VÍCTOR-7 Date VÍCTOR - 7 assessed: 09/17/24 Feeling nervous, anxious, or on edge: 0 = Not at all Not being able to stop or control worryin = Not at all Worrying too much about different things: 0 = Not at all Trouble relaxin = Not at all Being so restless that it is hard to sit still: 0 = Not at all Becoming easily annoyed or irritable: 0 = Not at all Feeling afraid as if something awful might happen: 0 = Not at all Total VÍCTOR-7 score (0-4 normal; 5-9 mild; 10-14 moderate; 15-21 severe): 0 Source: Developed by Drs. Jamari Villagran, Iraida Slade, Raul Montesinos and colleagues, with an educational benedicto from [employer]. VÍCTOR-7 Assessment Billing VÍCTOR-7 Assessment Tool: VÍCTOR-7 Assessment 97646 Review of Systems Const All systems reviewed & are unremarkable except as noted in HPI and below Eyes Reports no additional complaints ENT Reports no additional complaints Card Reports no additional complaints Resp Reports no additional complaints GI Reports no additional complaints Physical exam (Primary Care) Vital Signs: Last Vital Signs Pulse 59 09/17/24 10:05 BP 108/66 09/17/24 10:05 Pulse Ox 99 09/17/24 10:05 Oxygen Delivery Method Room Air 09/17/24 10:05 BMI result Body Mass Index 18.4 Tobacco/Smoking Status: Tobacco use Status Tobacco use date assessed 09/17/24 09/17/24 10:16 Patient Tobacco Use Status Never used Tobacco 09/17/24 10:16 e-Cigarette/Vaping Use Never Used 09/17/24 10:16 PHQ-9: PHQ-9 Score PHQ-9: Total score 2 09/17/24 10:16 Depression Screening Interpretation: Negative Thrive Assessment: Date of Thrive Assessment Date Thrive assessed 09/17/24 09/17/24 10:16 Const General: no acute distress HENMT Head: Yes normal to inspection Eyes General: appearance normal, both eyes and all related structures Neck Neck: Yes no lymphadenopathy and Yes supple Resp Effort & Inspection: normal respiratory effort Auscultation: clear to auscultation bilaterally Cardio Rhythm: regular rhythm Heart sounds: S1 normal heart sound present and S2 normal heart sound present GI Inspection: Yes normal to inspection Palpation (GI): Soft to palpation Extrem General: Yes no clubbing, cyanosis or edema Coding Level of Care Code Est Pt Level 4 (70552) Diagnoses Balance disorder R26.89 Leg weakness, bilateral R29.898 Osteoporosis M81.0 HTN (hypertension) I10 CKD (chronic kidney disease) stage 3, GFR 30-59 ml/min N18.30 Additional Codes VÍCTOR-7 Assessment Billing - VÍCTOR-7 Assessment Tool: VÍCTOR-7 Assessment 52975 ([id number]) PHQ-9 - 41602 - PHQ-9 Billing: Yes ([id number]) Assessment & Plan Assessment & Plan (1) Balance disorder: Code(s): R26.89 - Other abnormalities of gait and mobility Category: Medical Plan: Continue physical therapy (2) Leg weakness, bilateral: Code(s): R29.898 - Other symptoms and signs involving the musculoskeletal system Category: Medical Plan: Continue physical therapy (3) Osteoporosis: Comment: Prolia since 2017, DEXA 11/2020 T score L spine -4.2, L femur -3.1, DEXA 11/16 L femur -4.0, Fosamax started 12/2022 Code(s): M81.0 - Age-related osteoporosis without current pathological fracture Category: Medical Plan: Continue vitamin-D supplement and Fosamax. Repeat DEXA in November (4) HTN (hypertension): Code(s): I10 - Essential (primary) hypertension Category: Medical Plan: Continue atenolol (5) CKD (chronic kidney disease) stage 3, GFR 30-59 ml/min: Code(s): N18.30 - Chronic kidney disease, stage 3 unspecified Category: Medical Plan: Patient was advised to increase fluid intake, furosemide and potassium will be stopped and basic metabolic panel rechecked in 2 weeks. Patient will follow-up in 3 months with a fasting blood work before Orders: Orders PT Evaluation and Treatment Today R26.89 - Other abnormalities of gait and mobility, R29.898 - Other symptoms and signs involving the musculoskeletal system Complete Blood Count Auto Diff 2 Weeks I10 - Essential (primary) hypertension, M81.0 - Age-related osteoporosis without current pathological fracture, N18.30 - Chronic kidney disease, stage 3 unspecified XR DEXA axial skeleton 12/09/24 M81.0 - Age-related osteoporosis without current pathological fracture Basic Metabolic Panel 2 Weeks I10 - Essential (primary) hypertension, M81.0 - Age-related osteoporosis without current pathological fracture, N18.30 - Chronic kidney disease, stage 3 unspecified Comprehensive [place]. Panel Fast 3 Months D64.9 - Anemia, unspecified, I10 - Essential (primary) hypertension, M81.0 - Age-related osteoporosis without current pathological fracture, N18.30 - Chronic kidney disease, stage 3 unspecified Complete Blood Count Auto Diff 3 Months D64.9 - Anemia, unspecified, I10 - Essential (primary) hypertension, M81.0 - Age-related osteoporosis without current pathological fracture, N18.30 - Chronic kidney disease, stage 3 unspecified IRON PROFILE 3 Months D64.9 - Anemia, unspecified, I10 - Essential (primary) hypertension, M81.0 - Age-related osteoporosis without current pathological fracture, N18.30 - Chronic kidney disease, stage 3 unspecified Medications: Changed From ascorbic acid (vitamin C) every other day 500 mg PO BID M81.0 - Age-related osteoporosis without current pathological fracture To ascorbic acid (vitamin C) every other day 500 mg PO .qod 90 tabs 2RF M81.0 - Age-related osteoporosis without current pathological fracture Refilled ferrous sulfate 325 mg PO Q OTHER DAY 45 tabs 3RF D64.9 - Anemia, unspecified nitrofurantoin monohyd/m-cryst 100 mg (Macrobid) must administer with a meal/food 100 mg PO Q12H 7 days 14 caps 0RF lorazepam 0.5 mg PO DAILY PRN 10 tabs 0RF anxiety
[2024-09-17 10:05] VITALS: BP 108/66; PULSE 59; O2SAT 99; BMI 18.4
== END 2024-09-17 10:57 | disposition home or self-care (01) ==
PROVIDERS: PCP Internal Medicine; Visit Provider Internal Medicine
DX: R26.89 Other abnormalities of gait and mobility (principal); R29.898 Other symptoms and signs involving the musculoskeletal system; M81.0 Age-related osteoporosis without current pathological fracture; I10 Essential (primary) hypertension; N18.30 Chronic kidney disease, stage 3 unspecified

== ENCOUNTER → 2024-09-17 09:12 | Outpatient (BNVA) | payer MEDICARE, SELFPAY | PROVIDERS: PCP Internal Medicine; Visit Provider Internal Medicine | DX: R26.89 Other abnormalities of gait and mobility (principal); R29.898 Other symptoms and signs involving the musculoskeletal system; M81.0 Age-related osteoporosis without current pathological fracture; I12.9 Hypertensive chronic kidney disease with stage 1 through stage 4 chronic kidney disease, or unspecified chronic kidney disease; N18.30 Chronic kidney disease, stage 3 unspecified | CPT/HCPCS: 96127; 99212 ==

== ENCOUNTER 2024-10-24 10:39 | Outpatient (REF) | payer MEDICARE, SELFPAY ==
--- OUTSIDE RECORDS SUMMARY | 2024-10-24 12:11 | XMS_ITS | Patient Health Record ---
Author Organization [facility] [place] Address [address] [place] [address] Care Team Providers Care Phonograph Mechanic Name Role Phone Clarice Ziegler MD Primary Care Provider Daisy Perry Unavailable [phone] Allergies Allergen (clinical drug ingredient) Drug/Non Drug Allergy documented on EMR Reaction Allergy Type Onset Date Status Dyspnea (uncoded) welts Allergy Ac tive amoxicillin Amoxicillin severe urticaria dyspnea Drug Allergy Active Penicillin Unknown Drug Allergy Active Reason For Referral No Information Medications Medication SIG (Take, Route, Frequency, Duration) Notes Start Date End Date Status Ferrous Sulfate-Vitamin C Active Calcium + D 600 Orally Acti ve PreserVision AREDS 2 Active Atenolol 25 MG Oral for 90 Act herbert Meclizine HCl 25 MG TAKE 1 TABLET BY MOUTH FOUR TIMES A DAY NEEDED FOR DIZZINESS Oral for 5 Days PRN Active Zoloft Not-Taking Ibuprofen PRN Active Fosamax Active aspirin Active MiraLax PRN Active Potassium Active Tylenol PRN Active Multivitamin Active LORazepam 0.5 MG 1 tablet as needed Orally every 6 hrs PRN for flying Active Magnesium 500 MG 1 tablet with a meal Orally Once a day for 30 day(s) Active Vitamin B 12 1000 1 tablet Orally Once a day Active Social History Tobacco Use: Social History [...] Status Risk Notes Problem Acquired hallux valgus (98904662) Hallux valgus (acquired), 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) Active confirmed Problem [id number] 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) Active confirmed Problem [id number] Hammertoe of right foot (M20.41) Active confirmed Problem [id number] 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 Problem [id number] 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) Active confirmed Vital Signs Blood pressure diastolic 60 mm Hg 09/16/2024 Height 5 ft 1 in in 09/16/2024 Blood pressure systolic 116 mm Hg 09/16/2024 Weight 93 lbs 09/16/2024 BMI 17.57 kg/m2 09/16/2024 Encounters Encounter Location Date Provider Diagnosis [address] [address] 03/11/2024 Daisy Caballeroa Hallux valgus (acquired), left foot M20.12 ; Hammer toe of left foot M20.42 ; Atherosclerosis of artery of both lower extremities I70.203 ; Hammertoe of right foot M20.41 ; Tinea unguium B35.1 ; Pain in left toe(s) M79.675 and Pain in right toe(s) M79.[address] [address] 05/28/2024 Daisy Caballeroa Hallux valgus (acquired), left foot M20.12 ; Hammer toe of left foot M20.42 ; Atherosclerosis of artery of both lower extremities I70.203 ; Hammertoe of right foot M20.41 ; Tinea unguium B35.1 ; Pain in left toe(s) M79.675 and Pain in right toe(s) M79.[address] [address] 09/16/2024 Daisy Perica Hallux valgus (acquired), left foot M20.12 ; Hammer toe of left foot M20.42 ; Atherosclerosis of artery of both lower extremities I70.203 ; Hammertoe of right foot M20.41 ; Tinea unguium B35.1 ; Pain in left toe(s) M79.675 and Pain in right toe(s) M79.674 [facility] [address] [address] 12/17/2023 Daisy Perica [facility] [address] [address] 03/11/2024 Daisy Perica [facility] [address] [address] 04/01/2024 Daisy Perica [facility] [address] [address] 05/06/2024 Daisy Perica [facility] [address] [address] 05/28/2024 Daisy Perica [facility] [address] 06/27/2024 Daisy Perica [facility] [address] [address] 09/16/2024 Daisy Villarreal Assessments Encounter Date Diagnosis (ICD Code) Assessment Notes Treatment Notes Treatment Clinical Notes Section Notes 03/11/2024 Hallux valgus (acquired), left foot (ICD-10 - M20.12) 03/11/2024 Hammer toe of left foot (ICD-10 - M20.42) 05/28/2024 Hallux valgus (acquired), left foot (ICD-10 - M20.12) 09/16/2024 Hallux valgus (acquired), left foot (ICD-10 - M20.12) 09/16/2024 Hammer toe of left foot (ICD-10 - M20.42) 09/16/2024 Atherosclerosis of artery of both lower extremities (ICD-10 - I70.203) 03/11/2024 Atherosclerosis of artery of both lower extremities (ICD-10 - I70.203) 05/28/2024 Hammer toe of left foot (ICD-10 - M20.42) 03/11/2024 Hammertoe of right foot (ICD-10 - M20.41) 05/28/2024 Atherosclerosis of artery of both lower extremities (ICD-10 - I70.203) 09/16/2024 Hammertoe of right foot (ICD-10 - M20.41) 09/16/2024 Tinea unguium (ICD-10 - B35.1) 05/28/2024 Hammertoe of right foot (ICD-10 - M20.41) 03/11/2024 Tinea unguium (ICD-10 - B35.1) 03/11/2024 Pain in left toe(s) (ICD-10 - M79.675) 05/28/2024 Tinea unguium (ICD-10 - B35.1) 09/16/2024 Pain in left toe(s) (ICD-10 - M79.675) 09/16/2024 Pain in right toe(s) (ICD-10 - M79.674) 05/28/2024 Pain in left toe(s) (ICD-10 - M79.675) 03/11/2024 Pain in right toe(s) (ICD-10 - M79.674) 05/28/2024 Pain in right toe(s) (ICD-10 - M79.674) Plan Of Treatment Pending Test Test Name Order Date X ray : Foot, left 3V 10/01/2019 Next Appt Details Provider Name:Daisy marcial, 12/17/2024 02:30:00 PM, [address] [place] [address], [place], [address], Insurance Providers Payer Name Payer Address Payer Phone Subscriber Number Group Number Insured Name Patient Relationship to Insured Coverage Start Date Coverage End Date Medicare [facility] [address] 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
--- OUTSIDE RECORDS SUMMARY | 2024-10-24 12:11 | XMS_ITS | Clinical Summary ---
[facility] Organization [facility] Address [address] [place] [address] Care Team Providers Care Adoption Services Manager Name Role Phone Clarice Ziegler MD Primary Care Provider Unavaila ble Allergies Active Allergy Reactions Severity Noted Date Comments Chocolate Hives/Urticaria,SOB, Wheezing,Itching/Pruritus 09/10/2017 Meperidine OTHER 09/10/2017 Palpitations,anxious Peanuts Hives/Urticaria,SOB, Wheezing,Itching/Pruritus 09/10/2017 Penicillins Hives/Urticaria,SOB, Wheezing,Itching/Pruritus 09/10/2017 Medications Medication Sig Dispensed Refills Start Date End Date Status metoprolol (TOPROL-XL) 25 MG 24 hr tablet Take 25 mg by mouth daily. 0 Active Teriparatide, Recombinant, 600 MCG/2.4ML Solution Inject 600 mcg into the skin at bedtime. 0 Active omeprazole (PRILOSEC) 20 MG capsule Take 20 mg by mouth as needed. 0 Active Calcium Carb-Cholecalcifero l (CALCIUM + D3) 600-200 MG-UNIT Tab Take 1 Tab by mouth daily. 0 Active ascorbic acid (VITAMIN C) 500 MG tablet Take 500 mg by mouth daily. 0 Active ferrous sulfate 325 (65 FE) MG tablet Take 325 mg by mouth daily. Take 2 daily 0 Active Magnesium 500 MG Cap Take 1 Tab by mouth daily. 0 Active Cyanocobalamin (VITAMIN B 12 OR) Take 1,000 mg by mouth daily. 0 Active lorazepam (ATIVAN) 0.5 MG tablet Take 0.5 mg by mouth as needed. 0 Active polyethylene glycol (GLYCOLAX) powder Take 17 g by mouth as needed. 0 Active Teriparatide, Recombinant, (FORTEO) 600 MCG/2.4ML SolutionIndications :Osteoporosis with pathological fracture, initial encounter Inject 20 mcg into the skin daily. 2.24 mL 1 10/04/2017 Active B-D U/F PEN NEEDLE 31G X 5 MM MiscIndications:Ost eoporosis with pathological fracture, initial encounter 1 Each by Does not apply route daily. 30 Each 1 10/04/2017 Active FORTEO 600 MCG/2.4ML Solution INJECT 20 MCG SUBCUTANEOUSLY ONCE DAILY. REFRIGERATE AND DISCARD PEN 28 DAYS AFTER INITIAL USE. 30 mL 3 11/15/2017 Active Acetaminophen (TYLENOL OR) Take 500 mg by mouth as needed. 0 Active Zoledronic Acid (RECLAST) 5 MG/100ML Solution Inject 100 mL into the vein Once. Erpeat annually 100 mL 0 02/04/2018 Active calcitonin, salmon, (MIACALCIN) 200 UNIT/ACT nasal spray 1 [place] by Alternating Nares route daily. 30 Act 1 02/15/2018 Active Family History Medical History Relation Name Comments No Known Problems Father No Known Problems Mother Relation Name Status Comments Father Mother Social History Tobacco Use Types Packs/Day Years Used Date Smoking Tobacco: Never Smokeless Tobacco: Never Alcohol Use Standard Drinks/Week Comments No 0 (1 standard drink = 0.6 oz pur e alcohol) Sex Assigned at Date Recorded Not on file Last Filed Vital Signs Vital Sign Reading Time Taken Comments Blood Pressure 136/56 02/04/2018 3:10 PM EDT Pulse 78 02/04/2018 3:10 PM EDT Temperature - - Respiratory Rate 14 09/10/2017 3:25 PM EST Oxygen Saturation - - Inhaled Oxygen Concentration - - Weight 42.8 kg (94 lb 6.4 oz) 02/04/2018 3:10 PM EDT Height 150.6 cm (4' 11.3 ) 02/04/2018 3:10 PM ED T Body Mass Index 18.87 02/04/2018 3:10 PM EDT Plan of Treatment Health Maintenance Due Date Last Done Comments Covid-19 Vaccine (#1) 01/19/1937 DEPRESSION SCREEN 1948 DTAP/TDAP/TD (1 - Tdap) 1955 CHOLESTEROL SCREENING 1956 MAMMOGRAM 1976 SHINGLES VACCINE (1 of 2) 1986 FALL RISK ASSESSMENT 2001 PNEUMOCOCCAL VACCINE (1 - PCV) 2001 BONE DENSITY SCREENING 01/29/2020 01/28/2018 INFLUENZA (#1) 2024 Care Teams Adoption Services Manager Relationship Specialty Start Date End Date Clarice Ziegler MD PCP - General Internal Medicine 09/10/17
--- OUTSIDE RECORDS SUMMARY | 2024-10-24 12:11 | XMS_ITS ---
Author Organization [facility] Address [address] [place] [address] Care Team Providers Care Office Secretary Name Role Phone Clarice Ziegler MD Primary Care Provider Daisy Perry [phone] Encounters Encounter Location Date Provider Diagnosis [facility] [address] [place] [address] 08/12/2024 Daisy Villarreal Plan Of Treatment Next Appt Details Provider Name:Daisy marcial, 12/17/2024 02:30:00 PM, [address] [place], [address], Progress Notes * Iraida SHEEHANDOB:1935 (89 yo F)Acc No.[id number]:08/12/2024 Progress Note Patient:?Iraida SHEEHAN Provider:?Daisy Villarreal DPM :1935???Age:89 Y???Sex:Female D ate:08/12/2024 Address:[address] [place] [address] [id number] Pcp:Clarice Ziegler MD Subjective: * Chief Complaints: [...] Villarreal DPM Date:? Generated for Karli vargas/Yarelis/Neetu on:?10/24/2024 12:11 PM EST
--- OUTSIDE RECORDS SUMMARY | 2024-10-24 12:11 | XMS_ITS | Continuity of Care Document ---
Author Name [facility] Organization [facility] Care Team Providers Care Corporate Event Planner Name Role Phone [facility] Unavailable Unavailable Problems Combined list of problems [...] [facility] [place] [facility] Hypertension (SNOMED [place] [id number]) [facility] [place] [facility] [...] A WEEK ORAL ACTIVE FURCOLO,T MIAN 2023 [facility] [place] ASCORBIC ACID 500MG TAB TAKE ONE TABLET BY MOUTH ONCE DAILY ORAL ACTIVE Ian DUGAN ICOLE 2019 [facility] [place] ATENOLOL 25MG TAB TAKE ONE TABLET BY MOUTH ONCE DAILY ORAL ACTIVE Ian DUGAN ICOLE 2018 [facility] [place] CALCIUM 250MG/VITAM IN D 125UNIT TAB TAKE BY MOUTH ORAL ACTIVE ZASHIN,LY NN S 2013 [facility] FERROUS SO4 325MG TAB TAKE ONE TABLET BY MOUTH ONCE DAILY ORAL ACTIVE KIRCHEN,N ICOLE 2019 [facility] FUROSEMIDE 20MG TAB TAKE ONE TABLET BY MOUTH ONCE DAILY ORAL ACTIVE FURCOLO,T MIAN 2023 [facility] MAGNESIUM GLUCONATE TAB TAKE BY MOUTH ORAL ACTIVE ZASHIN,LY NN S 2011 [facility] MULTIVITAMI NS W/MINERALS TAB TAKE ONE TABLET BY MOUTH ORAL ACTIVE ZASHIN,LY NN S 2011 [facility] POLYETHYLEN E GLYCOL 3350 POWDER,ORAL TAKE BY MOUTH PRN ORAL ACTIVE ZASHIN,LY NN S 2013 [facility] POTASSIUM CHLORIDE 20MEQ TAB,SA (DISPERSIBL E) TAKE ONE TABLET BY MOUTH ONCE DAILY ORAL ACTIVE FURCOLO,T MIAN 2023 [facility] SERTRALINE HCL 50MG TAB TAKE ONE-HALF TABLET BY MOUTH ONCE DAILY ORAL ACTIVE FURCOLO,T MIAN 2023 [facility] VITAMIN B COMPLEX CAP TAKE 1 CAPSULE BY MOUTH ONCE DAILY ORAL ACTIVE KIRSERGIO,N ICOLE 2022 [facility] Allergies, Adverse Reactions, Alerts Combined list of allergies from Department of Defense and Veterans Affairs facilities. It does not include entries that were removed or entered in error. Substance Category Reaction Severity Reaction type Status Date Reported Comments Source CODEINE Propensity to adverse reactions to drug (finding) Nausea and vomiting active 2 [facility] DEMEROL Propensity to adverse reactions to drug (finding) active 4 [facility] [place] [facility] PENICILLIN Propensity to adverse reactions to drug (finding) Anaphylaxis active 2 [facility] SULFA DRUGS Propensity to adverse reactions to drug (finding) Anaphylaxis active 2 [facility] Immunizations Combined list of available immunizations from the Department of Defense and Veterans Affairs facilities. 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 [place] [facility] [address] [facility] [address] [address] [facility] [place] [facility] IRON & TIBC PANEL IRON BINDING CAPACITY [MASS/VOLUM E] IN SERUM OR PLASMA 236 ug/dL 204 - 475 10/05 Specimen Type: SERUM No comment entered. Ordering Provider: FREYA VALDIVIA Report Released Date/Time: Oct 03, 2023 03:06 PM Reporting Lab: [facility] [place] [facility] [address] [facility] [facility] [address] Performing Lab: [facility] [place] [facility] [address] [facility] [facility] [address] [facility] [place] [facility] IRON & TIBC PANEL IRON [MASS/VOLUM E] IN SERUM OR PLASMA 55 ug/dL 40 - 160 10/05 Specimen Type: SERUM No comment entered. Ordering Provider: FREYA VALDIVIA Report Released Date/Time: Oct 03, 2023 03:06 PM Reporting Lab: [facility] [place] [facility] [address] [facility] [address] Performing Lab: [facility] [place] [facility] [address] [facility] [facility] [address] [facility] IRON & TIBC PANEL IRON/IRON BINDING CAPACITY.TO JOVANA [MASS RATIO] IN SERUM OR PLASMA 23.3 20.0 - 50.0 10/05 Specimen Type: SERUM No comment entered. Ordering Provider: FREYA VALDIVIA Report Released Date/Time: Oct 03, 2023 03:06 PM Reporting Lab: [facility] [address] Performing Lab: [facility] [address] [facility] VITAMIN B12 COBALAMIN (VITAMIN B12) [MASS/VOLUM E] IN SERUM OR PLASMA >2000p g/mL 200 - 900 10/05 H Specimen Type: SERUM No comment entered. Ordering Provider: FREYA VALDIVIA Report Released Date/Time: Oct 03, 2023 03:06 PM Reporting Lab: [facility] [address] Performing Lab: [address] [address] [facility] CBC LEUKOCYTES [#/VOLUME] IN BLOOD BY AUTOMATED COUNT 6.27 10*3/u L 4.50 - 11.00 10/05 Specimen Type: BLOOD No comment entered. Ordering Provider: FREYA VALDIVIA Report Released Date/Time: Oct 03, 2023 03:06 PM Reporting Lab: [facility] [address] Performing Lab: [facility] [address] [facility] CBC ERYTHROCYTE S [#/VOLUME] IN BLOOD BY AUTOMATED COUNT 3.37 10*6/u L 3.93 - 5.16 10/05 L Specimen Type: BLOOD No comment entered. Ordering Provider: FREYA VALDIVIA Report Released Date/Time: Oct 03, 2023 03:06 PM Reporting Lab: [facility] [place] [facility] [address] [facility] [address] Performing Lab: [facility] [place] [facility] [address] [facility] [address] [facility] [place] [facility] CBC HEMOGLOBIN [MASS/VOLUM E] IN BLOOD 10.5 g/dL 12 - 15.2 10/05 L Specimen Type: BLOOD No comment entered. Ordering Provider: FREYA VALDIVIA Report Released Date/Time: Oct 03, 2023 03:06 PM Reporting Lab: [facility] [place] [facility] [address] [facility] [address] Performing Lab: [facility] [place] [facility] [address] [facility] [address] [facility] [place] [facility] CBC HEMATOCRIT [VOLUME FRACTION] OF BLOOD BY AUTOMATED COUNT 30.2 36.6 - 45.6 10/05 L Specimen Type: BLOOD No comment entered. Ordering Provider: FREYA VALDIVIA Report Released Date/Time: Oct 03, 2023 03:06 PM Reporting Lab: [facility] [place] [facility] [address] [facility] [address] Performing Lab: [facility] [place] [facility] [address] [facility] [address] [facility] [place] [facility] CBC MCV [ENTITIC VOLUME] BY AUTOMATED COUNT 89.6 fL 82 - 99 10/05 Specimen Type: BLOOD No comment entered. Ordering Provider: FREYA VALDIVIA Report Released Date/Time: Oct 03, 2023 03:06 PM Reporting Lab: [facility] [place] [facility] [address] [facility] [address] Performing Lab: [facility] [place] [facility] [address] [facility] [facility] [address] [facility] [place] [facility] CBC MCHC [MASS/VOLUM E] BY AUTOMATED COUNT 34.8 g/dL 30.8 - 35.1 10/05 Specimen Type: BLOOD No comment entered. Ordering Provider: FREYA VALDIVIA Report Released Date/Time: Oct 03, 2023 03:06 PM Reporting Lab: [facility] [place] [facility] [address] [facility] [address] Performing Lab: [facility] [place] [facility] [address] [facility] [address] [facility] [place] [facility] CBC PLATELETS [#/VOLUME] IN BLOOD BY AUTOMATED COUNT 228 10*3/u L 140 - 360 10/05 Specimen Type: BLOOD No comment entered. Ordering Provider: FREYA VALDIVIA Report Released Date/Time: Oct 03, 2023 03:06 PM Reporting Lab: [facility] [place] [facility] [address] [facility] [facility] [address] Performing Lab: [facility] [place] [facility] [address] [facility] [facility] [address] [facility] [place] [facility] CBC ERYTHROCYTE DISTRIBUTIO N WIDTH [RATIO] BY AUTOMATED COUNT 12.7 12.0 - 16.0 10/05 Specimen Type: BLOOD No comment entered. Ordering Provider: FREYA VALDIVIA Report Released Date/Time: Oct 03, 2023 03:06 PM Reporting Lab: [facility] [place] [facility] [address] [facility] [address] Performing Lab: [facility] [place] [facility] [address] [facility] [address] [facility] [place] [facility] CBC MCH [ENTITIC MASS] BY AUTOMATED COUNT 31.2 pg 26.2 - 32.6 10/05 Specimen Type: BLOOD No comment entered. Ordering Provider: FREYA VALDIVIA Report Released Date/Time: Oct 03, 2023 03:06 PM Reporting Lab: [facility] [place] [facility] [address] [facility] [address] Performing Lab: [facility] [place] [address] [address] [facility] [place] [facility] VITAMIN D (25-OH) 25-HYDROXYV ITAMIN D3 [MASS/VOLUM E] IN SERUM OR PLASMA 75 ng/mL 20 - 50 10/05 H Specimen Type: SERUM No comment entered. Ordering Provider: FREYA VALDIVIA Report Released Date/Time: Oct 03, 2023 03:06 PM Reporting Lab: [facility]ITALUSE[facility] [address] [facility] [address] Performing Lab: [facility]ERRV[facility]-BIRMINGHAMN [facility]OSPITALUSE[facility] [address] [facility] [address] [facility] MAGNESIUM MAGNESIUM [MASS/VOLUM E] IN SERUM OR PLASMA 1.7 mg/dL 1.6 - 2.6 10/05 Specimen Type: SERUM No comment entered. Ordering Provider: FREYA VALDIVIA Report Released Date/Time: Oct 03, 2023 03:06 PM Reporting Lab: [facility]ITALUSE[facility] [address] [facility] [address] Performing Lab: [facility]ITAL[facility] [address] [facility] FERRITIN FERRITIN [MASS/VOLUM E] IN SERUM OR PLASMA 616 ng/mL 10 - 200 10/05 H Specimen Type: SERUM No comment entered. Ordering Provider: FREYA VALDIVIA Report Released Date/Time: Oct 03, 2023 03:06 PM Reporting Lab: [facility]ITAL[facility] [address] Performing Lab: [facility]ENTERRVETERANS AFFA[facility] C[facility]-BIRMINGHAMN [facility]ITALUSE[address] [address] [facility] HEMOGLOBI N A1C PANEL HEMOGLOBIN A1C/HEMOGLO BIN.TOTAL [...] Lab: [facility] [place] [facility] [address] [facility] [address] Performing Lab: [facility]ITALUSE[facility] [address] [facility] [address] [facility] TSH THYROTROPIN [UNITS/VOLU ME] IN SERUM OR PLASMA 1.90 u[IU]/ mL 0.35 - 5.00 10/05 Specimen Type: SERUM No comment entered. Ordering Provider: FREYA VALDIVIA Report Released Date/Time: Oct 03, 2023 03:06 PM Reporting Lab: [facility] [address] [facility] [address] Performing Lab: [facility] [address] [facility] [facility] [address] [facility] BASIC METABOLIC PANEL (non-fast ing) UREA NITROGEN [MASS/VOLUM E] IN SERUM OR PLASMA 22 mg/dL 7 - 25 10/05 Specimen Type: SERUM No comment entered. Ordering Provider: FREYA VALDIVIA Report Released Date/Time: Oct 03, 2023 03:06 PM Reporting Lab: [facility] [address] [facility] [address] Performing Lab: [facility] [address] [address] [facility] BASIC METABOLIC PANEL (non-fast ing) GLUCOSE [MASS/VOLUM E] IN SERUM OR PLASMA 97 mg/dL 65 - 100 10/05 Specimen Type: SERUM No comment entered. Ordering Provider: FREYA VALDIVIA Report Released Date/Time: Oct 03, 2023 03:06 PM Reporting Lab: [facility] [address] [facility] [address] Performing Lab: [facility] [address] [address] [facility] BASIC METABOLIC PANEL (non-fast ing) SODIUM [MOLES/VOLU ME] IN SERUM OR PLASMA 125 mmol/L 135 - 145 10/05 L Specimen Type: SERUM No comment entered. Ordering Provider: FREYA VALDIVIA Report Released Date/Time: Oct 03, 2023 03:06 PM Reporting Lab: [facility] [place] [facility] [address] [facility] [address] Performing Lab: [facility] [place] [facility] [address] [facility] [address] [facility] [place] [facility] BASIC METABOLIC PANEL (non-fast ing) POTASSIUM [MOLES/VOLU ME] IN SERUM OR PLASMA 4.1 mmol/L 3.5 - 5.0 10/05 Specimen Type: SERUM No comment entered. Ordering Provider: FREYA VALDIVIA Report Released Date/Time: Oct 03, 2023 03:06 PM Reporting Lab: [facility] [place] [address] [address] Performing Lab: [facility] [place] [address] [address] [facility]ITALUSE [facility] BASIC METABOLIC PANEL (non-fast ing) CHLORIDE [MOLES/VOLU ME] IN SERUM OR PLASMA 93 mmol/L 100 - 110 10/05 L Specimen Type: SERUM No comment entered. Ordering Provider: FREYA VALDIVIA Report Released Date/Time: Oct 03, 2023 03:06 PM Reporting Lab: [facility] [place] [facility] [address] [facility] [address] Performing Lab: [facility] [place] [address] [address] [facility] [place] [facility] BASIC METABOLIC PANEL (non-fast ing) CARBON DIOXIDE, TOTAL [MOLES/VOLU ME] IN SERUM OR PLASMA 23 meq/L 20 - 30 10/05 Specimen Type: SERUM No comment entered. Ordering Provider: FREYA VALDIVIA Report Released Date/Time: Oct 03, 2023 03:06 PM Reporting Lab: [facility] [place] [facility] [address] [facility] [address] Performing Lab: [facility] [place] [address] [address] [facility] [place] [facility] BASIC METABOLIC PANEL (non-fast ing) CREATININE [MASS/VOLUM E] IN SERUM OR PLASMA 0.86 mg/dL 0.50 - 1.40 10/05 Specimen Type: SERUM No comment entered. Ordering Provider: FREYA VALDIVIA Report Released Date/Time: Oct 03, 2023 03:06 PM Reporting Lab: [facility] [place] [facility] [address] [facility] [address] Performing Lab: [facility] [place] [facility] [address] [facility] [address] [facility] [place] [facility] BASIC METABOLIC PANEL (non-fast ing) GLOMERULAR FILTRATION RATE/1.73 SQ M.PREDICTED [VOLUME RATE/AREA] IN SERUM, PLASMA OR BLOOD BY CREATININE- BASED FORMULA (CKD-EPI 2020) 65 mL/min 60 10/05 Specimen Type: SERUM No comment entered. Ordering Provider: FREYA VALDIVIA Report Released Date/Time: Oct 03, 2023 03:06 PM Reporting Lab: [facility] [place] [facility] [address] [facility] [address] Performing Lab: [facility] [place] [facility] [address] [facility] [address] [facility] [place] [facility] Encounters Combined list of: 1) Encounters from Department of Veterans Affairs facilities going backup to the last 18 months, not all VA inpatient encounters are included; 2) Encounters from the Department of Defense facilities going backup to 280 months. Location Location Details Encounter Type Encounter Number Reason For Visit Attending Provider ADM Date DC Date Status Disposition Source [facility] En[facility] [id number] 04/27 [facility] [id number] 08/30 [facility] [id number] 09/14 [facility] [place] [facility] En[facility] [id number] 09/17 [facility] En[facility] [id number] 09/17 [facility] En[facility] [id number] 10/02 [facility] En[facility] [id number] 10/08 [facility] [place] [facility] OFFICE O/P EST HI 40 MIN [id number] Diagnos is: ICD-10- CM E87.6 Hypokal emia FURCOLO,TI NA 10/12 [facility] [place] [facility] Social History Combined list of available smoking, tobacco, and other social history from Department of Defense and Veterans Affairs facilities. Social History Type Response Date Comment [facility] e Tobacco smoking status NHIS VA-TOBACCO NEVER USED 09/17/2023 [facility] [place] [facility] History of tobacco use VA-TOBACCO NEVER USED 09/05/2022 [facility] [place] [facility] History of tobacco use VA-TOBACCO NEVER USED 09/07/2021 [facility] [place] [facility] History of tobacco use VA-TOBACCO NEVER USED 06/29/2020 [facility] [place] [facility] History of tobacco use LIFETIME NON-TOBACCO USER 04/24/2018 [facility] [place] [facility] History of tobacco use LIFETIME NON-TOBACCO USER 01/19/2017 [facility] [place] [facility] History of tobacco use LIFETIME NON-TOBACCO USER 04/01/2012 [facility] [place] [facility]
--- OUTSIDE RECORDS SUMMARY | 2024-10-24 12:11 | XMS_ITS ---
Author Organization [facility] Address [address] [place] [address] Care Team Providers Care Color Developer Name Role Phone Clarice Ziegler MD Primary Care Provider Daisy Perry Unavailable [phone] REASON FOR VISIT lr toe crest and 3 lg toe buddies Encounters Encounter Location Date Provider Diagnosis [facility] [address] [place] [address] 09/16/2024 Daisy Villarreal Plan Of Treatment Next Appt Details Provider Name:Daisy marcial, 12/17/2024 02:30:00 PM, [address] [place], [address], Progress Notes * Iraida SHEEHANDOB:1935 (89 yo F)Acc No.[id number]:09/16/2024 Patient:?Iraida SHEEHAN :1935???Age:89 Y???Sex:Female Address:[address] [place] [address] * true * Date:? Generated for Printi ng/Fadelmarg/eTransmitting on:?10/24/2024 12:10 PM EST
--- OUTSIDE RECORDS SUMMARY | 2024-10-24 12:11 | XMS_ITS ---
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 Name Role Phone Clarice Ziegler MD Primary Care Provider Daisy Perry Unavailable [phone] Allergies Allergen (clinical drug ingredient) Drug/Non Drug Allergy documented on EMR Reaction Allergy Type Onset Date Status Dyspnea (uncoded) welts Allergy Ac tive amoxicillin Amoxicillin severe urticaria dyspnea Drug Allergy Active Penicillin Unknown Drug Allergy Active REASON FOR VISIT At Risk Footcare, Painful Nail(s) aggrevated by shoes and causing difficulty standing/walking., Painful Toe(s) Medications Medication SIG (Take, Route, Frequency, Duration) Notes Start Date End Date Status Meclizine HCl 25 MG TAKE 1 TABLET BY MOUTH FOUR TIMES A DAY NEEDED FOR DIZZINESS Oral for 5 Days PRN Active Zoloft Not-Taking Fosamax Active aspirin Active Potassium Active PreserVision AREDS 2 Active Ibuprofen PRN Active MiraLax PRN Active Tylenol PRN Active LORazepam 0.5 MG 1 tablet as needed Orally every 6 hrs PRN for flying Active Ferrous Sulfate-Vitamin C Active Calcium + D 600 Orally Acti ve Multivitamin Active Magnesium 500 MG 1 tablet with a meal Orally Once a day for 30 day(s) Active Vitamin B 12 1000 1 tablet Orally Once a day Active Atenolol 25 MG Oral for 90 Act herbert Social History Tobacco Use: Social History Observation Description Date Details (start date - stop date) Never Smoker NA - NA Tobacco Use/Smoking Question Answer Notes Are you a: nonsmoker Additional Findings: Tobacco Non-User Current no n-smoker Tobacco use other than smoking: Question Answer Notes Are you an other tobacco user? No Vital Signs Height 5 ft 1 in in 09/16/2024 Weight 93 lbs 09/16/2024 BMI 17.57 kg/m2 09/16/2024 Blood pressure systolic 116 mm Hg 09/16/19 25 Blood pressure diastolic 60 mm Hg 025 Encounters Encounter Location Date Provider Diagnosis [facility] [address] [address] 09/16/2024 Daisy Villarreal Hallux valgus (acquired), left foot M20.12 ; Hammer toe of left foot M20.42 ; Atherosclerosis of artery of both lower extremities I70.203 ; Hammertoe of right foot M20.41 ; Tinea unguium B35.1 ; Pain in left toe(s) M79.675 and Pain in right toe(s) M79.674 Assessments Encounter Date Diagnosis (ICD Code) Assessment Notes Treatment Notes Treatment Clinical Notes Section Notes 09/16/2024 Hallux valgus (acquired), left foot (ICD-10 - M20.12) 09/16/2024 Hammer toe of left foot (ICD-10 - M20.42) 09/16/2024 Atherosclerosis of artery of both lower extremities (ICD-10 - I70.203) 09/16/2024 Hammertoe of right foot (ICD-10 - M20.41) 09/16/2024 Tinea unguium (ICD-10 - B35.1) 09/16/2024 Pain in left toe(s) (ICD-10 - M79.675) 09/16/2024 Pain in right toe(s) (ICD-10 - M79.674) Plan Of Treatment Next Appt Details Follow Up: 2 Months, Reason: Provider Name:Daisy marcial, 12/17/2024 02:30:00 PM, [address] [place] [address], [id number], Procedure Notes * Category Sub-Category Detail Notes Debride Nail 6-10 Nail debridement Due to the cl inical pathology outlined in the exam findings, performance of this nail treatment is medically necessary as its management by an unskilled/untrained nonprofessional would put this patients foot and overall health at risk. Therefore, debridement to affected nail(s), as described in exam (TA, T1, T2, T3, T4, T5, T6, T7, T8, T9, ), was performed exclusively by the physician of record to reduce/remove overall nail length, girth, thickness, subungual debris, and necrotic tissue, by manual and/or electrical means through the use of a nail nipper and/or dremel-type bit grinder, to a more viable healthy nail plate or bed tissue 6-10 nails in total. Silver nitrate was used for any petechial bleeding as necessary. Definitive antifungal treatment options, both pharmaceutical and surgical, have been reviewed and discussed with the patient. The patient solely prefers the use of intermittent/as needed professional debridement services for their nail condition and understands the need for additional periodic treatments to maintain effectiveness in symptomatic relief - 24681 Keratoma Treatment Parring or Cutting o f Benign Hyperkeratotic Lesion(s) (-57) More than 4 Lesions - Due to the at risk nature of the patients medical condition as documented in the exam findings, performance of this keratoderma treatment is medically necessary as its management by an unskilled/untrained nonprofessional would put this patients foot and overall health at risk. Therefore, the benign hyperkeratotic lesions, ( 6) in total, locations as stated and described in the exam ( TA , T1 , T2 , T5 , SUB MTH (s) , 1 , B/L ), were pared, and/or cut utilizing a sterile 15 blade, tissue nippers, and/or power dremel instrumentation by the physician of record - 49240 Progress Notes * Iraida SHEEHANDOB:1935 (89 yo F)Acc No.[id number]:09/16/2024 Progress Note Patient:?Iraida SHEEHAN Provider:?Daisy Villarreal DPM :1935???Age:89 Y???Sex:Female D ate:09/16/2024 Address:[address] [place] [address] [place] [id number] Pcp:Clarice Ziegler MD Subjective: * Chief Complaints: * ???At Risk FootcarePainful N ail(s) aggrevated by shoes and causing difficulty standing/walking.Painful Toe(s) * HPI: ???At Risk footcare:?Pt States Last PCP Visit:?Date?03/04/2024 ???Toe pain:?Nature:?tenderness.?Location:?Left foot , 2nd toe , 3rd toe.?Duration:?several months.?Course:?improved.?Aggravated by:?any pressure, shoes.?Treatments:?rest/alter normal daily activity, change in shoes , bracing/splinting/padding, crest pad.? * ROS:?General/Constitutional:?Nausea?denies.?Vomiting?denies.?Hunger Thirst?denies.?Loss appetite?denies.?Chills?denies.?Fatigue?denies.?Fever?denies.?Night Sweats?denies.?Unexplained weight loss?denies.?Unexplained weight gain?denies.?HEENTM:?Dentures?denies.?Dizziness?denies.?Glasses/contacts?admits.?Retinopathy?de nies.?Blurred/double vision?denies.?TMJ?denies.?Discharge/drainage?denies.?Implants?denies.?Sore throat?denies.?Dental implants?denies.?Hard of hearing ?denies.?Difficulty chewing/swallowing/speaking?denies.?Nose bleeds?denies.?Sore mouth?denies.?Respiratory:?On Oxygen?denies.?Pneumonia/pleurisy?denies.?Bronchitis?denies.?Emphysema?denies.?C oughing?denies.?Cough blood?denies.?Shortness of breath?denies.?Wheezing?denies.?Cardiovascular:?Pacemaker?denies.?MVP?denies.?WPW?denies.?CHF?denies.?Heart attack?denies.?Septal defect?denies.?Rapid beat?denies.?Chest pain ?denies.?Atrial Fib.?denies.?Murmur/Palpitations?denies.?Gastrointestinal:?Hemorrhoids?denies.?Stomach/Abdominal pain?denies.?Dark blood stool?denies.?Irritable bowel ?denies.?Constipation?denies.?Diarrhea?denies.?Hematology:?Swelling?admits.?Clots?denies.?Varicose Veins?admits.?Bruising?admits.?Bleeding problem?denies.?Genitourinary:?Blood urine?denies.?Frequent/Painfu/urination/bladder control?denies.?Kidney stones?denies.?Infection (UTI)?denies.?Nephropathy?denies.?sex trans dis (STD)?denies.?Prostate?denies.?Musculoskeletal:?Hammertoes?admits.?Bunions?admits.?Back Pain?denies.?Muscle Cramps/ Resting?denies.?Muscle cramps / walking?denies.?Generalized aches and pains?denies.?Weakness?denies.?Integ.:?Walker?denies.?Scars?denies.?Corns/calluses?admits.?Ingrown nails?admits.?Painful nails?admits.?Open Sores?admits.?Rashes?denies.?Neurologic:?Difficulty sleeping?denies.?Brain disorder?denies.?Numbness?denies.?Balance trouble?admits.?Confusion?denies.?Fainting/blackouts?admits.?Tingling?denies.?Tr emors?denies.? * Medical History:? * Surgical History:?left shoul melissa surgery - athroplasty 09/18/2017left eye lascerations 02/09/2019broken femur and hip shoulder surgery- total 2016fx right femur 2015aneurysm teeth removal 09/05/2024 * Hospitalization/Major Diagno stic Procedure:?fall at [facility] went to ER [facility]- dizzy , high blood pressure 02/27/24 * Family History:?Mother: dece ased, Stroke, Cancer, heart attack, diagnosed with Other malignant neoplasm of unspecified site, Unspecified essential hypertension, Unspecified heart disease, Family history of arthritis.?Father: , Stroke, diagnosed with Diabetic - NIDDM, Unspecified essential hypertension, Unspecified heart disease, Family history of arthritis.?Siblings: 2 sisters both have it, foot problems, cancer, diagnosed with Other malignant neoplasm of unspecified site, Unspecified essential hypertension, Other specified conditions influencing health status.? * Social History:?Tobacco Use:?Tobacco Use/Smoking?Are you a:?nonsmoker ?Additional Findings: Tobacco Non-User?Current non-smoker ?Tobacco use other than smoking?Are you an other tobacco user??No ???Miscellaneous:?Caffeine: yes, frequency:, 1-2 cups per day. ?Children: yes, 1. ?Exercise: yes, PT, walking. ?Marital status: . 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 * Medications:?Takingaspirin P otassium Fosamax Atenolol 25 MG Tablet Oral Ferrous Sulfate-Vitamin C Calcium + D 600 mcg Orally Magnesium 500 MG Tablet 1 tablet with a meal Orally Once a day Vitamin B 12 1000 mcg 1 tablet Orally Once a day Multivitamin LORazepam 0.5 MG Tablet 1 tablet as needed Orally every 6 hrs , Notes to Pharmacist: PRN for flyingMiraLax , Notes to Pharmacist: PRNTylenol , Notes to Pharmacist: PRNIbuprofen , Notes to Pharmacist: PRNPreserVision AREDS 2 Meclizine HCl 25 MG Tablet TAKE 1 TABLET BY MOUTH FOUR TIMES A DAY NEEDED FOR DIZZINESS Oral , Notes to Pharmacist: PRNTaking aspirin Taking Potassium Taking Fosamax Taking Atenolol 25 MG Tablet Oral Taking Ferrous Sulfate-Vitamin C Taking Calcium + D 600 mcg Orally Taking Magnesium 500 MG Tablet 1 tablet with a meal Orally Once a day Taking Vitamin B 12 1000 mcg 1 tablet Orally Once a day Taking Multivitamin Taking LORazepam 0.5 MG Tablet 1 tablet as needed Orally every 6 hrs , Notes to Pharmacist: PRN for flyingTaking MiraLax , Notes to Pharmacist: PRNTaking Tylenol , Notes to Pharmacist: PRNTaking Ibuprofen , Notes to Pharmacist: PRNTaking PreserVision AREDS 2 Taking Meclizine HCl 25 MG Tablet TAKE 1 TABLET BY MOUTH FOUR TIMES A DAY NEEDED FOR DIZZINESS Oral , Notes to Pharmacist: PRNNot-Taking/PRNZoloft Medication List reviewed and reconciled with the patientNot-Taking/PRN Zoloft Medication List reviewed and reconciled with the patient * Allergies:?Amoxicillin: tristen re urticaria dyspneaDyspnea: weltsPenicillinyes[Allergies Verified] Objective: * Vitals:?Ht: 5 ft 1 in, Wt: 9 3, BMI: 17.57, Shoe size: 7.5W, BP: 116/60 mm Hg, Wt-k.18 kg. * Examination: ???Vascular: ?DP PULSES (B):?1/4, B/L.?PT PULSES (B):? 0/4, B/L.?CAPILLARY FILL TIME:? delayed, all digits, B/L.?TROPHIC CONDITION-TEXTURE/ELASTICITY/TURGOR/HAIR GROWTH (B):? decreased, B/L.?TEMPERTURE GRADIENT (C):? decreased, cool to cool, proximal to distal, B/L.?PIGMENTATION:?pale, B/L.?EDEMA (C):?1/4 , B/L.?CLAUDICATION (C):?denies, B/L.?REST PAIN:?denies, B/L.?Nails: ?NAILS are:? Elongated, overgrown, dystrophic, lytic, greater than 3mm thick, discolored and friable with crumbly malodorous subungual debris, with pain on palpation,TA, T1, T2, T3, T4, T5, T6, T7, T8, T9.?Dermatologic: ?SKIN FINDINGS:?Skin exam reveals Keratotic lesion(s) located at , TA , T1 , T2 , T5 , SUB MTH (s) , 1 , B/L.?Orthopedic: ?MUSCLE STRENGTH:?5/5 all groups in a symmetrical fashion, B/L.?BUNION:?Medially prominent 1st MPJ , Lateral tracking 1st MPJ nonreducible , LEFT TA overlapping T1.?DIGITAL DEFORMITIES:?Digital contracture, PIPJ, 2-5 B/L, non-reducible with WB or to push-up test, no over, nor underlapping.?FOOTWEAR:? shoe gear properties exacerbate patients foot/toe deformity.?Neurological: ?SENSORY:?Neurological exam reveals intact sensorium, pain sensation normal, vibration sensation intact, pinprick sensation is normal in the lower extremities, Pt denies, anesthesia, burning, paresthesia, tingling, B/L.?General Examination: ?GENERAL APPEARANCE:?Reveals a pleasant, alert, well nourished, well- developed, well hydrated individual, who demonstrates proper attention to hygiene/body habitus, and is in no acute distress, Pt serves as own historian for office visit today.?ORIENTED:?person, place, and time.? Assessment: * Assessment: 1.?Hallux valgus (acquired), left foot - M20.12???2.?Hammer toe of left foot - M20.42 (Primary)???Specify :Chronic problem, Stable (1=3,2=4)???3.?Atherosclerosis of artery of both lower extremities - I70.203?? 4.?Hammertoe of right foot - M20.41???5.?Tinea unguium - B35.1???6.?Pain in left toe(s) - M79.675???7.?Pain in right toe(s) - M79.674??? Plan: * Treatment: * Procedures:?Debride Nail 6-10:?Nail debridement?Due to the clinical pathology outlined in the exam findings, performance of this nail treatment is medically necessary as its management by an unskilled/untrained nonprofessional would put this patients foot and overall health at risk. Therefore, debridement to affected nail(s), as described in exam (TA, T1, T2, T3, T4, T5, T6, T7, T8, T9, ), was performed exclusively by the physician of record to reduce/remove overall nail length, girth, thickness, subungual debris, and necrotic tissue, by manual and/or electrical means through the use of a nail nipper and/or dremel-type bit grinder, to a more viable healthy nail plate or bed tissue 6- 10 nails in total. Silver nitrate was used for any petechial bleeding as necessary. Definitive antifungal treatment options, both pharmaceutical and surgical, have been reviewed and discussed with the patient. The patient solely prefers the use of intermittent/as needed professional debridement services for their nail condition and understands the need for additional periodic treatments to maintain effectiveness in symptomatic relief - 13024.?Keratoma Treatment:?Parring or Cutting of Benign Hyperkeratotic Lesion(s)?(-57) More than 4 Lesions - Due to the at risk nature of the patients medical condition as documented in the exam findings, performance of this keratoderma treatment is medically necessary as its management by an unskilled/untrained nonprofessional would put this patients foot and overall health at risk. Therefore, the benign hyperkeratotic lesions, ( 6) in total, locations as stated and described in the exam ( TA?,?T1?,?T2?,?T5?,?SUB MTH (s)?,?1?,?B/L?), were pared, and/or cut utilizing a sterile 15 blade, tissue nippers, and/or power dremel instrumentation by the physician of record - 72844.? * Procedure Codes:?32291 DEBRI DE NAIL, 6 OR MORE, Modifiers: XS 55583 TRIM SKIN LESIONS, OVER 4, Modifiers: ANJU , Q8 * Preventive Medicine:? ??Counseling:?Discussion:?-13: Office or other outpatient visit for the evaluation and management of an established patient, which required a medically appropriate history and/or examination and LOW level of DECISION MAKING for: 1 STABLE ACUTE UNCOMPLICATED PROBLEM, 2 OR MORE MINOR PROBLEMS, OR 1 STABLE CHRONIC PROBLEM, THAT POSE(S) A LOW RISK FOR MORBIDITY/MORTALITY. The visit on the day of the encounter encompassed interpreting the data and educating the patient as to the nature of their condition, treatment options available according to their individual PMH, meds, allergies, and overall health/living conditions, as well as any potential risks or complications that may occur from a failure to adhere to, and participate in, the recommended course of therapy. The discussion included a complete verbal, and/or written explanation of the examination results, any x-rays taken, the proposed diagnosis, and outline of the treatment plan. A schedule for future care needs was also explained. The patient verbalized an understanding of the instructions at this time and agreed to be an active participant in their treatment. If the patient should think of any questions or concerns after the visit, I have encouraged the patient to call the office.?Digital Treatment:?I explained to the patient the possible etiologies of Hammertoes, including genetics/foot type/shoegear/activity level/exercise routine and the risks/benefits of all the different treatment options for their pain including: No treatment at all, Rest, Ice, New/supportive/wider/deeper Shoegear, Digital Padding/Strapping/Taping/Bracing/Gel protective sleeves, Foot/Ankle AFO Bracing, Stretching exercises, Deep Tissue Massage, Arch support/shoe inserts with splay metatarsal padding, and Custom orthoses. I insisted that any digital devices be removed daily and not worn overnight for safety. The patient is to carefully examine the toes daily for any skin irritation while using any splinting or padding device. The advantages and disadvantages of each option were discussed and the patients questions re: shoegear, padding, custom vs prefabricated inserts, activity level, and consistency in home treatment regimens for optimal success were answered to their verbally confirmed satisfaction, dispensed crest pad.?Shoe Gear Counseling:?The patient and I reviewed the types of shoes they should be wearing. My recommendation included obtaining a well-fitted shoe with a good supportive, non-foldable nor twistable sole, plenty of toe/room for the forefoot, and proper arch support. Based on todays examination, I recommended the patient look for new shoes, by having their feet professionally measured. We discussed that generally the best time of the day for a shoe fitting is the afternoon. Different shoes types and brands to best match the patients occupation and vocation were discussed. Specific brand selection will be up to the patient, their individual foot condition/deformities, and fit. The patient and I reviewed the standard new shoe break in period by wearing them for a few hours a day while checking for redness or sores as wear time is increased. The patient verbally confirmed to understanding the information discussed.? * Follow Up:?2 Months * Images: * Sign off status: Completed true * Provider:?Daisy Villarreal DPM Date:? Generated for Karli vargas/Yarelis/Neetu on:?10/24/2024 12:11 PM EST History and Physical Notes * HPI (History of Present Illness) Category Sub-Category Detail Notes Category Not es Toe pain Nature: tenderness Location: Left foot , 2nd toe , 3rd toe Duration: several months Course: improved Aggravated by: any pressure, shoes Treatments: rest/alter normal da russ activity, change in shoes , bracing/splinting/padding, crest pad At Risk footcare Pt States Last PCP Visit: Date: 4 Examination Category Sub-Category Detail Notes Category Not es Neurological SENSORY: Neurological exa m reveals intact sensorium, pain sensation normal, vibration sensation intact, pinprick sensation is normal in the lower extremities, Pt denies, anesthesia, burning, paresthesia, tingling, B/L Dermatologic SKIN FINDINGS: Skin exam reveal s Keratotic lesion(s) located at , TA , T1 , T2 , T5 , SUB MTH (s) , 1 , B/L Orthopedic BUNION: Medially promine nt 1st MPJ , Lateral tracking 1st MPJ nonreducible , LEFT TA overlapping T1 FOOTWEAR: shoe gear properties exacerbate patients foot/toe deformity DIGITAL DEFORMITIES: Digital contracture , PIPJ, 2-5 B/L, non-reducible with WB or to push-up test, no over, nor underlapping MUSCLE STRENGTH: 5/5 all groups in a symmetrical fashion, B/L General Examination GENERAL APPEARANCE: Reveals a pleasant, alert, well nourished, well-developed, well hydrated individual, who demonstrates proper attention to hygiene/body habitus, and is in no acute distress, Pt serves as own historian for office visit today ORIENTED: person, place, and t yosi Vascular DP PULSES (B): 1/4, B/L PT PULSES (B): 0/4, B/L CAPILLARY FILL TIME: delayed, all digits , B/L TEMPERTURE GRADIENT (C): decreased, cool to cool, proximal to distal, B/L TROPHIC CONDITION-TEXTURE/ELASTICITY/TURGOR/HAIR GROWTH (B): decreased, B/L EDEMA (C): 1/4 , B/L CLAUDICATION (C): denies, B/L REST PAIN: denies, B/L PIGMENTATION: pale, B/L Nails NAILS are: Elongated, overg rown, dystrophic, lytic, greater than 3mm thick, discolored and friable with crumbly malodorous subungual debris, with pain on palpation,TA, T1, T2, T3, T4, T5, T6, T7, T8, T9
--- OUTSIDE RECORDS SUMMARY | 2024-10-24 12:11 | XMS_ITS | Encounter Summary ---
[facility] Address [address] [place] [address] Care Team Providers Care Media Center Director School Name Role Phone Clarice Ziegler MD Primary Care Provider Unavaila ble Encounter Details Date Type Department Care Team Description 01/28/2018 Business Doc Medical Records [address] [place] [id number] Abstract, Provider Social History Tobacco Use Types Packs/Day Years Used Date Smoking Tobacco: Never Smokeless Tobacco: Never Sex Assigned at Date Recorded Not on file documented as of this encounter Plan of Treatment Not on file documented as of this encounter Visit Diagnoses Not on filedocumented in this encounter Care Teams Media Center Director School Relationship Specialty Start Date End Date Clarice Ziegler MD PCP - General Internal Medicine 09/10/17 documented as of this encounter
[2024-10-24 13:25] LABS: MANUAL DIFF FLAG NO
[2024-10-24 13:53] LABS: Basophils Absolute Auto 0.1 X10*3/uL (0.0-0.2); Basophils Percent Auto 0.9 % (0-2); Eosinophils Absolute Auto 0.3 X10*3/uL (0.0-0.4); Eosinophils Percent Auto 2.9 % (0-4); Hemoglobin 11.2 g/dl (12.0-16.0); Imm Gran Abs Auto 0.03 X10*3/uL (0.00-0.03); Imm Gran Pct Auto 0.3 % (0.0-0.4); Lymphocytes Absolute Auto 2.1 X10*3/uL (1.2-4.9); Mean Corpuscular HGB Conc 32.9 g/dl (31.0-35.0); Mean Corpuscular Hemoglobin 31.7 pg (27.0-33.0); Mean Corpuscular Volume 96.3 fL (80.0-98.0); Mean Platelet Volume 9.1 fL (9.4-12.3); Monocytes Absolute Auto 1.2 X10*3/uL (0.1-1.2); Monocytes Percent Auto 12.2 % (2-11); Neutrophils Absolute Auto 5.8 x10*3/uL (2.0-8.3); Neutrophils Percent Auto 61.7 % (45-73); Platelet Count 206 X10*3/uL (160-400); Red Blood Count 3.53 X10*6/uL (4.20-5.50); Red Cell Distribution Width 12.8 % (11.0-16.0); White Blood Count 9.4 X10*3/uL (4.8-10.8)
[2024-10-24 14:38] LABS: Anion Gap 12 (12-20); Blood Urea Nitrogen 48 mg/dL (9-16); Carbon Dioxide 21 mmol/L (22-29); Chloride 104 mmol/L (96-108); Estimated Glomerular Filt Rate 50; Glucose Random 90 mg/dL (60-115); Potassium 4.4 mmol/L (3.3-5.1); Sodium 133 mmol/L (135-145)
== END 2024-10-24 10:40 | disposition home or self-care (01) ==
LOC: HO.HMGCLDS 10:39
PROVIDERS: PCP Internal Medicine; Visit Provider Internal Medicine
DX: N18.30 Chronic kidney disease, stage 3 unspecified (principal); M81.0 Age-related osteoporosis without current pathological fracture; I10 Essential (primary) hypertension
CPT/HCPCS: 36415; 80048; 85025

== ENCOUNTER 2024-12-15 09:18 | Outpatient (REF) | payer MEDICARE, SELFPAY ==
--- OUTSIDE RECORDS SUMMARY | 2024-12-15 09:22 | XMS_ITS | Continuity of Care Document ---
Author Name [facility] Organization [facility] Care Team Providers Care Facetor Name Role Phone [facility] Unavailable Unavailable Problems Combined list of problems [...] [facility] Hypertension (SNOMED CT [id number]) [facility] [...] A WEEK ORAL ACTIVE FURCOLO,T MIAN [address] [facility] ASCORBIC ACID 500MG TAB TAKE ONE TABLET BY MOUTH ONCE DAILY ORAL ACTIVE Ian DUGAN ICO[place] [address] [facility] ATENOLOL 25MG TAB TAKE ONE TABLET BY MOUTH ONCE DAILY ORAL ACTIVE Ian DUGAN ICOLE 2018 [facility] CALCIUM 250MG/VITAM IN D 125UNIT TAB TAKE BY MOUTH ORAL ACTIVE ZASHIN,LY NN S 2013 [facility] FERROUS SO4 325MG TAB TAKE ONE TABLET BY MOUTH ONCE DAILY ORAL ACTIVE KIRCHEN,N ICOLE 2019 [facility] FUROSEMIDE 20MG TAB TAKE ONE TABLET BY MOUTH ONCE DAILY ORAL ACTIVE FURCOLO,T MIAN 2023 [facility] MAGNESIUM GLUCONATE TAB TAKE BY MOUTH ORAL ACTIVE ZASHIN,LY NN S 2011 [facility] MULTIVITAMI NS W/MINERALS TAB TAKE ONE TABLET BY MOUTH ORAL ACTIVE ZASHIN,LY NN S 2011 [facility] POLYETHYLEN E GLYCOL 3350 POWDER,ORAL TAKE BY MOUTH PRN ORAL ACTIVE ZASHIN,LY NN S 2013 [facility] POTASSIUM CHLORIDE 20MEQ TAB,SA (DISPERSIBL E) TAKE ONE TABLET BY MOUTH ONCE DAILY ORAL ACTIVE FURCOLO,T MIAN 2023 [facility] SERTRALINE HCL 50MG TAB TAKE ONE-HALF TABLET BY MOUTH ONCE DAILY ORAL ACTIVE FURCOLO,T MIAN 2023 [facility] VITAMIN B COMPLEX CAP TAKE 1 CAPSULE BY MOUTH ONCE DAILY ORAL ACTIVE KIRSERGIO,N ICOLE 2022 [facility] Allergies, Adverse Reactions, Alerts Combined list of allergies from Department of Defense and Veterans Affairs facilities. It does not include entries that were removed or entered in error. Substance Category Reaction Severity Reaction type Status Date Reported Comments Source CODEINE Propensity to adverse reactions to drug (finding) Nausea and vomiting active 2 [facility] DEMEROL Propensity to adverse reactions to drug (finding) active 4 [facility] PENICILLIN Propensity to adverse reactions to drug (finding) Anaphylaxis [facility] SULFA DRUGS Propensity to adverse reactions to drug (finding) Anaphylaxis active 2 [facility] Immunizations Combined list of available immunizations from the Department of Defense and Veterans Affairs facilities. Immunization Series Date Given Administered By Site Reaction Lot Number CVX Code Drug Galley Worker Status Comments Source INFLUENZA, UNSPECIFIED FORMULATION 2022 88 complet ed HISTORICA L INFORMATI ON - FROM OTHER REGISTRY, [facility] COVID-19 (PFIZER), MRNA, LNP-S, BIVALENT BOOSTER, PF, 30 MCG/0.3 ML DOSE 2021 300 complet ed HISTORICA L INFORMATI ON - SOURCE UNSPECIFI ED, [facility] INFLUENZA, UNSPECIFIED FORMULATION 2021 88 complet ed HISTORICA L INFORMATI ON - SOURCE UNSPECIFI ED, [facility] COVID-19 [...] Oct 03, 2023 03:06 PM Reporting Lab: [facility] [address] [facility] [address] Performing Lab: [facility]ENTERUSEBAT[facility] [address] [facility] [address] [facility] IRON & TIBC PANEL IRON BINDING CAPACITY [MASS/VOLUM E] IN SERUM OR PLASMA 236 ug/dL 204 - 475 10/05 Specimen Type: SERUM No comment entered. Ordering Provider: FREYA VALDIVIA Report Released Date/Time: Oct 03, 2023 03:06 PM Reporting Lab: [facility] [place] [facility] [address] [facility] [address] Performing Lab: [facility]ENTERUSEBAT[facility] [address] [facility] [address] [facility] IRON & TIBC PANEL IRON [MASS/VOLUM E] IN SERUM OR PLASMA 55 ug/dL 40 - 160 10/05 Specimen Type: SERUM No comment entered. Ordering Provider: FREYA VALDIVIA Report Released Date/Time: Oct 03, 2023 03:06 PM Reporting Lab: [facility] [place] [facility] [address] [facility] [address] Performing Lab: [facility] [place] [facility] [address] [facility] [address] [facility] [facility] IRON & TIBC PANEL IRON/IRON BINDING CAPACITY.TO JOVANA [MASS RATIO] IN SERUM OR PLASMA 23.3 20.0 - 50.0 10/05 Specimen Type: SERUM No comment entered. Ordering Provider: FREYA VALDIVIA Report Released Date/Time: Oct 03, 2023 03:06 PM Reporting Lab: [facility] [place] [facility] [address] [facility] [address] Performing Lab: [facility]ETS [address] [address] [facility]N [facility]USE [facility] VITAMIN B12 COBALAMIN (VITAMIN B12) [MASS/VOLUM E] IN SERUM OR PLASMA >2000p g/mL 200 - 900 10/05 H Specimen Type: SERUM No comment entered. Ordering Provider: FREYA VALDIVIA Report Released Date/Time: Oct 03, 2023 03:06 PM Reporting Lab: [facility] CAMPUSTRN [facility]ENTERUSE[address] [address] Performing Lab: [facility]ETS [address] [address] [facility]USE [facility] CBC LEUKOCYTES [#/VOLUME] IN BLOOD BY AUTOMATED COUNT 6.27 10*3/u L 4.50 - 11.00 10/05 Specimen Type: BLOOD No comment entered. Ordering Provider: FREYA VALDIVIA Report Released Date/Time: Oct 03, 2023 03:06 PM Reporting Lab: [facility] [place] [address] [address] Performing Lab: [facility] [place] [address] [address] [facility]OSPITALN [facility]ENTERUSE [facility] CBC ERYTHROCYTE S [#/VOLUME] IN BLOOD BY AUTOMATED COUNT 3.37 10*6/u L 3.93 - 5.16 10/05 L Specimen Type: BLOOD No comment entered. Ordering Provider: FREYA VALDIVIA Report Released Date/Time: Oct 03, 2023 03:06 PM Reporting Lab: [facility] [place] [facility] [address] [facility] [address] Performing Lab: [facility] [place] [facility] [address] [facility] [address] [facility] CBC HEMOGLOBIN [MASS/VOLUM E] IN BLOOD 10.5 g/dL 12 - 15.2 10/05 L Specimen Type: BLOOD No comment entered. Ordering Provider: FREYA VALDIVIA Report Released Date/Time: Oct 03, 2023 03:06 PM Reporting Lab: [facility] [place] [facility] [address] [facility] [address] Performing Lab: [facility] [place] [address] [address] [facility] CBC HEMATOCRIT [VOLUME FRACTION] OF BLOOD BY AUTOMATED COUNT 30.2 36.6 - 45.6 10/05 L Specimen Type: BLOOD No comment entered. Ordering Provider: FREYA VALDIVIA Report Released Date/Time: Oct 03, 2023 03:06 PM Reporting Lab: [facility] [place] [facility] [address] [facility] [address] Performing Lab: [facility] [place] [address] [address] [facility] CBC MCV [ENTITIC VOLUME] BY AUTOMATED COUNT 89.6 fL 82 - 99 10/05 Specimen Type: BLOOD No comment entered. Ordering Provider: FREYA VALDIVIA Report Released Date/Time: Oct 03, 2023 03:06 PM Reporting Lab: [facility] [place] [facility] [address] [facility] [address] Performing Lab: [facility] [place] [facility] [address] [facility] [address] [facility] CBC MCHC [MASS/VOLUM E] BY AUTOMATED COUNT 34.8 g/dL 30.8 - 35.1 02/09 /2024 Specimen Type: BLOOD No comment entered. Ordering Provider: FREYA VALDIVIA Report Released Date/Time: Oct 03, 2023 03:06 PM Reporting Lab: [facility] [place] [facility] [address] [facility] [address] Performing Lab: [facility] [place] [facility] [address] [facility] [address] [facility] CBC PLATELETS [#/VOLUME] IN BLOOD BY AUTOMATED COUNT 228 10*3/u L 140 - 360 10/05 Specimen Type: BLOOD No comment entered. Ordering Provider: FREYA VALDIVIA Report Released Date/Time: Oct 03, 2023 03:06 PM Reporting Lab: [facility] [place] [facility] [address] [facility] [address] Performing Lab: [facility] [place] [address] [address] [facility] CBC ERYTHROCYTE DISTRIBUTIO N WIDTH [RATIO] BY AUTOMATED COUNT 12.7 12.0 - 16.0 10/05 Specimen Type: BLOOD No comment entered. Ordering Provider: FREYA VALDIVIA Report Released Date/Time: Oct 03, 2023 03:06 PM Reporting Lab: [facility] [place] [facility] [address] [facility] [address] Performing Lab: [facility] [place] [address] [address] [facility] CBC MCH [ENTITIC MASS] BY AUTOMATED COUNT 31.2 pg 26.2 - 32.6 10/05 Specimen Type: BLOOD No comment entered. Ordering Provider: FREYA VALDIVIA Report Released Date/Time: Oct 03, 2023 03:06 PM Reporting Lab: [facility] [place] [facility] [address] [facility] [address] Performing Lab: [facility] [place] [address] [address] [facility] VITAMIN D (25-OH) 25-HYDROXYV ITAMIN D3 [MASS/VOLUM E] IN SERUM OR PLASMA 75 ng/mL 20 - 50 10/05 H Specimen Type: SERUM No comment entered. Ordering Provider: FREYA VALDIVIA Report Released Date/Time: Oct 03, 2023 03:06 PM Reporting Lab: [address] [address] Performing Lab: [address] [address] [facility] MAGNESIUM MAGNESIUM [MASS/VOLUM E] IN SERUM OR PLASMA 1.7 mg/dL 1.6 - 2.6 10/05 Specimen Type: SERUM No comment entered. Ordering Provider: FREYA VALDIVIA Report Released Date/Time: Oct 03, 2023 03:06 PM Reporting Lab: [address] [address] Performing Lab: [address] [address] [facility] FERRITIN FERRITIN [MASS/VOLUM E] IN SERUM OR PLASMA 616 ng/mL 10 - 200 10/05 H Specimen Type: SERUM No comment entered. Ordering Provider: FREYA VALDIVIA Report Released Date/Time: Oct 03, 2023 03:06 PM Reporting Lab: [address] [address] Performing Lab: [address] [address] [facility] HEMOGLOBI N A1C PANEL HEMOGLOBIN A1C/HEMOGLO [...] PM Reporting Lab: [facility] [place] [facility] [address] [facility] [address] Performing Lab: [facility] [place] [facility] [address] [facility] [address] [facility] TSH THYROTROPIN [UNITS/VOLU ME] IN SERUM OR PLASMA 1.90 u[IU]/ mL 0.35 - 5.00 10/05 Specimen Type: SERUM No comment entered. Ordering Provider: FREYA VALDIVIA Report Released Date/Time: Oct 03, 2023 03:06 PM Reporting Lab: [facility] [place] [facility] [address] [facility] [address] Performing Lab: [place] [facility] [place] [address] [address] [facility] BASIC METABOLIC PANEL (non-fast ing) UREA NITROGEN [MASS/VOLUM E] IN SERUM OR PLASMA 22 mg/dL 7 - 25 10/05 Specimen Type: SERUM No comment entered. Ordering Provider: FREYA VALDIVIA Report Released Date/Time: Oct 03, 2023 03:06 PM Reporting Lab: [facility] [place] [facility] [address] [facility] [address] Performing Lab: [facility] [place] [address] [address] [facility] [place] [facility] BASIC METABOLIC PANEL (non-fast ing) GLUCOSE [MASS/VOLUM E] IN SERUM OR PLASMA 97 mg/dL 65 - 100 10/05 Specimen Type: SERUM No comment entered. Ordering Provider: FREYA VALDIVIA Report Released Date/Time: Oct 03, 2023 03:06 PM Reporting Lab: [facility] [place] [facility] [address] [facility] [address] Performing Lab: [facility] [place] [address] [address] [facility] [facility] BASIC METABOLIC PANEL (non-fast ing) SODIUM [MOLES/VOLU ME] IN SERUM OR PLASMA 125 mmol/L 135 - 145 10/05 L Specimen Type: SERUM No comment entered. Ordering Provider: FREYA VALDIVIA Report Released Date/Time: Oct 03, 2023 03:06 PM Reporting Lab: [address] [address] Performing Lab: [address] [address] [facility] BASIC METABOLIC PANEL (non-fast ing) POTASSIUM [MOLES/VOLU ME] IN SERUM OR PLASMA 4.1 mmol/L 3.5 - 5.0 10/05 Specimen Type: SERUM No comment entered. Ordering Provider: FREYA VALDIVIA Report Released Date/Time: Oct 03, 2023 03:06 PM Reporting Lab: [address] [address] Performing Lab: [address] [address] [facility] BASIC METABOLIC PANEL (non-fast ing) CHLORIDE [MOLES/VOLU ME] IN SERUM OR PLASMA 93 mmol/L 100 - 110 10/05 L Specimen Type: SERUM No comment entered. Ordering Provider: FREYA VALDIVIA Report Released Date/Time: Oct 03, 2023 03:06 PM Reporting Lab: [address] [address] Performing Lab: [address] [address] [facility] BASIC METABOLIC PANEL (non-fast ing) CARBON DIOXIDE, TOTAL [MOLES/VOLU ME] IN SERUM OR PLASMA 23 meq/L 20 - 30 10/05 Specimen Type: SERUM No comment entered. Ordering Provider: FREYA VALDIVIA Report Released Date/Time: Oct 03, 2023 03:06 PM Reporting Lab: [address] [address] Performing Lab: [facility] [place] [facility] [address] [facility] [address] [facility] [place] [facility] BASIC METABOLIC PANEL (non-fast ing) CREATININE [MASS/VOLUM E] IN SERUM OR PLASMA 0.86 mg/dL 0.50 - 1.40 10/05 Specimen Type: SERUM No comment entered. Ordering Provider: FREYA VALDIVIA Report Released Date/Time: Oct 03, 2023 03:06 PM Reporting Lab: [facility] [place] [facility] [address] [facility] [address] Performing Lab: [facility] [place] [facility] [address] [facility] [address] [facility] [place] [facility] BASIC METABOLIC PANEL (non-fast ing) GLOMERULAR FILTRATION RATE/1.73 SQ M.PREDICTED [VOLUME RATE/AREA] IN SERUM, PLASMA OR BLOOD BY CREATININE- BASED FORMULA (CKD-EPI 2020) 65 mL/min 60 10/05 Specimen Type: SERUM No comment entered. Ordering Provider: FREYA VALDIVIA Report Released Date/Time: Oct 03, 2023 03:06 PM Reporting Lab: [facility] [place] [facility] [address] [facility] [address] Performing Lab: [facility] [place] [facility] [address] [facility] [address] [facility] [facility] Encounters Combined list of: 1) Encounters from [...] [facility] [id number] 08/30 [facility] En[facility] [id number] 09/14 [facility] En[facility] [id number] 09/17 [facility] Outpatient Encounter [id number] 09/17 [facility] En[facility] [id number] 10/02 [facility] Outpatient Encounter [id number] 10/08 [facility] OFFICE O/P EST HI 40 MIN [id number] Diagnos is: ICD-10- CM E87.6 Hypokal emia FURCOLO,TI NA 10/12 [facility] [place] [facility] Social History Combined list of available smoking, tobacco, and other social history from Department of Defense and Veterans Affairs facilities. Social History Type Response Date Comment [facility] e Tobacco smoking status NHIS VA-TOBACCO NEVER USED 09/17/2023 [facility] [place] [facility] History of tobacco use VA-TOBACCO NEVER USED 09/05/2022 [facility] [place] [facility] History of tobacco use VA-TOBACCO NEVER USED 09/07/2021 [facility] [place] [facility] History of tobacco use VA-TOBACCO NEVER USED 06/29/2020 [facility] [place] [facility] History of tobacco use LIFETIME NON-TOBACCO USER 04/24/2018 [facility] [place] [facility] History of tobacco use LIFETIME NON-TOBACCO USER 01/19/2017 [facility] [place] [facility] History of tobacco use LIFETIME NON-TOBACCO USER 04/01/2012 [facility] [place] [facility]
--- OUTSIDE RECORDS SUMMARY | 2024-12-15 09:22 | XMS_ITS ---
Author Organization [facility] Address [address] [place] [address] Care Team Providers Care Web Site Specialist Name Role Phone Clarice Ziegler MD Primary Care Provider Daisy Perry Unavailable [phone] REASON FOR VISIT lr toe crest and 3 lg toe buddies Encounters Encounter Location Date Provider Diagnosis [facility] [address] [place] [address] 09/16/2024 Daisy Villarreal Plan Of Treatment Next Appt Details Provider Name:Daisy marcial, 12/17/2024 02:30:00 PM, [address] [place], [address], Progress Notes * Iraida SHEEHANDOB:1935 (89 yo F)Acc No.[id number]:09/16/2024 Patient:?Iraida SHEEHAN :1935???Age:89 Y???Sex:Female Address:[address] [facility] [place] [address] * true * Date:? Generated for Printi ng/Faxing/eTransmitting on:?12/15/2024 09:22 AM EDT
--- OUTSIDE RECORDS SUMMARY | 2024-12-15 09:22 | XMS_ITS | Patient Health Record ---
Author Organization [facility] [place] Address [address] [facility] [place] [address] Care Team Providers Care Shampoo Person Name Role Phone Clarice Ziegler MD Primary Care Provider Daisy Perry Unavailable [phone] Allergies Allergen (clinical drug ingredient) Drug/Non Drug [...] Status Risk Notes Problem Acquired hallux valgus (79996148) Hallux valgus (acquired), 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) Active confirmed Problem [id number] 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) Active confirmed Problem [id number] Hammertoe of right foot (M20.41) Active confirmed Problem [id number] 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 Problem [id number] 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) Active confirmed Vital Signs Blood pressure diastolic 60 mm Hg 09/16/2024 Height 5 ft 1 in in 09/16/2024 Blood pressure systolic 116 mm Hg 09/16/2024 Weight 93 lbs 09/16/2024 BMI 17.57 kg/m2 09/16/2024 Encounters Encounter Location Date Provider Diagnosis [address] [address] 03/11/2024 Daisy Caballeroa Hallux valgus (acquired), left foot M20.12 ; Hammer toe of left foot M20.42 ; Atherosclerosis of artery of both lower extremities I70.203 ; Hammertoe of right foot M20.41 ; Tinea unguium B35.1 ; Pain in left toe(s) M79.675 and Pain in right toe(s) M79.[address] [address] 05/28/2024 Daisy Caballeroa Hallux valgus (acquired), left foot M20.12 ; Hammer toe of left foot M20.42 ; Atherosclerosis of artery of both lower extremities I70.203 ; Hammertoe of right foot M20.41 ; Tinea unguium B35.1 ; Pain in left toe(s) M79.675 and Pain in right toe(s) M79.[address] [address] 09/16/2024 Daisy Perica Hallux valgus (acquired), left foot M20.12 ; Hammer toe of left foot M20.42 ; Atherosclerosis of artery of both lower extremities I70.203 ; Hammertoe of right foot M20.41 ; Tinea unguium B35.1 ; Pain in left toe(s) M79.675 and Pain in right toe(s) M79.674 [facility] [address] [address] 12/17/2023 Daisy Perica [facility] [address] [address] 03/11/2024 Daisy Perica [facility] [address] [address] 04/01/2024 Daisy Perica [facility] [address] [address] 05/06/2024 Daisy Perica [facility] [address] [address] 05/28/2024 Daisy Perica [facility] [address] 06/27/2024 Daisy Perica [facility] [address] [address] 09/16/2024 Daisy Villarreal Assessments Encounter Date Diagnosis [...] Details Provider Name:Daisy marcial, 12/17/2024 02:30:00 PM, [address] [place] [address], [place], [address], Insurance Providers Payer Name Payer Address Payer Phone Subscriber Number Group Number Insured Name Patient Relationship to Insured Coverage Start Date Coverage End Date Medicare [facility] [address] [place] [address] [id number] Iraida Cantor Self - patient is the insured [employer] [address] [place] [address] [id number] Iraida Cantor Self - patient is the [...] removal 09/05/2024 Hospitalization History Reason Date(Month/Year) ER [facility]- dizzy , high blood pressure 07/0 11/17 fall at [facility] went to ER
--- OUTSIDE RECORDS SUMMARY | 2024-12-15 09:23 | XMS_ITS ---
Author Organization [facility] Address [address] [place] [address] Care Team Providers Care V Belt Inspector Name Role Phone Clarice Ziegler MD Primary Care Provider Daisy Perry [phone] Encounters Encounter Location Date Provider Diagnosis [facility] [address] [place] [address] 08/12/2024 Daisy Villarreal Plan Of Treatment Next Appt Details Provider Name:Daisy marcial, 12/17/2024 02:30:00 PM, [address] [place], [address], Progress Notes * Iraida SHEEHANDOB:1935 (89 yo F)Acc No.[id number]:08/12/2024 Progress Note Patient:?Iraida SHEEHAN Provider:?Daisy Villarreal DPM :1935???Age:89 Y???Sex:Female D ate:08/12/2024 Address:[address] [place] [address] [id number] Pcp:Clarice Ziegler MD Subjective: * Chief Complaints: [...] Villarreal DPM Date:? Generated for Karli vargas/Yarelis/Neetu on:?12/15/2024 09:22 AM EDT
--- OUTSIDE RECORDS SUMMARY | 2024-12-15 09:23 | XMS_ITS ---
Author Organization [facility] armen Ingomar Address [address] [place] [address] Care Team Providers Care Extractive Metallurgist Name Role Phone Clarice Ziegler MD Primary Care Provider Daisy Perry Unavailable [phone] Allergies Allergen (clinical drug ingredient) Drug/Non Drug [...] 025 Encounters Encounter Location Date Provider Diagnosis [facility] [address] [address] 09/16/2024 Daisy Villarreal Hallux valgus (acquired), left [...] Reason: Provider Name:Daisy marcial, 12/17/2024 02:30:00 PM, [address] [place] [address], [phone], Procedure Notes * Category Sub-Category Detail Notes [...] use of a nail nipper and/or dremel-type convex grinder, to a more viable healthy nail [...] to maintain effectiveness in symptomatic relief - 31056 Keratoma Treatment Parring or Cutting o f [...] instrumentation by the physician of record - 08386 Progress Notes * Iraida SHEEHANDOB:1935 (89 yo F)Acc No.[id number]:09/16/2024 Progress Note Patient:?Iraida SHEEHAN Provider:?Daisy Villarreal DPM :1935???Age:89 Y???Sex:Female D ate:09/16/2024 Address:[address] [place] [address] [place] [place] [id number] Pcp:Clarice Ziegler MD Subjective: * Chief Complaints: [...] 09/05/2024 * Hospitalization/Major Diagno stic Procedure:?fall at [facility] went [facility] [place]- dizzy , high blood [...] PT, walking. ?Marital status: . 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 * Medications:?Takingaspirin P otassium Fosamax [...] use of a nail nipper and/or dremel-type convex grinder, to a more viable healthy nail [...] to maintain effectiveness in symptomatic relief - 69713.?Keratoma Treatment:?Parring or Cutting of Benign Hyperkeratotic Lesion(s)?(-57) [...] instrumentation by the physician of record - 15805.? * Procedure Codes:?60039 DEBRI DE NAIL, 6 OR MORE, Modifiers: XS 86822 TRIM SKIN LESIONS, OVER 4, Modifiers: ANJU [...] Provider:?Daisy Villarreal DPM Date:? Generated for Karli vargas/Yarelis/Jessieitting on:?12/15/2024 09:23 AM EDT History and Physical Notes * HPI (History [...] MPJ nonreducible , LEFT TA overlapping T1 FOOTWEAR EVALUATION: shoe gear propertie s exacerbate patients foot/toe deformity DIGITAL DEFORMITIES: Digital [...]
[2024-12-15 13:10] LABS: MANUAL DIFF FLAG NO
[2024-12-15 13:16] LABS: Basophils Absolute Auto 0.1 X10*3/uL (0.0-0.2); Basophils Percent Auto 1.1 % (0-2); Eosinophils Absolute Auto 0.3 X10*3/uL (0.0-0.4); Eosinophils Percent Auto 5.3 % (0-4); Hematocrit 33.7 % (37.0-47.0); Hemoglobin 11.1 g/dl (12.0-16.0); Imm Gran Abs Auto 0.01 X10*3/uL (0.00-0.03); Imm Gran Pct Auto 0.2 % (0.0-0.4); Lymphocytes Percent Auto 35.4 % (20-40); Mean Corpuscular HGB Conc 32.9 g/dl (31.0-35.0); Mean Corpuscular Hemoglobin 31.5 pg (27.0-33.0); Mean Corpuscular Volume 95.7 fL (80.0-98.0); Monocytes Absolute Auto 0.6 X10*3/uL (0.1-1.2); Monocytes Percent Auto 10.7 % (2-11); Neutrophils Absolute Auto 2.7 x10*3/uL (2.0-8.3); Neutrophils Percent Auto 47.3 % (45-73); Platelet Count 200 X10*3/uL (160-400); Red Blood Count 3.52 X10*6/uL (4.20-5.50); Red Cell Distribution Width 13.2 % (11.0-16.0); White Blood Count 5.7 X10*3/uL (4.8-10.8)
[2024-12-15 13:33] LABS: Alanine Aminotransferase 20 U/L (0-31); Albumin Level 4.4 g/dL (3.5-5.0); Alkaline Phosphatase 50 U/L (39-117); Anion Gap 11 (12-20); Aspartate Amino Transferase 25 U/L (5-31); Bilirubin Total 0.5 mg/dL (0.0-1.0); Blood Urea Nitrogen 40 mg/dL (9-16); Calcium 10.1 mg/dL (8.4-10.2); Carbon Dioxide 26 mmol/L (22-29); Chloride 107 mmol/L (96-108); Estimated Glomerular Filt Rate 45; Glucose Fasting 92 mg/dL (60-99); Iron 94 mcg/dL (30-160); Percent Iron Saturation 43 % (15-50); Potassium 4.3 mmol/L (3.3-5.1); Sodium 140 mmol/L (135-145); Total Iron Binding Capacity 221 mcg/dL (228-428); Total Protein 7.3 g/dL (6.5-8.0); Unsaturated Iron Binding 127 ug/dL
== END 2024-12-15 09:19 | disposition home or self-care (01) ==
LOC: HO.HMGCLDS 09:18
PROVIDERS: PCP Internal Medicine; Visit Provider Internal Medicine
DX: N18.30 Chronic kidney disease, stage 3 unspecified (principal); D64.9 Anemia, unspecified; M81.0 Age-related osteoporosis without current pathological fracture; I10 Essential (primary) hypertension
CPT/HCPCS: 36415; 80053; 83540; 85025

== ENCOUNTER 2024-12-17 10:00 | Outpatient (RCR) | payer MEDICARE, SELFPAY ==
--- NOTE | 2024-10-29 13:53 | MHC.PT.EP ---
[facility] [place] Office [place] [facility] [place] Office [address] Marianna Felder [address] [phone] F: [phone] F: [phone] F: [phone] F: [phone] Physical Therapy Plan of Care Date of Evaluation: 10/29/24 Date of Surgery: Diagnosis: This is an 89 yo female presenting to skilled PT with a script for abnormalities of gait and balance. Assessment: This is an 89 yo female presenting to skilled PT with a script for abnormalities of gait and balance. From previous eval and today: Patient reporting that her passed this past September 2023 ( over 60 years). She moved to [facility] with her son after she lost her and had PT there which was very helpful (for UB and LB). Since then she has moved back to the area and would like to continue her PT again. Of note she recently had 6 weeks of PT for this and was DC'd in June with a good HEP and ed to look into senior center classes. She is here today reporting that she had more PT after I DC'd her when she traveled for the holidays and then she went back to her MD and asked for more. She has goals/hoping to work on balance, UB strength/ROM once again. She walks with a walking cane for balance, lives by herself, has 1 flight of stairs to laundry downstairs, gets assist with driving, trash removal and groceries. She takes daily walks and works on her shoulder ROM with her pulleys at home. 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 She denies dizziness. Assessment reveals pain that ranges from up to a 4/10 at the worst. Patient demos decreased B UE ROM, strength of B UE and B LE, impaired posture with forward head and rounded shoulders as well as noted scoliosis and decreased balance as evidenced by DGI and Madalyn SOPT. Based on functional limitations, impaired QOL and pain tolerance patient is a good candidate for skilled PT 2x/wk for 5wks. Frequency and Duration: The patient will be seen 2x/wk for 5wks Short Term Goals: Patient will demo good understanding of safe balance activities at home Patient will demo safe transfers [place]is[place] Head Goals: I in HEP Patient feels stronger and more subjectively safe at home Patient will improve DGI by at least 5 points Patient will improve LE strength by 1 MMT grade Treatment Plan: Modalities to reduce pain, spasms and effusion. Manual therapy to restore motion and function. Therapeutic exercise to improve strength and flexibility. Neuromuscular re-education for posture and balance. Therapeutic activities to return to functional activities of daily living. Electronically signed by: Eliza Valles PT Please sign and return to therapist. Thank you for your referral.
--- NOTE | 2025-01-20 12:31 | MHC.PT.DC ---
[facility] [place] Office [place] [facility] [address] Marianna Felder [address] [phone] F: [phone] F: [phone] F: [phone] F: [phone] Physical Therapy Discharge Report Diagnosis: This is an 89 yo female presenting to skilled PT with a script for abnormalities of gait and balance. Date of Surgery: Date of Evaluation: 10/29/24 Date of Discharge: 01/20/25 Treatments to Date: 12 Cancellations to Date: 0 No Shows to Date: 0 Discharge Status: Achieved Goals Improved Function Independent with HEP Discharge Summary: 12/17: Patient has come to 12 visits of PT. She has been motivated to get better and come to her appointments. She is I in her program, has no pain, has met her PT goals and does not require skilled PT any longer at this time. DC to [facility]. Electronically signed by: Eliza Valles PT Please sign and return to therapist. Thank you for your referral.
== END 2025-01-20 12:31 | disposition home or self-care (01) ==
LOC: HO.PTCHIC 10:00
PROVIDERS: PCP Internal Medicine; Visit Provider Internal Medicine
DX: R26.89 Other abnormalities of gait and mobility (principal)
CPT/HCPCS: 97110; 97162

== ENCOUNTER 2024-12-18 09:55 | Outpatient (AMB) | payer MEDICARE, SELFPAY ==
--- NOTE | 2024-12-18 09:56 | A.OFFPC_ITS ---
Vital Signs 12/18/24 09:57 Height 5 ft Weight 91 lb BMI 17.8 BP 110/66 Blood Pressure Location Lt brachial Position Sitting Respiration 18 Pulse 57 Pulse Source Pulse Oximeter Temp 97.9 F Temp Source Oral Pulse Oximetry (%) 96 Oxygen Delivery Method Room Air Intake Visit Reasons: 3m follow up Intake Note: Pt is here today for 3 months follow up visit. Allergies meperidine [From Demerol] Allergy (Severe, Verified 12/18/24 09:59) ANAPHYLAXIS Penicillins Allergy (Severe, Verified 12/18/24 09:59) HIVES Sulfa (Sulfonamide Antibiotics) [Sulfa (Sulfonamides)] Allergy (Mild, Verified 12/18/24 09:59) HIVES amoxicillin Allergy (Unknown, Verified 12/18/24 09:59) hives CHOCOLATE Allergy (Unknown, Verified 12/18/24 09:59) HIVES peanut [PEANUT] Allergy (Unknown, Verified 12/18/24 09:59) HIVES penicillin G Allergy (Unknown, Verified 12/18/24 09:59) trouble breathing rash penicillin V Allergy (Unknown, Verified 12/18/24 09:59) trouble breathing rash alendronate sodium [From Fosamax] Adverse Reaction (Intermediate, Verified 12/18/24 11:07) Tooth abscess codeine [Codeine] Adverse Reaction (Mild, Verified 12/18/24 09:59) NAUSEA/VOMITING pravastatin Adverse Reaction (Unknown, Verified 12/18/24 09:59) body aches Medication List - Last Reconciled 12/18/24 by Clarice Ziegler MD acetaminophen 1,000 mg (2 x 500 mg) PO Q6H PRN ascorbic acid (vitamin C) 500 mg PO .qod atenolol 25 mg PO DAILY cholecalciferol (vitamin D3) 50 mcg PO DAILY bruce.stocking,knee,reg,smal 10-20 mmHg, with zippers estradiol 0.01%(0.1mg/gram) 0.25 appful vaginal 3XW ferrous sulfate 325 mg PO Q OTHER DAY furosemide (Lasix) 20 mg PO Q OTHER DAY lorazepam 0.5 mg PO DAILY PRN meclizine 25 mg PO QID PRN miscellaneous medical supply 1 ea miscellaneous .qd potassium chloride ER 20 mEq PO DAILY Tobacco use date assessed: 12/18/24 Fall risk assessment: No Falls in past year Last assessed Fall Risk: 12/18/24 Dental Screening Dental Screen Date: 09/17/24 HPI 3m follow up HPI Details Patient presents for the follow-up. She complains of urinary incontinence getting worse. Patient denies dysuria but reports not being able to hold her urine at night. Patient reports sensation of food getting stuck in her lower esophagus specifically rice and mashed potatoes and occasionally regurgitating solids for the last month. Patient denies GERD symptoms abdominal pain hematochezia melena hemoptysis. Patient complains of depression getting worse since she stopped taking Zoloft because of hyponatremia. She denies change in appetite or sleep pattern suicide ideation. Patient is planning to go to [facility] to visit her son next month. [facility] Medical History CKD (chronic kidney disease) stage 3, GFR 30-59 ml/min Vitamin D deficiency Chronic anemia History of SIADH Osteoporosis HTN (hypertension) Surgical History History of left shoulder replacement History of hysterectomy History of fundoplication History of cataract History of colonoscopy History of open reduction and internal fixation (ORIF) procedure History of appendectomy Family History Father History of CVA (cerebrovascular accident) Stroke Mother CVD (cardiovascular disease) History of heart attack Son No problems noted. Sister Substance use disorder Social History Housing: House Alcohol intake: never Patient Tobacco Use Status: Never used Tobacco e-Cigarette/Vaping Use: Never Used Advance Directives Date on File: 03/28/23 service: No Current occupational status: retired Cognitive needs: No Hearing needs: No Vision needs: Yes Questionnaire Thrive Questionnaire Date Thrive assessed: 09/17/24 VÍCTOR-7 AMB Questionnaire VÍCTOR-7 Date VÍCTOR - 7 assessed: 09/17/24 Source: Developed by Drs. Jamari Villagran, Iraida Slade, Raul Montesinos and colleagues, with an educational benedicto from [employer] Review of Systems Const All systems reviewed & are unremarkable except as noted in HPI and below Eyes Reports no additional complaints ENT Reports no additional complaints Card Reports no additional complaints Resp Reports no additional complaints GI Reports no additional complaints Reports no additional complaints Physical exam (Primary Care) Vital Signs: Last Vital Signs Temp 97.9 F 12/18/24 09:57 Pulse 57 12/18/24 09:57 Resp 18 12/18/24 09:57 BP 110/66 12/18/24 09:57 Pulse Ox 96 12/18/24 09:57 Oxygen Delivery Method Room Air 12/18/24 09:57 BMI result Body Mass Index 17.8 Tobacco/Smoking Status: Tobacco use Status Tobacco use date assessed 12/18/24 12/18/24 10:02 Patient Tobacco Use Status Never used Tobacco 12/18/24 10:02 e-Cigarette/Vaping Use Never Used 12/18/24 10:02 Thrive Assessment: Date of Thrive Assessment Date Thrive assessed 09/17/24 12/18/24 10:02 Const General: no acute distress HENMT Head: Yes normal to inspection Eyes General: appearance normal, both eyes and all related structures Cardio Rhythm: regular rhythm Heart sounds: S1 normal heart sound present and S2 normal heart sound present GI Inspection: Yes normal to inspection Palpation (GI): Soft to palpation Percussion: Yes normal to percussion Auscultation: normal bowel sounds Immunizations pneumoc 20-mirtha conj-dip cr(PF) 0.5 mL IM syringe Performing Provider: Clarice Ziegler MD Performing Location: [facility] [place] [facility] Administered by: DANII Ariza on 12/18/24 10:53 Dose Route Admin Location Dispensed Lot Number Expiration Date [facility] Information Technology Advisor 0.5 mL IM Left Deltoid 0.5 mL [id number] 10/24/25 [employer] VIS Given Date VIS Provided VIS Publication Date 12/18/24 Single Vaccine 21 Eligibility Eligibility Date Funding Source Not [facility] Eligible 12/18/24 Private Coding Level of Care Code Est Pt Level 4 (57563) Diagnoses Urinary bladder incontinence R32 Hyponatremia E87.1 CKD (chronic kidney disease) stage 3, GFR 30-59 ml/min N18.30 Dysphagia R13.10 HTN (hypertension) I10 Anxiety and depression F41.9; F32.A Assessment & Plan Assessment & Plan (1) Urinary bladder incontinence: Code(s): R32 - Unspecified urinary incontinence Category: Medical Plan: Check urinalysis urine culture obtain bladder and renal ultrasound try Myrbetriq 25 mg daily (2) Hyponatremia: Comment: SIADH Code(s): E87.1 - Hypo-osmolality and hyponatremia Category: Medical Plan: Monitor sodium level (3) CKD (chronic kidney disease) stage 3, GFR 30-59 ml/min: Code(s): N18.30 - Chronic kidney disease, stage 3 unspecified Category: Medical Plan: Avoid nephrotoxins, check renal ultrasound (4) Dysphagia: Code(s): R13.10 - Dysphagia, unspecified Category: Medical Plan: Referred to GI for endoscopy (5) HTN (hypertension): Code(s): I10 - Essential (primary) hypertension Category: Medical Plan: Blood pressure is low and patient was advised to stop taking atenolol (6) Anxiety and depression: Code(s): F41.9 - Anxiety disorder, unspecified; F32.A - Depression, unspecified Category: Medical Plan: Start Wellbutrin XL 150 mg daily and patient will continue counseling. Follow- up in 1 month Orders: Orders Urine Culture Today R32 - Unspecified urinary incontinence US renal BI Today N18.30 - Chronic kidney disease, stage 3 unspecified Pneumococcal 20 Immunization Today Z23 - Encounter for immunization UA w Microscopic Today R32 - Unspecified urinary incontinence US bladder Today R32 - Unspecified urinary incontinence Basic Metabolic Panel 1 Month E87.1 - Hypo-osmolality and hyponatremia Referrals Gastroenterology Referral R13.10 - Dysphagia, unspecified Medications: New bupropion HCl XL 150 mg PO QAM 30 tabs 3RF Myrbetriq ER (mirabegron) 25 mg PO DAILY 30 tabs 2RF NS Changed From estradiol 0.01%(0.1mg/gram) 0.25 appful vaginal 3XW 42.5 grams 2RF To estradiol 0.01%(0.1mg/gram) 1 g vaginal 3XW 42.5 grams 2RF
[2024-12-18 09:57] VITALS: BP 110/66; PULSE 57; RESP 18; TEMP 36.6; O2SAT 96; BMI 17.8
--- OUTSIDE RECORDS SUMMARY | 2024-12-18 11:16 | XMS_ITS ---
[facility] Organization [facility] Address [address] [place] [address] Care Team Providers Care Supervisor Sign Shop Name Role Phone Clarice Ziegler MD Primary Care Provider Daisy Perry Unavailable [phone] REASON FOR VISIT lr toe crest and 3 lg toe buddies Encounters Encounter Location Date Provider Diagnosis [facility] [address] [place] [address] 09/16/2024 Daisy Villarreal Plan Of Treatment Next Appt Details Provider Name:Daisy marcial, 03/18/2025 03:00:00 PM, [address] [place], [address], Progress Notes * Iraida SHEEHANDOB:1935 (89 yo F)Acc No.[id number]:09/16/2024 Patient:?Iraida SHEEHAN :1935???Age:89 Y???Sex:Female Address:[address] [place] [address] * true * Date:? Generated for Printi ng/Faxing/eTransmitting on:?12/18/2024 11:16 AM EDT
--- OUTSIDE RECORDS SUMMARY | 2024-12-18 11:16 | XMS_ITS ---
[facility] Address [address] [place] [address] Care Team Providers Care City Secretary Name Role Phone Clarice Ziegler MD Primary Care Provider Daisy Perry Unavailable [phone] REASON FOR VISIT BUY 2 Lg left Crest pads / 3 Lg Toe Buddies Encounters Encounter Location Date Provider Diagnosis [facility] [address] [place] [address] 12/17/2024 Daisy Villarreal Plan Of Treatment Next Appt Details Provider Name:Daisy marcial, 03/18/2025 03:00:00 PM, [address] [place], [address], Progress Notes * Iraida SHEEHANDOB:1935 (89 yo F)Acc No.[id number]:12/17/2024 Patient:?Iraida SHEEHAN :1935???Age:89 Y???Sex:Female Address:[address] [facility] [place] [address] * true * Date:? Generated for Printi ng/Fadelmarg/eTransmitting on:?12/18/2024 11:16 AM EDT
--- OUTSIDE RECORDS SUMMARY | 2024-12-18 11:16 | XMS_ITS | Continuity of Care Document ---
Author Name [facility] Organization [facility] Care Team Providers Care Woodyard Crane Operator Name Role Phone [facility] Unavailable Unavailable Problems Combined list of problems [...] [facility] [place] [facility] Hypertension (SNOMED CT [id number]) [facility] [place] [...] A WEEK ORAL ACTIVE FURCOLO,T MIAN 2023 [facility] ASCORBIC ACID 500MG TAB TAKE ONE TABLET BY MOUTH ONCE DAILY ORAL ACTIVE Ian DUGAN ICOLE 2019 [facility] ATENOLOL 25MG TAB TAKE ONE TABLET BY MOUTH ONCE DAILY ORAL ACTIVE Ian DUGAN ICOLE 2018 [facility] [place] CALCIUM 250MG/VITAM IN D 125UNIT TAB TAKE BY MOUTH ORAL ACTIVE ZASHIN,LY NN S 2013 [facility] FERROUS SO4 325MG TAB TAKE ONE TABLET BY MOUTH ONCE DAILY ORAL ACTIVE KIRCHEN,N ICOLE 2019 [facility] FUROSEMIDE 20MG TAB TAKE ONE TABLET BY MOUTH ONCE DAILY ORAL ACTIVE FURCOLO,T MIAN 2023 [facility] MAGNESIUM GLUCONATE TAB TAKE BY MOUTH ORAL ACTIVE ZASHIN,LY NN S 2011 [facility] MULTIVITAMI NS W/MINERALS TAB TAKE ONE TABLET BY MOUTH ORAL ACTIVE ZASHIN,LY NN S 2011 [facility] POLYETHYLEN E GLYCOL 3350 POWDER,ORAL TAKE BY MOUTH PRN ORAL ACTIVE ZASHIN,LY NN S 2013 [facility] POTASSIUM CHLORIDE 20MEQ TAB,SA (DISPERSIBL E) TAKE ONE TABLET BY MOUTH ONCE DAILY ORAL ACTIVE FURCOLO,T MIAN 2023 [facility] SERTRALINE HCL 50MG TAB TAKE ONE-HALF TABLET BY MOUTH ONCE DAILY ORAL ACTIVE FURCOLO,T MIAN 2023 [facility] VITAMIN B COMPLEX CAP TAKE 1 CAPSULE BY MOUTH ONCE DAILY ORAL ACTIVE KIRSERGIO,N ICOLE 2022 [facility] Allergies, Adverse Reactions, Alerts Combined list of allergies from Department of Defense and Veterans Affairs facilities. It does not include entries that were removed or entered in error. Substance Category Reaction Severity Reaction type Status Date Reported Comments Source CODEINE Propensity to adverse reactions to drug (finding) Nausea and vomiting active 2 [facility] DEMEROL Propensity to adverse reactions to drug (finding) active 4 [facility] [place] [facility] PENICILLIN Propensity to adverse reactions to drug (finding) Anaphylaxis active 2 [facility] [place] SULFA DRUGS Propensity to adverse reactions to drug (finding) Anaphylaxis active 2 [facility] Immunizations Combined list of available immunizations from the Department of Defense and Veterans Affairs facilities. Immunization Series Date Given Administered By Site Reaction Lot Number CVX Code Drug Telegraph Mechanic Status Comments Source INFLUENZA, UNSPECIFIED FORMULATION 2022 [...] Oct 03, 2023 03:06 PM Reporting Lab: [facility] [address] [facility] [address] Performing Lab: [facility]USEN[facility] [address] [facility] [address] [facility] IRON & TIBC PANEL IRON BINDING CAPACITY [MASS/VOLUM E] IN SERUM OR PLASMA 236 ug/dL 204 - 475 10/05 Specimen Type: SERUM No comment entered. Ordering Provider: FREAY VALDIVIA Report Released Date/Time: Oct 03, 2023 03:06 PM Reporting Lab: [facility] [place] [facility] [address] [facility] [address] Performing Lab: [facility]ENTERUSEN[facility] [address] [address] [facility] IRON & TIBC PANEL IRON [MASS/VOLUM E] IN SERUM OR PLASMA 55 ug/dL 40 - 160 10/05 Specimen Type: SERUM No comment entered. Ordering Provider: FREYA VALDIVIA Report Released Date/Time: Oct 03, 2023 03:06 PM Reporting Lab: [facility] [place] [facility] [address] [facility] [address] Performing Lab: [facility] [place] [facility] [address] [facility] [address] [facility] [place] [facility] IRON & TIBC PANEL IRON/IRON BINDING CAPACITY.TO JOVANA [MASS RATIO] IN SERUM OR PLASMA 23.3 20.0 - 50.0 10/05 Specimen Type: SERUM No comment entered. Ordering Provider: FREYA VALDIVIA Report Released Date/Time: Oct 03, 2023 03:06 PM Reporting Lab: [facility] TRN [place] [facility] [address] [facility] [address] Performing Lab: [facility]N [facility] [address] [address] [facility] TRN [facility]ENTERUSE [facility] VITAMIN B12 COBALAMIN (VITAMIN B12) [MASS/VOLUM E] IN SERUM OR PLASMA >2000p g/mL 200 - 900 10/05 H Specimen Type: SERUM No comment entered. Ordering Provider: FREYA VALDIVIA Report Released Date/Time: Oct 03, 2023 03:06 PM Reporting Lab: [facility]ITALRMADISON HOSPITALTRN [facility]ENTERUSE[address] [address] Performing Lab: [facility]ITALRL WSTRN [facility]ENTERUSETS [address] [address] [facility]ENTERUSE [facility] CBC LEUKOCYTES [#/VOLUME] IN BLOOD BY AUTOMATED COUNT 6.27 10*3/u L 4.50 - 11.00 10/05 Specimen Type: BLOOD No comment entered. Ordering Provider: FREYA VALDIVIA Report Released Date/Time: Oct 03, 2023 03:06 PM Reporting Lab: [facility] [place] [place] [address] [address] Performing Lab: [facility] [place] [address] [address] [facility]PITALRBAPTIST MEDICAL [facility] EASTN [facility]ENTERUSE [facility] CBC ERYTHROCYTE S [#/VOLUME] IN BLOOD BY AUTOMATED COUNT 3.37 10*6/u L 3.93 - 5.16 10/05 L Specimen Type: BLOOD No comment entered. Ordering Provider: FREYA VALDIVIA Report Released Date/Time: Oct 03, 2023 03:06 PM Reporting Lab: [facility] [place] [facility] [address] [facility] [address] Performing Lab: [facility] [place] [facility] [address] [facility] [address] [facility] [place] [facility] CBC HEMOGLOBIN [MASS/VOLUM E] IN BLOOD 10.5 g/dL 12 - 15.2 10/05 L Specimen Type: BLOOD No comment entered. Ordering Provider: FREYA VALDIVIA Report Released Date/Time: Oct 03, 2023 03:06 PM Reporting Lab: [facility] [place] [facility] [address] [facility] [address] Performing Lab: [place] [facility] [place] [address] [address] [place] [facility] [place] [facility] CBC HEMATOCRIT [VOLUME FRACTION] OF BLOOD BY AUTOMATED COUNT 30.2 36.6 - 45.6 10/05 L Specimen Type: BLOOD No comment entered. Ordering Provider: FREYA VALDIVIA Report Released Date/Time: Oct 03, 2023 03:06 PM Reporting Lab: [facility] [place] [facility] [address] [facility] [facility] [address] Performing Lab: [facility] [place] [address] [address] [facility] [place] [facility] CBC MCV [ENTITIC VOLUME] BY AUTOMATED COUNT 89.6 fL 82 - 99 10/05 Specimen Type: BLOOD No comment entered. Ordering Provider: FREYA VALDIVIA Report Released Date/Time: Oct 03, 2023 03:06 PM Reporting Lab: [facility] [place] [facility] [address] [facility] [facility] [address] Performing Lab: [facility] [place] [facility] [address] [facility] [address] [facility] [place] [facility] CBC MCHC [MASS/VOLUM E] BY AUTOMATED COUNT 34.8 g/dL 30.8 - 35.1 02/09 /2024 Specimen Type: BLOOD No comment entered. Ordering Provider: FREYA VALDIVIA Report Released Date/Time: Oct 03, 2023 03:06 PM Reporting Lab: [facility] [place] [facility] [address] [facility] [address] Performing Lab: [facility] [place] [facility] [address] [facility] [address] [facility] [place] [facility] CBC PLATELETS [#/VOLUME] IN BLOOD BY AUTOMATED COUNT 228 10*3/u L 140 - 360 10/05 Specimen Type: BLOOD No comment entered. Ordering Provider: FREYA VALDIVIA Report Released Date/Time: Oct 03, 2023 03:06 PM Reporting Lab: [facility] [place] [facility] [address] [facility] [address] Performing Lab: [place] [facility] [place] [address] [address] [facility] [place] [facility] CBC ERYTHROCYTE DISTRIBUTIO N WIDTH [RATIO] BY AUTOMATED COUNT 12.7 12.0 - 16.0 10/05 Specimen Type: BLOOD No comment entered. Ordering Provider: FREYA VALDIVIA Report Released Date/Time: Oct 03, 2023 03:06 PM Reporting Lab: [facility] [place] [facility] [address] [facility] [address] Performing Lab: [facility] [place] [address] [address] [facility] [place] [facility] CBC MCH [ENTITIC MASS] BY AUTOMATED COUNT 31.2 pg 26.2 - 32.6 10/05 Specimen Type: BLOOD No comment entered. Ordering Provider: FREYA VALDIVIA Report Released Date/Time: Oct 03, 2023 03:06 PM Reporting Lab: [facility] [place] [facility] [address] [facility] [address] Performing Lab: [facility] [place] [address] [address] [facility] [place] [facility] VITAMIN D (25-OH) 25-HYDROXYV ITAMIN D3 [MASS/VOLUM E] IN SERUM OR PLASMA 75 ng/mL 20 - 50 10/05 H Specimen Type: SERUM No comment entered. Ordering Provider: FREYA VALDIVIA Report Released Date/Time: Oct 03, 2023 03:06 PM Reporting Lab: [address] [address] Performing Lab: [address] [address] [facility] MAGNESIUM MAGNESIUM [MASS/VOLUM E] IN SERUM OR PLASMA 1.7 mg/dL 1.6 - 2.6 10/05 Specimen Type: SERUM No comment entered. Ordering Provider: FREYA VALDIVIA Report Released Date/Time: Oct 03, 2023 03:06 PM Reporting Lab: [address] [address] Performing Lab: [address] [address] [facility] FERRITIN FERRITIN [MASS/VOLUM E] IN SERUM OR PLASMA 616 ng/mL 10 - 200 10/05 H Specimen Type: SERUM No comment entered. Ordering Provider: FREYA VALDIVIA Report Released Date/Time: Oct 03, 2023 03:06 PM Reporting Lab: [address] [address] Performing Lab: [address] [address] [facility] HEMOGLOBI N A1C PANEL HEMOGLOBIN A1C/HEMOGLO BIN.TOTAL [...] PM Reporting Lab: [facility] [place] [facility] [address] [address] Performing Lab: [facility] [place] [facility] [address] [facility] [address] [facility] [place] [facility] TSH THYROTROPIN [UNITS/VOLU ME] IN SERUM OR PLASMA 1.90 u[IU]/ mL 0.35 - 5.00 10/05 Specimen Type: SERUM No comment entered. Ordering Provider: FREYA VALDIVIA Report Released Date/Time: Oct 03, 2023 03:06 PM Reporting Lab: [facility] [place] [facility] [address] [address] Performing Lab: [place] [facility] [place] [address] [address] [facility] [place] [facility] BASIC METABOLIC PANEL (non-fast ing) UREA NITROGEN [MASS/VOLUM E] IN SERUM OR PLASMA 22 mg/dL 7 - 25 10/05 Specimen Type: SERUM No comment entered. Ordering Provider: FREYA VALDIVIA Report Released Date/Time: Oct 03, 2023 03:06 PM Reporting Lab: [facility] [place] [facility] [address] [address] Performing Lab: [place] [facility] [place] [address] [address] [facility] [place] [facility] BASIC METABOLIC PANEL (non-fast ing) GLUCOSE [MASS/VOLUM E] IN SERUM OR PLASMA 97 mg/dL 65 - 100 10/05 Specimen Type: SERUM No comment entered. Ordering Provider: FREYA VALDIVIA Report Released Date/Time: Oct 03, 2023 03:06 PM Reporting Lab: [facility] [place] [facility] [address] [address] Performing Lab: [place] [facility] [place] [address] [address] [facility] [place] [facility] BASIC METABOLIC PANEL (non-fast ing) SODIUM [MOLES/VOLU ME] IN SERUM OR PLASMA 125 mmol/L 135 - 145 10/05 L Specimen Type: SERUM No comment entered. Ordering Provider: FREYA VALDIVIA Report Released Date/Time: Oct 03, 2023 03:06 PM Reporting Lab: [address] [address] Performing Lab: [address] [address] [facility] BASIC METABOLIC PANEL (non-fast ing) POTASSIUM [MOLES/VOLU ME] IN SERUM OR PLASMA 4.1 mmol/L 3.5 - 5.0 10/05 Specimen Type: SERUM No comment entered. Ordering Provider: FREYA VALDIVIA Report Released Date/Time: Oct 03, 2023 03:06 PM Reporting Lab: [address] [address] Performing Lab: [address] [address] [facility] BASIC METABOLIC PANEL (non-fast ing) CHLORIDE [MOLES/VOLU ME] IN SERUM OR PLASMA 93 mmol/L 100 - 110 10/05 L Specimen Type: SERUM No comment entered. Ordering Provider: FREYA VALDIVIA Report Released Date/Time: Oct 03, 2023 03:06 PM Reporting Lab: [address] [address] Performing Lab: [address] [address] [facility] BASIC METABOLIC PANEL (non-fast ing) CARBON DIOXIDE, TOTAL [MOLES/VOLU ME] IN SERUM OR PLASMA 23 meq/L 20 - 30 10/05 Specimen Type: SERUM No comment entered. Ordering Provider: FREYA VALDIVIA Report Released Date/Time: Oct 03, 2023 03:06 PM Reporting Lab: [address] [address] Performing Lab: [facility] [place] [facility] [address] [address] [facility] [place] [facility] BASIC METABOLIC PANEL (non-fast ing) CREATININE [MASS/VOLUM E] IN SERUM OR PLASMA 0.86 mg/dL 0.50 - 1.40 10/05 Specimen Type: SERUM No comment entered. Ordering Provider: FREYA VALDIVIA Report Released Date/Time: Oct 03, 2023 03:06 PM Reporting Lab: [facility] [place] [facility] [address] [address] Performing Lab: [facility] [place] [facility] [address] [address] [facility] [place] [facility] BASIC METABOLIC PANEL (non-fast ing) GLOMERULAR FILTRATION RATE/1.73 SQ M.PREDICTED [VOLUME RATE/AREA] IN SERUM, PLASMA OR BLOOD BY CREATININE- BASED FORMULA (CKD-EPI 2020) 65 mL/min 60 10/05 Specimen Type: SERUM No comment entered. Ordering Provider: FREYA VALDIVIA Report Released Date/Time: Oct 03, 2023 03:06 PM Reporting Lab: [facility] [place] [facility] [address] [address] Performing Lab: [facility] [place] [facility] [address] [address] [place] [facility] [place] [facility] Encounters Combined list of: 1) [...] [facility] [id number] 08/30 [facility] En[facility] [id number] 09/14 [facility] En[facility] [id number] 09/17 [facility] [place] [facility] Outpatient Encounter [id number] 09/17 [facility] En[facility] [id number] 10/02 [facility] [place] [facility] Outpatient [facility]counter [id number] 10/08 [facility] [place] [facility] [place] [facility] OFFICE O/P EST HI 40 MIN [id number] Diagnos is: ICD-10- CM E87.6 Hypokal emia FURCOLO,TI NA 10/12 [facility] [place] [facility] Social History Combined list of available smoking, tobacco, and other social history from Department of Defense and Veterans Affairs facilities. Social History Type Response Date Comment [facility] Tobacco smoking status NHIS VA-TOBACCO NEVER USED 09/17/2023 [facility] [place] [facility] History of tobacco use VA-TOBACCO NEVER USED 09/05/2022 [facility] [place] [facility] History of tobacco use VA-TOBACCO NEVER USED 09/07/2021 [facility] [place] [facility] History of tobacco use VA-TOBACCO NEVER USED 06/29/2020 [facility] [place] [facility] History of tobacco use LIFETIME NON-TOBACCO USER 04/24/2018 [facility] [place] [facility] History of tobacco use LIFETIME NON-TOBACCO USER 01/19/2017 [facility] [place] [facility] History of tobacco use LIFETIME NON-TOBACCO USER 04/01/2012 [facility] [place] [facility]
--- OUTSIDE RECORDS SUMMARY | 2024-12-18 11:16 | XMS_ITS ---
Author Organization [facility] armen [place] Address [address] [facility] [place] [address] Care Team Providers Care Terra Cotta Mason Name Role Phone Clarice Ziegler MD Primary Care Provider Daisy Perry Unavailable [phone] Allergies Allergen (clinical drug ingredient) Drug/Non Drug Allergy documented on EMR Reaction Allergy Type Onset Date Status Dyspnea (uncoded) welts Allergy Ac tive amoxicillin Amoxicillin severe urticaria dyspnea Drug Allergy Active Penicillin Unknown Drug Allergy Active REASON FOR VISIT At Risk Footcare, Painful Nail(s) aggrevated by shoes and causing difficulty standing/walking., Painful Toe(s), Skin Problem Medications Medication SIG (Take, Route, Frequency, Duration) Notes Start Date End Date Status Ibuprofen PRN Active PreserVision AREDS 2 Active Meclizine HCl 25 MG TAKE 1 TABLET BY MOUTH FOUR TIMES A DAY NEEDED FOR DIZZINESS Oral for 5 Days PRN Active aspirin Not-Taking Zoloft Not-Taking Multivitamin Active LORazepam 0.5 MG 1 tablet as needed Orally every 6 hrs PRN for flying Active MiraLax PRN Active Tylenol PRN Active Vitamin B 12 1000 1 tablet Orally Once a day Active Atenolol 25 MG Oral for 90 Act herbert Ferrous Sulfate-Vitamin C Active Calcium + D 600 Orally Acti ve Magnesium 500 MG 1 tablet with a meal Orally Once a day for 30 day(s) Active Ketoconazole 2 % 1 application Apply a thin layer to externally to feet, even between toes Twice a day for 30 days Active Potassium Active Fosamax Not-Taking Social History Tobacco Use: Social History Observation Description Date Details (start date - stop date) Never Smoker NA - NA Tobacco Use/Smoking Question Answer Notes Are you a: nonsmoker Additional Findings: Tobacco Non-User Current no n-smoker Tobacco use other than smoking: Question Answer Notes Are you an other tobacco user? No Vital Signs Height 5 ft 1 in in 12/17/2024 Weight 93 lbs 12/17/2024 BMI 17.57 kg/m2 12/17/2024 Blood pressure systolic 115 mm Hg 12/18/19 25 Blood pressure diastolic 60 mm Hg 025 Encounters Encounter Location Date Provider Diagnosis [facility] [place] [address] [place] [address] 12/17/2024 Daisy Villarreal Hammer toe of left f oot M20.42 ; Tinea pedis of both feet B35.3 ; Hallux valgus (acquired), left foot M20.12 ; Atherosclerosis of artery of both lower extremities I70.203 ; Hammertoe of right foot M20.41 ; Tinea unguium B35.1 ; Pain in left toe(s) M79.675 and Pain in right toe(s) M79.674 Assessments Encounter Date Diagnosis (ICD Code) Assessment Notes Treatment Notes Treatment Clinical Notes Section Notes 12/17/2024 Hammer toe of left foot (ICD-10 - M20.42) 12/17/2024 Tinea pedis of both feet (ICD-10 - B35.3) 12/17/2024 Hallux valgus (acquired), left foot (ICD-10 - M20.12) 12/17/2024 Atherosclerosis of artery of both lower extremities (ICD-10 - I70.203) 12/17/2024 Hammertoe of right foot (ICD-10 - M20.41) 12/17/2024 Tinea unguium (ICD-10 - B35.1) 12/17/2024 Pain in left toe(s) (ICD-10 - M79.675) 12/17/2024 Pain in right toe(s) (ICD-10 - M79.674) Plan Of Treatment Medication Medication Name Sig Start Date Stop Date Notes Ketoconazole 2 % 1 application Apply a thin layer to externally to feet, even between toes Twice a day for 30 days Next Appt Details Follow Up: 2 Months, Reason: Provider Name:Daisy marcial, 03/18/2025 03:00:00 PM, [address] [place] [address], [place], [address], Procedure Notes * Category Sub-Category Detail Notes Debride Nail 6-10 Nail debridement Due to the cl inical pathology outlined in the exam findings, performance of this nail treatment is medically necessary as its management by an unskilled/untrained nonprofessional would put this patients foot and overall health at risk. Therefore, debridement to affected nail(s), as described in exam (TA, T3, T4, T5, T6, T7, T8, T9, ), was performed exclusively by the physician of record to reduce/remove overall nail length, girth, thickness, subungual debris, and necrotic tissue, by manual and/or electrical means through the use of a nail nipper and/or dremel-type diamond grinder, to a more viable healthy nail [...] to maintain effectiveness in symptomatic relief - 60156 Keratoma Treatment Parring or Cutting o f [...] risk. Therefore, the benign hyperkeratotic lesions, ( 5) in total, locations as stated and described in the exam (plantar T1 , T2 , SUB MTH (s) , 1 , B/L , lateral 5th met head Right,), were pared, and/or cut utilizing a sterile 15 blade, tissue nippers, and/or power dremel instrumentation by the physician of record - 75088 Progress Notes * Iraida SHEEHANDOB:1935 (89 yo F)Acc No.[id number]:12/17/2024 Progress Note Patient:?VALLEY, Iraida Provider:?Daisy Villarreal DPM :1935???Age:89 Y???Sex:Female D ate:12/17/2024 Address:[address] [place] [address] [id number] Pcp:Clarice Ziegler MD Subjective: * Chief Complaints: * ???At Risk FootcarePainful N ail(s) aggrevated by shoes and causing difficulty standing/walking.Painful Toe(s)Skin Problem * HPI: ???At Risk footcare:?Pt States Last PCP Visit:?Date?09/18/2024 ???Toe pain:?Nature:?tenderness.?Location:?Left foot , 2nd toe , 3rd toe.?Duration:?several months.?Course:?improved.?Aggravated by:?any pressure, shoes.?Treatments:?rest/alter normal daily activity, change in shoes , bracing/splinting/padding, crest pad.?Skin problems:?Nature:?scaling, blisters.?Location:?Outside, Forefoot, Right.?Duration:?several days.?Course:?unresolved.? * ROS:?General/Constitutional:?Nausea?denies.?Vomiting?denies.?Hunger Thirst?denies.?Loss appetite?denies.?Chills?denies.?Fatigue?denies.?Fever?denies.?Night Sweats?denies.?Unexplained weight loss?denies.?Unexplained [...] 02/09/2019broken femur and hip shoulder surgery- total 2015f right femur 2015aneurysm teeth removal 09/05/2024 * Hospitalization/Major Diagno stic Procedure:?fall at [facility] went to ER ER C- dizzy , high blood pressure 02/27/24 * Family History:?Mother: dece ased, Stroke, Cancer, heart attack, diagnosed with Other malignant neoplasm of unspecified site, Unspecified essential hypertension, Unspecified heart disease, Family history of arthritis.?Father: , Stroke, diagnosed with Family history of arthritis, Diabetic - NIDDM, Unspecified essential hypertension, Unspecified heart disease.?Siblings: 2 sisters both have it, foot problems, cancer, diagnosed with Unspecified essential hypertension, Other specified conditions influencing health status, Other malignant neoplasm of unspecified site.? * Social History:?Tobacco Use:?Tobacco Use/Smoking?Are you a:?nonsmoker ?Additional Findings: Tobacco Non-User?Current non-smoker ?Tobacco use other than smoking?Are you an other tobacco user??No ???Miscellaneous:?Caffeine: yes, frequency:, 1-2 cups per day. ?Children: yes, 1. ?Exercise: yes, PT, walking. ?Marital status: . 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 * Medications:?TakingPotassium Atenolol 25 MG Tablet Oral Ferrous Sulfate-Vitamin [...] DIZZINESS Oral , Notes to Pharmacist: PRNTaking Potassium Taking Atenolol 25 MG Tablet Oral Taking Ferrous Sulfate- Vitamin C Taking Calcium + D 600 mcg [...] FOR DIZZINESS Oral , Notes to Pharmacist: PRNNot-Taking/PRNFosamax aspirin Zoloft Medication List reviewed and reconciled with the patientNot-Taking/PRN Fosamax Not-Taking/PRN aspirin Not-Taking/PRN Zoloft Medication List reviewed and reconciled with the patient * Allergies:?Amoxicillin: tristen re urticaria dyspneaDyspnea: weltsPenicillinyes[Allergies Verified] Objective: * Vitals:?Ht: 5 ft 1 in, Wt: 9 3, BMI: 17.57, Shoe size: 7.5W, BP: 115/60 mm Hg, Wt-k.18 kg. * Examination: ???Vascular: ?DP PULSES (B):?1/4, B/L.?PT PULSES (B):? 0/4, B/L.?CAPILLARY FILL TIME:? delayed, all digits, B/L.?TROPHIC CONDITION-TEXTURE/ELASTICITY/TURGOR/HAIR GROWTH (B):? decreased, B/L.?TEMPERTURE GRADIENT (C):? decreased, cool to cool, proximal to distal, B/L.?PIGMENTATION:?pale, B/L.?EDEMA (C):?absent, B/L.?CLAUDICATION (C):?denies, B/L.?REST PAIN:?denies, B/L.?Nails: ?NAILS are:? Elongated, overgrown, dystrophic, lytic, greater than 3mm thick, discolored and friable with crumbly malodorous subungual debris, with pain on palpation,TA, T1, T2, T3, T4, T5, T6, T7, T8, T9.?Dermatologic: ?SKIN FINDINGS:?Skin exam reveals Keratotic lesion(s) located at , plantar?T1 , T2 , SUB MTH (s) , 1 , B/L , lateral 5th met head Right,?Skin shows sign(s) of, erythema, scaling, blistering lateral forefoot right.?Orthopedic: ?MUSCLE STRENGTH:?5/5 all groups in a symmetrical fashion, B/L.?BUNION:?Medially prominent 1st MPJ , Lateral tracking 1st MPJ nonreducible , LEFT TA overlapping T1.?DIGITAL DEFORMITIES:?Digital contracture, PIPJ, 2-5 B/L, non-reducible with WB or to push-up test, no over, nor underlapping.?Neurological: ?SENSORY:?Neurological exam reveals intact sensorium, pain sensation [...] today.?ORIENTED:?person, place, and time.? Assessment: * Assessment: 1.?Hammer toe of left foot - M20.42???Specify :Chronic problem, Stable (1=3,2=4)???2.?Tinea pedis of both feet - B35.3 (Primary)???Specify :Acute problem, Uncomplicated (3),Rx drug management (4)???3.?Hallux valgus (acquired), left foot - M20.12???4.?Atherosclerosis of artery of both lower extremities - I70.203???5.?Hammertoe of right foot - M20.41???6.?Tinea unguium - B35.1???7.?Pain in left toe(s) - M79.675???8.?Pain in right toe(s) - M79.674??? Plan: * Treatment: * Procedures:?Debride Nail 6-10:?Nail debridement?Due to the clinical pathology outlined in the exam findings, performance of this nail treatment is medically necessary as its management by an unskilled/untrained nonprofessional would put this patients foot and overall health at risk. Therefore, debridement to affected nail(s), as described in exam (TA,? T3, T4, T5, T6, T7, T8, T9, ), was performed exclusively by the physician of record to reduce/remove overall nail length, girth, thickness, subungual debris, and necrotic tissue, by manual and/or electrical means through the use of a nail nipper and/or dremel-type diamond grinder, to a more viable healthy nail [...] to maintain effectiveness in symptomatic relief - 48291.?Keratoma Treatment:?Parring or Cutting of Benign Hyperkeratotic Lesion(s)?(-57) More than 4 Lesions - Due to the at risk nature of the patients medical condition as documented in the exam findings, performance of this keratoderma treatment is medically necessary as its management by an unskilled/untrained nonprofessional would put this patients foot and overall health at risk. Therefore, the benign hyperkeratotic lesions, ( 5) in total, locations as stated and described in the exam (plantar?T1?,?T2?,?SUB MTH (s)?,?1?,?B/L?, lateral 5th met head Right,), were pared, and/or cut utilizing a sterile 15 blade, tissue nippers, and/or power dremel instrumentation by the physician of record - 95103.? * Procedure Codes:?18099 DEBRI DE NAIL, 6 OR MORE, Modifiers: XS 00339 TRIM SKIN LESIONS, OVER 4, Modifiers: XS , Q8 * Preventive Medicine:? ??Counseling:?Discussion:?-13: Office [...] have encouraged the patient to call the office.?Tinea Pedis:?The patient was counseled on the diagnosis, potential etiologies, and treatment options for their skin condition. We discussed the risks and benefits of each option from performing no treatment, to utilizing OTC topical skin creams, prescription topical creams, customized compounded topical medications, and, if necessary, to utilize oral antifungal therapy. We discussed the advantages and disadvantages of each possible treatment and importance for adherence to all the recommended therapies for optimum success and avoid potential complications such as open sore/infection/possible hospitalization. We discussed the potential effectiveness of each topical preparation as well as each ones possible side effects and/or patient medication interactions if oral therapy is selected. Patient questions re: the advantages and disadvantages of each treatment choice, medication use/dosage, successful outcomes, and application consistency were reviewed and the patient verbalized that all answers were clearly understood. The patient was told they can help alleviate symptoms by utilizing moisture absorbant innersoles with activated charcoal and baking soda, applying antifungal sprays daily, aerating toe web spaces at night by putting cotton or lambs wool between the toes, alternating shoe gear daily if possible so they can dry out, changing socks at least once during the day, wearing well-ventilated shoes or sandals. The patient has decided to apply antifungal skin creams to their feet as directed. Rx was sent to their pharmacy at the time of visit.? ??Screening/Special Tests:?Fall Risk?Screening:?No falls in the past year ?FALLS: Screening for Future Fall Risk?Have you had any falls with injury in the past year??No * Follow Up:?2 Months * Images: * Sign off status: Completed true * Provider:?Daisy Villarreal DPM Date:? Generated for Karli vargas/Yarelis/Neetu on:?12/18/2024 11:16 AM EDT History and Physical Notes * HPI (History of Present Illness) Category Sub-Category Detail Notes Category Not es Toe pain Nature: tenderness Location: Left foot , 2nd toe , 3rd toe Duration: several months Course: improved Aggravated by: any pressure, shoes Treatments: rest/alter normal da russ activity, change in shoes , bracing/splinting/padding, crest pad Skin problems Nature: scaling, blisters Location: Outside, Forefoot, R ight Duration: several days Course: unresolved At Risk footcare Pt States Last PCP Visit: Date: 5 Examination Category Sub-Category Detail Notes Category Not es Neurological SENSORY: Neurological exa m reveals intact sensorium, pain sensation normal, vibration sensation intact, pinprick sensation is normal in the lower extremities, Pt denies, anesthesia, burning, paresthesia, tingling, B/L Dermatologic SKIN FINDINGS: Skin exam reveal s Keratotic lesion(s) located at , plantar T1 , T2 , SUB MTH (s) , 1 , B/L , lateral 5th met head Right, Skin shows sign(s) of, erythema, scaling, blistering lateral forefoot right Orthopedic BUNION: Medially promine nt 1st MPJ , Lateral tracking 1st MPJ nonreducible , LEFT TA overlapping T1 DIGITAL DEFORMITIES: Digital contracture , PIPJ, 2-5 [...] CONDITION-TEXTURE/ELASTICITY/TURGOR/HAIR GROWTH (B): decreased, B/L EDEMA (C): absent, B/L CLAUDICATION (C): denies, B/L REST PAIN: denies, B/L PIGMENTATION: pale, B/L Nails NAILS are: Elongated, overg rown, dystrophic, lytic, greater than 3mm thick, discolored and friable with crumbly malodorous subungual debris, with pain on palpation,TA, T1, T2, T3, T4, T5, T6, T7, T8, T9
--- OUTSIDE RECORDS SUMMARY | 2024-12-18 11:17 | XMS_ITS | Patient Health Record ---
Author Organization [facility] armen [place] Address [address] [facility] [place] [address] Care Team Providers Care Medical Pathologist Name Role Phone Clarice Ziegler MD Primary Care Provider Daisy Perry Unavailable [phone] Allergies Allergen (clinical drug ingredient) Drug/Non Drug Allergy documented on EMR Reaction Allergy Type Onset Date Status Dyspnea (uncoded) welts Allergy Ac tive amoxicillin Amoxicillin severe urticaria dyspnea Drug Allergy Active Penicillin Unknown Drug Allergy Active Reason For Referral No Information Medications Medication SIG (Take, Route, Frequency, Duration) Notes Start Date End Date Status Multivitamin Active LORazepam 0.5 MG 1 tablet as needed Orally every 6 hrs PRN for flying Active MiraLax PRN Active Tylenol PRN Active Potassium Active Ibuprofen PRN Active Fosamax Not-Taking PreserVision AREDS 2 Active Atenolol 25 MG Oral for 90 Act herbert Meclizine HCl 25 MG TAKE 1 TABLET BY MOUTH FOUR TIMES A DAY NEEDED FOR DIZZINESS Oral for 5 Days PRN Active Ferrous Sulfate-Vitamin C Active aspirin Not-Taking Calcium + D 600 Orally Acti ve Zoloft Not-Taking Magnesium 500 MG 1 tablet with a meal Orally Once a day for 30 day(s) Active Ketoconazole 2 % 1 application Apply a thin layer to externally to feet, even between toes Twice a day for 30 days Active Vitamin B 12 1000 1 tablet [...] Status Risk Notes Problem Acquired hallux valgus (49545522) Hallux valgus (acquired), 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) Active confirmed Problem 863758665 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) Active confirmed Problem 820405226 Hammertoe of right foot (M20.41) Active confirmed Problem 737216871082745 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 Problem 08566172908439456 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) Active confirmed Vital Signs Blood pressure diastolic 60 mm Hg 12/17/2024 Height 5 ft 1 in in 12/17/2024 Blood pressure systolic 115 mm Hg 12/17/2024 Weight 93 lbs 12/17/2024 BMI 17.57 kg/m2 12/17/2024 Encounters Encounter Location Date Provider Diagnosis [address] [address] 03/11/2024 Daisy Caballeroa Hallux valgus (acquired), left foot M20.12 ; Hammer toe of left foot M20.42 ; Atherosclerosis of artery of both lower extremities I70.203 ; Hammertoe of right foot M20.41 ; Tinea unguium B35.1 ; Pain in left toe(s) M79.675 and Pain in right toe(s) M79.[address] [address] 05/28/2024 Daisy Caballeroa Hallux valgus (acquired), left foot M20.12 ; Hammer toe of left foot M20.42 ; Atherosclerosis of artery of both lower extremities I70.203 ; Hammertoe of right foot M20.41 ; Tinea unguium B35.1 ; Pain in left toe(s) M79.675 and Pain in right toe(s) M79.[address] [address] 09/16/2024 Daisy Villarreal Hallux valgus (acquired), left foot M20.12 ; Hammer toe of left foot M20.42 ; Atherosclerosis of artery of both lower extremities I70.203 ; Hammertoe of right foot M20.41 ; Tinea unguium B35.1 ; Pain in left toe(s) M79.675 and Pain in right toe(s) M79.674 [facility] [address] [address] 12/17/2024 Daisy Villarreal Hammer toe of left f oot M20.42 ; Tinea pedis of both feet B35.3 ; Hallux valgus (acquired), left foot M20.12 ; Atherosclerosis of artery of both lower extremities I70.203 ; Hammertoe of right foot M20.41 ; Tinea unguium B35.1 ; Pain in left toe(s) M79.675 and Pain in right toe(s) M79.674 [facility] [address] [address] 03/11/2024 Daisy Villarreal [facility] [address] [address] 04/01/2024 Daisy Villarreal [facility] [address] 05/06/2024 Daisy Villarreal [facility] [address] 05/28/2024 Daisy Villarreal [facility] [address] [address] 06/27/2024 Daisy Villarreal [facility] [address] [address] 09/16/2024 Daisy Villarreal [facility] [address] [address] 12/17/2024 Daisy Villarreal Assessments Encounter Date Diagnosis (ICD Code) Assessment Notes Treatment Notes Treatment Clinical Notes Section Notes 03/11/2024 Hallux valgus (acquired), left foot (ICD-10 - M20.12) 03/11/2024 Hammer toe of left foot (ICD-10 - M20.42) 05/28/2024 Hallux valgus (acquired), left foot (ICD-10 - M20.12) 09/16/2024 Hallux valgus (acquired), left foot (ICD-10 - M20.12) 09/16/2024 Hammer toe of left foot (ICD-10 - M20.42) 12/17/2024 Hammer toe of left foot (ICD-10 - M20.42) 12/17/2024 Tinea pedis of both feet (ICD-10 - B35.3) 09/16/2024 Atherosclerosis of artery of both lower extremities (ICD-10 - I70.203) 12/17/2024 Hallux valgus (acquired), left foot (ICD-10 - M20.12) 03/11/2024 Atherosclerosis of artery of both lower extremities (ICD-10 - I70.203) 05/28/2024 Hammer toe of left foot (ICD-10 - M20.42) 03/11/2024 Hammertoe of right foot (ICD-10 - M20.41) 05/28/2024 Atherosclerosis of artery of both lower extremities (ICD-10 - I70.203) 12/17/2024 Atherosclerosis of artery of both lower extremities (ICD-10 - I70.203) 09/16/2024 Hammertoe of right foot (ICD-10 - M20.41) 12/17/2024 Hammertoe of right foot (ICD-10 - M20.41) 03/11/2024 Tinea unguium (ICD-10 - B35.1) 05/28/2024 Hammertoe of right foot (ICD-10 - M20.41) 09/16/2024 Tinea unguium (ICD-10 - B35.1) 09/16/2024 Pain in left toe(s) (ICD-10 - M79.675) 12/17/2024 Tinea unguium (ICD-10 - B35.1) 05/28/2024 Tinea unguium (ICD-10 - B35.1) 03/11/2024 Pain in left toe(s) (ICD-10 - M79.675) 03/11/2024 Pain in right toe(s) (ICD-10 - M79.674) 05/28/2024 Pain in left toe(s) (ICD-10 - M79.675) 12/17/2024 Pain in left toe(s) (ICD-10 - M79.675) 09/16/2024 Pain in right toe(s) (ICD-10 - M79.674) 12/17/2024 Pain in right toe(s) (ICD-10 - M79.674) 05/28/2024 Pain in right toe(s) (ICD-10 - M79.674) Plan Of Treatment Pending Test Test Name Order Date X ray : Foot, left 3V 10/01/2019 Next Appt Details Provider Name:Daisy marcial, 03/18/2025 03:00:00 PM, [address] [place], [address], Insurance Providers Payer Name Payer Address Payer Phone Subscriber Number Group Number Insured Name Patient Relationship to Insured Coverage Start Date Coverage End Date Medicare National [facility] [address] [place] [place] [address] [id number] Iraida Cantor Self - patient is the insured [employer] [address] [place] [address] [id number] Iraida Cantor Self - patient is the [...] total 2016 fx right femur 2015 aneurysm teeth removal 09/05/2024 Hospitalization History Reason Date(Month/Year) ER C- dizzy , high blood pressure 11/17 fall at [facility] went to ER
== END 2024-12-18 10:55 | disposition home or self-care (01) ==
LOC: HO.HMCC 09:56
PROVIDERS: PCP Internal Medicine; Visit Provider Internal Medicine
DX: R32 Unspecified urinary incontinence (principal); E87.1 Hypo-osmolality and hyponatremia; N18.30 Chronic kidney disease, stage 3 unspecified; R13.10 Dysphagia, unspecified; I10 Essential (primary) hypertension; F41.9 Anxiety disorder, unspecified; F32.A Depression, unspecified; Z23 Encounter for immunization

== ENCOUNTER 2024-12-18 09:55 | Outpatient (REF) | payer MEDICARE, SELFPAY ==
--- OUTSIDE RECORDS SUMMARY | 2024-12-18 12:48 | XMS_ITS | Continuity of Care Document ---
Author Name [facility] Organization [facility] Care Team Providers Care Java Security Architect Name Role Phone [facility] Unavailable Unavailable Problems Combined list of problems [...] [facility] [place] [facility] Hypertension (SNOMED CT [id number]) [facility] [place] [facility] [...] A WEEK ORAL ACTIVE FURCOLO,T MIAN 2023 [facility] ASCORBIC ACID 500MG TAB TAKE ONE TABLET BY MOUTH ONCE DAILY ORAL ACTIVE Ian DUGAN ICOLE 2019 [facility] ATENOLOL 25MG TAB TAKE ONE TABLET BY MOUTH ONCE DAILY ORAL ACTIVE Ian DUGAN ICOLE 2018 [facility] [place] CALCIUM 250MG/VITAM IN D 125UNIT TAB TAKE BY MOUTH ORAL ACTIVE ZASHIN,LY NN S [facility] FERROUS SO4 325MG TAB TAKE ONE TABLET BY MOUTH ONCE DAILY ORAL ACTIVE KIRCHEN,N ICOLE 2019 [facility] FUROSEMIDE 20MG TAB TAKE ONE TABLET BY MOUTH ONCE DAILY ORAL ACTIVE FURCOLO,T MIAN 2023 [facility] MAGNESIUM GLUCONATE TAB TAKE BY MOUTH ORAL ACTIVE ZASHIN,LY NN S 2011 [facility] MULTIVITAMI NS W/MINERALS TAB TAKE ONE TABLET BY MOUTH ORAL ACTIVE ZASHIN,LY NN S 2011 [facility] POLYETHYLEN E GLYCOL 3350 POWDER,ORAL TAKE BY MOUTH PRN ORAL ACTIVE ZASHIN,LY NN S 2013 [facility] POTASSIUM CHLORIDE 20MEQ TAB,SA (DISPERSIBL E) TAKE ONE TABLET BY MOUTH ONCE DAILY ORAL ACTIVE FURCOLO,T MIAN 2023 [facility] SERTRALINE HCL 50MG TAB TAKE ONE-HALF TABLET BY MOUTH ONCE DAILY ORAL ACTIVE FURCOLO,T MIAN 2023 [facility] VITAMIN B COMPLEX CAP TAKE 1 CAPSULE BY MOUTH ONCE DAILY ORAL ACTIVE KIRSERGIO,N ICOLE 2022 [facility] Allergies, Adverse Reactions, Alerts Combined list of allergies from Department of Defense and Veterans Affairs facilities. It does not include entries that were removed or entered in error. Substance Category Reaction Severity Reaction type Status Date Reported Comments Source CODEINE Propensity to adverse reactions to drug (finding) Nausea and vomiting active 2 [facility] DEMEROL Propensity to adverse reactions to drug (finding) active 4 [facility] PENICILLIN Propensity to adverse reactions to drug (finding) [facility] SULFA DRUGS Propensity to adverse reactions to drug (finding) Anaphylaxis active 2 [facility] Immunizations Combined list of available immunizations from the Department of Defense and Veterans Affairs facilities. Immunization Series Date Given Administered By Site Reaction Lot Number CVX Code Drug Speech And Hearing [facility] Director Status Comments Source INFLUENZA, UNSPECIFIED FORMULATION 2022 [...] 03, 2023 03:06 PM Reporting Lab: [facility] [address] [facility] [address] Performing Lab: [facility] [address] [facility] [address] [facility] BASIC METABOLIC PANEL (non-fast ing) GLUCOSE [MASS/VOLUM E] IN SERUM OR PLASMA 97 mg/dL 65 - 100 10/05 Specimen Type: SERUM No comment entered. Ordering Provider: FREYA VALDIVIA Report Released Date/Time: Oct 03, 2023 03:06 PM Reporting Lab[facility] [address] [facility] [address] Performing Lab: [facility] [address] [facility] [address] [facility] BASIC METABOLIC PANEL (non-fast ing) SODIUM [MOLES/VOLU ME] IN SERUM OR PLASMA 125 mmol/L 135 - 145 10/05 L Specimen Type: SERUM No comment entered. Ordering Provider: FURCOLO,TIN A Report Released Date/Time: Oct 03, 2023 03:06 PM Reporting Lab: [facility] [place] [facility] [address] [facility] [address] Performing Lab: [facility] [place] [facility] [address] [facility] [address] [facility] [place] [facility] BASIC METABOLIC PANEL (non-fast ing) POTASSIUM [MOLES/VOLU ME] IN SERUM OR PLASMA 4.1 mmol/L 3.5 - 5.0 10/05 Specimen Type: SERUM No comment entered. Ordering Provider: FREYA VALDIVIA Report Released Date/Time: Oct 03, 2023 03:06 PM Reporting Lab: [facility] [place] [facility] [address] [facility] [address] Performing Lab: [facility] [place] [address] [address] [facility] BASIC METABOLIC PANEL (non-fast ing) CHLORIDE [MOLES/VOLU ME] IN SERUM OR PLASMA 93 mmol/L 100 - 110 10/05 L Specimen Type: SERUM No comment entered. Ordering Provider: FREYA VALDIVIA Report Released Date/Time: Oct 03, 2023 03:06 PM Reporting Lab: [facility] [place] [facility] [address] [facility] [address] Performing Lab: [facility] [address] [address] [facility] [place] [facility] BASIC METABOLIC PANEL (non-fast ing) CARBON DIOXIDE, TOTAL [MOLES/VOLU ME] IN SERUM OR PLASMA 23 meq/L 20 - 30 10/05 Specimen Type: SERUM No comment entered. Ordering Provider: FREYA VALDIVIA Report Released Date/Time: Oct 03, 2023 03:06 PM Reporting Lab: [facility] [place] [facility] [address] [facility] [address] Performing Lab: [facility] [place] [address] [address] [facility] [place] [facility] BASIC METABOLIC PANEL (non-fast ing) CREATININE [MASS/VOLUM E] IN SERUM OR PLASMA 0.86 mg/dL 0.50 - 1.40 10/05 Specimen Type: SERUM No comment entered. Ordering Provider: FREYA VALDIVIA Report Released Date/Time: Oct 03, 2023 03:06 PM Reporting Lab: [facility] [place] [address] [address] Performing Lab: [facility] [place] [address] [address] [facility] [place] [facility] BASIC METABOLIC PANEL (non-fast ing) GLOMERULAR FILTRATION RATE/1.73 SQ M.PREDICTED [VOLUME RATE/AREA] IN SERUM, PLASMA OR BLOOD BY CREATININE- BASED FORMULA (CKD-EPI 2020) 65 mL/min 60 10/05 Specimen Type: SERUM No comment entered. Ordering Provider: FREYA VALDIVIA Report Released Date/Time: Oct 03, 2023 03:06 PM Reporting Lab: [facility] [place] [address] [address] Performing Lab: [facility] [place] [address] [address] [facility]ITALN [facility] CBC LEUKOCYTES [#/VOLUME] IN BLOOD BY AUTOMATED COUNT 6.27 10*3/u L 4.50 - 11.00 10/05 Specimen Type: BLOOD No comment entered. Ordering Provider: FREYA VALDIVIA Report Released Date/Time: Oct 03, 2023 03:06 PM Reporting Lab: [facility] [place] [address] [address] Performing Lab: [facility] [place] [address] [address] [facility]LA[facility]OSPITALN [facility]USE [facility] CBC ERYTHROCYTE S [#/VOLUME] IN BLOOD BY AUTOMATED COUNT 3.37 10*6/u L 3.93 - 5.16 10/05 L Specimen Type: BLOOD No comment entered. Ordering Provider: FREYA VALDIVIA Report Released Date/Time: Oct 03, 2023 03:06 PM Reporting Lab: [facility] [place] [facility] [address] [facility] [address] Performing Lab: [facility] [place] [facility] [address] [facility] [address] [facility] [place] [facility] CBC HEMOGLOBIN [MASS/VOLUM E] IN BLOOD 10.5 g/dL 12 - 15.2 10/05 L Specimen Type: BLOOD No comment entered. Ordering Provider: FREYA VALDIVIA Report Released Date/Time: Oct 03, 2023 03:06 PM Reporting Lab: [facility] [place] [facility] [address] [facility] [address] Performing Lab: [facility] [place] [facility] [address] [facility] [address] [facility] [place] [facility] CBC HEMATOCRIT [VOLUME FRACTION] OF BLOOD BY AUTOMATED COUNT 30.2 36.6 - 45.6 10/05 L Specimen Type: BLOOD No comment entered. Ordering Provider: FREYA VALDIVIA Report Released Date/Time: Oct 03, 2023 03:06 PM Reporting Lab: [facility] [place] [facility] [address] [facility] [address] Performing Lab: [facility] [place] [facility] [address] [facility] [address] [facility] [place] [facility] CBC MCV [ENTITIC VOLUME] BY AUTOMATED COUNT 89.6 fL 82 - 99 10/05 Specimen Type: BLOOD No comment entered. Ordering Provider: FREYA VALDIVIA Report Released Date/Time: Oct 03, 2023 03:06 PM Reporting Lab: [facility] [place] [facility] [address] [facility] [address] Performing Lab: [facility] [place] [facility] [address] [facility] [address] [facility] [place] [facility] CBC MCHC [MASS/VOLUM E] BY AUTOMATED COUNT 34.8 g/dL 30.8 - 35.1 10/05 Specimen Type: BLOOD No comment entered. Ordering Provider: FREYA VALDIVIA Report Released Date/Time: Oct 03, 2023 03:06 PM Reporting Lab: [facility] [place] [facility] [address] [facility] [address] Performing Lab: [facility] [place] [facility] [address] [facility] [address] [facility] [place] [facility] CBC PLATELETS [#/VOLUME] IN BLOOD BY AUTOMATED COUNT 228 10*3/u L 140 - 360 10/05 Specimen Type: BLOOD No comment entered. Ordering Provider: FREYA VALDIVIA Report Released Date/Time: Oct 03, 2023 03:06 PM Reporting Lab: [facility] [place] [facility] [address] [facility] [address] Performing Lab: [facility] [place] [facility] [address] [facility] [address] [facility] [place] [facility] CBC ERYTHROCYTE DISTRIBUTIO N WIDTH [RATIO] BY AUTOMATED COUNT 12.7 12.0 - 16.0 10/05 Specimen Type: BLOOD No comment entered. Ordering Provider: FREYA VALDIVIA Report Released Date/Time: Oct 03, 2023 03:06 PM Reporting Lab: [facility] [place] [facility] [address] [facility] [address] Performing Lab: [facility] [place] [facility] [address] [facility] [address] [facility] [place] [facility] CBC MCH [ENTITIC MASS] BY AUTOMATED COUNT 31.2 pg 26.2 - 32.6 10/05 Specimen Type: BLOOD No comment entered. Ordering Provider: FREYA VALDIVIA Report Released Date/Time: Oct 03, 2023 03:06 PM Reporting Lab: [facility] [place] [facility] [address] [facility] [address] Performing Lab: [facility] [place] [facility] [address] [facility] [address] [facility] [place] [facility] FERRITIN FERRITIN [MASS/VOLUM E] IN SERUM OR PLASMA 616 ng/mL 10 - 200 10/05 H Specimen Type: SERUM No comment entered. Ordering Provider: FREYA VALDIVIA Report Released Date/Time: Oct 03, 2023 03:06 PM Reporting Lab: [facility] [place] [facility] [address] [facility] [address] Performing Lab: [facility] [place] [facility] [address] [facility] [address] [facility] [place] [facility] FOLATE FOLATE [MASS/VOLUM E] IN SERUM OR PLASMA 18.02 ng/mL 5.2 10/05 Specimen Type: SERUM No comment entered. Ordering Provider: FREYA VALDIVIA Report Released Date/Time: Oct 03, 2023 03:06 PM Reporting Lab: [facility] [place] [facility] [address] [facility] [address] Performing Lab: [facility]ITALRL [facility] [address] [facility] [address] [facility]N [place] [facility] HEMOGLOBI N A1C PANEL HEMOGLOBIN A1C/HEMOGLO [...] 03, 2023 03:06 PM Reporting Lab: [facility] [place] [place] [facility] [address] [facility] [address] Performing Lab: [facility] [place] [place] [facility] [address] [facility] [address] [facility]PITALRLA[facility]ITALN [place] [facility] IRON & TIBC PANEL IRON BINDING CAPACITY [MASS/VOLUM E] IN SERUM OR PLASMA 236 ug/dL 204 - 475 10/05 Specimen Type: SERUM No comment entered. Ordering Provider: FREYA VALDIVIA Report Released Date/Time: Oct 03, 2023 03:06 PM Reporting Lab: [facility]PITALRFAYETTE MEDICAL CENTERTRN [place] [facility] [address] [facility] [address] Performing Lab: [facility]ITALRL [place]N [place] [facility] [address] [facility] [address] [facility]PITALRLAKE M[facility] COMM[facility]ITY HOSPITALN [facility]USE [facility] IRON & TIBC PANEL IRON [MASS/VOLUM E] IN SERUM OR PLASMA 55 ug/dL 40 - 160 10/05 Specimen Type: SERUM No comment entered. Ordering Provider: FREYA VALDIVIA Report Released Date/Time: Oct 03, 2023 03:06 PM Reporting Lab: [facility]PITALRFAYETTE MEDICAL CENTERTRN [place] [facility] [address] [facility] [address] Performing Lab: [facility]ITALRL [facility]N [place] [facility] [address] [facility] [address] [facility]ENTERUSE [facility] IRON & TIBC PANEL IRON/IRON BINDING CAPACITY.TO JOVANA [MASS RATIO] IN SERUM OR PLASMA 23.3 20.0 - 50.0 10/05 Specimen Type: SERUM No comment entered. Ordering Provider: FREYA VALDIVIA Report Released Date/Time: Oct 03, 2023 03:06 PM Reporting Lab: [facility]ITALRFAYETTE MEDICAL CENTERTRN [place] [facility] [address] [facility] [address] Performing Lab: [facility]PITALRFAYETTE MEDICAL CENTERTRN [facility]ENTERUSE[facility] [address] [facility] [address] [facility]USE [facility] MAGNESIUM MAGNESIUM [MASS/VOLUM E] IN SERUM OR PLASMA 1.7 mg/dL 1.6 - 2.6 10/05 Specimen Type: SERUM No comment entered. Ordering Provider: FREYA VALDIVIA Report Released Date/Time: Oct 03, 2023 03:06 PM Reporting Lab: [facility]ITALRL [place] [place] [facility] [address] [facility] [address] Performing Lab: [facility]OSPITALRLAKE M[facility] COMM[facility]ITY HOSPITALN [facility] CENTERUSETS [facility] [address] [facility] [address] [facility]ENTERUSE [facility] TSH THYROTROPIN [UNITS/VOLU ME] IN SERUM OR PLASMA 1.90 u[IU]/ mL 0.35 - 5.00 10/05 Specimen Type: SERUM No comment entered. Ordering Provider: FREYA VALDIVIA Report Released Date/Time: Oct 03, 2023 03:06 PM Reporting Lab: [facility] [place] [facility] [address] [facility] [address] Per[facility] Lab: [facility] [place] [facility] [address] [facility] [address] [facility] [place] VITAMIN B12 COBALAMIN (VITAMIN B12) [MASS/VOLUM E] IN SERUM OR PLASMA >2000p g/mL 200 - 900 10/05 H Specimen Type: SERUM No comment entered. Ordering Provider: FREYA VALDIVIA Report Released Date/Time: Oct 03, 2023 03:06 PM Reporting Lab: [facility] [place] [facility] [address] [facility] [address] Performing Lab: [facility] [place] [facility] [address] [facility] [address] [facility] [place] VITAMIN D (25-OH) 25-HYDROXYV ITAMIN D3 [MASS/VOLUM E] IN SERUM OR PLASMA 75 ng/mL 20 - 50 10/05 H Specimen Type: SERUM No comment entered. Ordering Provider: FREYA VALDIVIA Report Released Date/Time: Oct 03, 2023 03:06 PM Reporting Lab: [facility] [place] [facility] [address] [facility] [address] Performing Lab: [facility] [place] [facility] [address] [facility] [address] [facility] [place] Encounters Combined list of: 1) Encounters [...] [facility] [place] [facility] En[facility] [id number] 08/30 [facility] [place] En[facility] [id number] 09/14 [facility] [place] En[facility] [id number] 09/17 [facility] [place] [place] [facility] Outpatient Encounter [id number] 09/17 [facility] [place] En[facility] [id number] 10/02 [facility] [place] [place] [facility] Outpatient Encounter [id number] 10/08 [facility] [place] [facility] [place] [facility] OFFICE O/P EST HI 40 MIN [id number] Diagnos is: ICD-10- CM E87.6 Hypokal emia FURCOLO,TI NA 10/12 [facility] [place] [facility] Social History Combined list of available smoking, tobacco, and other social history from Department of Defense and Veterans Affairs facilities. Social History Type Response Date Comment [facility] e Tobacco smoking status NHIS VA-TOBACCO NEVER USED 09/17/2023 [facility] [place] [facility] History of tobacco use VA-TOBACCO NEVER USED 09/05/2022 [facility] [place] [facility] History of tobacco use VA-TOBACCO NEVER USED 09/07/2021 [facility] [place] [facility] History of tobacco use VA-TOBACCO NEVER USED 06/29/2020 [facility] [place] [facility] History of tobacco use LIFETIME NON-TOBACCO USER 04/24/2018 [facility] [place] [facility] History of tobacco use LIFETIME NON-TOBACCO USER 01/19/2017 [facility] [place] [facility] History of tobacco use LIFETIME NON-TOBACCO USER 04/01/2012 [facility] [place] [facility]
[2024-12-18 13:14] LABS: Appearance Urine Clear; Color Urine Yellow; Glucose Urine UA Negative (Negative); Leukocyte Esterase Urine Moderate (2+) (Negative); Nitrite Urine Negative (Negative); PH 6.5 (5.0-9.0); Specific Gravity - Urine 1.015 (1.005-1.025); UMIC TRIGGER UA YES; Urine Blood Negative (Negative); Urine Ketones Negative (Negative); Urine Protein Trace mg/dL (Neg-Trace)
[2024-12-18 13:19] LABS: Bacteria Urine None Seen (None Seen); Hyaline Casts Urine 0-2 /LPF (0-2); RBC Urine 0-2 /HPF (0-2); Squamous Epithelial Cell Urine 0-2 /HPF (0-2)
== END 2024-12-18 09:56 | disposition home or self-care (01) ==
LOC: HO.HMGCLDS 09:55
PROVIDERS: PCP Internal Medicine; Visit Provider Internal Medicine
DX: R32 Unspecified urinary incontinence (principal); Z23 Encounter for immunization; E87.1 Hypo-osmolality and hyponatremia; I12.9 Hypertensive chronic kidney disease with stage 1 through stage 4 chronic kidney disease, or unspecified chronic kidney disease; N18.30 Chronic kidney disease, stage 3 unspecified; R13.10 Dysphagia, unspecified; F41.9 Anxiety disorder, unspecified; F32.A Depression, unspecified
CPT/HCPCS: 81001; 87086; 90471; 90677; 99212

== ENCOUNTER 2024-12-30 11:35 | Emergency (ER) | payer MEDICARE, SELFPAY ==
--- NOTE | ~2024-12-30 | CT_ITS ---
EXAMINATION: CT HEAD WITHOUT IV CONTRAST HISTORY: dizzy. TECHNIQUE: Unenhanced helical CT of the head was performed per standard departmental protocol. Coronal and sagittal reformats of the head were also evaluated. One or more of the following techniques was used for dose reduction: Automated exposure control, adjustment of the mA and/or kV according to patient size, use of iterative reconstruction technique. DLP: 617 mGy-cm COMPARISON: Comparison is made with the prior examination dated 02/27/2024. FINDINGS: BRAIN: There is diffuse prominence of the ventricular system and cortical sulci, consistent with atrophy. Periventricular and subcortical white matter hypodensities are noted which are nonspecific, but often seen in the setting of small vessel ischemic disease. There is no mass effect or midline shift. No intra- or extra-axial fluid collections are identified. SINUSES: There is mild mucosal thickening in bilateral sphenoid sinuses. The mastoid air cells and middle ear cavities are well pneumatized. ORBITS: The visualized orbits are unremarkable. BONES/SOFT TISSUES: The extracranial soft tissues are unremarkable. The calvarium is intact. No suspicious lytic or sclerotic lesions. CT/CT head/brain wo IV con IMPRESSION: No acute intracranial abnormality. Electronically signed by: Jamari Vallejo MD 12/30/2024 12:41 PM EDT
--- NOTE | ~2024-12-30 | XR_ITS ---
EXAMINATION: XR CHEST CLINICAL INFORMATION: cp COMPARISON: None available. TECHNIQUE: Frontal view of the chest was obtained. FINDINGS: Cardiac size is normal. There is calcification of the mitral annulus. There are calcified lymph nodes in the right hilum, consistent with prior granulomatous disease. There is mild aortic calcification. Lungs are diffusely hyperaerated and hyperlucent, consistent with COPD. There is a calcified granuloma in the right lower lobe. Lungs otherwise clear. There is no airspace disease. There are no effusions and there is no pneumothorax. No focal osseous or soft tissue abnormality. Left reverse shoulder arthroplasty without complication. Degenerative changes right shoulder joint and throughout the spine. There are herniorrhaphy clips in the epigastric region. XR/XR chest 1V IMPRESSION: COPD. Evidence of prior granulomatous disease. No active superimposed disease identified. Electronically signed by: Harsha Ball MD 12/30/2024 12:46 PM EDT
[2024-12-30 11:57] VITALS: BP 204/94; BP 210/130; PULSE 94; PULSE 98; RESP 20; TEMP 36.6; O2SAT 100; BMI 16.9
--- NOTE | 2024-12-30 12:12 | ECG_ITS ---
Test Reason : SOB Blood Pressure : */* mmHG Vent. Rate : 74 BPM Atrial Rate : 74 BPM P-R Int : 182 ms QRS Dur : 82 ms QT Int : 416 ms P-R-T Axes : 3 33 13 degrees QTcB Int : 461 ms Artifact in tracing Normal sinus rhythm Moderate voltage criteria for LVH, may be normal variant ( Sokolow-Mcgee , Denis product ) Borderline ECG When compared with ECG of 27-Feb-2024 18:40, Nonspecific T wave abnormality now evident in Inferior leads Referred By: Mary Blanchard Electronically Signed By: JIA CHEN
--- NOTE | 2024-12-30 12:21 | ED.GENADULT ---
HPI - General Adult General Chief complaint: General Medical Stated complaint: WEAK,HIGH BP 228/120 PER EMS Time Seen by Provider: 12/30/24 11:42 History of Present Illness HPI narrative: Patient is an 89-year-old female with a history of hypertension recently was taken off her atenolol now feeling dizzy. Two days ago patient had difficulty finding words feels dizzy somewhat not right has a history of anxiety as well unsure if it is the same patient denies any focal weakness denies any chest pain denies any diaphoresis. Moving all extremities. Noted to have an elevated blood pressure was sent in for further evaluation of blood pressure at home was 200/100 so. Patient has a history of hypertension baseline was on atenolol 25 mg on a daily basis until her blood pressure at the primary care doctor's was 100/50 she was taken off the atenolol about a week ago. No coughing or congestion or upper respiratory symptoms no diaphoresis. Baseline is on half a mg of Ativan as needed. There is no blood in the stool. No fever. No coughing or congestion no travel history. Related Data Home Medications ?Medication ?Instructions ?Recorded ?Confirmed cholecalciferol (vitamin D3) 50 50 mcg PO DAILY 09/24/20 12/18/24 mcg (2,000 unit) capsule Previous Rx's ?Medication ?Instructions ?Recorded acetaminophen 500 mg capsule 1,000 mg (2 x 500 mg) PO Q6H PRN 01/15/21 pain #20 caps miscellaneous medical supply 1 ea miscellaneous .qd #1 ea 09/12/23 bruce.stocking,knee,reg,smal #2 ea 10/17/23 atenolol 25 mg tablet 25 mg PO DAILY #90 tabs 02/26/24 potassium chloride 20 mEq 20 meq PO DAILY #45 tabs 05/27/24 tablet,extended release(part/cryst) meclizine 25 mg tablet 25 mg PO QID PRN dizziness #20 tabs 07/02/24 ascorbic acid (vitamin C) 500 mg 500 mg PO .qod #90 tabs 09/17/24 tablet ferrous sulfate 325 mg (65 mg 325 mg PO Q OTHER DAY #45 tabs 09/17/24 iron) tablet lorazepam 0.5 mg tablet 0.5 mg PO DAILY PRN anxiety #10 01/22/25 tabs furosemide 20 mg tablet (Lasix) 20 mg PO Q OTHER DAY #45 tabs 10/29/24 Myrbetriq 25 mg tablet,extended 25 mg PO DAILY #30 tabs 12/18/24 release (mirabegron) bupropion HCl 150 mg 24 hr tablet, 150 mg PO QAM #30 tabs 12/18/24 extended release estradiol 0.01% (0.1 mg/gram) 1 g vaginal 3XW #42.5 grams 12/18/24 vaginal cream Allergies Allergy/AdvReac Type Severity Reaction Status Date / Time meperidine [From Demerol] Allergy Severe ANAPHYLAXIS Verified 12/30/24 11:58 Penicillins Allergy Severe HIVES Verified 12/30/24 11:58 Sulfa (Sulfonamide Allergy Mild HIVES Verified 12/30/24 11:58 Antibiotics) [Sulfa (Sulfonamides)] amoxicillin Allergy Unknown hives Verified 12/30/24 11:58 CHOCOLATE Allergy Unknown HIVES Verified 12/30/24 11:58 peanut [PEANUT] Allergy Unknown HIVES Verified 12/30/24 11:58 penicillin G Allergy Unknown trouble Verified 12/30/24 11:58 breathing rash penicillin V Allergy Unknown trouble Verified 12/30/24 11:58 breathing rash alendronate sodium AdvReac Intermediate Tooth Verified 12/30/24 11:58 [From Fosamax] abscess codeine [Codeine] AdvReac Mild NAUSEA/VOMI Verified 12/30/24 11:58 TING pravastatin AdvReac Unknown body aches Verified 12/30/24 11:58 Review of Systems Review of Systems: Positive episode of dizziness Yes all other systems are reviewed and are negative PMFSH Past Medical History Attestation statement: The following information was validated with the patient. Medical History CKD (chronic kidney disease) stage 3, GFR 30-59 ml/min Vitamin D deficiency Chronic anemia History of SIADH Osteoporosis HTN (hypertension) Surgical History History of left shoulder replacement History of hysterectomy History of fundoplication History of cataract History of colonoscopy History of open reduction and internal fixation (ORIF) procedure History of appendectomy Family History Family History Father History of CVA (cerebrovascular accident) Stroke Mother CVD (cardiovascular disease) History of heart attack Son No problems noted. Sister Substance use disorder Social History Social History Housing: House Alcohol intake: never Patient Tobacco Use Status: Never used Tobacco e-Cigarette/Vaping Use: Never Used Advance Directives: Yes Advance Directives on File: Yes Advance Directives Date on File: 03/28/23 Do you have a plan to hurt others: No Plan service: No Current occupational status: retired Cognitive needs: No Hearing needs: No Vision needs: Yes Physical Exam ED Vital Signs: Vital Signs - 24 hr 12/30/24 11:57 12/30/24 12:34 12/30/24 12:54 Temperature 97.9 F Pulse Rate 94 87 Respiratory Rate 20 15 Blood Pressure 204/94 H 201/94 H 183/75 H Pulse Oximetry 100 Oxygen Delivery Method Room Air 12/30/24 14:43 Temperature Pulse Rate Respiratory Rate Blood Pressure 152/66 H Pulse Oximetry Oxygen Delivery Method BMI result Body Mass Index 16.9 Appearance: Alert. Oriented X3. No acute distress. Eyes: Pupils equal, round and reactive to light. ENT: Pharynx normal. Neck: Normal inspection. Neck supple. No lymph nodes noted. No crepitus CVS: Normal heart rate and rhythm. Pulses normal. Normal S1 and S2 Respiratory: No respiratory distress. Breath sounds normal. No Wheezing. No rales Abdomen: Soft and nontender. No rigidity. No distention. good BS x4 Skin: Skin warm and dry. Normal skin color. Normal skin turgor. Extremities: No lower extremity edema. Neurovascular intact to all extremities. No Lacerations. No Rash Neuro: Oriented X 3. No motor deficit. No sensory deficit. Moving all extermities. No slurred speech Medications Administered Discontinued Medications Generic Name Dose Route Start Last Admin Trade Name Freq PRN Reason Stop Dose Admin Atenolol 25 mg 12/30/24 12:11 12/30/24 12:34 Atenolol 25 Mg Tablet PO 12/30/24 12:12 25 mg ONCE ONE Administration Protocol Medical Decision Making Medical Decision Making MDM Narrative: Patient's blood pressure came down with her normal atenolol 25 mg. Patient is also given a small amount of Ativan had a history of anxiety in the past. Blood pressure came down nicely now is 150s over 70s rain. Will have patient follow-up on an outpatient basis neurologically intact. My interpretation patient's CT head was grossly negative no bleed no mass. Patient is chest x-ray by my interpretation is grossly negative for pneumonia pneumothorax. Patient's CRP is 0.12 sed rate is 16 there is no evidence for temporal arteritis patient's COVID flu RSV were negative. Urine showed no signs of infection. Will have patient continue her normal dose of atenolol. Follow up with her primary physician. Currently in stable condition. Differential Diagnosis Differential Diagnoses: The differential diagnosis associated with the presentation includes Hypertension Admission/Observation Consideration of admission/observation: Escalation of care including admission/observation considered Lab Data MDM Lab Attestation statement: I reviewed the patient's lab results. 12/30/24 12:53 12/30/24 12:53 Labs: Lab Results 12/30/24 Range/Units 12:53 WBC 8.0 (4.8-10.8) X10*3/uL RBC 3.75 L (4.20-5.50) X10*6/uL Hgb 11.8 L (12.0-16.0) g/dl Hct 35.5 L (37.0-47.0) % MCV 94.7 (80.0-98.0) fL MCH 31.5 (27.0-33.0) pg MCHC 33.2 (31.0-35.0) g/dl RDW 13.2 (11.0-16.0) % Plt Count 177 (160-400) X10*3/uL MPV 8.3 L (9.4-12.3) fL Immature Gran % (Auto) 0.2 (0.0-0.4) % Neut % (Auto) 70.4 (45-73) % Lymph % (Auto) 20.9 (20-40) % [place] % (Auto) 6.6 (2-11) % Eos % (Auto) 0.9 (0-4) % Baso % (Auto) 1.0 (0-2) % Lymph # (Auto) 1.7 (1.2-4.9) X10*3/uL [place] # (Auto) 0.5 (0.1-1.2) X10*3/uL Eos # (Auto) 0.1 (0.0-0.4) X10*3/uL Baso # (Auto) 0.1 (0.0-0.2) X10*3/uL Abs Immat Gran (auto) 0.02 (0.00-0.03) X10*3/uL Absolute Neuts (auto) 5.6 (2.0-8.3) x10*3/uL Absolute Nucleated RBC 0.000 (0.0-0.012) X10*3/uL Nucleated RBC % (auto) 0.0 (0.0-0.2) /100WBC ESR 16 (0-20) MM/HR PT 11.4 (10.9-12.4) SEC INR 1.0 (0.9-1.1) Sodium 137 (135-145) mmol/L Potassium 4.1 (3.3-5.1) mmol/L Chloride 103 (96-108) mmol/L Carbon Dioxide 23 (22-29) mmol/L Anion Gap 15 (12-20) BUN 38 H (9-16) mg/dL Creatinine 1.07 (0.5-1.4) mg/dL Estim Creat Clear Calc 24.1 Estimated GFR 48 Random Glucose 98 (60-115) mg/dL Calcium 10.6 H (8.4-10.2) mg/dL Total Bilirubin 0.5 (0.0-1.0) mg/dL Direct Bilirubin 0.2 (0.0-0.5) mg/dL AST 27 (5-31) U/L ALT 19 (0-31) U/L Ammonia 37 (13-55) umol/L Troponin I High Sens 12.1 D (<3.5-17.0) ng/L C-Reactive Protein 0.12 (< or = 0.50) mg/dL Total Protein 7.9 (6.5-8.0) g/dL Albumin 4.6 (3.5-5.0) g/dL Urine Color Yellow Urine Appearance Clear Urine pH 8.0 (5.0-9.0) Ur Specific [place] 1.010 (1.005-1.025) Urine Protein 30 (1+) H (Neg-Trace) mg/dL Urine Glucose (UA) Negative (Negative) mg/dL Urine Ketones Negative (Negative) mg/dL Urine Blood Negative (Negative) Urine Nitrite Negative (Negative) Ur Leukocyte Esterase Negative (Negative) Urine RBC 0-2 (0-2) /HPF Urine WBC 0-5 (0-5) /HPF Ur Squamous Epith Cells 0-2 (0-2) /HPF Urine Bacteria None Seen (None Seen) Hyaline Casts 0-2 (0-2) /LPF Influenza Type A (PCR) NEGATIVE (Negative) Influenza Type B (PCR) NEGATIVE (Negative) RSV RNA Qual (PCR) NEGATIVE (Negative) SARS-CoV-2 RNA (RT-PCR) NEGATIVE (Negative) Independent Interpretation I performed an independent interpretation of an: EKG (Sinus heart rate is 75 OK QRS QTC normal there is significant LVH noted.), Plain X-Ray (Chest x-ray negative) and CT Scan (CT head negative) Radiology Impression Discussion of test interpretation with radiology: I have reviewed the radiologist's reading. Independent Historian Clinical information obtained from an independent historian. History obtained from or confirmed by: Other (Neighbor) External Record Review External record reviewed: Office record Chronic Conditions Patient?s care impacted by: Hypertension Anxiety Social Determinants Patient?s care significantly limited by Social Determinants of Health including: Problems related to primary support group Discharge Plan Discharge Clinical Impression: Anxiety, HTN (hypertension) Patient Disposition: Home, Self-Care Instructions: Anxiety (ED), Hypertension (ED) Prescriptions: No Action potassium chloride 20 mEq tablet,ER particles/crystals 20 meq PO DAILY Qty: 45 1RF Rx Instructions: take with Lasix meclizine 25 mg tablet 25 mg PO QID PRN (Reason: dizziness) Qty: 20 0RF furosemide [Lasix] 20 mg tablet 20 mg PO Q OTHER DAY Qty: 45 3RF acetaminophen 500 mg capsule 1,000 mg PO Q6H PRN (Reason: pain) Qty: 20 0RF cholecalciferol (vitamin D3) 50 mcg (2,000 unit) capsule 50 mcg PO DAILY miscellaneous medical supply Misc 1 ea miscellaneous .qd Qty: 1 0RF Rx Instructions: lifeline atenolol 25 mg tablet 25 mg PO DAILY Qty: 90 3RF (DME) bruce.stocking,knee,reg,smal Misc See Rx Instructions .Route Qty: 2 0RF Rx Instructions: 10-20 mmHg, with zippers ascorbic acid (vitamin C) 500 mg tablet 500 mg PO .qod Qty: 90 2RF Rx Instructions: every other day ferrous sulfate 325 mg (65 mg iron) tablet 325 mg PO Q OTHER DAY Qty: 45 3RF lorazepam 0.5 mg tablet 0.5 mg PO DAILY PRN (Reason: anxiety) Qty: 10 0RF estradiol 0.01 % (0.1 mg/gram) cream 1 g vaginal 3XW Qty: 42.5 2RF bupropion HCl 150 mg tablet extended release 24 hr 150 mg PO QAM Qty: 30 3RF mirabegron [Myrbetriq] 25 mg tablet extended release 24 hr 25 mg PO DAILY Qty: 30 2RF Referrals: Clarice Ziegler MD [Primary Care Provider] - 01/01/25 Print Language: Wallisian
[2024-12-30 12:34] VITALS: BP 201/94
[2024-12-30] MEDS: atenoloL 25 MG TABLET PO (12:34)
[2024-12-30 12:54] VITALS: BP 183/75; PULSE 87; RESP 15
[2024-12-30 12:59] LABS: MANUAL DIFF FLAG NO
[2024-12-30 13:01] LABS: Basophils Absolute Auto 0.1 X10*3/uL (0.0-0.2); Eosinophils Absolute Auto 0.1 X10*3/uL (0.0-0.4); Eosinophils Percent Auto 0.9 % (0-4); Hematocrit 35.5 % (37.0-47.0); Hemoglobin 11.8 g/dl (12.0-16.0); Imm Gran Abs Auto 0.02 X10*3/uL (0.00-0.03); Imm Gran Pct Auto 0.2 % (0.0-0.4); Lymphocytes Absolute Auto 1.7 X10*3/uL (1.2-4.9); Lymphocytes Percent Auto 20.9 % (20-40); Mean Corpuscular HGB Conc 33.2 g/dl (31.0-35.0); Mean Corpuscular Hemoglobin 31.5 pg (27.0-33.0); Mean Corpuscular Volume 94.7 fL (80.0-98.0); Mean Platelet Volume 8.3 fL (9.4-12.3); Monocytes Absolute Auto 0.5 X10*3/uL (0.1-1.2); Monocytes Percent Auto 6.6 % (2-11); Neutrophils Absolute Auto 5.6 x10*3/uL (2.0-8.3); Neutrophils Percent Auto 70.4 % (45-73); Platelet Count 177 X10*3/uL (160-400); Red Blood Count 3.75 X10*6/uL (4.20-5.50); Red Cell Distribution Width 13.2 % (11.0-16.0)
[2024-12-30 13:02] LABS: Appearance Urine Clear; Color Urine Yellow; Glucose Urine UA Negative (Negative); Leukocyte Esterase Urine Negative (Negative); Nitrite Urine Negative (Negative); UMIC TRIGGER UACC YES; Urine Blood Negative (Negative); Urine Ketones Negative (Negative); Urine Protein 30 (1+) mg/dL (Neg-Trace)
[2024-12-30 13:06] LABS: Bacteria Urine None Seen (None Seen); Hyaline Casts Urine 0-2 /LPF (0-2); Prothrombin Time 11.4 SEC (10.9-12.4); RBC Urine 0-2 /HPF (0-2); Squamous Epithelial Cell Urine 0-2 /HPF (0-2); WBC Urine 0-5 /HPF (0-5)
[2024-12-30 13:31] LABS: Ammonia 37 umol/L (13-55)
[2024-12-30 13:35] LABS: C Reactive Protein 0.12 mg/dL (< or = 0.50)
[2024-12-30 13:38] LABS: Alanine Aminotransferase 19 U/L (0-31); Albumin Level 4.6 g/dL (3.5-5.0); Anion Gap 15 (12-20); Aspartate Amino Transferase 27 U/L (5-31); Bilirubin Direct 0.2 mg/dL (0.0-0.5); Bilirubin Total 0.5 mg/dL (0.0-1.0); Blood Urea Nitrogen 38 mg/dL (9-16); Calcium 10.6 mg/dL (8.4-10.2); Carbon Dioxide 23 mmol/L (22-29); Chloride 103 mmol/L (96-108); Creatinine Clr Calc Pharmacy 24.1; Estimated Glomerular Filt Rate 48; Glucose Random 98 mg/dL (60-115); Potassium 4.1 mmol/L (3.3-5.1); Sodium 137 mmol/L (135-145); Total Protein 7.9 g/dL (6.5-8.0)
[2024-12-30 13:40] LABS: Erythrocyte Sedimentation Rate 16 MM/HR (0-20)
[2024-12-30 13:43] LABS: Troponin-I High Sensitivity 12.1 ng/L (<3.5-17.0)
[2024-12-30 13:53] LABS: Influenza A PCR NEGATIVE (Negative); Influenza B PCR NEGATIVE (Negative); Resp Syncy Virus RNA Qual PCR NEGATIVE (Negative); SARS COV2 PCR INHOUSE NEGATIVE (Negative)
--- OUTSIDE RECORDS SUMMARY | 2024-12-30 14:35 | XMS_ITS | Patient Health Record ---
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 Grinder Tender Name Role Phone Clarice Ziegler MD Primary Care Provider Jamari Hill [phone] Reason For Referral No Information Plan Of Treatment Next Appt Details Provider Name:Jamari Giron , 12/31/2024 02:40:00 PM, [address], [address], [place], [address], Insurance Providers Payer Name Payer Address Payer Phone Subscriber Number Group Number Insured Name Patient Relationship to Insured Coverage Start Date Coverage End Date [place] [address] [place] [address] [id number] ELIDA SHEEHAN Self - patient is the insured MED[employer] ATT[employer] CLAIMS [address] [place] [address] [phone] [id number] ELIDA SHEEHAN Self - patient is the insured
--- OUTSIDE RECORDS SUMMARY | 2024-12-30 14:35 | XMS_ITS ---
Author Organization [facility] Address [address] [place] [address] Care Team Providers Care Children'S Librarian Name Role Phone Clarice Ziegler MD Primary Care Provider Daisy Perry Unavailable [phone] REASON FOR VISIT BUY 2 Lg left Crest pads / 3 Lg Toe Buddies Encounters Encounter Location Date Provider Diagnosis [facility] [address] [place] [address] 12/17/2024 Daisy Villarreal Plan Of Treatment Next Appt Details Provider Name:Daisy marcial, 03/18/2025 03:00:00 PM, [address] [place], [address], Progress Notes * Iraida SHEEHANDOB:1935 (89 yo F)Acc No.[id number]:12/17/2024 Patient:?Iraida SHEEHAN :1935???Age:89 Y???Sex:Female Address:[address] [place] [address] * true * Date:? Generated for Printi ng/Fadelmarg/eTransmitting on:?12/30/2024 02:34 PM EDT
--- OUTSIDE RECORDS SUMMARY | 2024-12-30 14:35 | XMS_ITS | Patient Health Record ---
Author Organization 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 Problem [id number] 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) Active confirmed Vital Signs Blood pressure diastolic 60 mm Hg 12/17/2024 Height 5 ft 1 in in 12/17/2024 Blood pressure systolic 115 mm Hg 12/17/2024 Weight 93 lbs 12/17/2024 BMI 17.57 kg/m2 12/17/2024 Encounters Encounter Location Date Provider Diagnosis [address] [address] 03/11/2024 Daisy Caballeroa Hallux valgus (acquired), left foot M20.12 ; Hammer toe of left foot M20.42 ; Atherosclerosis of artery of both lower extremities I70.203 ; Hammertoe of right foot M20.41 ; Tinea unguium B35.1 ; Pain in left toe(s) M79.675 and Pain in right toe(s) M79.[address] [address] 05/28/2024 Daisy Caballeroa Hallux valgus (acquired), left foot M20.12 ; Hammer toe of left foot M20.42 ; Atherosclerosis of artery of both lower extremities I70.203 ; Hammertoe of right foot M20.41 ; Tinea unguium B35.1 ; Pain in left toe(s) M79.675 and Pain in right toe(s) M79.[address] [address] 09/16/2024 Daisy Villarreal Hallux valgus (acquired), left foot M20.12 ; Hammer toe of left foot M20.42 ; Atherosclerosis of artery of both lower extremities I70.203 ; Hammertoe of right foot M20.41 ; Tinea unguium B35.1 ; Pain in left toe(s) M79.675 and Pain in right toe(s) M79.674 [facility] [address] [address] 12/17/2024 Daisy Villarreal Hammer toe of left f oot M20.42 ; Tinea pedis of both feet B35.3 ; Hallux valgus (acquired), left foot M20.12 ; Atherosclerosis of artery of both lower extremities I70.203 ; Hammertoe of right foot M20.41 ; Tinea unguium B35.1 ; Pain in left toe(s) M79.675 and Pain in right toe(s) M79.674 [facility] [address] [address] 03/11/2024 Daisy Villarreal [facility] [address] [address] 04/01/2024 Daisy Villarreal [facility] [address] 05/06/2024 Daisy Villarreal [facility] [address] 05/28/2024 Daisy Villarreal [facility] [address] [address] 06/27/2024 Daisy Villarreal [facility] [address] [address] 09/16/2024 Daisy Villarreal [facility] [address] [address] 12/17/2024 Daisy Villarreal Assessments Encounter Date Diagnosis [...] Provider Name:Daisy marcial, 03/18/2025 03:00:00 PM, [address] [place], [address], Insurance Providers Payer Name Payer Address Payer Phone Subscriber Number Group Number Insured Name Patient Relationship to Insured Coverage Start Date Coverage End Date Medicare National [facility] [address] [place] [address] [id number] Iraida Cantor Self - patient is the insured [employer] Blue Shield [address] [place] [address] [phone] [id number] Iraida Cantor Self - patient is the [...] , high blood pressure 11/17 fall at [facility] went to ER
--- OUTSIDE RECORDS SUMMARY | 2024-12-30 14:35 | XMS_ITS | Continuity of Care Document ---
Author Name [facility] Organization [facility] Care Team Providers Care Program Aide Group Work Name Role Phone [facility] Unavailable Unavailable Problems Combined list of problems [...] [facility] [place] [facility] Hypertension (SNOMED CT [id number]) Active Condition [facility] [...] A WEEK ORAL ACTIVE FURCOLO,T MIAN 2023 [place] [facility] ASCORBIC ACID 500MG TAB TAKE ONE TABLET BY MOUTH ONCE DAILY ORAL ACTIVE Ian DUGAN ICOLE 2019 [facility] ATENOLOL 25MG TAB TAKE ONE TABLET BY MOUTH ONCE DAILY ORAL ACTIVE Ian DUGAN ICOLE 2018 [facility] [place] CALCIUM 250MG/VITAM IN D 125UNIT TAB TAKE BY MOUTH ORAL ACTIVE ZASHIN,LY NN S 2013 [facility] FERROUS SO4 325MG TAB TAKE ONE TABLET BY MOUTH ONCE DAILY ORAL ACTIVE KIRCHEN,N ICOLE 2019 [facility] FUROSEMIDE 20MG TAB TAKE ONE TABLET BY MOUTH ONCE DAILY ORAL ACTIVE FURCOLO,T MIAN 2023 [facility] MAGNESIUM GLUCONATE TAB TAKE BY MOUTH ORAL ACTIVE ZASHIN,LY NN S 2011 [facility] MULTIVITAMI NS W/MINERALS TAB TAKE ONE TABLET BY MOUTH ORAL ACTIVE ZASHIN,LY NN S 2011 [facility] POLYETHYLEN E GLYCOL 3350 POWDER,ORAL TAKE BY MOUTH PRN ORAL ACTIVE ZASHIN,LY NN S 2013 [facility] POTASSIUM CHLORIDE 20MEQ TAB,SA (DISPERSIBL E) TAKE ONE TABLET BY MOUTH ONCE DAILY ORAL ACTIVE FURCOLO,T MIAN 2023 [facility] SERTRALINE HCL 50MG TAB TAKE ONE-HALF TABLET BY MOUTH ONCE DAILY ORAL ACTIVE FURCOLO,T MIAN 2023 [facility] VITAMIN B COMPLEX CAP TAKE 1 CAPSULE BY MOUTH ONCE DAILY ORAL ACTIVE KIRSERGIO,N ICOLE 2022 [facility] Allergies, Adverse Reactions, Alerts Combined list of allergies from Department of Defense and Veterans Affairs facilities. It does not include entries that were removed or entered in error. Substance Category Reaction Severity Reaction type Status Date Reported Comments Source CODEINE Propensity to adverse reactions to drug (finding) Nausea and vomiting active 2 [facility] [place] DEMEROL Propensity to adverse reactions to drug (finding) active 4 [facility] PENICILLIN Propensity to adverse reactions to drug (finding) Anaphylaxis active 2 [facility] SULFA DRUGS Propensity to adverse reactions to drug (finding) Anaphylaxis active 2 [facility] Immunizations Combined list of available immunizations from the Department of Defense and Veterans Affairs facilities. Immunization Series Date Given Administered By Site Reaction Lot Number CVX Code Drug Hog Driver Status Comments Source INFLUENZA, UNSPECIFIED FORMULATION [...] Oct 03, 2023 03:06 PM Reporting Lab: [facility] [address] [address] Performing Lab: [facility] [address] [address] [facility] BASIC METABOLIC PANEL (non-fast ing) GLUCOSE [MASS/VOLUM E] IN SERUM OR PLASMA 97 mg/dL 65 - 100 10/05 Specimen Type: SERUM No comment entered. Ordering Provider: FREYA VALDIVIA Report Released Date/Time: Oct 03, 2023 03:06 PM Reporting Lab: [facility] [address] [address] Performing Lab: [facility] [address] [address] [facility] BASIC METABOLIC PANEL (non-fast ing) SODIUM [MOLES/VOLU ME] IN SERUM OR PLASMA 125 mmol/L 135 - 145 10/05 L Specimen Type: SERUM No comment entered. Ordering Provider: FURCOLO,TIN A Report Released Date/Time: Oct 03, 2023 03:06 PM Reporting Lab: [place] [facility] [place] [facility] [address] [address] Performing Lab: [place] [facility] [place] [facility] [address] [address] [place] [facility] [place] [facility] BASIC METABOLIC PANEL (non-fast ing) POTASSIUM [MOLES/VOLU ME] IN SERUM OR PLASMA 4.1 mmol/L 3.5 - 5.0 10/05 Specimen Type: SERUM No comment entered. Ordering Provider: FREYA VALDIVIA Report Released Date/Time: Oct 03, 2023 03:06 PM Reporting Lab: [place] [facility] [place] [facility] [address] [address] Performing Lab: [place] [facility] [place] [address] [address] [facility] BASIC METABOLIC PANEL (non-fast ing) CHLORIDE [MOLES/VOLU ME] IN SERUM OR PLASMA 93 mmol/L 100 - 110 10/05 L Specimen Type: SERUM No comment entered. Ordering Provider: FREYA VALDIVIA Report Released Date/Time: Oct 03, 2023 03:06 PM Reporting Lab: [place] [facility] [place] [facility] [address] [address] Performing Lab: [place] [facility] [address] [address] [facility] [place] [facility] BASIC METABOLIC PANEL (non-fast ing) CARBON DIOXIDE, TOTAL [MOLES/VOLU ME] IN SERUM OR PLASMA 23 meq/L 20 - 30 10/05 Specimen Type: SERUM No comment entered. Ordering Provider: FREYA VALDIVIA Report Released Date/Time: Oct 03, 2023 03:06 PM Reporting Lab: [place] [facility] [place] [facility] [address] [address] Performing Lab: [place] [facility] [place] [address] [address] [facility] [place] [facility] BASIC METABOLIC PANEL (non-fast ing) CREATININE [MASS/VOLUM E] IN SERUM OR PLASMA 0.86 mg/dL 0.50 - 1.40 10/05 Specimen Type: SERUM No comment entered. Ordering Provider: FREYA VALDIVIA Report Released Date/Time: Oct 03, 2023 03:06 PM Reporting Lab: [facility] [place] [address] [address] Performing Lab: [facility] [place] [address] [address] [facility] [place] [facility] BASIC METABOLIC PANEL (non-fast ing) GLOMERULAR FILTRATION RATE/1.73 SQ M.PREDICTED [VOLUME RATE/AREA] IN SERUM, PLASMA OR BLOOD BY CREATININE- BASED FORMULA (CKD-EPI 2020) 65 mL/min 60 10/05 Specimen Type: SERUM No comment entered. Ordering Provider: FREYA VALDIVIA Report Released Date/Time: Oct 03, 2023 03:06 PM Reporting Lab: [facility] [place] [address] [address] Performing Lab: [place] [facility] [place] [address] [address] [facility]MARYN [facility] CBC LEUKOCYTES [#/VOLUME] IN BLOOD BY AUTOMATED COUNT 6.27 10*3/u L 4.50 - 11.00 10/05 Specimen Type: BLOOD No comment entered. Ordering Provider: FREYA VALDIVIA Report Released Date/Time: Oct 03, 2023 03:06 PM Reporting Lab: [facility] [place] [address] [address] Performing Lab: [facility] [place] [address] [address] [facility]N [facility] CBC ERYTHROCYTE S [#/VOLUME] IN BLOOD BY AUTOMATED COUNT 3.37 10*6/u L 3.93 - 5.16 10/05 L Specimen Type: BLOOD No comment entered. Ordering Provider: FREYA VALDIVIA Report Released Date/Time: Oct 03, 2023 03:06 PM Reporting Lab: [place] [facility] [place] [facility] [address] [address] Performing Lab: [facility] [place] [facility] [address] [address] [facility] [place] [facility] CBC HEMOGLOBIN [MASS/VOLUM E] IN BLOOD 10.5 g/dL 12 - 15.2 10/05 L Specimen Type: BLOOD No comment entered. Ordering Provider: FREYA VALDIVIA Report Released Date/Time: Oct 03, 2023 03:06 PM Reporting Lab: [facility] [place] [facility] [address] [address] Performing Lab: [facility] [place] [facility] [address] [address] [facility] [place] [facility] CBC HEMATOCRIT [VOLUME FRACTION] OF BLOOD BY AUTOMATED COUNT 30.2 36.6 - 45.6 10/05 L Specimen Type: BLOOD No comment entered. Ordering Provider: FREYA VALDIVIA Report Released Date/Time: Oct 03, 2023 03:06 PM Reporting Lab: [facility] [place] [facility] [address] [address] Performing Lab: [facility] [place] [facility] [address] [address] [facility] CBC MCV [ENTITIC VOLUME] BY AUTOMATED COUNT 89.6 fL 82 - 99 10/05 Specimen Type: BLOOD No comment entered. Ordering Provider: FREYA VALDIVIA Report Released Date/Time: Oct 03, 2023 03:06 PM Reporting Lab: [facility] [place] [facility] [address] [address] Performing Lab: [facility] [place] [facility] [address] [address] [facility] [place] [facility] CBC MCHC [MASS/VOLUM E] BY AUTOMATED COUNT 34.8 g/dL 30.8 - 35.1 10/05 Specimen Type: BLOOD No comment entered. Ordering Provider: FREYA VALDIVIA Report Released Date/Time: Oct 03, 2023 03:06 PM Reporting Lab: [facility] [place] [facility] [address] [address] Performing Lab: [facility] [place] [facility] [address] [address] [facility] [place] [facility] CBC PLATELETS [#/VOLUME] IN BLOOD BY AUTOMATED COUNT 228 10*3/u L 140 - 360 10/05 Specimen Type: BLOOD No comment entered. Ordering Provider: FREYA VALDIVIA Report Released Date/Time: Oct 03, 2023 03:06 PM Reporting Lab: [facility] [place] [facility] [address] [address] Performing Lab: [place] [facility] [facility] [address] [address] [facility] [place] [facility] CBC ERYTHROCYTE DISTRIBUTIO N WIDTH [RATIO] BY AUTOMATED COUNT 12.7 12.0 - 16.0 10/05 Specimen Type: BLOOD No comment entered. Ordering Provider: FREYA VALDIVIA Report Released Date/Time: Oct 03, 2023 03:06 PM Reporting Lab: [place] [facility] [place] [facility] [address] [address] Performing Lab: [place] [facility] [place] [facility] [address] [address] [facility] [place] [facility] CBC MCH [ENTITIC MASS] BY AUTOMATED COUNT 31.2 pg 26.2 - 32.6 10/05 Specimen Type: BLOOD No comment entered. Ordering Provider: FREYA VALDIVIA Report Released Date/Time: Oct 03, 2023 03:06 PM Reporting Lab: [place] [facility] [place] [facility] [address] [address] Performing Lab: [place] [facility] [place] [facility] [address] [address] [facility] [place] [facility] FERRITIN FERRITIN [MASS/VOLUM E] IN SERUM OR PLASMA 616 ng/mL 10 - 200 10/05 H Specimen Type: SERUM No comment entered. Ordering Provider: FREYA VALDIVIA Report Released Date/Time: Oct 03, 2023 03:06 PM Reporting Lab: [facility] [place] [facility] [address] [address] Performing Lab: [place] [facility] [place] [facility] [address] [address] [facility] [place] [facility] FOLATE FOLATE [MASS/VOLUM E] IN SERUM OR PLASMA 18.02 ng/mL 5.2 10/05 Specimen Type: SERUM No comment entered. Ordering Provider: FREYA VALDIVIA Report Released Date/Time: Oct 03, 2023 03:06 PM Reporting Lab: [place] [facility] [facility] [address] [address] Performing Lab: [facility]N [facility] [address] [facility] [address] [facility] [place] [facility] HEMOGLOBI N A1C PANEL HEMOGLOBIN A1C/HEMOGLO [...] Oct 03, 2023 03:06 PM Reporting Lab: [facility] [place] [facility] [address] [address] Performing Lab: [facility] [place] [facility] [address] [address] [facility]ITAL[facility]MARYN [facility] IRON & TIBC PANEL IRON BINDING CAPACITY [MASS/VOLUM E] IN SERUM OR PLASMA 236 ug/dL 204 - 475 10/05 Specimen Type: SERUM No comment entered. Ordering Provider: FREYA VALDIVIA Report Released Date/Time: Oct 03, 2023 03:06 PM Reporting Lab: [facility]ITALRCITIZENS BAPTISTTRN [place] [facility] [address] [address] Performing Lab: [facility] [place] [facility] [address] [address] [facility]ITALRH[facility]N [facility] IRON & TIBC PANEL IRON [MASS/VOLUM E] IN SERUM OR PLASMA 55 ug/dL 40 - 160 10/05 Specimen Type: SERUM No comment entered. Ordering Provider: FREYA VALDIVIA Report Released Date/Time: Oct 03, 2023 03:06 PM Reporting Lab: [facility]ITALRCITIZENS BAPTISTTRN [place] [facility] [address] [address] Performing Lab: [facility]N [place] [facility] [address] [address] [facility] IRON & TIBC PANEL IRON/IRON BINDING CAPACITY.TO JOVANA [MASS RATIO] IN SERUM OR PLASMA 23.3 20.0 - 50.0 10/05 Specimen Type: SERUM No comment entered. Ordering Provider: FREYA VALDIVIA Report Released Date/Time: Oct 03, 2023 03:06 PM Reporting Lab: [facility]APTISTTRN [place] [facility] [address] [address] Performing Lab: [facility]ITALRCITIZENS BAPTISTTRN [facility] [address] [address] [facility] MAGNESIUM MAGNESIUM [MASS/VOLUM E] IN SERUM OR PLASMA 1.7 mg/dL 1.6 - 2.6 10/05 Specimen Type: SERUM No comment entered. Ordering Provider: FREYA VALDIVIA Report Released Date/Time: Oct 03, 2023 03:06 PM Reporting Lab: [facility] [place] [facility] [address] [address] Performing Lab: [facility]ITALRHALE INFIRMARYN [facility]ITAL[facility] [address] [address] [facility] TSH THYROTROPIN [UNITS/VOLU ME] IN SERUM OR PLASMA 1.90 u[IU]/ mL 0.35 - 5.00 10/05 Specimen Type: SERUM No comment entered. Ordering Provider: FREYA VALDIVIA Report Released Date/Time: Oct 03, 2023 03:06 PM Reporting Lab: [facility] [place] [facility] [address] [facility] [address] Performing Lab: [facility] [place] [facility] [address] [facility] [address] [facility] [place] [facility] VITAMIN B12 COBALAMIN (VITAMIN B12) [MASS/VOLUM E] IN SERUM OR PLASMA >2000p g/mL 200 - 900 10/05 H Specimen Type: SERUM No comment entered. Ordering Provider: FREYA VALDIVIA Report Released Date/Time: Oct 03, 2023 03:06 PM Reporting Lab: [facility] [place] [facility] [address] [facility] [address] Performing Lab: [facility] [place] [facility] [address] [facility] [facility] [address] [facility] [place] [facility] VITAMIN D (25-OH) 25-HYDROXYV ITAMIN D3 [MASS/VOLUM E] IN SERUM OR PLASMA 75 ng/mL 20 - 50 10/05 H Specimen Type: SERUM No comment entered. Ordering Provider: FREYA VALDIVIA Report Released Date/Time: Oct 03, 2023 03:06 PM Reporting Lab: [facility] [place] [facility] [address] [facility] [address] Performing Lab: [facility] [place] [facility] [address] [address] [facility] [place] Encounters [...] [facility] [place] Out[facility] En[facility] [id number] 08/30 [facility] En[facility] [id number] 09/14 [facility] [place] [place] En[facility] [id number] 09/17 [facility] [place] [place] [facility] Outpatient Encounter [id number] 09/17 [facility] En[facility] [id number] 10/02 [facility] [place] [place] [facility] Outpatient Encounter [id number] 10/08 [facility] [place] [facility] [place] [facility] OFFICE O/P EST HI 40 MIN [id number] Diagnos is: ICD-10- CM E87.6 Hypokal emia FURCOLO,TI NA 10/12 [place] [facility] [facility] Social History Combined list of available smoking, tobacco, and other social history from Department of Defense and Veterans Affairs facilities. Social History Type Response Date Comment [facility] e Tobacco smoking status NHIS VA-TOBACCO NEVER USED 09/17/2023 [facility] [place] [facility] History of tobacco use VA-TOBACCO NEVER USED 09/05/2022 [facility] [place] [facility] History of tobacco use VA-TOBACCO NEVER USED 09/07/2021 [facility] [place] [facility] History of tobacco use VA-TOBACCO NEVER USED 06/29/2020 [facility] [place] [facility] History of tobacco use LIFETIME NON-TOBACCO USER 04/24/2018 [facility] [place] [facility] History of tobacco use LIFETIME NON-TOBACCO USER 01/19/2017 [facility] [place] [facility] History of tobacco use LIFETIME NON-TOBACCO USER 04/01/2012 [facility] [place] [facility]
--- OUTSIDE RECORDS SUMMARY | 2024-12-30 14:35 | XMS_ITS | Encounter Summary ---
Author Organization [facility] Address [address] [place] [address] Care Team Providers Care Chemical Research Engineer Name Role Phone Clarice Ziegler MD Primary Care Provider Unavaila ble Encounter Details Date Type Department Care Team Description 01/28/2018 Business Doc Medical Records [address] [place] [id number] Abstract, Provider Social History Tobacco Use Types Packs/Day Years Used Date Smoking Tobacco: Never Smokeless Tobacco: Never Sex Assigned at Date Recorded Not on file documented as of this encounter Plan of Treatment Not on file documented as of this encounter Visit Diagnoses Not on filedocumented in this encounter Care Teams Chemical Research Engineer Relationship Specialty Start Date End Date Clarice Ziegler MD PCP - General Internal Medicine 09/10/17 documented as of this encounter
--- OUTSIDE RECORDS SUMMARY | 2024-12-30 14:35 | XMS_ITS ---
Author Organization [facility] Address [address] [place] [address] Care Team Providers Care Data Management Analyst Name Role Phone Clarice Ziegler MD Primary Care Provider Daisy Perry Unavailable [phone] REASON FOR VISIT lr toe crest and 3 lg toe buddies Encounters Encounter Location Date Provider Diagnosis [facility] [address] [place] [address] 09/16/2024 Daisy Villarreal Plan Of Treatment Next Appt Details Provider Name:Daisy marcial, 03/18/2025 03:00:00 PM, [address] [place], [address], Progress Notes * Iraida SHEEHANDOB:1935 (89 yo F)Acc No.[id number]:09/16/2024 Patient:?Iraida SHEEHAN :1935???Age:89 Y???Sex:Female Address:[address] [place] [address] * true * Date:? Generated for Printi ng/Faxing/eTransmitting on:?12/30/2024 02:35 PM EDT
--- OUTSIDE RECORDS SUMMARY | 2024-12-30 14:35 | XMS_ITS ---
Author Organization [facility] Address [address] [place] [address] Care Team Providers Care Field Technical Support Consultant Name Role Phone Clarice Ziegler MD Primary Care Provider Daisy Perry Unavailable [phone] Allergies Allergen (clinical drug ingredient) Drug/Non Drug [...] 025 Encounters Encounter Location Date Provider Diagnosis [facility] [address] [place] [address] 12/17/2024 Daisy Villarreal Hammer toe of left [...] Reason: Provider Name:Daisy marcial, 03/18/2025 03:00:00 PM, [address] [place] [address], [place], [address], Procedure Notes * Category Sub-Category [...] use of a nail nipper and/or dremel-type grinder machine knife setter, to a more viable healthy nail plate [...] to maintain effectiveness in symptomatic relief - 83865 Keratoma Treatment Parring or Cutting o f [...] instrumentation by the physician of record - 05044 Progress Notes * Iraida SHEEHANDOB:1935 (89 yo F)Acc No.[id number]:12/17/2024 Progress Note Patient:?VALLEY, Iraida Provider:?Daisy Villarreal DPM :1935???Age:89 Y???Sex:Female D ate:12/17/2024 Address:[address] [place] [address] [id number] Pcp:Clarice Ziegler MD Subjective: * Chief Complaints: [...] 09/05/2024 * Hospitalization/Major Diagno stic Procedure:?fall at [facility] went to ER ER C- dizzy , [...] PT, walking. ?Marital status: . 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 * Medications:?TakingPotassium Atenolol 25 MG [...] use of a nail nipper and/or dremel-type grinder machine knife setter, to a more viable healthy nail plate [...] to maintain effectiveness in symptomatic relief - 69811.?Keratoma Treatment:?Parring or Cutting of Benign Hyperkeratotic Lesion(s)?(-57) [...] instrumentation by the physician of record - 47472.? * Procedure Codes:?06985 DEBRI DE NAIL, 6 OR MORE, Modifiers: XS 32843 TRIM SKIN LESIONS, OVER 4, Modifiers: XS [...] Villarreal DPM Date:? Generated for Karli vargas/Yarelis/Neetu on:?12/30/2024 02:35 PM EDT History and Physical Notes * HPI [...]
[2024-12-30 14:43] VITALS: BP 152/66
[2024-12-30 15:16] VITALS: BP 139/65; PULSE 72; RESP 18; TEMP 36.8; O2SAT 99
[2024-12-30 15:44] VITALS: BP 139/65; PULSE 72; RESP 18; TEMP 36.8; O2SAT 99
[2024-12-30 17:30] LABS: Alkaline Phosphatase 62 U/L (39-117)
== END 2024-12-30 15:45 | disposition home or self-care (01) ==
PROVIDERS: Emergency Provider Emergency Medicine Emergency Medical Services; PCP Internal Medicine
DX: F41.9 Anxiety disorder, unspecified (principal); I10 Essential (primary) hypertension; R42 Dizziness and giddiness; Z03.818 Encounter for observation for suspected exposure to other biological agents ruled out; D64.9 Anemia, unspecified; Z86.39 Personal history of other endocrine, nutritional and metabolic disease; Z79.899 Other long term (current) drug therapy
CPT/HCPCS: 0241U; 36415; 70450; 71045; 80048; 80076; 81001; 82140; 84484; 85025; 85610; 85652; 86140; 93005; 99284; 99285

== ENCOUNTER → 2024-12-30 12:12 | Outpatient (BNV) | payer MEDICARE, SELFPAY | PROVIDERS: Emergency Provider Emergency Medicine Emergency Medical Services; Visit Provider Radiology Diagnostic Radiology | DX: R42 Dizziness and giddiness (principal); I70.0 Atherosclerosis of aorta | CPT/HCPCS: 70450; 71045 ==

== ENCOUNTER → 2024-12-30 12:12 | Outpatient (BNV) | payer MEDICARE, SELFPAY | PROVIDERS: Emergency Provider Emergency Medicine Emergency Medical Services; PCP Internal Medicine; Visit Provider Internal Medicine | DX: R06.02 Shortness of breath (principal); R94.31 Abnormal electrocardiogram [ECG] [EKG] | CPT/HCPCS: 93010 ==

== ENCOUNTER 2025-01-07 11:22 | Outpatient (REF) | payer MEDICARE, SELFPAY ==
--- NOTE | ~2025-01-07 | US_ITS ---
CLINICAL HISTORY: N18.30 - Chronic kidney disease, stage 3, URINARY INCONTINENCE US Renal Comparison: None Findings: Right kidney normal length and echotexture, 9.4 cm length. Mild volume loss. 2.2 x 1.6 x 1.8 cm cyst containing septations within the upper pole of the right kidney. 1.9 cm simple cyst within the midportion of the right kidney. Additional 1.5 cm simple cyst within the midportion of the right kidney. Left kidney normal length and echotexture, 9.5 cm length. Mild volume loss. 2.3 cm simple cyst within the midportion of the left kidney. 9 mm simple cyst within the superior aspect of the left kidney. No collecting system dilatation of either kidney. Normal color Doppler. A fold is present within the posterolateral aspect of the bladder wall on the right. The urinary bladder is otherwise unremarkable. Prevoid volume 182 mL. Postvoid volume 44 mL. Bilateral ureteral jets are visualized. There is a 5.2 x 4.0 x 5.5 cm complex cyst within the left ovary. IMPRESSION: 1. 2.2 cm complex cyst within the upper pole of the right kidney. Consider ultrasound follow-up. 2. No acute abnormality of the kidneys. 3. 5.2 cm left ovarian cyst. Recommend ultrasound follow-up. This document has been electronically signed by: Verna Armendariz MD on 01/07/2025 16:01:09
--- OUTSIDE RECORDS SUMMARY | 2025-01-07 12:22 | XMS_ITS | Encounter Summary ---
Author Organization [facility] Address [address] [place] [address] Care Team Providers Care Restorer Paper And Prints Name Role Phone Clarice Ziegler MD Primary Care Provider Unavaila ble Encounter Details Date Type Department Care Team Description 09/12/2017 Release of Information Medical Records [address] [place] [id number] Abstract, Provider Social History Tobacco Use Types Packs/Day Years Used Date Smoking Tobacco: Never Smokeless Tobacco: Never Sex Assigned at Date Recorded Not on file documented as of this encounter Plan of Treatment Not on file documented as of this encounter Visit Diagnoses Not on filedocumented in this encounter Care Teams Restorer Paper And Prints Relationship Specialty Start Date End Date Clarice Ziegler MD PCP - General Internal Medicine 09/10/17 documented as of this encounter
--- OUTSIDE RECORDS SUMMARY | 2025-01-07 12:22 | XMS_ITS | Patient Health Record ---
Author Organization [facility] Address [address] [place] [address] Care Team Providers Care Mud Logger Name Role Phone Clarice Ziegler MD Primary Care Provider Jamari Hill Unavailable [phone] Allergies Allergen (clinical drug ingredient) Drug/Non Drug Allergy documented on EMR Reaction Allergy Type Onset Date Status Penicillin Unknown Drug Allergy Active peanut allergenic extract Peanut (Diagnostic) Unknown Drug Allergy Active Chocolate Flavor Unknown Drug Allergy Active Reason For Referral No Information Medications Medication SIG (Take, Route, Fr equency, Duration) Notes Start Date End Date Status Wellbutrin XL 150 MG 1 tablet in the mor bahman Orally Once a day Active Atenolol 25 MG 1 tablet Orally Once a day Active Calcium 500 MG 1 tablet with meals Orally Twice a day Active Multivitamin - 1 tablet Orally Once a day Active Magnesium 300 MG 1 capsule with a rajendra l Orally Once a day Active Vitamin C 500 MG as directed Orally Active Tylenol 325 MG 1 tablet as needed O rally every 6 hrs Active Furosemide 20 MG 1 tablet Orally Once a week Active Potassium 99 MG 1 tablet Orally Once a week Active Immunizations Vaccine Route Administration Date Status Comme nts Influenza Unknown 05/13/2024 Administered Social History Tobacco Use: Social History Observation Description Date Details (start date - stop date) Never Smoker NA - NA Tobacco Control (Standard) Question Answer Notes Tobacco use: Nonsmoker AUDIT-C (Standard) Question Answer Notes Did you have a drink containing alcohol in the p ast year? No Points 0 Interpretation Negative Problems Problem Type SNOMED Code ICD Code Onset Dates Problem Status W/U Status Risk Notes Problem Dysphagia (R13.10) Active confirmed Vital Signs Temperature 96.5 degrees Fahrenheit 12/31/2024 Blood pressure diastolic 01 mm Hg 12/31/2024 Height 62 in 12/31/2024 Blood pressure systolic 001 mm Hg 12/31/2024 Weight 90 lbs 12/31/2024 BMI 16.46 kg/m2 12/31/2024 Procedures Procedure Date Ordered Date Performed Result Body Sit e UPPER GI ENDOSCOPY BALLOOON DILATION OF JOSE 12/31/2024 N/A Encounters Encounter Location Date Provider Diagnosis [facility] [address] [place] [address] 12/31/2024 Jamari Giron Dysphagia R13.10 Assessments Encounter Date Diagnosis (ICD Code) Assessment Notes Treatment Notes Treatment Clinical Notes Section Notes 12/31/2024 Dysphagia (ICD-10 - R13.10) Overall, Iraida is not having any worrisome clinical symptoms in regard to her dysphagia to suggest an underlying neoplastic process given the longevity of her symptoms and the fact that she has not lost any weight, albeit she is thin at baseline. Given her history she may have an esophageal stricture or esophageal ring. Her paraesophageal hiatal hernia surgery was many years ago and therefore I do not think would be related to that, although the possibility does exist that perhaps the hernia has recurred to some degree and may now be causing the symptoms. Given her age I advised her that I think the best thing at this time would be to have her undergo an upper endoscopy with possible balloon dilation sooner, rather than later, so as to avoid any acute esophageal obstructions that might require an ER visit and more urgent procedure with potential risk of aspiration if she develops a complete esophageal obstruction that does not readily resolve. Depending upon the upper endoscopy results she may need an upper GI series for further evaluation of her anatomy if indeed she is found to have a large recurrent hernia at the time of her upper endoscopy that might need surgical correction again. However, hopefully we would be able to avoid any type of surgery in her given her age of 89. Full consent has been obtained from her for the upper endoscopy and dilation, including risks of bleeding and perforation. The procedure will be done with monitored anesthesia care. We shall get the procedure scheduled for her later this month. I did advise her to certainly be careful with her eating in the meantime. Iraida was comfortable with this plan. Thank you again for allowing me to participate in Iraida's care. I shall continue to keep you advised of her progress. Plan Of Treatment Pending Test Test Name Order Date UPPER GI ENDOSCOPY BALLOOON DILATION OF ESOPH 12/31/2024 Next Appt Details Provider Name:Jamari Giron , 01/23/2025 12:10:00 PM, [address], [address], [place], [address], Insurance Providers Payer Name Payer Address Payer Phone Subscriber Number Group Number Insured Name Patient Relationship to Insured Coverage Start Date Coverage End Date MEDICARE OF [place] [address] [place] [address] [id number] IRAIDA SHEEHAN Self - patient is the insured 5 [employer] ATTN CLAIMS [address] [place] [address] [id number] IRAIDA SHEEHAN Self - patient is the insured Medical (General) History Medical History History ICD Code High blood pressure Urinary incontinence Denies [place],DM,CVA,Lung disease,renal dise ase Previous upper endoscopies w ith wi have been negative for any esophagitis nor esophageal strictures, but she was found to have a large hiatal hernia with the ultimate diagnosis of a paraesophageal hernia that had to be repaired by Dr. Roach with a laparoscopic operation in 2006. She describes some depressio n and ongoing grieving in relation to the passing of her in 2023 from pancreatic cancer Surgical History Surgery Date(Month/Year) Cataracts Appendectomy Laparoscopic repair of a paraesophageal hernia [place] [address] Roach. CHLOE Fractured femur-right Shoulder replacement-left
--- OUTSIDE RECORDS SUMMARY | 2025-01-07 12:22 | XMS_ITS ---
Author Organization [facility] Address [address] [place] [address] Care Team Providers Care Pinsetter Mechanic Helper Name Role Phone Clarice Ziegler MD Primary Care Provider Jamari Hill Unavailable [phone] Allergies Allergen (clinical drug ingredient) Drug/Non Drug Allergy documented on EMR Reaction Allergy Type Onset Date Status Penicillin Unknown Drug Allergy Active peanut allergenic extract Peanut (Diagnostic) Unknown Drug Allergy Active Chocolate Flavor Unknown Drug Allergy Active REASON FOR VISIT Patient presents today for dysphagia. Medications Medication SIG (Take, Route, Fr equency, [...] 1 tablet Orally Once a week Active Social History Tobacco Use: Social History [...] confirmed Vital Signs Temperature 96.5 degrees Fahrenheit 01/01/20 25 Blood pressure systolic 001 mm Hg 01/01/20 25 Blood pressure diastolic 01 mm Hg 025 Height 62 in 12/31/2024 Weight 90 lbs 12/31/2024 BMI 16.46 kg/m2 12/31/2024 Procedures Procedure Date Ordered Date Performed Result Body Sit e UPPER GI ENDOSCOPY BALLOOON DILATION OF ESOPH 12/31/2024 N/A Encounters Encounter Location Date Provider Diagnosis [facility] [address] [place] [address] 12/31/2024 Jamari Giron Dysphagia R13.10 Assessments Encounter [...] DILATION OF ESOPH 12/31/2024 Next Appt Details Follow Up: prn, Reason: Provider Name:Jamari Domínguez Bree , 01/23/2025 12:10:00 PM, [address], [address], [place], [address], Progress Notes * IRAIDA SHEEHANDOB:1935 (89 yo F)Acc No.[id number]:12/31/2024 Progress Notes Patient:?IRAIDA SHEEHAN Provider:?Jamari Giron MD :1935???Age:89 Y???Sex:Female D ate:12/31/2024 Address:[address] [place], [place] [id number] Pcp:Clarice Ziegler MD Subjective: * Chief Complaints: * ???Patient presents today fo r dysphagia. * HPI: ???incontinence:? I saw Iraida in consultation today in regard to further evaluation of her dysphagia. As you know, Iraida is an 89-year-old healthy female who describes a progressive dysphagia over the last several years. This is not daily but has been increasing in frequency to some degree. She does describe occasional episodes of transient esophageal obstruction in which she is unable to swallow saliva or water. She will occasionally have to regurgitate the food item. The most bothersome foods tend to be anything solid such as rice or meat. During this time she denies any weight loss, anorexia, significant heartburn, abdominal pain, or jaundice. She denies any early satiety. Her bowel movements have been regular and without any signs of bleeding. Her past history is notable for a laparoscopic repair of a large paraesophageal hernia in approximately [address] Roach. She has had previous upper endoscopies with me that were negative for esophagitis, Gay's esophagus, or esophageal strictures. Last month she had laboratories showing a hemoglobin of 11.1, normal MCV, normal electrolytes, BUN 40, creatinine 1.2, iron of 94, iron saturation 43%, and a completely normal liver profile. * ROS:?General/Constitutional:?Change in appetite?denies.?Chills?denies.?Fatigue?denies.?Ophthalmologic:?Comments?all negative.?ENT:?Comments?all negative.?Respiratory:?hemoptysis?denies.?Cough?denies.?Cardiovascular:?Chest pain?denies.?Orthopnea?denies.?Gastrointestinal:?Comments?See HPI for details.?Genitourinary:?Hematuria?denies.?Dysuria?denies.?Musculoskeletal:?Painful joints?denies.?Weakness?denies.?Skin:?Itching?denies.?Rash?denies.?Neurologic:?Headache?denies.?Seizures?denies.?Psychiatric:?Comments?all negative.? * Medical History:? * Surgical History:?Shoulder r eplacement-left Fractured femur-right CHLOE Laparoscopic repair of a paraesophageal her[place] [address] Roach. Appendectomy Cataracts * Hospitalization/Major Diagno stic Procedure:?No Hospitalization History. * Family History:?Father: dece ased, diagnosed with HTN (hypertension), Diabetes.?Mother: , diagnosed with HTN (hypertension), Colon cancer, Heart disease.? No family history of liver cancer.? 2 sisters have colon cancer. * Social History:?Tobacco Use:?Tobacco Control (Standard)?Tobacco use:?Nonsmoker.?Miscellaneous:?Marital status: . Occupation: retired. ???Drug/Alcohol:?AUDIT-C (Standard)?Did you have a drink containing alcohol in the past year??No,?Points?0,?Interpretation?Negative.? * Medications:?TakingFurosemid e 20 MG Tablet 1 tablet Orally Once a week Potassium 99 MG Tablet 1 tablet Orally Once a week Vitamin C 500 MG Capsule as directed Orally Tylenol 325 MG Tablet 1 tablet as needed Orally every 6 hrs Magnesium 300 MG Capsule 1 capsule with a meal Orally Once a day Calcium 500 MG Tablet 1 tablet with meals Orally Twice a day Multivitamin - Tablet 1 tablet Orally Once a day Wellbutrin XL 150 MG Tablet Extended Release 24 Hour 1 tablet in the morning Orally Once a day Atenolol 25 MG Tablet 1 tablet Orally Once a day Medication List reviewed and reconciled with the patientTaking Furosemide 20 MG Tablet 1 tablet Orally Once a week Taking Potassium 99 MG Tablet 1 tablet Orally Once a week Taking Vitamin C 500 MG Capsule as directed Orally Taking Tylenol 325 MG Tablet 1 tablet as needed Orally every 6 hrs Taking Magnesium 300 MG Capsule 1 capsule with a meal Orally Once a day Taking Calcium 500 MG Tablet 1 tablet with meals Orally Twice a day Taking Multivitamin - Tablet 1 tablet Orally Once a day Taking Wellbutrin XL 150 MG Tablet Extended Release 24 Hour 1 tablet in the morning Orally Once a day Taking Atenolol 25 MG Tablet 1 tablet Orally Once a day Medication List reviewed and reconciled with the patient * Allergies:?PenicillinChocola te FlavorPeanut (Diagnostic)yes[Allergies Verified] Objective: * Vitals:?Wt:90lbs, Ht: 62 in, BMI:16.46Index, BP:001/01mm Hg, Temp:96.5, Ht-cm: 157.48, Wt-k.82. * Examination: ???General Examination: ?GENERAL APPEARANCE:?pleasant, thin alert elderly female in no acute distress.?EYES:?sclera non-icteric.?ORAL CAVITY:?mucosa moist.?NECK/THYROID:?no cervical lymphadenopathy, neck supple.?SKIN:?nonjaundiced, no spider angiomata.?HEART:?S1, S2 normal.?LUNGS:?clear to auscultation bilaterally.?ABDOMEN:?normal bowel sounds, no guarding or rigidity, no guarding or rigidity, no masses palpable, soft, nontender, nondistended.?EXTREMITIES:?no edema.?NEUROLOGIC:?alert and oriented.? Assessment: * Assessment: 1.?Dysphagia - R13.10 (Prima ry)??? Overall, Iraida is not having any worrisome [...] to keep you advised of her progress. Plan: * Treatment: * Procedure Codes:?67287 ESOPH VIGNESH [id number] TOBACCO [id number] BP SCR NOT PRFRM REC REASON NOS * Preventive Medicine:? ??Urinary Incontinence:?Urinary Incontinence?Assessment:?Present,?Plan of care documented:?Yes,?Type of plan of care:?Bladder training.? ??Screenings:?Fall Risk Screening?Fall Risk Assessment:?No falls in the past year,?Screening:?No falls in the past year,?Assessment:?Not performed, no reason specified,?Plan of Care:?Not documented, no reason specified.? * Follow Up:?prn * * Sign off status: Completed true * Provider:?Jaamri Giron MD Date:? 025 Generated for Karli vargas/Yarelis/Neetu on:?01/07/2025 12:22 PM EDT History and Physical Notes * HPI (History of Present Illness) Category Sub-Category Detail Notes Category Not es incontinence I saw Iraida in consultation today in regard to further evaluation of her dysphagia. As you know, Iraida is an 89-year-old healthy female who describes a progressive dysphagia over the last several years. This is not daily but has been increasing in frequency to some degree. She does describe occasional episodes of transient esophageal obstruction in which she is unable to swallow saliva or water. She will occasionally have to regurgitate the food item. The most bothersome foods tend to be anything solid such as rice or meat. During this time she denies any weight loss, anorexia, significant heartburn, abdominal pain, or jaundice. She denies any early satiety. Her bowel movements have been regular and without any signs of bleeding. Her past history is notable for a laparoscopic repair of a large paraesophageal hernia in approximately [address] Roach. She has had previous upper endoscopies with ct that were negative for esophagitis, Gay's esophagus, or esophageal strictures. Last month she had laboratories showing a hemoglobin of 11.1, normal MCV, normal electrolytes, BUN 40, creatinine 1.2, iron of 94, iron saturation 43%, and a completely normal liver profile Examination Category Sub-Category Detail Notes Category Not es General Examination GENERAL APPEARANCE: pleasant , thin alert elderly female in no acute distress EYES: sclera non-icteric NECK/THYROID: no cervical lymphade nopathy, neck supple HEART: S1, S2 normal LUNGS: clear to auscultatio n bilaterally ABDOMEN: normal bowel sounds, no guarding or rigidity, no guarding or rigidity, no masses palpable, soft, nontender, nondistended NEUROLOGIC: alert and oriented SKIN: nonjaundiced, no spi melissa angiomata EXTREMITIES: no edema ORAL CAVITY: mucosa moist
--- OUTSIDE RECORDS SUMMARY | 2025-01-07 12:22 | XMS_ITS ---
[facility] Address [address] [place] [address] Care Team Providers Care Diabetic Educator Name Role Phone Clarice Ziegler MD Primary Care Provider Daisy Perry Unavailable [phone] REASON FOR VISIT BUY 2 Lg left Crest pads / 3 Lg Toe Buddies Encounters Encounter Location Date Provider Diagnosis [facility] [address] [place] [address] 12/17/2024 Daisy Villarreal Plan Of Treatment Next Appt Details Provider Name:Daisy marcial, 03/18/2025 03:00:00 PM, [address] [place], [address], Progress Notes * Iraida SHEEHANDOB:1935 (89 yo F)Acc No.[id number]:12/17/2024 Patient:?Iraida SHEEHAN :1935???Age:89 Y???Sex:Female Address:[address] [place] [address] * true * Date:? Generated for Printi ng/Fadelmarg/eTransmitting on:?01/07/2025 12:22 PM EDT
--- OUTSIDE RECORDS SUMMARY | 2025-01-07 12:23 | XMS_ITS ---
Author Organization [facility] Address [address] [place] [address] Care Team Providers Care Content Production Specialist Name Role Phone Clarice Ziegler MD Primary Care Provider Daisy Perry Unavailable [phone] Allergies Allergen (clinical drug ingredient) Drug/Non Drug [...] 025 Encounters Encounter Location Date Provider Diagnosis [facility] [address] [place] [address] 12/17/2024 Daisy Villarreal Hammer toe of left [...] Reason: Provider Name:Daisy marcial, 03/18/2025 03:00:00 PM, [address] [place] [address], [place], [address], Procedure Notes * Category Sub-Category [...] use of a nail nipper and/or dremel-type track grinder operator, to a more viable healthy nail plate [...] to maintain effectiveness in symptomatic relief - 12605 Keratoma Treatment Parring or Cutting o f [...] instrumentation by the physician of record - 58676 Progress Notes * Iraida SHEEHANDOB:1935 (89 yo F)Acc No.[id number]:12/17/2024 Progress Note Patient:?VALLEY, Iraida Provider:?Daisy Villarreal DPM :1935???Age:89 Y???Sex:Female D ate:12/17/2024 Address:[address] [place] [address] [id number] Pcp:Clarice Ziegler MD Subjective: * Chief Complaints: [...] 09/05/2024 * Hospitalization/Major Diagno stic Procedure:?fall at [facility] went to ER ER C- dizzy , [...] PT, walking. ?Marital status: . 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 * Medications:?TakingPotassium Atenolol 25 MG [...] use of a nail nipper and/or dremel-type track grinder operator, to a more viable healthy nail plate [...] to maintain effectiveness in symptomatic relief - 46314.?Keratoma Treatment:?Parring or Cutting of Benign Hyperkeratotic Lesion(s)?(-57) [...] instrumentation by the physician of record - 27794.? * Procedure Codes:?65998 DEBRI DE NAIL, 6 OR MORE, Modifiers: XS 32291 TRIM SKIN LESIONS, OVER 4, Modifiers: XS [...] Villarreal DPM Date:? Generated for Karli vargas/Yarelis/Neetu on:?01/07/2025 12:22 PM [...]
--- OUTSIDE RECORDS SUMMARY | 2025-01-07 12:23 | XMS_ITS | Continuity of Care Document ---
Author Name [facility] Organization [facility] Care Team Providers Care Order To Delivery Supervisor Name Role Phone [facility] Unavailable Unavailable Problems Combined list of problems [...] [facility] Hypertension (SNOMED CT [id number]) Active Condition [facility] [...] A WEEK ORAL ACTIVE FURCOLO,T MIAN 2023 [facility] ASCORBIC ACID 500MG TAB TAKE ONE TABLET BY MOUTH ONCE DAILY ORAL ACTIVE Ian DUGAN ICOLE 2019 [facility] ATENOLOL 25MG TAB TAKE ONE TABLET BY MOUTH ONCE DAILY ORAL ACTIVE Ian DUGAN ICOLE 2018 [facility] CALCIUM 250MG/VITAM IN D 125UNIT TAB TAKE BY MOUTH ORAL ACTIVE ZASHIN,LY NN S [facility] FERROUS SO4 325MG TAB TAKE ONE TABLET BY MOUTH ONCE DAILY ORAL ACTIVE KIRCHEN,N ICOLE 2019 [facility] FUROSEMIDE 20MG TAB TAKE ONE TABLET BY MOUTH ONCE DAILY ORAL ACTIVE FURCOLO,T MIAN 2023 [facility] MAGNESIUM GLUCONATE TAB TAKE BY MOUTH ORAL ACTIVE ZASHIN,LY NN S 2011 [facility] MULTIVITAMI NS W/MINERALS TAB TAKE ONE TABLET BY MOUTH ORAL ACTIVE ZASHIN,LY NN S 2011 [facility] POLYETHYLEN E GLYCOL 3350 POWDER,ORAL TAKE BY MOUTH PRN ORAL ACTIVE ZASHIN,LY NN S 2013 [facility] POTASSIUM CHLORIDE 20MEQ TAB,SA (DISPERSIBL E) TAKE ONE TABLET BY MOUTH ONCE DAILY ORAL ACTIVE FURCOLO,T MIAN 2023 [facility] SERTRALINE HCL 50MG TAB TAKE ONE-HALF TABLET BY MOUTH ONCE DAILY ORAL ACTIVE FURCOLO,T MIAN 2023 [facility] VITAMIN B COMPLEX CAP TAKE 1 CAPSULE BY MOUTH ONCE DAILY ORAL ACTIVE KIRSERGIO,N ICOLE 2022 [facility] Allergies, Adverse Reactions, Alerts Combined list of allergies from Department of Defense and Veterans Affairs facilities. It does not include entries that were removed or entered in error. Substance Category Reaction Severity Reaction type Status Date Reported Comments Source CODEINE Propensity to adverse reactions to drug (finding) Nausea and vomiting active 2 [facility] DEMEROL Propensity to adverse reactions to drug (finding) active 4 [facility] PENICILLIN Propensity to adverse reactions to drug (finding) Anaphylaxis [facility] SULFA DRUGS Propensity to adverse reactions to drug (finding) Anaphylaxis active 2 [facility] Immunizations Combined list of available immunizations from the Department of Defense and Veterans Affairs facilities. Immunization Series Date Given Administered By Site Reaction Lot Number CVX Code Drug Pot Runner Status Comments Source INFLUENZA, UNSPECIFIED FORMULATION 2022 [...] Oct 03, 2023 03:06 PM Reporting [facility] [address] [facility] [address] Performing Lab: [facility] [address] [facility] [address] [facility] IRON & TIBC PANEL IRON BINDING CAPACITY [MASS/VOLUM E] IN SERUM OR PLASMA 236 ug/dL 204 - 475 10/05 Specimen Type: SERUM No comment entered. Ordering Provider: FREYA VALDIVIA Report Released Date/Time: Oct 03, 2023 03:06 PM Reporting Lab: [facility] [place] [facility] [address] [facility] [address] Performing Lab: [facility] [address] [facility] [address] [facility] IRON & TIBC PANEL IRON [MASS/VOLUM E] IN SERUM OR PLASMA 55 ug/dL 40 - 160 10/05 Specimen Type: SERUM No comment entered. Ordering Provider: FREYA VALDIVIA Report Released Date/Time: Oct 03, 2023 03:06 PM Reporting Lab: [facility] [place] [facility] [address] [facility] [address] Performing Lab: [facility] [place] [facility] [address] [facility] [address] [facility] [place] [facility] IRON & TIBC PANEL IRON/IRON BINDING CAPACITY.TO JOVANA [MASS RATIO] IN SERUM OR PLASMA 23.3 20.0 - 50.0 10/05 Specimen Type: SERUM No comment entered. Ordering Provider: FREYA VALDIVIA Report Released Date/Time: Oct 03, 2023 03:06 PM Reporting Lab: [facility] [place] [facility] [address] [facility] [address] Performing Lab: [facility] [address] [address] [facility]N [facility] VITAMIN B12 COBALAMIN (VITAMIN B12) [MASS/VOLUM E] IN SERUM OR PLASMA >2000p g/mL 200 - 900 10/05 H Specimen Type: SERUM No comment entered. Ordering Provider: FREYA VALDIVIA Report Released Date/Time: Oct 03, 2023 03:06 PM Reporting Lab: [facility] ENTERPRISETRN [facility]ITAL[facility] [address] Performing Lab: [facility] [address] [address] [facility] CBC LEUKOCYTES [#/VOLUME] IN BLOOD BY AUTOMATED COUNT 6.27 10*3/u L 4.50 - 11.00 10/05 Specimen Type: BLOOD No comment entered. Ordering Provider: FREYA VALDIVIA Report Released Date/Time: Oct 03, 2023 03:06 PM Reporting Lab: [facility] [place] [address] [address] Performing Lab: [facility] [place] [address] [address] [facility]ITALRHUNTSVIL[facility]OSPITAL SYSTEMN [facility]ITAL[facility] CBC ERYTHROCYTE S [#/VOLUME] IN BLOOD BY AUTOMATED COUNT 3.37 10*6/u L 3.93 - 5.16 10/05 L Specimen Type: BLOOD No comment entered. Ordering Provider: FREYA VALDIVIA Report Released Date/Time: Oct 03, 2023 03:06 PM Reporting Lab: [facility] [place] [facility] [address] [facility] [address] Performing Lab: [facility] [place] [facility] [address] [facility] [address] [facility] CBC HEMOGLOBIN [MASS/VOLUM E] IN BLOOD 10.5 g/dL 12 - 15.2 10/05 L Specimen Type: BLOOD No comment entered. Ordering Provider: FREYA VALDIVIA Report Released Date/Time: Oct 03, 2023 03:06 PM Reporting Lab: [facility] [place] [facility] [address] [facility] [address] Performing Lab: [facility] [place] [address] [address] [facility] [facility] CBC HEMATOCRIT [VOLUME FRACTION] OF BLOOD BY AUTOMATED COUNT 30.2 36.6 - 45.6 10/05 L Specimen Type: BLOOD No comment entered. Ordering Provider: FREYA VALDIVIA Report Released Date/Time: Oct 03, 2023 03:06 PM Reporting Lab: [facility] [place] [facility] [address] [facility] [address] Performing Lab: [facility] [place] [address] [address] [facility] [facility] CBC MCV [ENTITIC VOLUME] BY AUTOMATED COUNT 89.6 fL 82 - 99 10/05 Specimen Type: BLOOD No comment entered. Ordering Provider: FREYA VALDIVIA Report Released Date/Time: Oct 03, 2023 03:06 PM Reporting Lab: [facility] [place] [facility] [address] [facility] [address] Performing Lab: [facility] [place] [facility] [address] [facility] [address] [facility] CBC MCHC [MASS/VOLUM E] BY AUTOMATED COUNT 34.8 g/dL 30.8 - 35.1 02/09 /2024 Specimen Type: BLOOD No comment entered. Ordering Provider: FREYA VALDIVIA Report Released Date/Time: Oct 03, 2023 03:06 PM Reporting Lab: [facility] [place] [facility] [address] [facility] [address] Performing Lab: [facility] [place] [facility] [address] [facility] [address] [facility] CBC PLATELETS [#/VOLUME] IN BLOOD BY AUTOMATED COUNT 228 10*3/u L 140 - 360 10/05 Specimen Type: BLOOD No comment entered. Ordering Provider: FREYA VALDIVIA Report Released Date/Time: Oct 03, 2023 03:06 PM Reporting Lab: [facility] [place] [facility] [address] [facility] [address] Performing Lab: [facility] [place] [address] [address] [facility] CBC ERYTHROCYTE DISTRIBUTIO N WIDTH [RATIO] BY AUTOMATED COUNT 12.7 12.0 - 16.0 10/05 Specimen Type: BLOOD No comment entered. Ordering Provider: FREYA VALDIVIA Report Released Date/Time: Oct 03, 2023 03:06 PM Reporting Lab: [facility] [place] [facility] [address] [facility] [address] Performing Lab: [facility] [place] [address] [address] [facility] [facility] CBC MCH [ENTITIC MASS] BY AUTOMATED COUNT 31.2 pg 26.2 - 32.6 10/05 Specimen Type: BLOOD No comment entered. Ordering Provider: FREYA VALDIVIA Report Released Date/Time: Oct 03, 2023 03:06 PM Reporting Lab: [facility] [place] [facility] [address] [facility] [address] Performing Lab: [facility] [place] [address] [address] [facility] VITAMIN D (25-OH) 25-HYDROXYV ITAMIN D3 [MASS/VOLUM E] IN SERUM OR PLASMA 75 ng/mL 20 - 50 10/05 H Specimen Type: SERUM No comment entered. Ordering Provider: FREYA VALDIVIA Report Released Date/Time: Oct 03, 2023 03:06 PM Reporting Lab: [address] [address] Performing Lab: [address] [address] [facility] MAGNESIUM MAGNESIUM [MASS/VOLUM E] IN SERUM OR PLASMA 1.7 mg/dL 1.6 - 2.6 10/05 Specimen Type: SERUM No comment entered. Ordering Provider: FREYA VALDIVIA Report Released Date/Time: Oct 03, 2023 03:06 PM Reporting Lab: [address] [address] Performing Lab: [address] [address] [facility] FERRITIN FERRITIN [MASS/VOLUM E] IN SERUM OR PLASMA 616 ng/mL 10 - 200 10/05 H Specimen Type: SERUM No comment entered. Ordering Provider: FREYA VALDIVIA Report Released Date/Time: Oct 03, 2023 03:06 PM Reporting Lab: [address] [address] Performing Lab: [address] [address] [facility] HEMOGLOBI N A1C PANEL HEMOGLOBIN A1C/HEMOGLO [...] PM Reporting Lab: [facility] [place] [facility] [address] [facility] [address] Performing Lab: [facility] [place] [facility] [address] [facility] [address] [facility] TSH THYROTROPIN [UNITS/VOLU ME] IN SERUM OR PLASMA 1.90 u[IU]/ mL 0.35 - 5.00 10/05 Specimen Type: SERUM No comment entered. Ordering Provider: FREYA VALDIVIA Report Released Date/Time: Oct 03, 2023 03:06 PM Reporting Lab: [facility] [place] [facility] [address] [facility] [address] Performing Lab: [facility] [place] [address] [address] [facility] BASIC METABOLIC PANEL (non-fast ing) UREA NITROGEN [MASS/VOLUM E] IN SERUM OR PLASMA 22 mg/dL 7 - 25 10/05 Specimen Type: SERUM No comment entered. Ordering Provider: FREYA VALDIVIA Report Released Date/Time: Oct 03, 2023 03:06 PM Reporting Lab: [facility] [place] [facility] [address] [facility] [address] Performing Lab: [facility] [place] [address] [address] [facility] BASIC METABOLIC PANEL (non-fast ing) GLUCOSE [MASS/VOLUM E] IN SERUM OR PLASMA 97 mg/dL 65 - 100 10/05 Specimen Type: SERUM No comment entered. Ordering Provider: FREYA VALDIVIA Report Released Date/Time: Oct 03, 2023 03:06 PM Reporting Lab: [facility] [place] [facility] [address] [facility] [address] Performing Lab: [facility] [place] [address] [address] [facility] BASIC METABOLIC PANEL (non-fast ing) SODIUM [MOLES/VOLU ME] IN SERUM OR PLASMA 125 mmol/L 135 - 145 10/05 L Specimen Type: SERUM No comment entered. Ordering Provider: FREYA VALDIVIA Report Released Date/Time: Oct 03, 2023 03:06 PM Reporting Lab: [address] [address] Performing Lab: [address] [address] [facility] BASIC METABOLIC PANEL (non-fast ing) POTASSIUM [MOLES/VOLU ME] IN SERUM OR PLASMA 4.1 mmol/L 3.5 - 5.0 10/05 Specimen Type: SERUM No comment entered. Ordering Provider: FREYA VALDIVIA Report Released Date/Time: Oct 03, 2023 03:06 PM Reporting Lab: [address] [address] Performing Lab: [address] [address] [facility] BASIC METABOLIC PANEL (non-fast ing) CHLORIDE [MOLES/VOLU ME] IN SERUM OR PLASMA 93 mmol/L 100 - 110 10/05 L Specimen Type: SERUM No comment entered. Ordering Provider: FREYA VALDIVIA Report Released Date/Time: Oct 03, 2023 03:06 PM Reporting Lab: [address] [address] Performing Lab: [address] [address] [facility] BASIC METABOLIC PANEL (non-fast ing) CARBON DIOXIDE, TOTAL [MOLES/VOLU ME] IN SERUM OR PLASMA 23 meq/L 20 - 30 10/05 Specimen Type: SERUM No comment entered. Ordering Provider: FREYA VALDIVIA Report Released Date/Time: Oct 03, 2023 03:06 PM Reporting Lab: [address] [address] Performing Lab: [facility] [place] [facility] [address] [facility] [address] [facility] BASIC METABOLIC PANEL (non-fast ing) CREATININE [MASS/VOLUM E] IN SERUM OR PLASMA 0.86 mg/dL 0.50 - 1.40 10/05 Specimen Type: SERUM No comment entered. Ordering Provider: FREYA VALDIVIA Report Released Date/Time: Oct 03, 2023 03:06 PM Reporting Lab: [facility] [place] [facility] [address] [facility] [address] Performing Lab: [facility] [place] [facility] [address] [facility] [address] [facility] [place] [facility] BASIC METABOLIC PANEL (non-fast ing) GLOMERULAR FILTRATION RATE/1.73 SQ M.PREDICTED [VOLUME RATE/AREA] IN SERUM, PLASMA OR BLOOD BY CREATININE- BASED FORMULA (CKD-EPI 2020) 65 mL/min 60 10/05 Specimen Type: SERUM No comment entered. Ordering Provider: FREYA VALDIVIA Report Released Date/Time: Oct 03, 2023 03:06 PM Reporting Lab: [facility] [place] [facility] [address] [facility] [address] Performing Lab: [facility] [place] [facility] [address] [facility] [address] [facility] Encounters Combined list of: 1) Encounters from [...] [facility] [id number] 08/30 [facility] En[facility] [id number] 09/14 [facility] En[facility] [id number] 09/17 [facility] Outpatient Encounter [id number] 09/17 [facility] En[facility] [id number] 10/02 [facility] Outpatient Encounter [id number] 10/08 [facility] OFFICE O/[place] HI 40 MIN [id number] Diagnos is: ICD-10- CM E87.6 Hypokal emia FURCOLO,TI NA 10/12 [facility] Social History Combined list of available smoking, tobacco, and other social history from Department of Defense and Veterans Affairs facilities. Social History Type Response Date Comment [facility] e Tobacco smoking status NHIS VA-TOBACCO NEVER USED 09/17/2023 [facility] [place] [facility] History of tobacco use VA-TOBACCO NEVER USED 09/05/2022 [facility] [place] [facility] History of tobacco use VA-TOBACCO NEVER USED 09/07/2021 [facility] [place] [facility] History of tobacco use VA-TOBACCO NEVER USED 06/29/2020 [facility] [place] [facility] History of tobacco use LIFETIME NON-TOBACCO USER 04/24/2018 [facility] [place] [facility] History of tobacco use LIFETIME NON-TOBACCO USER 01/19/2017 [facility] [place] [facility] History of tobacco use LIFETIME NON-TOBACCO USER 04/01/2012 [facility] [place] [facility]
--- OUTSIDE RECORDS SUMMARY | 2025-01-07 12:23 | XMS_ITS | Patient Health Record ---
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) Active confirmed Problem [id number] Hammertoe of right foot (M20.41) Active confirmed Problem [id number] 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 Problem [id number] 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) Active confirmed Vital Signs Blood pressure diastolic 60 mm Hg 12/17/2024 Height 5 ft 1 in in 12/17/2024 Blood pressure systolic 115 mm Hg 12/17/2024 Weight 93 lbs 12/17/2024 BMI 17.57 kg/m2 12/17/2024 Encounters Encounter Location Date Provider Diagnosis [address] [address] 03/11/2024 Daisy Caballeroa Hallux valgus (acquired), left foot M20.12 ; Hammer toe of left foot M20.42 ; Atherosclerosis of artery of both lower extremities I70.203 ; Hammertoe of right foot M20.41 ; Tinea unguium B35.1 ; Pain in left toe(s) M79.675 and Pain in right toe(s) M79.[address] [address] 05/28/2024 Daisy Caballeroa Hallux valgus (acquired), left foot M20.12 ; Hammer toe of left foot M20.42 ; Atherosclerosis of artery of both lower extremities I70.203 ; Hammertoe of right foot M20.41 ; Tinea unguium B35.1 ; Pain in left toe(s) M79.675 and Pain in right toe(s) M79.[address] [address] 09/16/2024 aDisy Villarreal Hallux valgus (acquired), left foot M20.12 ; Hammer toe of left foot M20.42 ; Atherosclerosis of artery of both lower extremities I70.203 ; Hammertoe of right foot M20.41 ; Tinea unguium B35.1 ; Pain in left toe(s) M79.675 and Pain in right toe(s) M79.674 [facility] [address] [address] 12/17/2024 Daisy Villarreal Hammer toe of left f oot M20.42 ; Tinea pedis of both feet B35.3 ; Hallux valgus (acquired), left foot M20.12 ; Atherosclerosis of artery of both lower extremities I70.203 ; Hammertoe of right foot M20.41 ; Tinea unguium B35.1 ; Pain in left toe(s) M79.675 and Pain in right toe(s) M79.674 [facility] [address] [address] 03/11/2024 Daisy Villarreal [facility] [address] [address] 04/01/2024 Daisy Villarreal [facility] [address] 05/06/2024 Daisy Villarreal [facility] [address] 05/28/2024 Daisy Villarreal [facility] [address] [address] 06/27/2024 Daisy Villarreal [facility] [address] [address] 09/16/2024 Daisy Villarreal [facility] [address] [address] 12/17/2024 Daisy Villarreal Assessments Encounter Date Diagnosis [...] Provider Name:Daisy marcial, 03/18/2025 03:00:00 PM, [address] [place], [address], Insurance Providers Payer Name Payer Address Payer Phone Subscriber Number Group Number Insured Name Patient Relationship to Insured Coverage Start Date Coverage End Date Medicare [employer] [facility] [address] [place] [address] [id number] Iraida Cantor Self - patient is the insured [employer] [address] [place] [address] [phone] [id number] Iraida Cantor Self - patient is the [...] , high blood pressure 11/17 fall at [facility] went to [facility]
--- OUTSIDE RECORDS SUMMARY | 2025-01-07 12:23 | XMS_ITS ---
Author Organization [facility] Address [address] [place] [address] Care Team Providers Care Angle Dozer Operator Name Role Phone Clarice Ziegler MD Primary Care Provider Daisy Perry Unavailable [phone] REASON FOR VISIT lr toe crest and 3 lg toe buddies Encounters Encounter Location Date Provider Diagnosis [facility] [address] [place] [address] 09/16/2024 Daisy Villarreal Plan Of Treatment Next Appt Details Provider Name:Daisy marcial, 03/18/2025 03:00:00 PM, [address] [place], [address], Progress Notes * Iraida SHEEHANDOB:1935 (89 yo F)Acc No.[id number]:09/16/2024 Patient:?Iraida SHEEHAN :1935???Age:89 Y???Sex:Female Address:[address] [place] [address] * true * Date:? Generated for Printi ng/Faxing/eTransmitting on:?01/07/2025 12:22 PM EDT
== END 2025-01-07 11:23 | disposition home or self-care (01) ==
LOC: HO.HMGCX 11:22
PROVIDERS: PCP Internal Medicine; Visit Provider Internal Medicine
DX: N18.30 Chronic kidney disease, stage 3 unspecified (principal)
CPT/HCPCS: 76770

== ENCOUNTER → 2025-01-07 11:24 | Outpatient (BNV) | payer MEDICARE, SELFPAY | PROVIDERS: PCP Internal Medicine; Visit Provider Radiology Diagnostic Radiology | DX: N28.1 Cyst of kidney, acquired (principal); N83.202 Unspecified ovarian cyst, left side | CPT/HCPCS: 76770 ==

== ENCOUNTER 2025-01-23 10:55 | Day surgery (SDC) | payer MEDICARE, SELFPAY ==
--- OUTSIDE RECORDS SUMMARY | 2025-01-13 13:50 | XMS_ITS | Encounter Summary ---
Author Organization [facility] Address [address] [place] [address] Care Team Providers Care Casket Assembler Name Role Phone Clarice Ziegler MD Primary Care Provider Unavaila ble Reason for Visit * Reason Onset Date Comments Gynecological Problem 10/04/2017 Encounter Details Date Type Department Care Team Description 10/04/2017 Telephone OBGYN - [address] [address] Jamari Murillo MD Gynecological Problem Social History Tobacco Use Types Packs/Day Years Used Date Smoking Tobacco: Never Smokeless Tobacco: Never Sex Assigned at Date Recorded Not on file documented as of this encounter Miscellaneous Notes * Telephone Encounter - Kathya Soni R.N. - 10/04/2017 4:59 PM EST Rx faxed to [facility] Specialty attn Michelle as requested. * Telephone Encounter - Jamari Murillo MD - 10/04/2017 2:46 PM EST Rx signed, thank you If she gets the refill, the current plan is fine, but the labs should be delayed until at least twoweeks after the last injection. And of course, the office visit too. Thanks. * Telephone Encounter - Kathya Soni R.N. - 10/04/2017 1:29 PM EST Pt spoke with Dena at [facility] who advised her to contact her Specialty Pharmacy. She spoke with Mirella there and explained her situation. They states that if sends in new prescription to them,they will be able to fill as they already verified with her insurance re: coverage. Rx will need tish hand faxed to [facility] Specialty attn Mirella to [phone] who will be looking for this prescription.She will urgently expedite this for pt so that she can get this medication aby. (I did also speak to Michelle at [facility] Specialty who confirmed the above. She is just awaiting Rx from our office). I set up both prescriptions - I think these are set up correctly - please verify. They are set up for 1 month (as per insurance) supply and 1 additional refill to get her to mid-November - please changeif this is not correct. Iraida was asking if this could be extended past the originally expected enddate of mid- November since she has missed doses due to her surgery/current issue obtaining medication.If she is successfully able to re-start her forteo, do you want her to do labs/bone density in n follow up with you as originally planned? * Telephone Encounter - Lashawn Anton - 10/04/2017 1:11 PM EST Chief Complaint/problem: Please refer to previous closed encounter. Patient is calling to speak with kathya regarding medication How long has the patient had this problem? Pt???s WORKFORCE MANAGEMENT CONSULTANT provider: Jamari Murillo M.D. Last menstrual period (LMP) or EDC (due date): N/A documented in this encounter Plan of Treatment Not on file documented as of this encounter Visit Diagnoses Diagnosis Osteoporosis with pathological fracture, initial encounter- Primary documented in this encounter Care Teams Casket Assembler Relationship Specialty Start Date End Date Clarice Ziegler MD PCP - General Internal Medicine 09/10/17 documented as of this encounter
--- OUTSIDE RECORDS SUMMARY | 2025-01-13 13:50 | XMS_ITS ---
Author Organization [facility] Address [address] [place] [address] Care Team Providers Care Venetian Blind Maker Name Role Phone Clarice Ziegler MD Primary Care Provider Daisy Perry Unavailable [phone] REASON FOR VISIT BUY 2 Lg left Crest pads / 3 Lg Toe Buddies Encounters Encounter Location Date Provider Diagnosis [facility] [address] [place] [address] 12/17/2024 Daisy Villarreal Plan Of Treatment Next Appt Details Provider Name:Daisy marcial, 03/18/2025 03:00:00 PM, [address] [place], [address], Progress Notes * Iraida SHEEHANDOB:1935 (89 yo F)Acc No.[id number]:12/17/2024 Patient:?Iraida SHEEHAN :1935???Age:89 Y???Sex:Female Address:[address] [place] [address] * true * Date:? Generated for Printi ng/Fadelmarg/eTransmitting on:?01/13/2025 01:50 PM EDT
--- OUTSIDE RECORDS SUMMARY | 2025-01-13 13:51 | XMS_ITS ---
Author Organization [facility] Address [address] [place] [address] Care Team Providers Care Air Lift Operator Name Role Phone Clarice Ziegler MD Primary Care Provider Daisy Perry Unavailable [phone] REASON FOR VISIT lr toe crest and 3 lg toe buddies Encounters Encounter Location Date Provider Diagnosis [facility] [address] [place] [address] 09/16/2024 Daisy Villarreal Plan Of Treatment Next Appt Details Provider Name:Daisy marcial, 03/18/2025 03:00:00 PM, [address] [place], [address], Progress Notes * Iraida SHEEHANDOB:1935 (89 yo F)Acc No.[id number]:09/16/2024 Patient:?Iraida SHEEHAN :1935???Age:89 Y???Sex:Female Address:[address] [place] [address] * true * Date:? Generated for Printi ng/Faxing/eTransmitting on:?01/13/2025 01:50 PM EDT
--- OUTSIDE RECORDS SUMMARY | 2025-01-13 13:51 | XMS_ITS | Patient Health Record ---
Author Organization [facility] Address [address] [place] [address] Care Team Providers Care Pattern Room Attendant Name Role Phone Clarice Ziegler MD Primary Care Provider Jamari Hill Unavailable [phone] Allergies Allergen (clinical drug ingredient) Drug/Non Drug [...] Encounter Location Date Provider Diagnosis [facility] [address] [place] [address] 12/31/2024 Jamari Giron Dysphagia R13.10 Assessments Encounter [...] 12:10:00 PM, [address], [address], [place], [address], Insurance Providers Payer Name Payer Address Payer Phone Subscriber Number Group Number Insured Name Patient Relationship to Insured Coverage Start Date Coverage End Date MEDICARE OF [place] [address] [place] [address] [phone] [id number] IRAIDA SHEEHAN Self - patient is the insured 5 MEDEX ATTN CLAIMS [address] [place] [address] [id number] IRAIDA SHEEHAN Self - patient is the insured Medical (General) History Medical History History ICD Code High blood pressure Urinary incontinence Denies AR,DM,CVA,Lung disease,renal dise ase Previous upper endoscopies w ith pa have been negative for any esophagitis nor [...]
--- OUTSIDE RECORDS SUMMARY | 2025-01-13 13:51 | XMS_ITS ---
Author Organization [facility] Address [address] [place] [address] Care Team Providers Care Turn Down Attendant Name Role Phone Clarice Ziegler MD Primary Care Provider Jamari Hill Unavailable [phone] Allergies Allergen (clinical drug ingredient) Drug/Non Drug [...] N/A Encounters Encounter Location Date Provider Diagnosis [facility] [address] [place] [address] 12/31/2024 Jamari Giron Dysphagia R13.10 Assessments Encounter [...] 12:10:00 PM, [address], [address], [place], [address], Progress Notes * IRAIDA SHEEHANDOB:1935 (89 yo F)Acc No.[id number]:12/31/2024 Progress Notes Patient:?IRAIDA SHEEHAN Provider:?Jamari Giron MD :1935???Age:89 Y???Sex:Female D ate:12/31/2024 Address:[address] [place], [place] [address] Pcp:Clarice Ziegler MD Subjective: * Chief Complaints: [...] her progress. Plan: * Treatment: * Procedure Codes:?99816 ESOPH VIGNESH [id number] TOBACCO NON-HCOAH2911 BP SCR NOT PRFRM REC REASON NOS * Preventive Medicine:? ??Urinary Incontinence:?Urinary Incontinence?Assessment:?Present,?Plan of care documented:?Yes,?Type of plan of care:?Bladder training.? ??Screenings:?Fall Risk Screening?Fall Risk Assessment:?No falls in the past year,?Screening:?No falls in the past year,?Assessment:?Not performed, no reason specified,?Plan of Care:?Not documented, no reason specified.? * Follow Up:?prn * * Sign off status: Completed true * Provider:?Jamari Giron MD Date:? 025 Generated for Karli vargas/Yarelis/Neetu on:?01/13/2025 01:50 PM EDT History and Physical Notes * [...] She has had previous upper endoscopies with hi that were negative for esophagitis, Gay's esophagus, [...]
--- OUTSIDE RECORDS SUMMARY | 2025-01-13 13:51 | XMS_ITS ---
Author Organization [facility] [place] Address [address] [place] [address] Care Team Providers Care Locomotive Engineer Diesel Name Role Phone Clarice Ziegler MD Primary Care Provider Daisy Perry Unavailable [phone] Allergies Allergen (clinical drug ingredient) Drug/Non Drug [...] 025 Encounters Encounter Location Date Provider Diagnosis [facility] [address] [place] [address] 12/17/2024 Daisy Villarreal Hammer toe of left [...] Reason: Provider Name:Daisy marcial, 03/18/2025 03:00:00 PM, [address] [place] [address], [place], [address], Procedure Notes * Category Sub-Category [...] use of a nail nipper and/or dremel-type lens grinder rough, to a more viable healthy nail plate [...] to maintain effectiveness in symptomatic relief - 02266 Keratoma Treatment Parring or Cutting o f [...] instrumentation by the physician of record - 66029 Progress Notes * Iraida SHEEHANDOB:1935 (89 yo F)Acc No.[id number]:12/17/2024 Progress Note Patient:?VALLEY, Iraida Provider:?Daisy Villarreal DPM :1935???Age:89 Y???Sex:Female D ate:12/17/2024 Address:[address] [place] [address] [id number] Pcp:Clarice Ziegler MD Subjective: * Chief Complaints: [...] Procedure:?fall at [facility] went to ER ER C- dizzy , [...] PT, walking. ?Marital status: . 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 * Medications:?TakingPotassium Atenolol 25 MG [...] use of a nail nipper and/or dremel-type lens grinder rough, to a more viable healthy nail plate [...] to maintain effectiveness in symptomatic relief - 98865.?Keratoma Treatment:?Parring or Cutting of Benign Hyperkeratotic Lesion(s)?(-57) [...] instrumentation by the physician of record - 48103.? * Procedure Codes:?57068 DEBRI DE NAIL, 6 OR MORE, Modifiers: XS 76371 TRIM SKIN LESIONS, OVER 4, Modifiers: XS [...] Villarreal DPM Date:? Generated for Karli vargas/Yarelis/Neetu on:?01/13/2025 01:50 PM [...]
--- OUTSIDE RECORDS SUMMARY | 2025-01-13 13:51 | XMS_ITS | Patient Health Record ---
Author Organization [facility] [place] Address [address] 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 Problem 46665967573920593 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) Active confirmed Vital Signs Blood pressure diastolic 60 mm Hg 12/17/2024 Height 5 ft 1 in in 12/17/2024 Blood pressure systolic 115 mm Hg 12/17/2024 Weight 93 lbs 12/17/2024 BMI 17.57 kg/m2 12/17/2024 Encounters Encounter Location Date Provider Diagnosis [address] [address] 03/11/2024 Daisy Perica Hallux valgus (acquired), left foot M20.12 ; Hammer toe of left foot M20.42 ; Atherosclerosis of artery of both lower extremities I70.203 ; Hammertoe of right foot M20.41 ; Tinea unguium B35.1 ; Pain in left toe(s) M79.675 and Pain in right toe(s) M79.[address] [address] 05/28/2024 Daisy Perica Hallux valgus (acquired), left foot M20.12 ; Hammer toe of left foot M20.42 ; Atherosclerosis of artery of both lower extremities I70.203 ; Hammertoe of right foot M20.41 ; Tinea unguium B35.1 ; Pain in left toe(s) M79.675 and Pain in right toe(s) M79.[address] [address] 09/16/2024 Daisy Perica Hallux valgus (acquired), left foot M20.12 ; Hammer toe of left foot M20.42 ; Atherosclerosis of artery of both lower extremities I70.203 ; Hammertoe of right foot M20.41 ; Tinea unguium B35.1 ; Pain in left toe(s) M79.675 and Pain in right toe(s) M79.674 [facility] [address] [address] 12/17/2024 Daisy Villarreal Hammer toe of left f oot M20.42 ; Tinea pedis of both feet B35.3 ; Hallux valgus (acquired), left foot M20.12 ; Atherosclerosis of artery of both lower extremities I70.203 ; Hammertoe of right foot M20.41 ; Tinea unguium B35.1 ; Pain in left toe(s) M79.675 and Pain in right toe(s) M79.674 [facility] [address] [address] 03/11/2024 Daisy Villarreal [facility] [address] [address] 04/01/2024 Daisy Villarreal [facility] [address] [address] 05/06/2024 Daisy Villarreal [facility] [address] [address] 05/28/2024 Daisy Villarreal [facility] [address] 06/27/2024 Daisy Villarreal [facility] [address] [address] 09/16/2024 Daisy Villarreal [facility] [address] [address] 12/17/2024 Daisy Villarreal Assessments Encounter Date Diagnosis [...] Provider Name:Daisy marcial, 03/18/2025 03:00:00 PM, [address] [place], [address], Insurance Providers Payer Name Payer Address Payer Phone Subscriber Number Group Number Insured Name Patient Relationship to Insured Coverage Start Date Coverage End Date Medicare National Govt Sv[employer] [address] [facility] [place] [address] [id number] Iraida Cantor Self - patient is the insured Med[employer] Blue Shield [address] [place] [address] [phone] [id number] Iraida Cantor Self - patient is the [...] , high blood pressure 11/17 fall at [facility] went to ER
--- NOTE | 2025-01-22 13:21 | P.CONAN_ITS ---
Documented by User: Trinity Lopez NP 01/22/25 13:22 HPI - Anesthesia Eval Consult details Narrative: 89yo F for Upper Endoscopy with Balloon Dilitation PMFSH Active Problems Active Problems: All Active Problems Left ovarian cyst (Acute) Renal cyst, acquired, right (Acute) Anxiety and depression (Acute) Dysphagia (Acute) Urinary bladder incontinence (Acute) Carotid stenosis, bilateral (Acute) Heart murmur (Acute) UTI (urinary tract infection) (Acute) Bilateral impacted cerumen (Acute) Vertigo (Acute) Balance disorder (Acute) Leg weakness, bilateral (Acute) Hyponatremia (Acute) Edema (Acute) Anxiety (Acute) Palpitations (Acute) CKD (chronic kidney disease) stage 3, GFR 30-59 ml/min (Acute) Vitamin D deficiency (Acute) Fall (on) (from) other stairs and steps, initial encounter (Acute) HTN (hypertension) (Acute) History of SIADH (Acute) Chronic anemia (Acute) Skin tear of left lower leg without complication (Acute) Osteoporosis (Acute) Past Medical History Medical History Ovarian cyst Renal cyst CKD (chronic kidney disease) stage 3, GFR 30-59 ml/min Vitamin D deficiency Chronic anemia History of SIADH Osteoporosis HTN (hypertension) Family History Family History Father History of CVA (cerebrovascular accident) Stroke Mother CVD (cardiovascular disease) History of heart attack Son No problems noted. Sister Substance use disorder Surgical History Surgical History History of left shoulder replacement History of hysterectomy History of fundoplication History of cataract History of colonoscopy History of open reduction and internal fixation (ORIF) procedure History of appendectomy Social History Social History Housing: House Are you a primary personal care service provider to a significant other at home: No Do you presently have visiting nurse or other home services: No Alcohol intake: never Patient Tobacco Use Status: Never used Tobacco e-Cigarette/Vaping Use: Never Used Have you been hit, kicked, punched, or otherwise hurt by someone within the past year? If so, by whom?: No Are you DNR?: No Advance Directives: No Advance Directives Information Provided: Yes Advance Directives Date on File: 03/28/23 Poor oral hygiene: No service: No Current occupational status: retired Cognitive needs: No Hearing needs: No Vision needs: Yes Meds Allergies Allergy/AdvReac Type Severity Reaction Status Date / Time meperidine [From Demerol] Allergy Severe ANAPHYLAXIS Verified 01/23/25 11:06 Penicillins Allergy Severe HIVES Verified 01/23/25 11:06 Sulfa (Sulfonamide Allergy Mild HIVES Verified 01/23/25 11:06 Antibiotics) [Sulfa (Sulfonamides)] amoxicillin Allergy Unknown hives Verified 01/23/25 11:06 CHOCOLATE Allergy Unknown HIVES Verified 01/23/25 11:06 peanut [PEANUT] Allergy Unknown HIVES Verified 01/23/25 11:06 penicillin G Allergy Unknown trouble Verified 01/23/25 11:06 breathing rash penicillin V Allergy Unknown trouble Verified 01/23/25 11:06 breathing rash alendronate sodium AdvReac Intermediate Tooth Verified 01/23/25 11:06 [From Fosamax] abscess codeine [Codeine] AdvReac Mild NAUSEA/VOMI Verified 01/23/25 11:06 TING pravastatin AdvReac Unknown body aches Verified 12/30/24 11:58 Home Medications ?Medication ?Instructions ?Recorded ?Confirmed ?Last Taken ?Type cholecalciferol (vitamin D3) 50 50 mcg PO DAILY 09/24/20 01/23/25 Unknown History mcg (2,000 unit) capsule Exam Pertinent Lab Results Pertinent Lab Results: Laboratory Tests 12/30/24 12:53 WBC 8.0 Hgb 11.8 L Hct 35.5 L Plt Count 177 Sodium 137 Potassium 4.1 Chloride 103 Carbon Dioxide 23 BUN 38 H Creatinine 1.07 Narrative Narrative: EKG 12/2024 Vent. Rate : 74 BPM Atrial Rate : 74 BPM P-R Int : 182 ms QRS Dur : 82 ms QT Int : 416 ms P-R-T Axes : 3 33 13 degrees QTcB Int : 461 ms Artifact in tracing Normal sinus rhythm Moderate voltage criteria for LVH, may be normal variant ( Sokolow-Mcgee , Denis product ) Borderline ECG When compared with ECG of 27-Feb-2024 18:40, Nonspecific T wave abnormality now evident in Inferior leads ECHO 06/2024 Conclusions: - 1. Normal LV ejection fraction 55-60% with pseudonormal filling pattern 2. Severely dilated left atrium 3. Leop-gp-gcqjazim aortic stenosis 4. 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 Normal RV systolic pressure with mildly elevated right atrial pressures 6. No gross pericardial effusion Assessment and Plan Assessment Anesthesia Assessment: Chart Reviewed Documented by User: Lesley Perry MD 01/23/25 11:57 [facility] Past Medical History Medical History Ovarian cyst Renal cyst CKD (chronic kidney disease) stage 3, GFR 30-59 ml/min Vitamin D deficiency Chronic anemia History of SIADH Osteoporosis HTN (hypertension) Functional capacity: wheelchair bound Family History Family History Father History of CVA (cerebrovascular accident) Stroke Mother CVD (cardiovascular disease) History of heart attack Son No problems noted. Sister Substance use disorder Family history of problems with anesthesia: No Surgical History Surgical History History of left shoulder replacement History of hysterectomy History of fundoplication History of cataract History of colonoscopy History of open reduction and internal fixation (ORIF) procedure History of appendectomy History of Problems with Anesthesia: No Social History Social History Housing: House Are you a primary personal care service provider to a significant other at home: No Do you presently have visiting nurse or other home services: No Alcohol intake: never Patient Tobacco Use Status: Never used Tobacco e-Cigarette/Vaping Use: Never Used Have you been hit, kicked, punched, or otherwise hurt by someone within the past year? If so, by whom?: No Are you DNR?: No Advance Directives: No Advance Directives Information Provided: Yes Advance Directives Date on File: 08/02/23 Poor oral hygiene: No service: No Current occupational status: retired Cognitive needs: No Hearing needs: No Vision needs: Yes Meds Allergies Allergy/AdvReac Type Severity Reaction Status Date / Time meperidine [From Demerol] Allergy Severe ANAPHYLAXIS Verified 01/23/25 11:06 Penicillins Allergy Severe HIVES Verified 01/23/25 11:06 Sulfa (Sulfonamide Allergy Mild HIVES Verified 01/23/25 11:06 Antibiotics) [Sulfa (Sulfonamides)] amoxicillin Allergy Unknown hives Verified 01/23/25 11:06 CHOCOLATE Allergy Unknown HIVES Verified 01/23/25 11:06 peanut [PEANUT] Allergy Unknown HIVES Verified 01/23/25 11:06 penicillin G Allergy Unknown trouble Verified 01/23/25 11:06 breathing rash penicillin V Allergy Unknown trouble Verified 01/23/25 11:06 breathing rash alendronate sodium AdvReac Intermediate Tooth Verified 01/23/25 11:06 [From Fosamax] abscess codeine [Codeine] AdvReac Mild NAUSEA/VOMI Verified 01/23/25 11:06 TING pravastatin AdvReac Unknown body aches Verified 12/30/24 11:58 Home Medications ?Medication ?Instructions ?Recorded ?Confirmed ?Last Taken ?Type cholecalciferol (vitamin D3) 50 50 mcg PO DAILY 09/24/20 01/23/25 Unknown History mcg (2,000 unit) capsule Exam Airway Mallampati Class: II TM Dist: >3cm Neck ROM: Full Heart: rrr Lungs: cta Assessment and Plan Assessment Anesthesia Assessment: Anesthesia Plan Discussed Final Anesthetic Review Family History of Problems with Anesthesia: No History of Problems with Anesthesia: No NPO: Yes ASA Class: III Final Preanesthetic Review: No Changes in Pt Med Stat, Meds/Allgs Chart Reviewed and Consent Obtained/Reviewed Patient Risk: Intermediate Procedure Risk: Intermediate Anesthetic Plan Anesthetic Plan: MAC: Disposition: Standard PACU
[2025-01-23 11:15] VITALS: BP 178/77; PULSE 54; RESP 18; TEMP 36.6; O2SAT 97; BMI 17.1
[2025-01-23] MEDS: Lactated Ringers 1,000 ML 100 ML IVCONT (11:22)
[2025-01-23 11:34] VITALS: BP 161/56
[2025-01-23 12:51] VITALS: BP 156/75; PULSE 80; RESP 16; TEMP 36.3; O2SAT 98
--- NOTE | 2025-01-23 12:53 | PM.OP ---
Brief Operative Note Date of Service: 01/23/25 Pre-op diagnosis: Dysphagia Post-op diagnosis: other (Hiatal hernia, GERD) Procedure: EGD with Balloon dilation from 15mm to 16.5mm to 18mm, and with biopsies Surgeon: Jamari Giron MD Anesthesia: MAC Was an Sandwich Maker used for this Procedure?: No Estimated blood loss (mL): 2.0 Pathology: other (A. EG Junction at 34cm) Condition: stable Disposition: PACU
[2025-01-23 13:00] VITALS: BP 161/65; PULSE 58; RESP 16; O2SAT 98
[2025-01-23 13:15] VITALS: BP 177/77; PULSE 61; RESP 16; TEMP 36.1; O2SAT 99
--- NOTE | 2025-01-23 23:04 | OP_ITS ---
DATE OF SERVICE: 01/23/2025 SURGEON: Jamari iGron MD INDICATIONS: The patient presents for evaluation of dysphagia. Full consent has been obtained from her for this, including risks of bleeding and perforation. PREOPERATIVE DIAGNOSIS: POSTOPERATIVE DIAGNOSIS: PROCEDURE PERFORMED: Esophagogastroduodenoscopy with balloon dilation of gastroesophageal junction and biopsies. ESTIMATED BLOOD LOSS: COMPLICATIONS: ANESTHESIA: Medication used, monitored anesthesia care. ASSISTANTS: SPECIMENS: PREOPERATIVE DIAGNOSES: Dysphagia. POSTOPERATIVE DIAGNOSES: Dysphagia, hiatal hernia, some evidence of reflux and narrowing at the gastroesophageal junction. DESCRIPTION OF PROCEDURE: The patient was placed in the left lateral decubitus position. The Olympus video gastroscope was passed in the posterior oropharynx and upper esophagus under direct vision. The scope was passed slowly to the distal esophagus. The gastroesophageal junction appeared at 34 cm. This area had areas of erythema and slight irregularity, but no definitive evidence of Gay's esophagus. There was no esophagitis nor ulceration. There was no mass nor stricture. The scope entered the stomach, although the gastroesophageal junction did appear somewhat narrowed, but that may have been from her previous hiatal hernia surgery. I did not visualize any stricture within the lumen. There was a fairly large hiatal hernia, although the mucosa appeared normal. The scope was advanced to the pylorus and the duodenum was cannulated to the descending portion. The duodenum including the bulb appeared normal without mass or ulceration. The scope was withdrawn back in the stomach. The gastric antrum and body appeared normal. Of note, there was some looping of the scope in the stomach at times as I was trying to reach the pylorus. The scope was retroflexed visualizing the proximal stomach carefully which appeared normal. I was able to visualize anatomy consistent with her previous hiatal hernia surgery. The scope was straightened and withdrawn back into the esophagus. I did dilate the gastroesophageal junction with a [employer] balloon from 15 mm to 16.5 mm to 18 mm at the recommended pressure for between 30 and 60 seconds each. Postdilation there really was no appreciable heme nor difference in the appearance of the gastroesophageal junction. I did obtain biopsies at 34 cm at the gastroesophageal junction. There was no evidence of any other esophageal mucosal abnormalities nor proximal strictures. The esophagus itself did appear somewhat tortuous. The scope was withdrawn from the patient. She tolerated the procedure well and was returned to the recovery area in stable condition. IMPRESSION: 1. Hiatal hernia. 2. Gastroesophageal reflux. 3. Some slight narrowing at the gastroesophageal junction, status post balloon dilation. PLAN: The results of the biopsies will be checked. Given her clinical history, I shall start her on omeprazole 40 mg daily to see if that can help relieve any dysphagia that might be as a result of acid reflux and esophageal spasm due to the hiatal hernia. Depending upon her clinical course, she may need further evaluation with a barium swallow to reassess her anatomy and be sure she does not have any component of a paraesophageal hernia again. She may also need esophageal motility studies. MD DARREN Parker/LA / [id number] MTDD
== END 2025-01-23 14:07 | disposition home or self-care (01) ==
PROVIDERS: PCP Internal Medicine; Visit Provider Internal Medicine
PROC: (CPT 43249; principal; 2025-01-23 12:10)
DX: R13.10 Dysphagia, unspecified (principal); K44.9 Diaphragmatic hernia without obstruction or gangrene; K21.9 Gastro-esophageal reflux disease without esophagitis; I10 Essential (primary) hypertension; F43.23 Adjustment disorder with mixed anxiety and depressed mood; Z79.899 Other long term (current) drug therapy; Z88.0 Allergy status to penicillin; Z91.010 Allergy to peanuts; Z98.890 Other specified postprocedural states
CPT/HCPCS: 43249; 43239; 88305; 88313; C1726; J2003; J2704

== ENCOUNTER 2025-01-29 11:45 | Outpatient (REF) | payer MEDICARE, SELFPAY ==
--- OUTSIDE RECORDS SUMMARY | 2025-01-29 13:57 | XMS_ITS | Encounter Summary ---
Author Organization [facility] Address [address] [place] [address] Care Team Providers Care Business Office Coordinator Name Role Phone Clarice Ziegler MD Primary Care Provider Unavaila ble Reason for Visit * Reason Onset Date Comments Gynecological Problem 10/04/2017 Encounter Details Date Type Department Care Team Description 10/04/2017 Telephone OBGYN - [address] [address] Jamari Murillo MD Gynecological Problem Social History Tobacco Use Types Packs/Day Years Used Date Smoking Tobacco: Never Smokeless Tobacco: Never Sex Assigned at Date Recorded Not on file documented as of this encounter Miscellaneous Notes * Telephone Encounter - Kathya Soni R.N. - 10/04/2017 4:59 PM EST Rx faxed to [facility] Specialty attn Michelle as requested. * [...] Rx will need tish hand faxed to [facility] Specialty attn Mirella to [phone] who will be looking for this prescription.She will urgently expedite this for pt so that she can get this medication aby. (I did also speak to Michelle at [facility] Special[facility] who confirmed the above. She [...] has the patient had this problem? Pt???s MAGNETIC DOCTOR provider: Jamari Murillo M.D. Last menstrual period (LMP) or EDC (due date): N/A documented in this encounter Plan of Treatment Not on file documented as of this encounter Visit Diagnoses Diagnosis Osteoporosis with pathological fracture, initial encounter- Primary documented in this encounter Care Teams Business Office Coordinator Relationship Specialty Start Date End Date Clarice Ziegler MD PCP - General Internal Medicine 09/10/17 documented as of this encounter
[2025-01-29 14:42] LABS: Anion Gap 12 (12-20); Blood Urea Nitrogen 39 mg/dL (9-16); Calcium 9.7 mg/dL (8.4-10.2); Carbon Dioxide 25 mmol/L (22-29); Chloride 99 mmol/L (96-108); Estimated Glomerular Filt Rate 51; Glucose Random 101 mg/dL (60-115); Iron 55 mcg/dL (30-160); Percent Iron Saturation 27 % (15-50); Potassium 4.5 mmol/L (3.3-5.1); Sodium 131 mmol/L (135-145); Total Iron Binding Capacity 206 mcg/dL (228-428); Unsaturated Iron Binding 151 ug/dL
== END 2025-01-29 11:46 | disposition home or self-care (01) ==
LOC: HO.HMGCLDS 11:45
PROVIDERS: PCP Internal Medicine; Visit Provider Internal Medicine
DX: D64.9 Anemia, unspecified (principal); N18.30 Chronic kidney disease, stage 3 unspecified; E87.1 Hypo-osmolality and hyponatremia; M81.0 Age-related osteoporosis without current pathological fracture; I10 Essential (primary) hypertension
CPT/HCPCS: 36415; 80048; 83540

== ENCOUNTER 2025-01-30 13:04 | Outpatient (AMB) | payer MEDICARE, SELFPAY ==
--- OUTSIDE RECORDS SUMMARY | 2025-01-30 13:06 | XMS_ITS | Encounter Summary ---
Author Organization [facility] Address [address] [place] [address] Care Team Providers Care Felt Hat Steamer Name Role Phone Clarice Ziegler MD Primary Care Provider Unavaila ble Reason for Visit * Reason Onset Date Comments Gynecological Problem 10/04/2017 Encounter Details Date Type Department Care Team Description 10/04/2017 Telephone OBGYN - [address] [address] Jamari Murillo MD Gynecological Problem Social History Tobacco Use Types Packs/Day Years Used Date Smoking Tobacco: Never Smokeless Tobacco: Never Sex Assigned at Date Recorded Not on file documented as of this encounter Miscellaneous Notes * Telephone Encounter - Kathya Soni R.N. - 10/04/2017 4:59 PM EST Rx faxed to [facility] Specialty attn Michelle as requested. * Telephone [...] Rx will need tish hand faxed to [facility] Specialty attn Mirella to [phone] who will be looking for this prescription.She will urgently expedite this for pt so that she can get this medication aby. (I did also speak to Michelle at [facility] who confirmed the above. She is [...] has the patient had this problem? 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 Last menstrual period (LMP) or EDC (due date): N/A documented in this encounter Plan of Treatment Not on file documented as of this encounter Visit Diagnoses Diagnosis Osteoporosis with pathological fracture, initial encounter- Primary documented in this encounter Care Teams Felt Hat Steamer Relationship Specialty Start Date End Date Clarice Ziegler MD PCP - General Internal Medicine 09/10/17 documented as of this encounter
--- NOTE | 2025-01-30 13:20 | A.OFFPC_ITS ---
Vital Signs 01/30/25 13:21 Height 5 ft Weight 89 lb 8 oz BMI 17.5 BP 126/60 Blood Pressure Location Rt brachial Position Sitting Respiration 16 Pulse 54 Pulse Source Pulse Oximeter Temp 97.8 F Temp Source Oral Pulse Oximetry (%) 99 Oxygen Delivery Method Room Air Intake Visit Reasons: Elevated BP Intake Note: Pt is here today for a Hospital follow up visit. Allergies meperidine [From Demerol] Allergy (Severe, Verified 01/30/25 13:25) ANAPHYLAXIS Penicillins Allergy (Severe, Verified 01/30/25 13:25) HIVES Sulfa (Sulfonamide Antibiotics) [Sulfa (Sulfonamides)] Allergy (Mild, Verified 01/30/25 13:25) HIVES amoxicillin Allergy (Unknown, Verified 01/30/25 13:25) hives CHOCOLATE Allergy (Unknown, Verified 01/30/25 13:25) HIVES peanut [PEANUT] Allergy (Unknown, Verified 01/30/25 13:25) HIVES penicillin G Allergy (Unknown, Verified 01/30/25 13:25) trouble breathing rash penicillin V Allergy (Unknown, Verified 01/30/25 13:25) trouble breathing rash alendronate sodium [From Fosamax] Adverse Reaction (Intermediate, Verified 01/30/25 13:25) Tooth abscess codeine [Codeine] Adverse Reaction (Mild, Verified 01/30/25 13:25) NAUSEA/VOMITING pravastatin Adverse Reaction (Unknown, Verified 01/30/25 13:25) body aches Medication List - Last Reconciled 01/30/25 by Clarice Ziegler MD acetaminophen 1,000 mg (2 x 500 mg) PO Q6H PRN ascorbic acid (vitamin C) 500 mg PO .qod atenolol 25 mg PO DAILY cholecalciferol (vitamin D3) 50 mcg PO DAILY bruce.stocking,knee,reg,smal 10-20 mmHg, with zippers estradiol 0.01%(0.1mg/gram) 1 g vaginal 3XW ferrous sulfate 325 mg PO Q OTHER DAY furosemide (Lasix) 20 mg PO Q OTHER DAY lorazepam 0.5 mg PO DAILY PRN meclizine 25 mg PO QID PRN miscellaneous medical supply 1 ea miscellaneous .qd Myrbetriq ER (mirabegron) 25 mg PO DAILY NS potassium chloride ER 20 mEq PO DAILY Tobacco use date assessed: 12/18/24 Dental Screening Dental Screen Date: 09/17/24 HPI Elevated BP HPI Details Pt presents for f/u for ER visit for the episode of headache lightheadedness after taking Wellbutrin for few days. In the ER patient's blood pressure was elevated and she restarted taking atenolol. Patient is feeling better and stopped Wellbutrin. She is planning to go to [facility] in 2 weeks to visit her son. [facility] Medical History (Updated 01/30/25 @ 15:42 by Clarice Ziegler MD) Heart murmur Dysphagia Anxiety and depression Renal cyst, acquired, right Ovarian cyst CKD (chronic kidney disease) stage 3, GFR 30-59 ml/min Vitamin D deficiency Chronic anemia Osteoporosis HTN (hypertension) Surgical History History of left shoulder replacement History of hysterectomy History of fundoplication History of cataract History of colonoscopy History of open reduction and internal fixation (ORIF) procedure History of appendectomy Family History Father History of CVA (cerebrovascular accident) Stroke Mother CVD (cardiovascular disease) History of heart attack Son No problems noted. Sister Substance use disorder Social History Housing: House Are you a primary tree care foreman to a significant other at home: No Do you presently have visiting nurse or other home services: No Alcohol intake: never Patient Tobacco Use Status: Never used Tobacco e-Cigarette/Vaping Use: Never Used Advance Directives Date on File: 03/28/23 service: No Current occupational status: retired Cognitive needs: No Hearing needs: No Vision needs: Yes Questionnaire Thrive Questionnaire Date Thrive assessed: 09/17/24 VÍCTOR-7 AMB Questionnaire VÍCTOR-7 Date VÍCTOR - 7 assessed: 09/17/24 Source: Developed by Drs. aJmari Villagran, Iraida Slade, Raul Montesinos and colleagues, with an educational benedicto from [employer]). Review of Systems Const All systems reviewed & are unremarkable except as noted in HPI and below Eyes Reports no additional complaints ENT Reports no additional complaints Card Reports no additional complaints Resp Reports no additional complaints GI Reports no additional complaints Reports no additional complaints Physical exam (Primary Care) Vital Signs: Last Vital Signs Temp 97.8 F 01/30/25 13:21 Pulse 54 01/30/25 13:21 Resp 16 01/30/25 13:21 BP 126/60 01/30/25 13:21 Pulse Ox 99 01/30/25 13:21 Oxygen Delivery Method Room Air 01/30/25 13:21 BMI result Body Mass Index 17.5 Tobacco/Smoking Status: Tobacco use Status Tobacco use date assessed 12/18/24 01/30/25 13:33 Patient Tobacco Use Status Never used Tobacco 01/30/25 13:33 e-Cigarette/Vaping Use Never Used 01/30/25 13:33 Thrive Assessment: Date of Thrive Assessment Date Thrive assessed 09/17/24 01/30/25 13:33 Const General: no acute distress HENMT Head: Yes normal to inspection Eyes General: appearance normal, both eyes and all related structures Resp Effort & Inspection: normal respiratory effort Auscultation: clear to auscultation bilaterally Cardio Rhythm: regular rhythm Heart sounds: S1 normal heart sound present and S2 normal heart sound present GI Inspection: Yes normal to inspection Palpation (GI): Soft to palpation Coding Level of Care Code Est Pt Level 4 (63451) Complex EM visit Add On G2211 Diagnoses Hyponatremia E87.1 Anxiety and depression F41.9; F32.A CKD (chronic kidney disease) stage 3, GFR 30-59 ml/min N18.30 HTN (hypertension) I10 Assessment & Plan Assessment & Plan (1) 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 She will continue fluid restriction and Lasix 20 mg twice a week (2) Anxiety and depression: Comment: Restart 12.5 mg of Zoloft 01/2025 Code(s): F41.9 - Anxiety disorder, unspecified; F32.A - Depression, unspecified Category: Medical Plan: Restart 12.5 mg of Zoloft (3) CKD (chronic kidney disease) stage 3, GFR 30-59 ml/min: Code(s): N18.30 - Chronic kidney disease, stage 3 unspecified Category: Medical Plan: Monitor renal function avoid nephrotoxins (4) HTN (hypertension): Code(s): I10 - Essential (primary) hypertension Category: Medical Plan: Continue 25 mg of atenolol. Patient will follow-up after she returns from [facility] at the end of March Orders: Orders Basic Metabolic Panel 1 Week E87.1 - Hypo-osmolality and hyponatremia Comprehensive Met. Panel 1 Month E87.1 - Hypo-osmolality and hyponatremia Medications: New sertraline 25 mg PO DAILY 45 tabs 3RF Refilled atenolol 25 mg PO DAILY 90 tabs 3RF
[2025-01-30 13:21] VITALS: BP 126/60; PULSE 54; RESP 16; TEMP 36.6; O2SAT 99; BMI 17.5
== END 2025-01-30 15:38 | disposition home or self-care (01) ==
LOC: HO.HMCC 13:05
PROVIDERS: PCP Internal Medicine; Visit Provider Internal Medicine
DX: E87.1 Hypo-osmolality and hyponatremia (principal); F41.9 Anxiety disorder, unspecified; F32.A Depression, unspecified; N18.30 Chronic kidney disease, stage 3 unspecified; I10 Essential (primary) hypertension

== ENCOUNTER → 2025-01-30 13:04 | Outpatient (BNVA) | payer MEDICARE, SELFPAY | PROVIDERS: PCP Internal Medicine; Visit Provider Internal Medicine | DX: E87.1 Hypo-osmolality and hyponatremia (principal); F41.9 Anxiety disorder, unspecified; F32.A Depression, unspecified; I12.9 Hypertensive chronic kidney disease with stage 1 through stage 4 chronic kidney disease, or unspecified chronic kidney disease; N18.30 Chronic kidney disease, stage 3 unspecified | CPT/HCPCS: 99212 ==

== ENCOUNTER 2025-02-13 07:10 | Outpatient (REF) | payer MEDICARE, SELFPAY ==
--- NOTE | ~2025-02-13 | FL_ITS ---
EXAMINATION: UPPER GI AIR CONTRAST STUDY AND BARIUM SWALLOW. CLINICAL INFORMATION: Dysphagia, para esophageal hernia COMPARISON: None available. TECHNIQUE: Routine upper GI single contrast study and barium swallow with barium tablet was performed in upright view. FINDINGS: Following oral administration of thin barium in upright view there is normal propagation of bolus from the oral cavity through the pharynx, esophagus into stomach without obstruction, narrowing or stricture no intraluminal filling defect or narrowing seen. On oral administration of barium tablet there is spontaneous passage from the oral cavity, pharynx, esophagus into stomach. On oral administration of saltine crackers coated with barium paste there is normal oral mastication and propagation of bolus into the esophagus. Mild holdup of solid food is seen in the mid to distal esophagus which cleared with oral administration of water. There is a questionable spasm or narrowing at the GE junction with solid food. On placing patient in supine and prone lying the course, caliber and peristalsis of the stomach and the duodenal bulb is normal. The duodenal C-loop is normal except for a small diverticulum within the C-loop. The mucosal pattern of stomach and duodenum is normal. FLUOROSCOPY TIME: 3 minutes and 47 seconds DOSE AREA PRODUCT: 1265 uGy-m2 (microgray-meter squared) FL/FL upper GI w Ba Swallow IMPRESSION: Mild spasm or narrowing suspected at the GE junction with solid foods only. Otherwise unremarkable barium swallow with thick and thin barium, barium coated saltine crackers and barium tablet. There is duodenal C-loop small diverticulum. Electronically signed by: Fernando Medina MD 02/13/2025 09:27 AM EDT
== END 2025-02-13 07:11 | disposition home or self-care (01) ==
LOC: HO.XRAY 07:10
PROVIDERS: PCP Internal Medicine; Visit Provider Internal Medicine
DX: K44.9 Diaphragmatic hernia without obstruction or gangrene (principal); R13.10 Dysphagia, unspecified
CPT/HCPCS: 74240

== ENCOUNTER → 2025-02-13 07:12 | Outpatient (BNV) | payer MEDICARE, SELFPAY | PROVIDERS: PCP Internal Medicine; Visit Provider Radiology Diagnostic Radiology | DX: R13.10 Dysphagia, unspecified (principal) | CPT/HCPCS: 74240 ==

== ENCOUNTER 2025-02-17 11:53 | Outpatient (REF) | payer MEDICARE, SELFPAY ==
--- OUTSIDE RECORDS SUMMARY | 2025-01-23 08:10 | XMS_ITS ---
Author Organization [facility] Address [address] [place] [id number] Care Team Providers Care Restaurant Recruiter Name Role Phone Clarice Ziegler MD Primary Care Provider Jamari Hill [phone] REASON FOR VISIT Patient presents today for dysphagia Encounters Encounter Location Date Provider Diagnosis [facility] Out[facility] [address] [place], [place] [id number] 01/23/2025 Jamari Giron Dysphagia R13.10 ; Gastro-esophageal reflux disease without esophagitis K21.9 and Hiatal hernia K44.9 Assessments Encounter Date Diagnosis (ICD Code) Assessment Notes Treatment Notes Treatment Clinical Notes Section Notes 01/23/2025 Dysphagia (ICD-10 - R13.10) 01/23/2025 Gastro-esophagea l reflux disease without esophagitis (ICD-10 - K21.9) 01/23/2025 Hiatal hernia (ICD-10 - K44.9) Plan Of Treatment No Information Progress Notes * ELIDA SHEEHANDOB:1935 (89 yo F)Acc No.[id number]:01/23/2025 EGD/MAC Patient: ELIDA ROBERTSON Provider: Andreina Giron MD :1935 A ge:89 Y S ex:Female Date:01/23/2025 Address:[address] [place] [id number] Pcp:Clarice Ziegler MD Subjective: * Chief Complaints: * 1 . Patient presents today for dysphagia. * Medical History: Objective: * Vitals: Assessment: * Assessment: 1. D ysphagia - R13.10 (Primary) 2 . G luz-esophageal reflux disease without esophagitis - K21.9 3 . H iatal hernia - K44.9 Plan: * Treatment: * Procedure Codes: 4 3249 ESOPH ENDOSCOPY, DILATION, 60835 UPPER GI ENDOSCOPY, BIOPSY, Modifiers: 59 * * The named appointment provid er may or may not be the originator of this progress note, and it is not deemed complete until electronically signed by the appointment provider. Sign off status: Pending * Provider: Andreina Giron MD Date: 0 01/23/2025 Generated for Karli vargas/Yarelis/Saurabhsmitting on: 0 02/17/2025 01:32 PM EDT
[2025-02-17 13:45] LABS: Anion Gap 13 (12-20); Blood Urea Nitrogen 32 mg/dL (9-16); Calcium 9.8 mg/dL (8.4-10.2); Carbon Dioxide 24 mmol/L (22-29); Chloride 94 mmol/L (96-108); Estimated Glomerular Filt Rate > 60; Glucose Random 84 mg/dL (60-115); Sodium 127 mmol/L (135-145)
== END 2025-02-17 11:54 | disposition home or self-care (01) ==
LOC: HO.HMGCLDS 11:53
PROVIDERS: PCP Internal Medicine; Visit Provider Internal Medicine
DX: E87.1 Hypo-osmolality and hyponatremia (principal)
CPT/HCPCS: 36415; 80048

== ENCOUNTER 2025-03-01 16:55 | Emergency (ER) | payer OTHER, SELFPAY ==
--- NOTE | ~2025-03-01 | XR_ITS ---
CLINICAL HISTORY: chest pain 2 view chest x-ray Comparison: None provided Findings: Right lower lobe lung nodule measuring 1.1 cm with right hilar lymphadenopathy measuring 1.9 cm, concerning for neoplastic process. Correlation with CT chest is recommended. Normal size heart. No acute fracture. IMPRESSION: Right lower lobe 1.1 cm lung nodule with right hilar lymphadenopathy measuring 1.9 cm, concerning for neoplastic process. Correlation with CT chest is recommended. This document has been electronically signed by: Maria E Prieto MD on 03/01/2025 19:20:01
--- NOTE | 2025-03-01 16:59 | ECG_ITS ---
Test Reason : chest pain Blood Pressure : */* mmHG Vent. Rate : 79 BPM Atrial Rate : 79 BPM P-R Int : 164 ms QRS Dur : 94 ms QT Int : 394 ms P-R-T Axes : 14 35 66 degrees QTcB Int : 451 ms Normal sinus rhythm Minimal voltage criteria for LVH, may be normal variant ( Sokolow-Mcgee ) Septal infarct , age undetermined Abnormal ECG When compared with ECG of 30-Dec-2024 14:34, Septal infarct is now Present ST now depressed in Inferior leads Nonspecific T wave abnormality no longer evident in Inferior leads Referred By: Generic ED Physician Electronically Signed By: Anam Schaefer
[2025-03-01 17:00] VITALS: BP 101/54; PULSE 81; O2SAT 98
[2025-03-01 17:02] VITALS: BP 108/52; PULSE 80; RESP 22; TEMP 36.9; O2SAT 98; BMI 16.6
--- NOTE | 2025-03-01 17:16 | PC.NURSE ---
sml soft BM noted when patient was undressed.
[2025-03-01 17:19] VITALS: BP 108/52; PULSE 79; RESP 20; TEMP 36.9; O2SAT 97
--- NOTE | 2025-03-01 17:21 | ECG_ITS ---
Test Reason : repeat/chest pain Blood Pressure : */* mmHG Vent. Rate : 70 BPM Atrial Rate : 70 BPM P-R Int : 160 ms QRS Dur : 88 ms QT Int : 430 ms P-R-T Axes : * 53 83 degrees QTcB Int : 464 ms Normal sinus rhythm Minimal voltage criteria for LVH, may be normal variant ( Sokolow-Mcgee ) Septal infarct (cited on or before 01-Mar-2025) Loss of R waves in anteroseptal leads Abnormal ECG When compared with ECG of 01-Mar-2025 16:59, Serial changes of evolving Septal infarct Present Referred By: Rodrick Dennison Electronically Signed By: Anam Schaefer
--- NOTE | 2025-03-01 17:32 | ED_ITS ---
HPI - Chest Pain General Chief Complaint: Chest Pain Stated Complaint: Chest pain, stabbing pain Time Seen by Provider: 03/01/25 17:14 History of Present Illness ED Provider: Rodrick Dennison MD HPI narrative: This is pleasant but frail 89-year-old female who complains to me mainly of anal pain/constipation and impaction. She also developed chest pain at rest at about 15:30. She is unable to characterize it well she said she was at rest felt a little sharp pain in the midsternal region no radiation. She was given nitroglycerin and aspirin by EMS. Denies vomiting sweating trauma to the chest wall. She did recently fall about week ago and was briefly at [facility] she tells me she had no significant injuries except she had bruising of the face with bleeding and difficulty ambulating after that and she has been treated for UTI with an indwelling [place] since that time. No urinary symptoms denies fever or chills Related Data Home Medications ?Medication ?Instructions ?Recorded ?Confirmed cholecalciferol (vitamin D3) 50 50 mcg PO DAILY 01/30/25 mcg (2,000 unit) capsule Previous Rx's ?Medication ?Instructions ?Recorded acetaminophen 500 mg capsule 1,000 mg (2 x 500 mg) PO Q6H PRN 01/15/21 pain #20 caps miscellaneous medical supply 1 ea miscellaneous .qd #1 ea 09/12/23 bruce.stocking,knee,reg,smal #2 ea 10/17/23 potassium chloride 20 mEq 20 meq PO DAILY #45 tabs 09/19 tablet,extended release(part/cryst) meclizine 25 mg tablet 25 mg PO QID PRN dizziness # 20 tabs 07/02/24 ascorbic acid (vitamin C) 500 mg 500 mg PO .qod #90 ta bs 09/17/24 tablet ferrous sulfate 325 mg (65 mg 325 mg PO Q OTHER DAY #4 5 tabs 09/17/24 iron) tablet lorazepam 0.5 mg tablet 0.5 mg PO DAILY PRN anxiety #10 09/17/24 tabs furosemide 20 mg tablet (Lasix) 20 mg PO Q OTHER DAY # 45 tabs 10/29/24 Myrbetriq 25 mg tablet,extended 25 mg PO DAILY #30 tab s 12/18/24 release (mirabegron) estradiol 0.01% (0.1 mg/gram) 1 g vaginal 3XW #42.5 gr ams 12/18/24 vaginal cream atenolol 25 mg tablet 25 mg PO DAILY #90 tabs 02/18 sertraline 25 mg tablet 25 mg PO DAILY #45 tabs 02/18 Allergies Allergy/AdvReac Type Severity Reaction Status Date / Time meperidine (From Demerol) Allergy Severe ANAPHYLAXIS Verified 03/01/25 17:08 Penicillins Allergy Severe HIVES Verified 03/01/25 17:08 Sulfa (Sulfonamide Allergy Mild HIVES Verified 03/01/25 17:08 Antibiotics) (Sulfa (Sulfonamides)) amoxicillin Allergy Unknown hives Verified 03/01/25 17:08 CHOCOLATE Allergy Unknown HIVES Verified 03/01/25 17:08 peanut (PEANUT) Allergy Unknown HIVES Verified 03/01/25 17:08 penicillin G Allergy Unknown trouble Verified 03/01/25 17:08 breathing rash penicillin V Allergy Unknown trouble Verified 03/01/25 17:08 breathing rash alendronate sodium (From AdvReac Intermediate Tooth Verified 03/01/25 17:08 Fosamax) abscess codeine (Codeine) AdvReac Mild NAUSEA/VOMI Verified 03/01/25 17:08 TING pravastatin AdvReac Unknown body aches Verified 03/01/25 17:08 [facility] Past Medical History Medical History (Updated 03/02/25 @ 00:00 by [place]) Heart murmur Dysphagia Anxiety and depression Renal cyst, acquired, right Ovarian cyst CKD (chronic kidney disease) stage 3, GFR 30-59 ml/min Vitamin D deficiency Chronic anemia Osteoporosis HTN (hypertension) Surgical History History of left shoulder replacement History of hysterectomy History of fundoplication History of cataract History of colonoscopy History of open reduction and internal fixation (ORIF) procedure History of appendectomy Family History Family History Father History of CVA (cerebrovascular accident) Stroke Mother CVD (cardiovascular disease) History of heart attack Son No problems noted. Sister Substance use disorder Social History Social History Housing: House Are you a primary geriatric personal care aide to a significant other at home: No Do you presently have visiting nurse or other home services: No Alcohol intake: never Patient Tobacco Use Status: Never used Tobacco e-Cigarette/Vaping Use: Never Used Advance Directives Date on File: 03/28/23 service: No Current occupational status: retired Cognitive needs: No Hearing needs: No Vision needs: Yes Physical Exam 2 Vital Signs: Vital Signs: Last Vital Signs Temp 98.4 F 03/01/25 21:40 Pulse 76 03/01/25 21:40 Resp 16 03/01/25 21:40 BP 140/52 H 03/01/25 21:40 Pulse Ox 96 03/01/25 21:40 O2 Del Method Room Air 03/01/25 21:40 BMI result Body Mass Index 16.6 Const: Other: EXAM: Gen: Alert, awake, well appearing, well hydrated. Head: Facial bruising at least several days old probably from the fall on the 19 of February. Frail thin but in no distress calm and comfortable on conversant Eyes: Anicteric, Normal conjunctiva. ENT: Facial bruising as above no facial deformity or instability. Moist mucosa, no pallor. ? Neck: Supple. Skin: ?No observable rash or bruising on exposed or examined skin Respiratory: Breathing comfortably, No distress.Clear to auscultation bilaterally, symmetric chest expansion, No wheeze, rales, ronchi. Cardiovascular: Regular rate and rhythm. No murmurs or rub. Well perfused periphery, warm extremities. No edema. ? Abdominal: No focal tenderness. Soft, no objective distension. No palpable masses or obvious organomegaly. ?No guarding, no rebound tenderness or other peritoneal findings. Rectal exam with firm claylike fecal impaction : No flank tenderness. Neuro: Alert. Gross movement of all extremities intact. ? Psych: Calm. Cooperative. MSK: No grossly visible deformity. Vital signs: See flowsheet Medications Administered Discontinued Medications Generic Name Dose Route Start Last Admin Trade Name Freq PRN Reason Stop Dose Admin Lidocaine HCl 10 ml 03/01/25 17:32 03/01/25 18:18 Lidocaine Hcl 2 % Urojet 10 Ml Jel.Pf.Lucy TOPICAL 03/01/25 17:33 10 ml ONCE ONE Administration Sodium Biphosphate/Sodium Phosphate 133 ml 03/01/25 18:53 03/01/25 19:57 Sodium Phosphate,[place]-Dibasic 133 Ml Enema NV 03/01/25 18:54 133 ml ONCE ONE Administration Procedures Rectal Disimpaction Time out performed rectal disimpaction: Yes Indication: fecal impaction Procedural Sedation: No Sedation/Analgesia: other (Rectal anesthetic: Lidocaine ) Technique: manual disimpaction with gloved finger Result: significant stool output Patient Tolerated Procedure: well Complications: pain Medical Decision Making Medical Decision Making MDM Narrative: 89-year-old female who tells me she is primarily here for anal pain and needs disimpaction. She has intermittent chest pain and does acknowledge that she complained to staff about central/right-sided chest discomfort. Recent traumatic injury evaluated at [facility]. She has been at rehab since that time. There was no characteristics suggestive of ACS, PE dissection or acute traumatic injury of the right chest wall. Troponin and ECG reassuring and I doubt this is an acute issue. There is no rib instability or evidence of pneumothorax or other acute process on x-ray. More importantly the patient came for severe rectal impaction. No clinical signs at the bowels are obstructed no distention or vomiting or ill or toxic appearance. Disimpaction was effective see below. Enema given after the manual disimpaction Preliminary Favored Differential Diagnosis: [ ] among additional considered etiologies Testing Interpreted Independently: Initially ECG 1659, felt to be erroneous with misplacement or abnormal chest stickers per the binder technician. We repeated this immediately. That initially ECG had concave upward ST elevations prominent in V2 and V3 without depressions. No STEMI criteria. There was LVH present. There was likely artifact in the inferior leads. The immediate repeat done at 17:20 after I saw the 1st DC ECG shows poor R-wave progression, LVH, no ST elevations Radiology or Lab testing Results Reviewed: Radiology is chest x-ray without acute abnormality. Labs reassuring including negative troponin Consults: Not Applicable Independent Historians/External Chart Reviews: Not Applicable Social Determinants of Health Impacting MDM/Planning: Not Applicable Lab Data 03/01/25 17:36 03/01/25 17:36 Labs: Lab Results 03/01/25 03/01/25 03/01/25 Range/Units 17:35 17:36 17:38 WBC 13.5 H (4.8-10.8) X10*3/uL RBC 2.65 L (4.20-5.50) X10*6/uL Hgb 8.6 L (12.0-16.0) g/dl Hct 24.9 L (37.0-47.0) % MCV 94.0 (80.0-98.0) fL MCH 32.5 (27.0-33.0) pg MCHC 34.5 (31.0-35.0) g/dl RDW 13.5 (11.0-16.0) % Plt Count 345 (160-400) X10*3/uL MPV 8.1 L (9.4-12.3) fL Immature Gran % (Auto) 1.0 H (0.0-0.4) % Neut % (Auto) 66.4 (45-73) % Lymph % (Auto) 20.2 (20-40) % [place] % (Auto) 9.3 (2-11) % Eos % (Auto) 2.6 (0-4) % Baso % (Auto) 0.5 (0-2) % Lymph # (Auto) 2.7 (1.2-4.9) X10*3/uL [place] # (Auto) 1.3 H (0.1-1.2) X10*3/uL Eos # (Auto) 0.4 (0.0-0.4) X10*3/uL Baso # (Auto) 0.1 (0.0-0.2) X10*3/uL Abs Immat Gran (auto) 0.14 H (0.00-0.03) X10*3/uL Absolute Neuts (auto) 9.0 H (2.0-8.3) x10*3/uL Absolute Nucleated RBC 0.000 (0.0-0.012) X10*3/uL Nucleated RBC % (auto) 0.0 (0.0-0.2) /100WBC PT 12.4 (10.9-12.4) SEC INR 1.1 (0.9-1.1) Sodium 133 L (135-145) mmol/L Potassium 3.8 (3.3-5.1) mmol/L Chloride 102 (96-108) mmol/L Carbon Dioxide 20 L (22-29) mmol/L Anion Gap 15 (12-20) BUN 49 H (9-16) mg/dL Creatinine 0.97 (0.5-1.4) mg/dL Estim Creat Clear Calc 27.7 Estimated GFR 54 Random Glucose 123 H (60-115) mg/dL Calcium 8.8 D (8.4-10.2) mg/dL Magnesium 2.6 (1.6-2.6) mg/dL Total Bilirubin 0.3 (0.0-1.0) mg/dL AST 27 (5-31) U/L ALT 33 H (0-31) U/L Alkaline Phosphatase 87 (39-117) U/L Troponin I High Sens 8.6 (<3.5-17.0) ng/L Total Protein 6.4 L (6.5-8.0) g/dL Albumin 3.7 (3.5-5.0) g/dL Influenza Type A (PCR) NEGATIVE (Negative) Influenza Type B (PCR) NEGATIVE (Negative) RSV RNA Qual (PCR) NEGATIVE (Negative) SARS-CoV-2 RNA (RT-PCR) NEGATIVE (Negative) 03/01/25 Range/Units 19:01 WBC (4.8-10.8) X10*3/uL RBC (4.20-5.50) X10*6/uL Hgb (12.0-16.0) g/dl Hct (37.0-47.0) % MCV (80.0-98.0) fL MCH (27.0-33.0) pg MCHC (31.0-35.0) g/dl RDW (11.0-16.0) % Plt Count (160-400) X10*3/uL MPV (9.4-12.3) fL Immature Gran % (Auto) (0.0-0.4) % Neut % (Auto) (45-73) % Lymph % (Auto) (20-40) % [place] % (Auto) (2-11) % Eos % (Auto) (0-4) % Baso % (Auto) (0-2) % Lymph # (Auto) (1.2-4.9) X10*3/uL [place] # (Auto) (0.1-1.2) X10*3/uL Eos # (Auto) (0.0-0.4) X10*3/uL Baso # (Auto) (0.0-0.2) X10*3/uL Abs Immat Gran (auto) (0.00-0.03) X10*3/uL Absolute Neuts (auto) (2.0-8.3) x10*3/uL Absolute Nucleated RBC (0.0-0.012) X10*3/uL Nucleated RBC % (auto) (0.0-0.2) /100WBC PT (10.9-12.4) SEC INR (0.9-1.1) Sodium (135-145) mmol/L Potassium (3.3-5.1) mmol/L Chloride (96-108) mmol/L Carbon Dioxide (22-29) mmol/L Anion Gap (12-20) BUN (9-16) mg/dL Creatinine (0.5-1.4) mg/dL Estim Creat Clear Calc Estimated GFR Random Glucose (60-115) mg/dL Calcium (8.4-10.2) mg/dL Magnesium (1.6-2.6) mg/dL Total Bilirubin (0.0-1.0) mg/dL AST (5-31) U/L ALT (0-31) U/L Alkaline Phosphatase (39-117) U/L Troponin I High Sens 8.2 (<3.5-17.0) ng/L Total Protein (6.5-8.0) g/dL Albumin (3.5-5.0) g/dL Influenza Type A (PCR) (Negative) Influenza Type B (PCR) (Negative) RSV RNA Qual (PCR) (Negative) SARS-CoV-2 RNA (RT-PCR) (Negative) Discharge Plan Discharge Clinical Impression: Chest pain, Fecal impaction Patient Disposition: Home, Self-Care Instructions: Chest Pain (DC) Additional Instructions: _ DISCHARGE DIAGNOSES: Chest pain of unclear cause reassuring workup with normal chest x-ray, negative troponin cardiac enzymes and reassuring EKG Fecal impaction: You had disimpaction and an enema. HISTORY OF PRESENTATION: ?Atypical nonexertional chest pain prior to arrival and several days to 1 week of constipation and fecal impaction/anal pain EMERGENCY DEPARTMENT COURSE,TESTS, TREATMENTS: While in the ED today you had reassuring cardiac workup with reassuring EKG, negative troponin enzymes and an chest x-ray without acute findings. You were found to have fecal impaction on examination and you had a digital manual fecal disimpaction and an enema with modest to near complete relief. DISCHARGE MEDICATIONS: ?[We have made no changes to your regular medication regimen] we recommend stool softener, increased fiber in the diet and regular enemas for the next few days. FOLLOW-UP: ?Call your primary or general physician soon as possible to discuss your symptoms, your ED visit and to discuss follow up plans Called PCP or have the rehab medical physician evaluate you within 48 hours INSTRUCTIONS ?& RETURN PRECAUTIONS: If any symptoms change first call your primary physician, if it is after-hours your primary doctors office should have a provider surface to air weapons officer you can speak with. If the symptoms are severe or very concerning to you then call 911 or return to the ED. Rodrick Dennison MD Emergency Physician [facility] Prescriptions: No Action potassium chloride 20 mEq tablet,ER particles/crystals 20 meq PO DAILY Qty: 45 1RF Rx Instructions: take with Lasix meclizine 25 mg tablet 25 mg PO QID PRN (Reason: dizziness) Qty: 20 0RF furosemide [Lasix] 20 mg tablet 20 mg PO Q OTHER DAY Qty: 45 3RF acetaminophen 500 mg capsule 1,000 mg PO Q6H PRN (Reason: pain) Qty: 20 0RF cholecalciferol (vitamin D3) 50 mcg (2,000 unit) capsule 50 mcg PO DAILY miscellaneous medical supply Misc 1 ea miscellaneous .qd Qty: 1 0RF Rx Instructions: [employer] (DME) bruce.stocking,knee,reg,smal Misc See Rx Instructions .Route Qty: 2 0RF Rx Instructions: 10-20 mmHg, with zippers ascorbic acid (vitamin C) 500 mg tablet 500 mg PO .qod Qty: 90 2RF Rx Instructions: every other day ferrous sulfate 325 mg (65 mg iron) tablet 325 mg PO Q OTHER DAY Qty: 45 3RF lorazepam 0.5 mg tablet 0.5 mg PO DAILY PRN (Reason: anxiety) Qty: 10 0RF atenolol 25 mg tablet 25 mg PO DAILY Qty: 90 3RF sertraline 25 mg tablet 25 mg PO DAILY Qty: 45 3RF estradiol 0.01 % (0.1 mg/gram) cream 1 g vaginal 3XW Qty: 42.5 2RF mirabegron [Myrbetriq] 25 mg tablet extended release 24 hr 25 mg PO DAILY Qty: 30 2RF Interventions: ED Discharge Assessment Last Done: 03/01/25 21:40 Discharge Date/Time: 03/01/25 21:40 Print Language: Georgian
[2025-03-01 17:43] LABS: MANUAL DIFF FLAG NO
--- NOTE | 2025-03-01 17:48 | PC.NURSE ---
Patient had previous fall 02/19 presenting with bruising over right side of face and arm. Patient presented to ED c/o of chest pain which has now resolved. EKG = NSR. VSS and up to date. Patient now reports pain in her rectum rated 9/10. Patient reports not having a BM since 02/18 per patient. Patient off and on takes a stool softner, not effective. Xray being taken at this time, results pending. Plan of care on going
[2025-03-01 17:54] LABS: INTERNATIONAL NORM RATIO 1.1 (0.9-1.1); Prothrombin Time 12.4 SEC (10.9-12.4)
[2025-03-01 17:55] LABS: Hematocrit 24.9 % (37.0-47.0); Hemoglobin 8.6 g/dl (12.0-16.0); Imm Gran Abs Auto 0.14 X10*3/uL (0.00-0.03); Imm Gran Pct Auto 1.0 % (0.0-0.4); Lymphocytes Absolute Auto 2.7 X10*3/uL (1.2-4.9); Mean Corpuscular HGB Conc 34.5 g/dl (31.0-35.0); Mean Corpuscular Hemoglobin 32.5 pg (27.0-33.0); Mean Corpuscular Volume 94.0 fL (80.0-98.0); NRBC Abs Auto 0.000 X10*3/uL (0.0-0.012); NRBC Pct Auto 0.0 /100WBC (0.0-0.2); Platelet Count 345 X10*3/uL (160-400); Red Blood Count 2.65 X10*6/uL (4.20-5.50); White Blood Count 13.5 X10*3/uL (4.8-10.8)
[2025-03-01 18:01] LABS: Alanine Aminotransferase 33 U/L (0-31); Albumin Level 3.7 g/dL (3.5-5.0); Alkaline Phosphatase 87 U/L (39-117); Anion Gap 15 (12-20); Aspartate Amino Transferase 27 U/L (5-31); Blood Urea Nitrogen 49 mg/dL (9-16); Calcium 8.8 mg/dL (8.4-10.2); Carbon Dioxide 20 mmol/L (22-29); Chloride 102 mmol/L (96-108); Creatinine Clr Calc Pharmacy 27.7; Estimated Glomerular Filt Rate 54; Magnesium 2.6 mg/dL (1.6-2.6); Potassium 3.8 mmol/L (3.3-5.1); Sodium 133 mmol/L (135-145); Total Protein 6.4 g/dL (6.5-8.0)
[2025-03-01 18:08] LABS: Troponin-I High Sensitivity 8.6 ng/L (<3.5-17.0)
[2025-03-01] MEDS: Lidocaine HCl 2 % Urojet 10 ML JEL.PF.APP TOPICAL (18:18)
[2025-03-01 18:20] LABS: Resp Syncy Virus RNA Qual PCR NEGATIVE (Negative); SARS COV2 PCR INHOUSE NEGATIVE (Negative)
[2025-03-01 19:28] LABS: Troponin-I High Sensitivity 8.2 ng/L (<3.5-17.0)
--- NOTE | 2025-03-01 20:08 | PC.NURSE ---
friend was at bedside reported son had concerns about patients return to facility. spoke to son at this time who requested pt stay overnight as she is familiar with staff, educated workup was done and determined safe to be discharged back to facility and son is in agreement and verbalizes pt can be discharged back to facility. agreement with plan. son states he is in town and will be visiting pt tomorrow and will be calling pcp in AM to notify of ED visit.
[2025-03-01 20:16] VITALS: BP 140/56; PULSE 70; RESP 18; TEMP 36.9; O2SAT 99
--- NOTE | 2025-03-01 21:04 | PC.NURSE ---
RN called Eddie Simmons to give report on pt going back to facility via EMS.
[2025-03-01 21:40] VITALS: BP 140/52; PULSE 76; RESP 16; TEMP 36.9; O2SAT 96
== END 2025-03-01 21:40 | disposition home or self-care (01) ==
PROVIDERS: Physician Assistant Medical; Emergency Provider Emergency Medicine
DX: R07.89 Other chest pain (principal); K56.41 Fecal impaction; Z03.818 Encounter for observation for suspected exposure to other biological agents ruled out; Z79.899 Other long term (current) drug therapy
CPT/HCPCS: 36415; 71046; 80053; 83735; 84484; 85025; 85610; 87637; 93005; 99284; 99285

== ENCOUNTER → 2025-03-01 16:59 | Outpatient (BNV) | payer OTHER, SELFPAY | PROVIDERS: Emergency Provider Emergency Medicine; Visit Provider Internal Medicine Cardiovascular Disease | DX: I25.2 Old myocardial infarction (principal); R94.31 Abnormal electrocardiogram [ECG] [EKG]; R07.89 Other chest pain | CPT/HCPCS: 93010 ==

== ENCOUNTER → 2025-03-01 17:05 | Outpatient (BNV) | payer MEDICARE, SELFPAY | PROVIDERS: Emergency Provider Emergency Medicine; Visit Provider Student in an Organized Health Care Education/Training Program | DX: R07.9 Chest pain, unspecified (principal); R91.1 Solitary pulmonary nodule; R59.0 Localized enlarged lymph nodes | CPT/HCPCS: 71046 ==